=== PATIENT | male | born 1950 | race Two or more races ===

== ENCOUNTER 2021-04-11 06:21 | Outpatient (REF) | payer OTHER, SELFPAY ==
--- NOTE | ~2021-04-11 | XR_ITS ---
EXAMINATION: XR SHOULDER, LEFT CLINICAL INFORMATION: Left shoulder pain COMPARISON: None TECHNIQUE: Left shoulder is imaged in 3 views. FINDINGS: There is no fracture, dislocation, or destructive process. The glenohumeral joint is unremarkable. The acromioclavicular alignment is normal. There are some fine punctate calcifications adjacent to the greater tuberosity consistent with calcific tendinosis. XR/XR shoulder LT min 2V IMPRESSION: Punctate calcification adjacent to greater tuberosity consistent with calcific tendinosis.
== END 2021-04-11 06:22 | disposition home or self-care (01) ==
LOC: HO.HOSX 06:21
PROVIDERS: Visit Provider Physician Assistant
DX: M75.32 Calcific tendinitis of left shoulder (principal)
CPT/HCPCS: 20610; 73030; J1040

== ENCOUNTER → 2021-05-23 13:57 | Outpatient (BNVA) | payer OTHER, SELFPAY | PROVIDERS: PCP Nurse Practitioner Primary Care; Visit Provider Physician Assistant | DX: Z13.89 Encounter for screening for other disorder (principal) ==

== ENCOUNTER 2021-06-07 10:23 | Outpatient (REF) | payer MEDICARE, SELFPAY ==
--- NOTE | ~2021-06-07 | MR_ITS ---
EXAMINATION: MRI LEFT SHOULDER WITHOUT CONTRAST CLINICAL INFORMATION: Left shoulder pain. Recent cortisone injection. COMPARISON: Radiograph dated 04/11/2021. TECHNIQUE: MR images of the shoulder were obtained on a 1.5 Kanika high-field strength scanner without intravenous contrast material. FINDINGS: ROTATOR CUFF: Minimal supraspinatus and subscapularis tendinosis. No tears. Small foci of calcific tendinosis is suspected on radiograph are not well seen by MRI, the radiograph is more sensitive. There is moderate atrophy and grade 2 fatty replacement of the teres minor muscle. No deltoid muscle atrophy. No additional rotator cuff muscle atrophy or fatty infiltration. 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 This lipoma produces minimal mass effect upon the axillary nerve just proximal to the quadrilateral space. BICEPS: Normal. CORACOACROMIAL ARCH: The undersurface of the acromion is flat with a small anterior subacromial spur. Mild acromioclavicular osteoarthritis. Trace subacromial-subdeltoid bursitis. LABRUM/CAPSULE: The posterosuperior labrum is ill-defined increased intrasubstance signal throughout from the 11 o'clock position through the 10 o'clock position, likely corresponding to an tear with significant fraying. The joint capsule is mildly thickened and edematous at the axillary pouch. The coracohumeral ligament is also thickened. GLENOHUMERAL JOINT/MARROW: Small glenoid osteophytes. There is a 6 x 8 mm partial-thickness chondral defect at the humeral head superomedially. Articular cartilage is otherwise normal. No fracture or malalignment. MR/MR shoulder LT wo con IMPRESSION: 1. Foci of calcific tendinosis seen on prior radiographs are not apparent by MRI. Minimal rotator cuff tendinosis. 2. Mild acromioclavicular and glenohumeral osteoarthritis. Focal degenerative tear of the posterosuperior glenoid labrum. 3. Moderate atrophy of the teres minor muscle, most likely idiopathic in nature. It is possible that mass effect on the axillary nerve produced by a 2.7 cm lipoma just anterior and inferior to the glenohumeral joint could have contributed to this appearance, though the deltoid muscle is normal in bulk without appreciable atrophy. 4. Mild capsular thickening and edema at the glenohumeral joint. This could be due to a mild capsular sprain. Adhesive capsulitis is also on the differential.
== END 2021-06-07 10:24 | disposition home or self-care (01) ==
LOC: HO.MRI 10:23
PROVIDERS: Visit Provider Physician Assistant
DX: S46.002A Unspecified injury of muscle(s) and tendon(s) of the rotator cuff of left shoulder, initial encounter (principal)
CPT/HCPCS: 73221

== ENCOUNTER 2021-06-15 10:22 | Emergency (ER) | payer MEDICARE, SELFPAY ==
[2021-06-15 10:28] VITALS: BP 176/89; PULSE 95; RESP 16; TEMP 36.1; O2SAT 97; BMI 27.3
--- NOTE | 2021-06-15 10:31 | ED_ITS ---
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 Patient states that 2 months ago he started to have this feeling of being itchy all over. Patient states he saw a different doctor a month ago who gave him a medication to help with the itching but it isn't. Patient denies any dizziness, lightheadedness, abdominal pain, nausea, vomiting, fever, chills, blurry vision, double vision, loss of vision, chest pain, difficulty breathing, shortness of breath, back pain, night sweats, pain with urination, increased urinary frequency, increased urinary urgency, blood in his urine or stool, syncope or a near syncopal episode, recent trauma or falls, bowel incontinence, bladder incontinence, bowel retention, bladder retention, or any other complaints at this time. Patient denies any medication changes, new soaps, or any new environmental items. Onset (ago): month(s) (2) Treatments prior to arrival: none Related Data Home Medications Medication Instructions Recorded Confirmed amlodipine 5 mg tablet 5 mg PO DAILY 05/23/21 capsaicin 0.1 % topical cream appl TOPICAL 05/23/21 (Capzasin-HP) diclofenac sodium 75 mg 75 mg PO DAILY 05/23/21 tablet,delayed release diphenhydramine HCl 25 mg tablet 25 mg PO BEDTIME 05/23/21 (Armida-Dryl) omeprazole 20 mg capsule,delayed 20 mg PO DAILY 05/23/21 release tizanidine 2 mg tablet 2 mg PO BID PRN 05/23/21 triamcinolone acetonide 0.1 % appl TOPICAL BID 05/23/21 topical cream Previous Rx's Medication Instructions Recorded diphenhydramine HCl 25 mg tablet 25 mg PO TID PRN 7 Days #20 tab 06/15/21 (Benadryl Allergy) Allergies Allergy/AdvReac Type Severity Reaction Status Date / Time No Known Allergies Allergy Verified 05/23/21 14:18 Review of Systems Constitutional: Constitutional: Reports no additional constitutional complaints, Denies chills, Denies fever(s) and Denies night sweats Eyes: Eyes: Reports no additional eye complaints, Denies blurry vision, Denies change in vision, Denies diplopia, Denies eye discharge, Denies loss of vision and Denies eye pain ENT: Denies dizziness Cardiovascular: Cardiovascular: Reports no additional cardiovascular complaints, Denies chest pain, Denies lightheadedness, Denies Loss of Consciousness and Denies dyspnea Respiratory: Respiratory: Reports no additional respiratory complaints and Denies dyspnea Gastrointestinal: Gastrointestinal: Reports no additional gastrointestinal complaints, Denies abdominal pain, Denies melena, Denies hematochezia, Denies change in bowel habits and Denies change in stool character Genitourinary: Genitourinary: Reports no additional male genitourinary complaints, Denies hematuria, Denies oliguria, Denies difficulty urinating, Denies dysuria, Denies urinary frequency, Denies urinary hesitancy, Denies urinary incontinence and Denies urinary urgency Musculoskeletal: Musculoskeletal: Reports no additional musculoskeletal complaints, Denies numbness and Denies tingling Integumentary/Breasts: Comments: feeling as though all of his skin it itching Neurologic: Denies dizziness, Denies loss of vision, Denies numbness and Denies tingling Psychiatric: Psychiatric: Reports no additional psychiatric complaints Endocrine: Endocrine: Reports no additional endocrine complaints Hematologic/Lymphatic: Hematologic/Lymphatic: Reports no additional hematologic/lymphatic complaints Allergic/Immunologic: Allergic/Immunologic: Reports no additional allergic/immunologic complaints [facility] Past Medical History Attestation statement: The following information was validated with the patient. Source: old records reviewed Medical History HTN (hypertension) Surgical History History of inguinal hernia repair Family History Family History Mother Asthma Alzheimer disease Father Asthma Social History Social History Household Members Other:: sister Housing: Apartment Alcohol intake: former Patient Tobacco Use Status: Former Tobacco user Advance Directives: No Advance Directives Information Provided: No Current occupational status: disabled Current occupation: rt handed Physical Exam ED Vital Signs: Vital Signs - 24 hr 06/15/21 10:28 Temperature 96.9 F Pulse Rate 95 Respiratory Rate 16 Blood Pressure 176/89 H Pulse Oximetry 97 BMI result Body Mass Index 27.3 Const General: cooperative, no acute distress, alert and awake Nutritional Appearance: well nourished Orientation/consciousness: patient oriented x3 Limitations: no limitations HENMT Head: Yes normal to inspection and Yes atraumatic Ears: hearing grossly normal bilaterally and external ears normal General nose exam: Normal external nose present, no nasal discharge noted and no epistaxis Face and sinus: Yes normal facial exam, No abrasion and No laceration Mouth: Normal oral and palatal mucosa present, no drooling and no muffled voice Eyes General: appearance normal, both eyes and all related structures Periorbital: periorbital findings normal Eyelids: Yes eyelids normal Conjunctivae: conjunctivae normal Pupils: Equal, round and reactive pupils present EOM: EOMs intact bilaterally Neck Neck: Yes normal visual inspection, Yes full ROM and Yes no lymphadenopathy Chest Chest palpation & inspection: normal inspection of the chest Resp Effort & Inspection: normal respiratory effort and able to speak in complete sentences Auscultation: clear to auscultation bilaterally Cardio Rate: regular rate Rhythm: regular rhythm GI Inspection: Yes normal to inspection Skin Other: No definite rash seen, patient is describing an itchy feeling all over Neuro General: patient oriented x3 and moves all extremities Cranial nerves: Yes Equal, round and reactive pupils present Cognition (Neuro): normal cognition Motor exam (neuro): 5/5 motor strength present throughout Sensory Exam: Normal double simultaneous stimulation for sensation Coordination: [id number] test normal Extrem General: Yes normal to inspection, Yes full ROM and Yes capillary refill normal Psych Appearance: grossly normal Mental Status: mental status grossly normal Affect: normal affect Attitude: cooperative Thought process: Normal thought process present Thought content: Normal thought content present Insight: Good insight present (Psych) Medical Decision Making [facility] Narrative Medical decision making narrative: Patient is a 70 year old male presenting to the emergency department today with an itchy feeling. Patient's physical exam was unremarkable. Upon reviewing the patient's records, I noted the patient to have gotten a joint injection 2 months ago, the day before his itchy symptoms started. I explained to the patient that this could be an allergic reaction from the joint injection and that the medication he was given could have been an additional steroid which may have made his symptoms worse. I explained my physical exam findings to the patient. I answered all questions asked by the patient. I explained to the patient that he should avoid additional prescription steroids and continue to take Benadryl for the itch. I explained to the patient that this could take an additional 30 days to clear as the typical length of joint injections is 90 days. I reached out to PRIYA Barrow from orthopedics who administered the injection and she mentioned that another patient had a bit of an issue with a joint reaction recently. She stated she would alert the first aid officer. I stressed the importance of the patient taking his medication as prescribed. I stressed the importance of the patient following up with his primary care provider. I stressed the importance of the patient returning to the emergency department immediately if his symptoms were to worsen or if he were to develop any dizziness, shortness of breath, difficulty breathing, chest pain, blurry vision, loss of vision, nausea, vomiting, abdominal pain, fever, chills, back pain, or any other complaints. Patient verbalized agreement and understanding with this treatment plan and discharge. Differential Diagnosis Differential Diagnosis: Allergic reaction, puritis Medical Records Medical records reviewed: Yes I reviewed the patient's medical records. Discharge Plan Discharge Clinical Impression: Allergic reaction Patient Disposition: Home, Self-Care Instructions: General Allergic Reaction (ED) Additional Instructions: Follow up with your primary care provider. Return to the emergency department immediately if your symptoms worsen or if you develop any dizziness, shortness of breath, difficulty breathing, chest pain, blurry vision, loss of vision, nausea, vomiting, abdominal pain, fever, chills, back pain, or any other complaints. Prescriptions: New diphenhydramine HCl [Benadryl Allergy] 25 mg tablet 25 mg PO TID PRN (Reason: allergic reaction) 7 Days Qty: 20 0RF No Action diphenhydramine HCl [Armida-Dryl] 25 mg tablet 25 mg PO BEDTIME 0RF triamcinolone acetonide 0.1 % cream topical BID 0RF capsaicin [Capzasin-HP] 0.1 % cream topical 0RF omeprazole 20 mg capsule,delayed release(DR/EC) 20 mg PO DAILY 0RF amlodipine 5 mg tablet 5 mg PO DAILY 0RF diclofenac sodium 75 mg tablet,delayed release (DR/EC) 75 mg PO DAILY 0RF tizanidine 2 mg tablet 2 mg PO BID PRN0RF Referrals: Elizabeth Gaona CARDI[facility] SONOGRAPHER [Primary Care Provider] - (Follow up with your PCP as needed. ) Print Language: [place]
== END 2021-06-15 11:02 | disposition home or self-care (01) ==
LOC: HO.ED 10:54
PROVIDERS: Emergency Provider Emergency Medicine; PCP Nurse Practitioner Primary Care
DX: R21 Rash and other nonspecific skin eruption (principal); T78.40XA Allergy, unspecified, initial encounter; X58.XXXA Exposure to other specified factors, initial encounter
CPT/HCPCS: 99283

== ENCOUNTER 2021-06-25 12:14 | Emergency (ER) | payer MEDICARE, SELFPAY ==
--- NOTE | 2021-06-25 | ECG_ITS ---
Test Reason : provenc Blood Pressure : / mmHG Vent. Rate : 077 BPM Atrial Rate : 077 BPM P-R Int : 162 ms QRS Dur : 088 ms QT Int : 344 ms P-R-T Axes : 011 -19 -05 degrees QTc Int : 389 ms Normal sinus rhythm Cannot rule out Inferior infarct , age undetermined Cannot rule out Anterior infarct , age undetermined Abnormal ECG No previous ECGs available Referred By: Generic ED Physician Electronically Signed By:SULEIMAN SO MD
--- NOTE | ~2021-06-25 | XR_ITS ---
EXAMINATION: XR CHEST CLINICAL INFORMATION: Chest pain COMPARISON: Previous chest CT May 2016 TECHNIQUE: Frontal view of the chest was obtained. FINDINGS: The cardiac and mediastinal contours are stable. The lungs are clear. There is no pleural effusion or pneumothorax. There are degenerative changes of the spine. XR/XR chest 1V IMPRESSION: No evidence for acute disease in the chest.
[2021-06-25 12:31] VITALS: BP 161/88; PULSE 83; RESP 18; TEMP 36.7; O2SAT 96; BMI 27.3
--- NOTE | 2021-06-25 12:34 | ED_ITS ---
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 History of hypertension, elevated cholesterol, possible obstructive sleep apnea, 4 days ago patient had a 1st episode of left-sided chest pain described as dull aching pain to the left chest radiating to the left shoulder with numbness of the left upper extremities, patient was sleeping when the pain started walking up from sleep described as severe 10/10, lasted for about 30 minutes then was relieved, no aggravating factor, no relieving factors. Patient had a 2nd similar episode of chest pain 2 days ago, went to see his PCP who sent him to the ED for further evaluation. Currently patient has no symptoms, no chest pain, shortness of breath, fever, no history of chest trauma. Patient declined any lower extremity swelling or tenderness, no recent travel. Related Data Home Medications Medication Instructions Recorded Confirmed amlodipine 5 mg tablet 5 mg PO DAILY 05/23/21 capsaicin 0.1 % topical cream appl TOPICAL 05/23/21 (Capzasin-HP) diclofenac sodium 75 mg 75 mg PO DAILY 05/23/21 tablet,delayed release diphenhydramine HCl 25 mg tablet 25 mg PO BEDTIME 05/23/21 (Armida-Dryl) omeprazole 20 mg capsule,delayed 20 mg PO DAILY 05/23/21 release tizanidine 2 mg tablet 2 mg PO BID PRN 05/23/21 triamcinolone acetonide 0.1 % appl TOPICAL BID 05/23/21 topical cream Previous Rx's Medication Instructions Recorded diphenhydramine HCl 25 mg tablet 25 mg PO TID PRN 7 Days #20 tab 06/15/21 (Benadryl Allergy) Allergies Allergy/AdvReac Type Severity Reaction Status Date / Time cortisone Allergy Itching Verified 06/25/21 12:41 Review of Systems Review of Systems: All other systems are reviewed and are negative Constitutional: Reports as per HPI and Reports no additional constitutional complaints Eyes: Reports as per HPI and Reports no additional eye complaints Reports system reviewed and no additional complaints, except as documented Cardiovascular: Reports as per HPI and Reports no additional cardiovascular complaints Respiratory: Reports as per HPI and Reports no additional respiratory complaints Gastrointestinal: Reports as per HPI and Reports no additional gastrointestinal complaints Genitourinary: Reports no additional female genitourinary complaints Musculoskeletal: Reports no additional musculoskeletal complaints Skin/Breast: Reports system reviewed and no additional complaints, except as docu Psychiatric: Reports no additional psychiatric complaints Endocrine: Reports no additional endocrine complaints Hematologic/Lymphatic: Reports no additional hematologic/lymphatic complaints Allergic/Immunologic: Reports no additional allergic/immunologic complaints Reports system reviewed and no additional complaints, except as documented and Reports Abnormal speech present [facility] Past Medical History Medical History Arthritis HTN (hypertension) Shoulder pain, left Surgical History History of inguinal hernia repair Family History Family History Mother Asthma Alzheimer disease Father Asthma Social History Social History Household Members Other:: sister Housing: Apartment Alcohol intake: former Patient Tobacco Use Status: Former Tobacco user Use of substances other than those prescribed or required for medical reasons: No Advance Directives: No Advance Directives Information Provided: No Current occupational status: disabled Current occupation: rt handed Physical Exam Vital Signs: Vital Signs: Last Vital Signs Temp 98.1 F 06/25/21 12:31 Pulse 72 06/25/21 13:56 Resp 20 06/25/21 13:56 BP 156/94 H 06/25/21 13:56 Pulse Ox 97 06/25/21 13:56 BMI result Body Mass Index 27.3 Vital signs have been reviewed as appeared to be correct. Blood pressure normal. Heart rate normal. Respiration rate normal. Temperature normal. Oxygen saturation normal. Appearance: Alert. Oriented X3. No acute distress. Head: Normal external exam. Normocephalic. Atraumatic. No [place] signs noted. No raccoon eyes noted Eyes: PERRLA. EOMI. Conjunctiva and sclera normal. Eyelids normal. ENT: TM's Normal. Pharynx normal. Uvula midline. Moist mucous membranes. No trismus noted. No drooling noted. No muffled voice noted. Neck: Normal inspection. Neck supple. FROM. No adenopathy. Thyroid Normal. No meningeal signs. No neck mass noted. CVS: Normal heart rate and rhythm. Heart sound normal. No murmurs noted. Pulses normal throughout. Respiratory: No respiratory distress. Painless inspiration. Breath sounds normal. No wheezes/rales/rhonchi noted. Chest nontender. No accessory muscle usage noted or decreased air movement noted. Abdomen: Soft and nontender. Bowel sounds normal in all 4 quadrants. No distention noted. No organomegaly noted. No visible injury noted. Back: No CVA tenderness. Full range of motion noted. Skin: Skin warm and dry. Normal skin color. Normal skin turgor. No rashes/lesions/lacerations noted. Extremities: No lower extremity edema. Extremities exhibit normal range of motion. Extremities nontender. Neuro: Oriented X 3. Cranial nerve exam: II-XII are grossly intact No motor deficit. No sensory deficit. Reflexes normal. Course Course Course Narrative: Assessment and plan. 70 years old male brought in from PCP office for evaluation of chest pain. HEART score of 3, patient also has no risk factor for PE with a negative D- dimer, unremarkable chest x-ray. Patient did not have any chest pain today last chest pain was 2 days ago, patient was instructed to follow-up with his PCP for further evaluation. [facility] - Chest Pain Medical Records Data Attestation: I reviewed the patient's medical records. Lab Data Attestation: I reviewed the patient's lab results. Result diagrams: 06/25/21 13:53 06/25/21 13:53 Labs: Lab Results 06/25/21 06/25/21 06/25/21 Range/Units 13:53 13:53 13:53 WBC 7.2 (4.8-10.8) X10*3/uL RBC 5.14 (4.60-5.80) X10*6/uL Hgb 15.3 (14.0-18.0) g/dl Hct 45.7 (42.0-52.0) % MCV 88.9 (80.0-98.0) fL MCH 29.8 (27.0-33.0) pg MCHC 33.5 (31.0-36.0) g/dl RDW 13.2 (11.0-16.0) % Plt Count 268 (160-400) X10*3/uL MPV 9.9 (9.4-12.4) fL Immature Gran % (Auto) 0.3 (0.0-0.4) % Neut % (Auto) 59.4 (45-73) % Lymph % (Auto) 20.3 (20-40) % [place] % (Auto) 8.1 (2-11) % Eos % (Auto) 11.3 H (0-4) % Baso % (Auto) 0.6 (0-2) % Lymph # (Auto) 1.5 (1.2-4.9) X10*3/uL [place] # (Auto) 0.6 (0.1-1.2) X10*3/uL Eos # (Auto) 0.8 H (0.0-0.4) X10*3/uL Baso # (Auto) 0.0 (0.0-0.2) X10*3/uL Abs Immat Gran (auto) 0.02 (0.00-0.03) X10*3/uL Absolute Neuts (auto) 4.3 (2.0-8.3) x10*3/uL Absolute Nucleated RBC 0.000 (0.0-0.012) X10*3/uL Nucleated RBC % (auto) 0.0 (0.0-0.2) /100WBC D-Dimer High Sensitivty NG/ML Sodium 141 (135-145) mmol/L Potassium 4.6 (3.3-5.1) mmol/L Chloride 107 (96-108) mmol/L Carbon Dioxide 26 (22-29) mmol/L Anion Gap 13 (12-20) BUN 16 (9-16) mg/dL Creatinine 0.87 (0.5-1.4) mg/dL Estim Creat Clear Calc 82.0 Estimated GFR > 60 Random Glucose 126 H (60-115) mg/dL Calcium 9.5 (8.4-10.2) mg/dL Total Bilirubin 0.6 (0.0-1.0) mg/dL Direct Bilirubin 0.2 (0.0-0.5) mg/dL AST 22 (5-37) U/L ALT 45 H (0-40) U/L Alkaline Phosphatase 82 (39-117) U/L Troponin I High Sens < 3.5 (<3.5-35.0) ng/L B-Natriuretic Peptide (<100) pg/mL Total Protein 7.6 (6.5-8.0) g/dL Albumin 4.4 (3.5-5.0) g/dL Lipase 66 (8-78) U/L 06/25/21 06/25/21 Range/Units 13:53 13:53 WBC (4.8-10.8) X10*3/uL RBC (4.60-5.80) X10*6/uL Hgb (14.0-18.0) g/dl Hct (42.0-52.0) % MCV (80.0-98.0) fL MCH (27.0-33.0) pg MCHC (31.0-36.0) g/dl RDW (11.0-16.0) % Plt Count (160-400) X10*3/uL MPV (9.4-12.4) fL Immature Gran % (Auto) (0.0-0.4) % Neut % (Auto) (45-73) % Lymph % (Auto) (20-40) % [place] % (Auto) (2-11) % Eos % (Auto) (0-4) % Baso % (Auto) (0-2) % Lymph # (Auto) (1.2-4.9) X10*3/uL [place] # (Auto) (0.1-1.2) X10*3/uL Eos # (Auto) (0.0-0.4) X10*3/uL Baso # (Auto) (0.0-0.2) X10*3/uL Abs Immat Gran (auto) (0.00-0.03) X10*3/uL Absolute Neuts (auto) (2.0-8.3) x10*3/uL Absolute Nucleated RBC (0.0-0.012) X10*3/uL Nucleated RBC % (auto) (0.0-0.2) /100WBC D-Dimer High Sensitivty < 150 NG/ML Sodium (135-145) mmol/L Potassium (3.3-5.1) mmol/L Chloride (96-108) mmol/L Carbon Dioxide (22-29) mmol/L Anion Gap (12-20) BUN (9-16) mg/dL Creatinine (0.5-1.4) mg/dL Estim Creat Clear Calc Estimated GFR Random Glucose (60-115) mg/dL Calcium (8.4-10.2) mg/dL Total Bilirubin (0.0-1.0) mg/dL Direct Bilirubin (0.0-0.5) mg/dL AST (5-37) U/L ALT (0-40) U/L Alkaline Phosphatase (39-117) U/L Troponin I High Sens (<3.5-35.0) ng/L B-Natriuretic Peptide < 10 (<100) pg/mL Total Protein (6.5-8.0) g/dL Albumin (3.5-5.0) g/dL Lipase (8-78) U/L Imaging Data Chest x-ray: Attestation: I personally reviewed and interpreted this imaging study as follows: Radiologist's impression: No evidence for acute disease in the chest. ? ECG Data ECG #1: Attestation: I personally reviewed and interpreted this ECG as follows: Interpretation: Normal sinus rhythm at 77 beats per minutes, left axis deviation, normal intervals, no ST-T changes. Discharge Plan Discharge Clinical Impression: Chest pain Patient Disposition: Home, Self-Care Instructions: Chest Pain (ED) Prescriptions: No Action diphenhydramine HCl [Benadryl Allergy] 25 mg tablet 25 mg PO TID PRN (Reason: allergic reaction) 7 Days Qty: 20 0RF diphenhydramine HCl [Armida-Dryl] 25 mg tablet 25 mg PO BEDTIME 0RF triamcinolone acetonide 0.1 % cream topical BID 0RF capsaicin [Capzasin-HP] 0.1 % cream topical 0RF omeprazole 20 mg capsule,delayed release(DR/EC) 20 mg PO DAILY 0RF amlodipine 5 mg tablet 5 mg PO DAILY 0RF diclofenac sodium 75 mg tablet,delayed release (DR/EC) 75 mg PO DAILY 0RF tizanidine 2 mg tablet 2 mg PO BID PRN0RF Referrals: [facility] [Primary Care Provider] -
[2021-06-25 13:56] VITALS: BP 156/94; PULSE 70; PULSE 72; RESP 20; O2SAT 97
--- NOTE | 2021-06-25 14:02 | PC.NURSE ---
pt a&ox3, vss - pt hx of hypertensive, didn't take HTN meds this morning, evelated bp. labs draw, 20G IV placed right AC, cardiac monitored applied - NSR. pt denies pain, no shortness of breath, pt speaking in full sentences. no new orders at this time. lab results pending.
[2021-06-25 14:03] LABS: MANUAL DIFF FLAG NO
[2021-06-25 14:10] LABS: Basophils Percent Auto 0.6 % (0-2); Eosinophils Absolute Auto 0.8 X10*3/uL (0.0-0.4); Eosinophils Percent Auto 11.3 % (0-4); Hematocrit 45.7 % (42.0-52.0); Hemoglobin 15.3 g/dl (14.0-18.0); Imm Gran Abs Auto 0.02 X10*3/uL (0.00-0.03); Imm Gran Pct Auto 0.3 % (0.0-0.4); Lymphocytes Absolute Auto 1.5 X10*3/uL (1.2-4.9); Lymphocytes Percent Auto 20.3 % (20-40); Mean Corpuscular HGB Conc 33.5 g/dl (31.0-36.0); Mean Corpuscular Hemoglobin 29.8 pg (27.0-33.0); Mean Corpuscular Volume 88.9 fL (80.0-98.0); Mean Platelet Volume 9.9 fL (9.4-12.4); Monocytes Absolute Auto 0.6 X10*3/uL (0.1-1.2); Monocytes Percent Auto 8.1 % (2-11); Neutrophils Absolute Auto 4.3 x10*3/uL (2.0-8.3); Neutrophils Percent Auto 59.4 % (45-73); Platelet Count 268 X10*3/uL (160-400); Red Blood Count 5.14 X10*6/uL (4.60-5.80); Red Cell Distribution Width 13.2 % (11.0-16.0); White Blood Count 7.2 X10*3/uL (4.8-10.8)
[2021-06-25 14:22] LABS: Alanine Aminotransferase 45 U/L (0-40); Albumin Level 4.4 g/dL (3.5-5.0); Alkaline Phosphatase 82 U/L (39-117); Anion Gap 13 (12-20); Aspartate Amino Transferase 22 U/L (5-37); Bilirubin Direct 0.2 mg/dL (0.0-0.5); Bilirubin Total 0.6 mg/dL (0.0-1.0); Blood Urea Nitrogen 16 mg/dL (9-16); Calcium 9.5 mg/dL (8.4-10.2); Carbon Dioxide 26 mmol/L (22-29); Chloride 107 mmol/L (96-108); Estimated Glomerular Filt Rate > 60; Glucose Random 126 mg/dL (60-115); Lipase 66 U/L (8-78); Potassium 4.6 mmol/L (3.3-5.1); Sodium 141 mmol/L (135-145); Total Protein 7.6 g/dL (6.5-8.0)
[2021-06-25 14:24] LABS: Troponin-I High Sensitivity < 3.5 ng/L (<3.5-35.0)
[2021-06-25 14:25] LABS: B Type Natriuretic Peptide < 10 pg/mL (<100)
[2021-06-25 14:44] LABS: D Dimer High Sensitivity < 150 NG/ML
== END 2021-06-25 15:07 | disposition home or self-care (01) ==
PROVIDERS: Emergency Provider Emergency Medicine
DX: R07.89 Other chest pain (principal); I10 Essential (primary) hypertension; M25.512 Pain in left shoulder; R06.02 Shortness of breath; Z79.899 Other long term (current) drug therapy; Z87.891 Personal history of nicotine dependence
CPT/HCPCS: 36415; 71045; 80048; 80076; 83690; 83880; 84484; 85025; 85379; 93005; 99283; 99285

== ENCOUNTER → 2021-07-05 13:02 | Outpatient (BNVA) | payer MEDICARE, SELFPAY | PROVIDERS: Visit Provider Nurse Practitioner Family | DX: R06.83 Snoring (principal); R40.0 Somnolence; R06.81 Apnea, not elsewhere classified | CPT/HCPCS: 99202 ==

== ENCOUNTER 2021-07-08 09:59 | Emergency (ER) | payer MEDICARE, SELFPAY ==
[2021-07-08 10:40] VITALS: BP 150/93; PULSE 81; RESP 16; TEMP 36.6; O2SAT 97; BMI 27.3
--- NOTE | 2021-07-08 11:48 | ED_ITS ---
HPI - Skin/Abscess/Foreign Bdy General Chief complaint: Skin/Abscess/Foreign Body Stated complaint: rash Time Seen by Provider: 07/08/21 11:36 Source: patient Mode of arrival: ambulatory History of Present Illness HPI narrative: 70-year-old male with past medical history arthritis, hypertension presenting to the ED complaining of pruritic rash x3 months. States rash waxes and wanes, worsens after itching. States up PCP you gave him cream which made symptoms worse. Denies new medications, new exposures/lotion or detergent, tic/insect bites, SOB, palm or sole involvement complaint: rash Onset (ago): month(s) Related Data Home Medications Medication Instructions Recorded Confirmed amlodipine 5 mg tablet 5 mg PO DAILY 05/23/21 07/05/21 capsaicin 0.1 % topical cream appl TOPICAL 05/23/21 07/05/21 (Capzasin-HP) diclofenac sodium 75 mg 75 mg PO DAILY 05/23/21 07/05/21 tablet,delayed release diphenhydramine HCl 25 mg tablet 25 mg PO BEDTIME 05/23/21 07/05/21 (Armida-Dryl) omeprazole 20 mg capsule,delayed 20 mg PO DAILY 05/23/21 07/05/21 release tizanidine 2 mg tablet 2 mg PO BID PRN 05/23/21 07/05/21 triamcinolone acetonide 0.1 % appl TOPICAL BID 05/23/21 07/05/21 topical cream Previous Rx's Medication Instructions Recorded diphenhydramine HCl 25 mg tablet 25 mg PO TID PRN 7 Days #20 tab 06/15/21 (Benadryl Allergy) cetirizine 10 mg capsule (Zyrtec) 10 mg PO DAILY #14 cap 07/08/21 diphenhydramine HCl 2 % topical 1 appl TOPICAL BID PRN #103 ml 07/08/21 gel (Benadryl) diphenhydramine HCl 25 mg capsule 25 mg PO TID PRN #10 cap 07/08/21 (Benadryl) Allergies Allergy/AdvReac Type Severity Reaction Status Date / Time cortisone Allergy Itching Verified 07/05/21 13:06 Review of Systems Review of Systems: Constitutional: No Fever, No Chills ENT/Mouth: No Ear Pain, No Nasal Congestion, No Sinus Pain, No Hoarseness, No sore throat, No Rhinorrhea, No Swallowing Difficulty Cardiovascular: No Chest Pain, No SOB Respiratory: No Cough, No Sputum, No Wheezing Gastrointestinal: No Nausea, No Vomiting, No Diarrhea, No Constipation, No Abdominal pain Genitourinary: No Dysuria, No Urinary Frequency, No Hematuria, No Urinary Incontinence, No Urgency, No Flank Pain Musculoskeletal: No joint pain, No Myalgias, No Joint Swelling Skin: No Skin Lesions, + rash Neuro: No Weakness, No Numbness, No Paresthesias Yes all other systems are reviewed and are negative FOR[facility]LY [facility] Past Medical History Attestation statement: The following information was validated with the patient. Medical History Arthritis HTN (hypertension) Shoulder pain, left Surgical History History of inguinal hernia repair Family History Family History Mother Asthma Alzheimer disease Father Asthma Social History Social History Household Members Other:: sister Housing: Apartment Alcohol intake: former Patient Tobacco Use Status: Former Tobacco user Advance Directives: No Advance Directives Information Provided: No Current occupational status: disabled Current occupation: rt handed Physical Exam Vital Signs: Vital Signs: Last Vital Signs Temp 97.8 F 07/08/21 10:40 Pulse 81 07/08/21 10:40 Resp 16 07/08/21 10:40 BP 150/93 H 07/08/21 10:40 Pulse Ox 97 07/08/21 10:40 BMI result Body Mass Index 27.3 Const: General: cooperative, healthy appearing and no acute distress Orientation/consciousness: patient oriented x3 Limitations: no limitations HEENT: Head: Yes normal to inspection and Yes atraumatic Ears: hearing grossly normal bilaterally General nose exam: Normal external nose present Face and sinus: Yes normal facial exam Eyes: General: appearance normal, both eyes and all related structures EOM: EOMs intact bilaterally Neck: Neck: Yes normal visual inspection and Yes no meningeal signs Resp: Effort & Inspection: normal respiratory effort and no respiratory distress Cardio: Rate: regular rate Heart sounds: S1 normal heart sound present and S2 normal heart sound present Skin: Other: +diffuse spread out small erythematous macules and papules with overlying excoriations to abdomen, back, lower extremities, and scrotum. No palm or sole involvement. No mucous membrane involvement Wounds: no wounds Neuro: General: patient oriented x3, tone normal and no meningeal signs Gait exam (Neuro): Normal gait present Extrem: General: Yes normal to inspection MDM - Skin/Abscess/Foreign Bdy MDM Narrative Medical decision making narrative: 70-year-old male with past medical history arthritis, hypertension presenting to the ED complaining of pruritic rash x3 months. States rash waxes and wanes, worsens after itching. On exam vital signs stable, NAD/nontoxic appearing, no palm or sole involvement, no mucous membrane involvement, physical exam as above. Concern for dermatitis. Low concern for bedbugs/fleas, SJS or allergic reaction Differential Diagnosis Differential diagnosis: Likely abscess of skin or subcutaneous tissue Medical Records Attestation: I reviewed the patient's medical records. Lab Data Attestation: I reviewed the patient's lab results. Discharge Plan Discharge Clinical Impression: Rash Patient Disposition: Home, Self-Care Instructions: Acute Rash (ED) Additional Instructions: Apply topical Benadryl to rash. In addition take Benadryl as needed. Benadryl make you drowsy, take at night or when you know he will be home, do not drive or drink alcohol while taking Benadryl. Additionally Zyrtec can be taking daily in the morning this will not make you dr owsy YOU NEED TO FOLLOW-UP WITH A CHIEF DESIGN BRANCH. IF THE RASH IS WORSENING OR PERSISTENT READ DEVELOPS SHORTNESS OF BREATH/WHEEZING RETURN TO THE EMERGENCY DEPARTMENT Aplique Benadryl t?natali a la erupci?n. Adem?s, tome Benadryl seg?n sea necesario. Benadryl le provoca somnolencia, t?pat por la noche o cuando sepa que estar? en casa, no conduzca ni judith alcohol mientras amalia Benadryl. Adem?s, Zyrtec se puede eliot todos los d?as por la ma?shirley, esto no le provocar? somnolencia. NECESITA UN SEGUIMIENTO CON UN DERMAT?LOGO. SI LA ERUPCI?N EMPEORA O PERSISTENTE LEER DESARROLLA FALTA DE AIRE/SIBILIZACI?N REGRESE AL DEPARTAMENTO DE EMERGENCIA Prescriptions: New Benadryl 2 % gel 1 appl topical BID PRN (Reason: skin irritation) Qty: 103 0RF diphenhydramine HCl [Benadryl] 25 mg capsule 25 mg PO TID PRN (Reason: itching) Qty: 10 0RF Zyrtec 10 mg capsule 10 mg PO DAILY Qty: 14 0RF No Action diphenhydramine HCl [Benadryl Allergy] 25 mg tablet 25 mg PO TID PRN (Reason: allergic reaction) 7 Days Qty: 20 0RF diphenhydramine HCl [Armida-Dryl] 25 mg tablet 25 mg PO BEDTIME 0RF triamcinolone acetonide 0.1 % cream topical BID 0RF capsaicin [Capzasin-HP] 0.1 % cream topical 0RF omeprazole 20 mg capsule,delayed release(DR/EC) 20 mg PO DAILY 0RF amlodipine 5 mg tablet 5 mg PO DAILY 0RF diclofenac sodium 75 mg tablet,delayed release (DR/EC) 75 mg PO DAILY 0RF tizanidine 2 mg tablet 2 mg PO BID PRN0RF Referrals: Kalyani Jj PA [Physician Machine Tool Designer] - Scott Vallejo MD [Physician] - Clemencia Young NP [Nurse Practitioner] - Heydi Garay PA-C [Physician Machine Tool Designer] - Carli Keller PA-C [Physician Machine Tool Designer] - Print Language: Paraguayan
== END 2021-07-08 12:07 | disposition home or self-care (01) ==
PROVIDERS: Emergency Provider Emergency Medicine
DX: R21 Rash and other nonspecific skin eruption (principal); Z87.891 Personal history of nicotine dependence
CPT/HCPCS: 99283

== ENCOUNTER → 2021-07-19 12:32 | Outpatient (BNVA) | payer MEDICARE, SELFPAY | PROVIDERS: Visit Provider Physician Assistant | DX: M75.32 Calcific tendinitis of left shoulder (principal) | CPT/HCPCS: 99212 ==

== ENCOUNTER 2021-07-27 12:18 | Emergency (ER) | payer MEDICARE, SELFPAY ==
[2021-07-27 12:56] VITALS: BP 169/97; PULSE 84; RESP 18; TEMP 36.7; O2SAT 97; BMI 26.6
--- NOTE | 2021-07-27 13:11 | ED_ITS ---
HPI - Skin/Abscess/Foreign Bdy General Chief complaint: Skin/Abscess/Foreign Body Stated complaint: rash Time Seen by Provider: 07/27/21 13:01 Source: patient Mode of arrival: ambulatory Limitations: no limitations History of Present Illness HPI narrative: 71 y/o male with history of arthritis, HTN who presents to the ER with a itchy rash for the last 3-4 months. He was seen here for the same on 07/08/21 and he was given benadryl with instructions to follow up with a data software engineer. He was also seen here on 06/15/21 for itching (without visible rash) about 2 months after a joint injection which was thought to be the cause and steroids were deferred. Patient reports worsening itching with a rash on his trunk, scattered on his arms and his genitals. He denies fever or chills. No new soaps, lotions or detergents. He has been taking Benadyl without improvement. His doctor prescribed triamcinolone cream with no improvement. MD complaint: rash Onset (ago): month(s) Tetanus up to date: yes Location: generalized Severity: moderate Quality: constant and pruritic Pain Consistency: constant Relieving factors: none Exacerbating factors: none Context: none Associated symptoms: itching Treatments prior to arrival: Benadryl and corticosteroid Related Data Home Medications Medication Instructions Recorded Confirmed amlodipine 5 mg tablet 5 mg PO DAILY 05/23/21 07/05/21 capsaicin 0.1 % topical cream appl TOPICAL 05/23/21 07/05/21 (Capzasin-HP) diclofenac sodium 75 mg 75 mg PO DAILY 05/23/21 07/05/21 tablet,delayed release diphenhydramine HCl 25 mg tablet 25 mg PO BEDTIME 05/23/21 07/05/21 (Armida-Dryl) omeprazole 20 mg capsule,delayed 20 mg PO DAILY 05/23/21 07/05/21 release tizanidine 2 mg tablet 2 mg PO BID PRN 05/23/21 07/05/21 triamcinolone acetonide 0.1 % appl TOPICAL BID 05/23/21 07/05/21 topical cream Previous Rx's Medication Instructions Recorded diphenhydramine HCl 25 mg tablet 25 mg PO TID PRN 7 Days #20 tab 06/15/21 (Benadryl Allergy) cetirizine 10 mg capsule (Zyrtec) 10 mg PO DAILY #14 cap 07/08/21 diphenhydramine HCl 2 % topical 1 appl TOPICAL BID PRN #103 ml 07/08/21 gel (Benadryl) diphenhydramine HCl 25 mg capsule 25 mg PO TID PRN #10 cap 07/08/21 (Benadryl) hydroxyzine HCl 25 mg tablet 25 mg PO TID PRN #14 tab 07/27/21 permethrin 5 % topical cream 1 appl TOPICAL Q14D #240 g 07/27/21 (Elimite) Allergies Allergy/AdvReac Type Severity Reaction Status Date / Time cortisone Allergy Itching Verified 07/19/21 12:44 Review of Systems Review of Systems: Constitutional: No Fever, No Chills ENT/Mouth: No sore throat, No Rhinorrhea, Eyes: No Eye Pain, No Swelling, No Redness Cardiovascular: No Chest Pain, No SOB Respiratory: No Cough, No Sputum, No Wheezing, No dyspnea Gastrointestinal: No Nausea, No Vomiting, No Diarrhea, No abdominal Pain Musculoskeletal: No joint pain, No Myalgias Skin: No Skin Lesions, + rash Neuro: No Weakness, No Numbness, No Dizziness, No Headache Psych: + Anxiety/Panic, No Depression Heme/Lymph: No Bruising, No Lymphadenopathy PMFSH Past Medical History Medical History Arthritis HTN (hypertension) Shoulder pain, left Surgical History History of inguinal hernia repair Family History Family History Mother Asthma Alzheimer disease Father Asthma Social History Social History Household Members Other:: sister Housing: Apartment Alcohol intake: former Patient Tobacco Use Status: Former Tobacco user Advance Directives: No Advance Directives Information Provided: No Current occupational status: disabled Current occupation: rt handed Physical Exam Vital Signs: Vital Signs: Last Vital Signs Temp 98.0 F 07/27/21 12:56 Pulse 84 07/27/21 12:56 Resp 18 07/27/21 12:56 BP 169/97 H 07/27/21 12:56 Pulse Ox 97 07/27/21 12:56 BMI result Body Mass Index 26.6 Appearance: Alert. Oriented X3. No acute distress. HEENT: normal inspection CVS: Normal heart rate and rhythm. Pulses normal. Respiratory: No respiratory distress. Skin: Skin warm and dry. Normal skin color. Normal skin turgor. There is a diffuse rash on the trunk, tiny small erythematous papules appearing like small bites. worse on the abdominal wall. there are also scattered lesions on the arms. +lesion in the web space of the right hand. +lesions on the shaft of the penis as well Extremities: normal inspection x4 Neuro: Oriented X 3. No motor deficit. No sensory deficit. Course Course Course Narrative: 71-year-old male with history of arthritis, hypertension who presents to the ER with extremely pruritic rash for the last several months. He was seen here twice for the same. His 1st visit he had no rash present and it was shortly after a steroid injection into the joint, concern for possible etiology from the joint injection itself. He was never prescribed steroids as the taking intermittent Benadryl with little improvement. On examination he has what appeared to be small little bites all over his trunk, scattered on his extremities and on the shaft of his penis. There are lesions in the webs of his fingers. Concern for scabies. Will treat accordingly. Will also refer to dermatology. framing mill operator helper used to explain instructions for treatment and need for follow-up. Stable for discharge home. Critical Care Time Critical Care Time Critical Care Time: No Discharge Plan Discharge Clinical Impression: Scabies infestation Patient Disposition: Home, Self-Care Instructions: Scabies (ED) Additional Instructions: Tonight apply the prescribed cream all over your trunk, arms, legs, genitals and leave on overnight. And take a warm shower in the morning to wash off the cream This will need to be repeated in 1 week Wash all of your linen in hot water Recommend following up with your doctor next week as well as following up with a data software engineer given your chronic itching and chronic rash. Prescriptions: New permethrin [Elimite] 5 % cream 1 appl topical Q14D Qty: 240 0RF Rx Instructions: apply second treatment 14 days after first treatment if live lice remain hydroxyzine HCl 25 mg tablet 25 mg PO TID PRN (Reason: itching) Qty: 14 0RF No Action diphenhydramine HCl [Benadryl Allergy] 25 mg tablet 25 mg PO TID PRN (Reason: allergic reaction) 7 Days Qty: 20 0RF Benadryl 2 % gel 1 appl topical BID PRN (Reason: skin irritation) Qty: 103 0RF diphenhydramine HCl [Benadryl] 25 mg capsule 25 mg PO TID PRN (Reason: itching) Qty: 10 0RF Zyrtec 10 mg capsule 10 mg PO DAILY Qty: 14 0RF diphenhydramine HCl [Armida-Dryl] 25 mg tablet 25 mg PO BEDTIME 0RF triamcinolone acetonide 0.1 % cream topical BID 0RF capsaicin [Capzasin-HP] 0.1 % cream topical 0RF omeprazole 20 mg capsule,delayed release(DR/EC) 20 mg PO DAILY 0RF amlodipine 5 mg tablet 5 mg PO DAILY 0RF diclofenac sodium 75 mg tablet,delayed release (DR/EC) 75 mg PO DAILY 0RF tizanidine 2 mg tablet 2 mg PO BID PRN0RF Referrals: Carli Keller, IRINAC [Physician Boiler/Chiller Technician] - (chronic pruritic rash) Interventions: ED Discharge Assessment Last Done: 07/27/21 14:16 Print Language: Kazakh
== END 2021-07-27 14:19 | disposition home or self-care (01) ==
LOC: HO.ED 13:47
PROVIDERS: Emergency Provider Emergency Medicine Emergency Medical Services
DX: B86 Scabies (principal); R21 Rash and other nonspecific skin eruption; Z87.891 Personal history of nicotine dependence
CPT/HCPCS: 99283

== ENCOUNTER → 2021-09-12 20:31 | Outpatient (REF) | payer OTHER, SELFPAY | LOC: HO.SL 20:31 | PROVIDERS: Visit Provider Nurse Practitioner Family | DX: G47.33 Obstructive sleep apnea (adult) (pediatric) (principal); R06.83 Snoring; G47.61 Periodic limb movement disorder; R07.89 Other chest pain; R79.89 Other specified abnormal findings of blood chemistry; I10 Essential (primary) hypertension; Z79.899 Other long term (current) drug therapy | CPT/HCPCS: 95810 ==

== ENCOUNTER 2021-12-25 10:55 | Outpatient (REF) | payer OTHER, SELFPAY ==
[2021-12-25 16:52] LABS: Urine Cytology See Pathology rpt
== END 2021-12-25 10:56 | disposition home or self-care (01) ==
LOC: HO.LAB 10:55
PROVIDERS: Visit Provider Urology
DX: R31.29 Other microscopic hematuria (principal); N40.1 Benign prostatic hyperplasia with lower urinary tract symptoms
CPT/HCPCS: 51798; 88112

== ENCOUNTER 2022-02-26 09:56 | Outpatient (REF) | payer OTHER, SELFPAY ==
--- NOTE | ~2022-02-26 | CT_ITS ---
EXAMINATION: CT ABDOMEN AND PELVIS WITHOUT AND WITH CONTRAST CLINICAL INFORMATION: Microscopic hematuria. COMPARISON: None TECHNIQUE: Multidetector volumetric imaging was performed of the abdomen and pelvis before and after the IV administration of 85 mL of Omnipaque 300 intravenous contrast. Sagittal and coronal reformatted images were obtained on the technologist's workstation. This CT examination was performed using dose optimization techniques as appropriate, variously including the following: *Automated exposure control *Adjustment of mA and/or kV according to patient size (this includes techniques or standardized protocols for targeted exams where dose is matched to indication/reason for exam; i.e. extremities or head) *Use of iterative reconstruction technique DLP: 749 mGy-cm FINDINGS: LUNG BASES: The visualized lung bases are unremarkable. LIVER, GALLBLADDER, AND BILIARY TREE: The liver is normal in size, shape, and attenuation. No focal hepatic lesion or biliary ductal dilatation is present. The gallbladder is unremarkable with no evidence of radiopaque gallstones, gallbladder wall thickening, or obvious pericholecystic inflammatory changes. PANCREAS: Unremarkable. SPLEEN: Unremarkable. ADRENAL GLANDS: Unremarkable. KIDNEYS AND URETERS: The kidneys are normal in size, shape, and attenuation. No hydronephrosis, hydroureter, or calculi seen. No perinephric stranding. There is a 2.5 cm round, nonenhancing cyst upper pole left kidney. BLADDER: Unremarkable. GASTROINTESTINAL TRACT: There is diffuse sigmoid and scattered rest of the colon diverticulosis without diverticulitis. The small bowel loops are normal caliber. The appendix is normal caliber. No free air or free fluid. ABDOMINAL WALL: A small umbilical hernia containing fat is noted. LYMPH NODES: Normal. VASCULAR: Unremarkable. PELVIC VISCERA: The prostate gland is enlarged with elevation of base of bladder. There are bilateral inguinal hernias containing fat. OSSEOUS STRUCTURES: No aggressive lytic or sclerotic process. There is moderate ventral spondylosis. CT/CT abdomen pelvis wo/w IV con IMPRESSION: Colonic diverticulosis without diverticulitis. No radiopaque urolith or hydroureteronephrosis. There is an upper pole left renal simple cyst. Mild prostate enlargement extending into the base of bladder. Bilateral inguinal hernias containing fat. Fleischner guidelines were followed.
[2022-02-26] MEDS: iohexoL 350 MG/ML 100 ML INFUS..BTL IV (10:20)
[2022-02-27 06:57] LABS: Creatinine POC 0.6 mg/dL (0.5-1.4); GFR POC > 60
== END 2022-02-26 09:57 | disposition home or self-care (01) ==
LOC: HO.CT 09:56
PROVIDERS: Visit Provider Urology
DX: R31.29 Other microscopic hematuria (principal)
CPT/HCPCS: 74178; 82565; Q9967

== ENCOUNTER → 2022-03-21 10:37 | Outpatient (BNVA) | payer OTHER, SELFPAY | PROVIDERS: PCP Nurse Practitioner Primary Care; Visit Provider Urology | DX: R31.29 Other microscopic hematuria (principal); N40.1 Benign prostatic hyperplasia with lower urinary tract symptoms; R35.1 Nocturia | CPT/HCPCS: 52000; 99212 ==

== ENCOUNTER → 2022-06-03 11:25 | Outpatient (BNVA) | payer OTHER, SELFPAY | PROVIDERS: PCP Nurse Practitioner Primary Care; Visit Provider Nurse Practitioner Family | DX: G47.30 Sleep apnea, unspecified (principal) | CPT/HCPCS: 99212 ==

== ENCOUNTER 2022-06-04 09:13 | Outpatient (REF) | payer OTHER, SELFPAY ==
[2022-06-04 10:25] LABS: Prostate Specific Antigen 4.91 ng/mL (<0.05-4.0)
== END 2022-06-04 09:14 | disposition home or self-care (01) ==
LOC: HO.LAB 09:13
PROVIDERS: PCP Internal Medicine; Visit Provider Urology
DX: Z12.5 Encounter for screening for malignant neoplasm of prostate (principal); N40.1 Benign prostatic hyperplasia with lower urinary tract symptoms; R35.1 Nocturia
CPT/HCPCS: 36415; 84153

== ENCOUNTER → 2022-06-12 09:03 | Outpatient (BNVA) | payer OTHER, SELFPAY | PROVIDERS: PCP Internal Medicine; Visit Provider Urology | DX: N40.1 Benign prostatic hyperplasia with lower urinary tract symptoms (principal); R35.1 Nocturia; R97.20 Elevated prostate specific antigen [PSA] | CPT/HCPCS: 51798; 99212 ==

== ENCOUNTER → 2022-06-18 19:30 | Outpatient (REF) | payer OTHER, SELFPAY | LOC: HO.SL 19:30 | PROVIDERS: PCP Internal Medicine; Visit Provider Nurse Practitioner Family | DX: G47.33 Obstructive sleep apnea (adult) (pediatric) (principal) | CPT/HCPCS: 95811 ==

== ENCOUNTER 2022-07-28 07:37 | Outpatient (REF) | payer OTHER, SELFPAY ==
[2022-07-28 07:50] VITALS: BP 160/89; PULSE 69; RESP 16; TEMP 36.4; O2SAT 97
[2022-07-28 07:52] VITALS: BMI 29.0
[2022-07-28 08:56] VITALS: BP 173/94; PULSE 84; RESP 16; O2SAT 98
--- NOTE | 2022-07-28 09:28 | W.PM.OPN ---
Operative Note Operative Note Date of Service: 07/28/22 Narrative: PreOperative Diagnosis:? ? Elevated PSA Post Operative Diagnosis:??Elevated PSA Procedure:?1. Transrectal ultrasound guided biopsy of the prostate 12 core 2. Transrectal ultrasound measurement of prostate 3. Transrectal ultrasound guided pudendal nerve block Surgeon:?Dr Arin Campo Anesthesia:? Local, Valium 5 mg PO Indications for procedure: Elevated PSA Procedure: Preoperative antibiotics confirmed. After informed consent was verified the patient was placed on the procedure table in left lateral position. Patient identity confirmed. Safety pause time-out performed. Digital rectal exam performed to dilate rectal sphincter, iodine mixed with lubricant jelly 30 cc placed per rectum. Ultrasound probe was placed per rectum. The prostate was visualized. The prostate was measured height 3.57 cm, width 5.21 cm, length 4.91 cm with a volume of 47.8 mL. An ultrasound guided pudendal nerve block was performed using 10 cc of 1% lidocaine. A 12 core biopsy was performed from the left base, left mid, left apex and right base, mid, apex 2 biopsies from each section. The ultrasound probe was removed and digital palpation of the prostate for 1-2 minutes for hemostasis was performed. The patient tolerated the procedure well. Complications: None
== END 2022-07-28 07:38 | disposition home or self-care (01) ==
LOC: HO.MS 07:37
PROVIDERS: PCP Internal Medicine; Visit Provider Urology
PROC: (CPT 55700; principal; 2022-07-28 08:00)
DX: N42.31 Prostatic intraepithelial neoplasia (principal); N42.32 Atypical small acinar proliferation of prostate; R97.20 Elevated prostate specific antigen [PSA]
CPT/HCPCS: 55700; 76942; 88305; 88344

== ENCOUNTER → 2022-08-15 12:52 | Outpatient (BNVA) | payer OTHER, SELFPAY | PROVIDERS: PCP Internal Medicine; Visit Provider Urology ==

== ENCOUNTER → 2022-08-21 08:05 | Outpatient (BNVA) | payer OTHER, SELFPAY | PROVIDERS: PCP Internal Medicine; Visit Provider Urology | DX: R97.20 Elevated prostate specific antigen [PSA] (principal); C61 Malignant neoplasm of prostate | CPT/HCPCS: 51798; 99212 ==

== ENCOUNTER 2022-11-28 10:32 | Outpatient (REF) | payer OTHER, SELFPAY ==
[2022-11-28 12:10] LABS: Creatinine Urine 177.46 mg/dL
[2022-11-28 13:15] LABS: Alanine Aminotransferase 41 U/L (0-40); Albumin Level 4.2 g/dL (3.5-5.0); Alkaline Phosphatase 79 U/L (39-117); Anion Gap 11 (12-20); Aspartate Amino Transferase 23 U/L (5-37); Bilirubin Direct 0.2 mg/dL (0.0-0.5); Bilirubin Total 0.6 mg/dL (0.0-1.0); Blood Urea Nitrogen 14 mg/dL (9-16); Carbon Dioxide 23 mmol/L (22-29); Chloride 108 mmol/L (96-108); Estimated Glomerular Filt Rate > 60; Glucose Random 200 mg/dL (60-115); Potassium 4.2 mmol/L (3.3-5.1); Sodium 138 mmol/L (135-145); Total Protein 7.3 g/dL (6.5-8.0)
== END 2022-11-28 10:33 | disposition home or self-care (01) ==
LOC: HO.HHCL 10:32
PROVIDERS: Visit Provider Nurse Practitioner Primary Care
DX: I83.893 Varicose veins of bilateral lower extremities with other complications (principal); I10 Essential (primary) hypertension
CPT/HCPCS: 36415; 80048; 80076; 82043; 82570

== ENCOUNTER 2022-12-12 09:45 | Outpatient (REF) | payer OTHER, SELFPAY ==
[2022-12-12 11:06] LABS: PSA,Total (Free>4and<10) 2.85 ng/mL (0.00-4.00)
== END 2022-12-12 09:46 | disposition home or self-care (01) ==
LOC: HO.LAB 09:45
PROVIDERS: Visit Provider Urology
DX: Z12.5 Encounter for screening for malignant neoplasm of prostate (principal); C61 Malignant neoplasm of prostate; R97.20 Elevated prostate specific antigen [PSA]
CPT/HCPCS: 36415; 84153

== ENCOUNTER 2022-12-18 08:20 | Outpatient (AMB) | payer OTHER, SELFPAY ==
--- NOTE | 2022-12-18 08:23 | A.OFFVIS_ITS ---
Intake Intake Visit Reasons: 5m/MRI/PSA (rayus 12/04) Intake Note: Patient presents today for a follow-up on MRI & PSA Results: Meds- Tamsulosin & Proscar Allergies to Antibiotic- No Known Allergies Blood Thinner- Aspirin PSA- 2.85 ng/mL 12/12/2022 PVR- 0 mL Wardrobe Custodian Required: Yes Wardrobe Custodian Language: 3D Animator Name: DEISY Villa/EMERY TORRES Information Interpreted: non-clinical & clinical Accompanied by: Self / Same As Patient Allergies cortisone Allergy (Verified 12/18/22 08:24) Itching HPI 5m/MRI/PSA (rayus 12/04) HPI Details Barrett is a 72-year-old male who presents today to the office for a follow-up after five months. LV -- 08/21/22? 07/28/22: Biopsy result reviewed -- High grade prostatic intraepithelial neoplasia at the left base lateral and medial. Atypical small acinar proliferation worrisome for 3+3=6 adenocarcinoma at the left mid medical and atypical small acinar proliferation in the left lateral apex. PSA results reviewed--06/04/22--4.91. Evaluation -- Blood 10 Demarco/uL, leukocytes: negative. Bladder scan PVR: 0 mL. 12/18/22 ? A certified automatic head sawyer was present during the visit. The patient has been taking Proscar 5 mg as directed. His MRI scan was declined by his insurance. He states that his urinary stream is normal. Denies hematuria, Denies dysuria 12/12/22 -- PSA level result reviewed: 2 .85. Plan Path results Atypical small acinar proliferation worrisome for 3+3=6 adenocarcinoma, will treat as Active surveillance for prostate cancer PSA screening test six months prior to the visit. At this time hold on MRI scan of the prostate. Continue Proscar 05 mg PO as directed. [facility] Medical History High cholesterol Shoulder pain, left Arthritis HTN (hypertension) Surgical History History of inguinal hernia repair Family History Mother Asthma Alzheimer disease Father Asthma Social History Household Members Other:: sister Housing: Apartment Alcohol intake: former Patient Tobacco Use Status: Former Tobacco user Current occupational status: disabled Current occupation: rt handed Review of Systems Const All systems reviewed & are unremarkable except as noted in HPI and below Reports no additional complaints Eyes Reports no additional complaints ENT Reports no additional complaints Card Reports no additional complaints Resp Reports no additional complaints GI Reports no additional complaints Musc Reports no additional complaints Skin/Breast Reports system reviewed and no additional complaints, except as documented Neuro Reports no additional complaints Psych Reports no additional complaints Endo Reports no additional complaints Pipo/Lymph Reports no additional complaints Aller/Immun Reports no additional complaints Physical Exam Const General: healthy appearing, no acute distress and well developed Orientation/consciousness: patient oriented x3 HEENT Head: Yes normocephalic and Yes atraumatic Eyes Conjunctivae: conjunctivae normal Neck Neck: Yes normal visual inspection Chest Chest palpation & inspection: normal inspection of the chest Resp Effort & Inspection: normal respiratory effort Cardio Rate: regular rate GI Inspection: Yes normal to inspection Skin General skin exam: no rashes or lesions noted Neuro General: patient oriented x3 Extrem General: Yes no pedal edema Psych Appearance: grossly normal Affect: normal affect Office Procedures Post Void Residual Post Residual Void Post Void Residual (PVR): 0 [id number] Void Residual by ultrasound Results AMB Urinalysis, Automated UA Leukoctes 0 Nikita/uL Last Edit by DEISY Villa on 12/18/22 08:46 UA Nitrite Negative Last Edit by DEISY Villa on 12/18/22 08:46 UA Urobilinogen 0.2 mg/dL Last Edit by DEISY Villa on 12/18/22 08:4 6 UA Protein 15 mg/dL Last Edit by DEISY Villa on 12/18/22 08:46 UA pH 6.0 Last Edit by DEISY Villa on 12/18/22 08:46 UA Blood 25 Demarco/uL Last Edit by DEISY Villa on 12/18/22 08:46 1+ Yulia Back 12/18/22 08:46 UA Specific [place] 1.025 Last Edit by DESIY Villa on 12/18/22 08: 46 UA Ketone Negative Last Edit by DEISY Villa on 12/18/22 08:46 UA Bilirubin 0 mg/dL Last Edit by DEISY Villa on 12/18/22 08:46 UA Glucose 0 mg/dL Last Edit by DEISY Villa on 12/18/22 08:46 Results Reviewed Results Reviewed: Laboratory Last Values Urine pH (Auto) 6.0 12/18/22 08:35 Specific [place] (Auto) 1.025 12/18/22 08:35 Urine Protein (Auto) 15 mg/dL 12/18/22 08:35 Glucose (UA)(Auto) 0 mg/dL 12/18/22 08:35 Urine Ketones (Auto) Negative 12/18/22 08:35 Urine Blood (Auto) 25 Demarco/uL 12/18/22 08:35 Urine Nitrite (Auto) Negative 12/18/22 08:35 Urine Bilirubin (Auto) 0 mg/dL 12/18/22 08:35 Urine Urobilinogen (Auto) 0.2 mg/dL 12/18/22 08:35 Leukocyte Esterase (Auto) 0 Nikita/uL 12/18/22 08:35 Assessment & Plan Assessment & Plan (1) Elevated PSA: Code(s): R97.20 - Elevated prostate specific antigen [PSA] (2) Atypical small acinar proliferation of prostate: Code(s): N42.32 - Atypical small acinar proliferation of prostate (3) BPH associated with nocturia: Code(s): N40.1 - Benign prostatic hyperplasia with lower urinary tract symptoms; R35.1 - Nocturia Plan Path results Atypical small acinar proliferation worrisome for 3+3=6 adenocarcinoma, will treat as Active surveillance for prostate cancer PSA screening test six months prior to the visit. At this time hold on MRI scan of the prostate. Continue Proscar 05 mg PO as directed. Orders: Orders AMB Urinalysis Automated 12/18/22 Z13.9 - Encounter for screening, unspecified AMB Post Void Residual by ultrasound 12/18/22 N39.8 - Other specified disorders of urinary system Patient Instructions: The patient had an opportunity to ask questions regarding treatment plan. All questions were answered. Imaging, Laboratory studies and physical exam results were discussed and reviewed in detail. No major barriers to understanding were identified. The patient expressed understanding and agreement with the above treatment plan. The patient is aware they should contact our office by phone for worsening of their current condition or the appearance of new symptoms. Compliance is encouraged with any medications and followup testing that is ordered. It is a privilege to be allowed the opportunity to participate in the urologic care of your patient. If you have any questions or concerns regarding treatment for the above conditions please do not hesitate to contact me. The office telephone contact is [phone]. This note is constructed in part using voice recognition software. While every effort has been made to ensure accuracy photo lab manager errors may have been included. Yours sincerely, Arin Campo MD Coding Level of Care Code Est Pt Level 4 (30867) Diagnoses Elevated PSA R97.20 Atypical small acinar proliferation of prostate N42.32 BPH associated with nocturia N40.1; R35.1 CPT Codes Post Residual Void - PVR CPT Code: 35737-[id number] Void Residual by ultrasound ([id number])
== END 2022-12-18 09:10 | disposition home or self-care (01) ==
PROVIDERS: PCP Internal Medicine; Visit Provider Urology
DX: R97.20 Elevated prostate specific antigen [PSA] (principal); N42.32 Atypical small acinar proliferation of prostate; N40.1 Benign prostatic hyperplasia with lower urinary tract symptoms; R35.1 Nocturia
CPT/HCPCS: 99214

== ENCOUNTER → 2022-12-18 08:20 | Outpatient (BNVA) | payer OTHER, SELFPAY | PROVIDERS: PCP Internal Medicine; Visit Provider Urology | DX: R97.20 Elevated prostate specific antigen [PSA] (principal); N42.32 Atypical small acinar proliferation of prostate; N40.1 Benign prostatic hyperplasia with lower urinary tract symptoms; R35.1 Nocturia | CPT/HCPCS: 51798; 81003; 99212 ==

== ENCOUNTER 2023-01-14 09:40 | Outpatient (AMB) | payer OTHER, SELFPAY ==
--- NOTE | 2023-01-14 10:04 | MHC.OFFVIS ---
Intake Vital Signs 01/14/23 10:12 Weight 192 lb 4 oz BP 98/62 Blood Pressure Location Lt brachial Position Sitting Pulse 70 Pulse Source Pulse Oximeter Pulse Oximetry (%) 95 Oxygen Delivery Method Room Air Intake Visit Reasons: 3 mo f/u for ELISSA-Confirmed Intake Note: F/U ELISSA Door Repairman Required: Yes Door Repairman Name: Giorgio [id number] Allergies cortisone Allergy (Verified 01/14/23 10:05) Itching HPI HPI Comments History of Present Illness Details 72 y/o male patient presents for follow up of sleep study. grinding operator, Giorgio ID# [id number] utilized. The PSG sleep study result was significant for severe degree of sleep apnea. The AHI was 28/hr, REM AHI was 55/hr with oxygen karen was 88%. Pt had titration study done, and CPAP at 9cmH2O started. Pt reports he sleeps much better with CPAP. He can sleep 7 hrs, rested and daytime sleepiness has improved. CPAP compliance is not available at this time. His CPAP does not transmit the record. [facility] Medical History High cholesterol Shoulder pain, left Arthritis HTN (hypertension) Surgical History History of inguinal hernia repair Family History Mother Asthma Alzheimer disease Father Asthma Social History Household Members Other:: sister Housing: Apartment Alcohol intake: former Patient Tobacco Use Status: Former Tobacco user Current occupational status: disabled Current occupation: rt handed Review of Systems Const All systems reviewed & are unremarkable except as noted in HPI and below ENT Reports Normal hearing present Neuro Reports Normal hearing present Physical Exam Vital Signs: Last Vital Signs Pulse 70 01/14/23 10:12 BP 98/62 01/14/23 10:12 Pulse Ox 95 01/14/23 10:12 Oxygen Delivery Method Room Air 01/14/23 10:12 Const General: cooperative Nutritional Appearance: overweight Orientation/consciousness: patient oriented x3 Limitations: language barrier (serbian speaking only) HEENT General nose exam: Other nasal findings present (nasal congestion.) Neck Neck: Yes full ROM and Yes supple Resp Effort & Inspection: normal respiratory effort and able to speak in complete sentences Auscultation: clear to auscultation bilaterally Cardio Rate: tachycardic Rhythm: regular rhythm Neuro General: patient oriented x3 and gait normal Cranial nerves: Yes Bilaterally intact EOM present, Yes Normal facial strength present, Yes Normal hearing present, Yes Ability to bilaterally rotate head present and Yes Ability to bilaterally elevate shoulders present Cognition (Neuro): normal cognition Gait exam (Neuro): Normal gait present Psych Appearance: grossly normal Mental Status: mental status grossly normal Speech and movement: Normal speech and movement present Affect: normal affect Attitude: cooperative Assessment & Plan Assessment & Plan (1) Sleep apnea: Comment: Severe degree of sleep apnea. The total AHI was 28/hr, REM AHI was 55/hr. Oxygen karen was 88% Code(s): G47.30 - Sleep apnea, unspecified Plan Advised patient to continue to use CPAP at 9cmH2O as patient experiences good clinical effects, rest sleep and daytime sleepienss has improved. Advised patient to call his home care company and get new SD card for CPAP compliance data. Stressed compliance, use CPAP nightly and more than 4 hrs. Coding Level of Care Code Est Pt Level 3 (84207) Diagnoses Sleep apnea G47.30
[2023-01-14 10:12] VITALS: BP 98/62; PULSE 70; O2SAT 95
== END 2023-01-14 10:23 | disposition home or self-care (01) ==
PROVIDERS: Visit Provider Nurse Practitioner Family
DX: G47.30 Sleep apnea, unspecified (principal)
CPT/HCPCS: 99213

== ENCOUNTER → 2023-01-14 09:40 | Outpatient (BNVA) | payer OTHER, SELFPAY | PROVIDERS: Visit Provider Nurse Practitioner Family | DX: G47.30 Sleep apnea, unspecified (principal) | CPT/HCPCS: 99212 ==

== ENCOUNTER 2023-05-22 12:05 | Outpatient (REF) | payer MEDICARE, SELFPAY ==
--- NOTE | ~2023-05-22 | XR_ITS ---
EXAMINATION: XR LUMBOSACRAL SPINE CLINICAL INFORMATION: Low back pain evaluate for ankylosing spondylitis. Patient states low back pain for 3 months. COMPARISON: CT abdomen and pelvis of 02/26/2022. Lumbar radiographs of 01/04/2016. TECHNIQUE: 3 views of the lumbosacral spine. FINDINGS: Moderate degenerative changes in the bilateral sacroiliac joints. Redemonstration of diminutive presumed 12th ribs. Mild degenerative changes on limited views of the bilateral hips. Degenerative changes in the imaged lower thoracic spine. Redemonstration of anterior bridging or nearly-bridging osteophytes from L1 through L5. Facet arthropathy in the [id number] lumbar spine. Mild loss of disc space height at L3-L4 with minimal retrolisthesis grade 1 of L3 on L4. XR/XR lumbar spine 2-3V IMPRESSION: Redemonstration of anterior bridging or nearly-bridging osteophytes from L1 through L5. Facet arthropathy in the [id number] lumbar spine. Mild loss of disc space height at L3-L4 with minimal retrolisthesis grade 1 of L3 on L4.
== END 2023-05-22 12:06 | disposition home or self-care (01) ==
LOC: HO.HHCX 12:05
PROVIDERS: Visit Provider Nurse Practitioner Primary Care
DX: M54.50 Low back pain, unspecified (principal)
CPT/HCPCS: 72100

== ENCOUNTER 2023-06-13 08:47 | Outpatient (REF) | payer OTHER, SELFPAY ==
[2023-06-13 10:27] LABS: PSA,Total (Free>4and<10) 1.59 ng/mL (0.00-4.00)
== END 2023-06-13 08:48 | disposition home or self-care (01) ==
LOC: HO.LAB 08:47
PROVIDERS: PCP Internal Medicine; Visit Provider Urology
DX: R97.20 Elevated prostate specific antigen [PSA] (principal); Z12.5 Encounter for screening for malignant neoplasm of prostate
CPT/HCPCS: 36415; 84153

== ENCOUNTER 2023-06-18 10:45 | Outpatient (AMB) | payer OTHER, SELFPAY ==
--- OUTSIDE RECORDS SUMMARY | 2023-06-18 10:47 | XMS_ITS ---
Author Name Nickolas Akbar Address [address] [place] [address] Organization Unknown Address [address] [place] [id number] ALLERGIES AND ADVERSE REACTIONS No information ASSESSMENT No information CHIEF COMPLAINT No information MEDICATIONS No information OBJECTIVE DATA No information PHYSICAL EXAMINATION No information TREATMENT PLAN Planned Care Start Date Provider Encounter for Check-up [id number] PROBLEMS No information RESULTS No information REVIEW OF SYSTEMS No information SUBJECTIVE DATA No information VITAL SIGNS No information
--- NOTE | 2023-06-18 10:54 | MHC.OFFVIS ---
Intake Visit Reasons: 6m/MRI/PSA Intake Note: Patient presents today for a follow-up on PSA Results 1.59 ng/mL: Meds- Tamsulosin & Proscar Allergies to Antibiotic- No Known Allergies Blood Thinner- Aspirin PVR- 27 mL Account Manager Relief Required: Yes Account Manager Relief Language: Medical Pathology Teacher Name: Yulia Back, DEISY/EMERY TORRES Information Interpreted: non-clinical & clinical Accompanied by: Self / Same As Patient Allergies cortisone Allergy (Verified 06/18/23 10:54) Itching HPI Comments Details: Barrett is a 73-year-old male who presents to the office for follow up PSA results. 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 He is on tamsulosin and proscar, fu PSA -06/13/23-1.59 discussed. Plan to continue to monitor PSA's. Review of chart: 03/21/22--Barrett is a patient of Elizabeth Gaona NP, here for FU for microscopic hematuria evaluation. Office visit-12/25/21- He states he had an elevated PSA in the past. He forgot to have the PSA done. He is up 2 times at night to urinate. He feels that he empties his bladder adequately. He denies dysuria or gross hematuria. I have reviewed the CT urogram -02/26/22 results with the patient-- urinary tract within normal limits. ---Evaluation today: Urinalysis persistent microscopic hematuria, office cystoscopy pain mild prostatic enlargement, no suspicious bladder lesions. Plan Flomax daily, reorder PSA lab draw our . 06/12/2022--The patient is a [place]i speaking male. Qualified interpreter translator was present during the visit. The patient has history of elevated PSA. The patient had prostate biopsy few years ago. The patient takes aspirin 81 mg QD. Discussed prostate biopsy vs repeat PSA testing in three months. Contributing factors leading to elevated PSA were discussed with the patient. Evaluation today: Blood:25 Demarco/uL, leukocytes: negative. PSA results reviewed?06/04/2022?4.91. Plan:Elevated PSA. The patient agreed for prostate biopsy. Advised to stop aspirin two weeks before the procedure for reducing the chances of bleeding. Valium to be taken in the morning of the procedure was ordered. BPH. Cont. Flomax 08/21/22-- The patient is a [place]i speaking male. Certified interpreter translator was present during the visit. 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 Atypical small acinar proliferation worrisome for 3+3=6 adenocarcinoma at the left mid medical and atypical small acinar proliferation in the left lateral apex. PSA results reviewed--06/04/22--4.91. Evaluation today-- Blood 10 Demarco/uL, leukocytes: negative. Bladder scan PVR: 0 mL. In discussion with the patient today I explained that there are two area where are atypical cells and in one area the atypical cells are suspicious for low grade cancer. At this time it recommend to watch him closely with active surveillance as recommended by the [place] [employer]. I discussed that treatment for prostate cancer including to radical prostatectomy and radiations but that also carries risks and of side effects which include but not limited to urinary incontinence and erectile dysfunction and based on his biopsy results active surveillance would be recommended. [facility] Medical History High cholesterol Shoulder pain, left Arthritis HTN (hypertension) Surgical History History of inguinal hernia repair Family History Mother Asthma Alzheimer disease Father Asthma Social History Household Members Other:: sister Housing: Apartment Alcohol intake: former Patient Tobacco Use Status: Former Tobacco user Current occupational status: disabled Current occupation: rt handed Review of Systems Const All systems reviewed & are unremarkable except as noted in HPI and below Reports no additional complaints Eyes Reports no additional complaints ENT Reports no additional complaints Card Reports no additional complaints Resp Reports no additional complaints GI Reports no additional complaints Reports as per HPI Musc Reports no additional complaints Skin/Breast Reports system reviewed and no additional complaints, except as documented Neuro Reports no additional complaints Psych Reports no additional complaints Endo Reports no additional complaints Pipo/Lymph Reports no additional complaints Aller/Immun Reports no additional complaints Office Procedures Post Void Residual Post Residual Void Post Void Residual (PVR): 27 [id number] Void Residual by ultrasound Results AMB Urinalysis, Automated UA Leukoctes 0 Nikita/uL Last Edit by Yulia Back Elizabeth on 06/18/23 11:05 UA Nitrite Negative Last Edit by Yulia Back [facility] on 06/18/23 11:05 UA Urobilinogen 0 mg/dL Last Edit by Yulia Back [facility] on 06/18/23 11:05 UA Protein 30 mg/dL Last Edit by Yulia Back [facility] on 06/18/23 11:05 1+ Yulia Back 06/18/23 11:05 UA pH 6.0 Last Edit by Yulia Back [facility] on 06/18/23 11:05 UA Blood 25 Demarco/uL Last Edit by Yulia Back [facility] on 06/18/23 11:05 UA Specific [place] 1.025 Last Edit by Yulia Back [facility] on 06/18/23 11:05 UA Ketone Negative Last Edit by Yulia Back [facility] on 06/18/23 11:05 UA Bilirubin 0 mg/dL Last Edit by Yulia Back [facility] on 06/18/23 11:05 UA Glucose 0 mg/dL Last Edit by Yulia Back [facility] on 06/18/23 11:05 Results Reviewed Results Reviewed: Laboratory Last Values Urine pH (Auto) 6.0 06/18/23 10:56 Specific [place] (Auto) 1.025 06/18/23 10:56 Urine Protein (Auto) 30 mg/dL 06/18/23 10:56 Glucose (UA)(Auto) 0 mg/dL 06/18/23 10:56 Urine Ketones (Auto) Negative 06/18/23 10:56 Urine Blood (Auto) 25 Demarco/uL 06/18/23 10:56 Urine Nitrite (Auto) Negative 06/18/23 10:56 Urine Bilirubin (Auto) 0 mg/dL 06/18/23 10:56 Urine Urobilinogen (Auto) 0 mg/dL 06/18/23 10:56 Leukocyte Esterase (Auto) 0 Nikita/uL 06/18/23 10:56 Collected: 07/28/22 Location: Received: 07/28/22 Diagnosis Prostate, needle core biopsies: A.? Left base lateral:??High grade prostatic intraepithelial neoplasia (HGPIN). B.? Left base medial:??High grade prostatic intraepithelial neoplasia (HGPIN). C.? Left mid lateral:? Benign prostatic tissue; no carcinoma seen. D.? Left mid medial:??Atypical small acinar proliferation worrisome for 3+3=6 adenocarcinoma. E.? Left apex lateral:??Atypical small acinar proliferation. F.? Left apex medial:? Benign prostatic tissue; no carcinoma seen. G.? Right base lateral:? Benign prostatic tissue; no carcinoma seen. H.? Right base medial:? Benign prostatic tissue; no carcinoma seen. I.? Right mid lateral:? Benign prostatic tissue; no carcinoma seen. J.? Right mid medial:? Benign prostatic tissue; no carcinoma seen. K.? Right apex lateral:? Benign prostatic tissue; no carcinoma seen. L.? Right apex medial:? Benign prostatic tissue; no carcinoma seen. Clinical History Elevated PSA Microscopic Description A-L.? Microscopic sections reviewed.? PIN4 multiplex IHC supports the diagnoses in A, B, C, D, E, G, H and K. Material Received A: Left base lateral B: Left base medial C: Left mid lateral D: Left mid medial E: Left apex lateral F: Left apex medial G: Right base lateral H: Right base medial I: Right mid lateral J: Right mid medial K: Right apex lateral L: Right apex medial Gross Description Received in twelve parts. Part A:? Received in formalin labeled Left base lateral is a 2.1 cm. in length and 0.1 cm. in diameter, glistening, semitranslucent, soft, thin and delicate, de la torre, cylindrical thread of tissue which is submitted in toto in a single cassette labeled A. Part B:? Received in formalin labeled Left base medial is a 1.8 cm. in length and 0.1 cm. in diameter, glistening, semitranslucent, soft, thin and delicate, de [place] tor[place], cylindrical thread of tissue which is submitted in toto in a single cassette labeled B. Part C:? Received in formalin labeled Left mid lateral are 2 glistening, semitranslucent, soft, thin and delicate, de [place] torre, cylindrical threads of tissue measuring 0.3 and 1.5 cm in length and 0.1 cm in diameter? which are submitted in toto in a single cassette labeled C. Part D:? Received in formalin labeled Left mid medial are two glistening, semitranslucent, soft, thin and delicate, de [place] torre, cylindrical threads of tissue measuring 0.1 and 1.2 cm in greatest dimension which are submitted in toto in a single cassette labeled D. Part E:? Received in formalin labeled Left apex lateral are two glistening, semitranslucent, soft, thin and delicate, de [place] torre, cylindrical threads of tissue measuring 0.2 and 1.3 in greatest dimension which are submitted in toto in a single cassette labeled E. Part F:? Received in formalin labeled Left apex medial is a 1.3 cm. in length and 0.1 cm. in diameter, glistening, semitranslucent, soft, thin and delicate, de [place] tor[place], cylindrical thread of tissue, which is submitted in toto in a single cassette labeled F. Part G:? Received in formalin labeled Right base lateral are 3 glistening, semitranslucent, soft, thin and delicate, de [place] tor[place], cylindrical threads of tissue ranging from 0.15-1.5 cm in greatest dimension which are submitted in toto in a single cassette labeled G. Part H:? Received in formalin labeled Right base medial is a 1.7 cm. in length and 0.1 cm. in diameter, glistening, semitranslucent, soft, thin and delicate, de [place] torre cylindrical thread of tissue which is submitted in toto in a single cassette labeled H. Part I:? Received in formalin labeled Right mid lateral is a 1.7 cm. in length and 0.1 cm. in diameter, glistening, semitranslucent, soft, thin and delicate, de [place] torre, cylindrical thread of tissue which is submitted in toto in a single cassette labeled I. Part J:? Received in formalin labeled Right mid medial is a 2.0 cm. in length and 0.1 cm. in diameter, glistening, semitranslucent, soft, thin and delicate, de [place] torre, cylindrical thread of tissue, which is submitted in toto in a single cassette labeled J. Part K:? Received in formalin labeled Right apex lateral is a 1.8 cm. in length and 0.1 cm. in diameter, glistening, semitranslucent, soft, thin and delicate, de [place] torre, cylindrical thread of tissue which is submitted in toto in a single cassette labeled K. Part L:? Received in formalin labeled Right apex medial are 3 glistening, semitranslucent, soft, thin and delicate, de la torre, cylindrical threads of tissue ranging from 0.35-1.1 cm in length and each measuring 0.1 cm in diameter which are submitted in toto in a single cassette labeled L.? Assessment & Plan Assessment & Plan (1) Elevated PSA: Code(s): R97.20 - Elevated prostate specific antigen [PSA] Category: Medical (2) Atypical small acinar proliferation of prostate: Comment: Path results 07/28/22-Atypical small acinar proliferation worrisome for 3+3=6 adenocarcinoma Code(s): N42.32 - Atypical small acinar proliferation of prostate Category: Medical (3) BPH associated with nocturia: Code(s): N40.1 - Benign prostatic hyperplasia with lower urinary tract symptoms; R35.1 - Nocturia Category: Medical Plan Path results Atypical small acinar proliferation worrisome for 3+3=6 adenocarcinoma, will treat as Active surveillance for prostate cancer PSA screening test 4 months prior to the visit. At this time hold on MRI scan of the prostate. Continue Proscar 05 mg and tamsulosin Orders: Orders AMB Urinalysis Automated 06/18/23 Z13.9 - Encounter for screening, unspecified AMB Post Void Residual by ultrasound 06/18/23 N39.8 - Other specified disorders of urinary system PSA,Total (Free>4and<10) 4 Months C61 - Malignant neoplasm of prostate, R97.20 - Elevated prostate specific antigen [PSA] Medications: Refilled finasteride (Proscar) 5 mg PO DAILY 90 tabs 3RF 90 days C61 - Malignant neoplasm of prostate Patient Instructions: The patient had an opportunity to ask questions regarding treatment plan. The patient expressed understanding and agreement with the above treatment plan. The patient is aware they should contact our office by phone for worsening of their current condition or the appearance of new symptoms. Compliance is encouraged with any medications and followup testing that is ordered. It is a privilege to be allowed the opportunity to participate in the urologic care of your patient. If you have any questions or concerns regarding treatment for the above conditions please do not hesitate to contact me. The office telephone contact is [phone]. This note is constructed in part using voice recognition software. While every effort has been made to ensure accuracy respiratory coordinator errors may have been included. Yours sincerely, Arin Campo MD Coding Level of Care Code Est Pt Level 4 (11498) Diagnoses Elevated PSA R97.20 Atypical small acinar proliferation of prostate N42.32 BPH associated with nocturia N40.1; R35.1 CPT Codes Post Residual Void - PVR CPT Code: 49110-Dudj Void Residual by ultrasound ([id number])
== END 2023-06-18 11:31 | disposition home or self-care (01) ==
LOC: HO.HUSH 10:45
PROVIDERS: PCP Internal Medicine; Visit Provider Urology
DX: R97.20 Elevated prostate specific antigen [PSA] (principal); N42.32 Atypical small acinar proliferation of prostate; N40.1 Benign prostatic hyperplasia with lower urinary tract symptoms; R35.1 Nocturia
CPT/HCPCS: 99214

== ENCOUNTER → 2023-06-18 10:45 | Outpatient (BNVA) | payer OTHER, SELFPAY | PROVIDERS: PCP Internal Medicine; Visit Provider Urology | DX: N39.8 Other specified disorders of urinary system (principal); Z13.9 Encounter for screening, unspecified; Z79.82 Long term (current) use of aspirin; Z79.899 Other long term (current) drug therapy | CPT/HCPCS: 51798; 81003; 99212 ==

== ENCOUNTER 2023-09-18 11:02 | Outpatient (AMB) | payer OTHER, SELFPAY ==
--- NOTE | 2023-09-18 11:09 | MHC.OFFVIS ---
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 Intake Note: New patient dx chest pain c/o chest pain at times Operations Research Scientist Required: Yes Operations Research Scientist Name: [facility] Lace Roller Operator: Lace Roller Operator Present Accompanied by: tacking stitch remover Allergies cortisone Allergy (Verified 06/18/23 10:54) Itching Medication List - Last Reconciled 09/18/23 by Osiel Vogel MD aspirin (Adult Aspirin Regimen) 81 mg PO DAILY atorvastatin 40 mg PO DAILY celecoxib 100 mg PO BID PRN chlorthalidone 25 mg PO DAILY finasteride (Proscar) 5 mg PO DAILY 90 days lisinopril 20 mg PO DAILY omeprazole 20 mg PO DAILY tamsulosin 0.4 mg PO BEDTIME HPI Comments Details: Barrett was referred here for chest discomfort. Despite a certified game design instructor in the room he is not a very good historian. Patient is referred here for precordial chest discomfort. He said about 6 months ago it come to the emergency room with episode of severe chest discomfort which she describes as tightness/pressure which lasted for about an hour. He came to the hospital at [facility] other workup and was told that everything was okay and then left home. Since then he continues to have intermittent episodes of precordial chest discomfort which is like pressure but not clearly exertion related. He has not very sure about this. Not able to provide me with very good history otherwise. Said he does get lightheaded, recently chlorthalidone seems to be added to his regimen for elevated blood pressure and leg swelling. Since then today his blood pressure is on the lower side at systolic 100. When I asked him about if he is getting lightheaded he was not very sure but occasionally says yes he does get lightheaded. He has not had any syncopal episode. He is worried about his balance and came in walking with a cane. He denies any other heart failure symptoms. He denies any prolonged palpitation irregular heartbeat. He says he is worried about this chest pain because of family history of heart disease. [facility] Medical History High cholesterol Shoulder pain, left Arthritis HTN (hypertension) Surgical History History of inguinal hernia repair Family History Mother Asthma Alzheimer disease Father Asthma Social History Household Members Other:: sister Housing: Apartment Alcohol intake: former Patient Tobacco Use Status: Former Tobacco user Current occupational status: disabled Current occupation: rt handed Review of Systems Const Denies chills, Denies daytime sleepiness, Denies fatigue, Denies fever(s), Denies frequent falls, Denies poor appetite, Denies snoring, Denies stops breathing during sleep, Denies weakness, Denies weight gain and Denies weight loss Eyes Denies loss of vision ENT Denies dizziness and Denies hearing loss Card Denies chest pain, Denies claudication, Denies leg edema, Denies lightheadedness, Denies palpitations, Denies dyspnea, Denies dyspnea on exertion and Denies orthopnea Resp Denies cough, Denies excessive phlegm production, Denies dyspnea, Denies dyspnea on exertion, Denies snoring and Denies wheezing GI Denies abdominal pain, Denies hematochezia, Denies change in bowel habits, Denies nausea and Denies vomiting Denies dysuria and Denies urinary frequency Musc Denies arthralgias, Denies muscle weakness, Denies numbness and Denies other (frequent falls) Skin/Breast Denies nail changes and Denies rash Neuro Denies Abnormal speech present, Denies dizziness, Denies frequent falls, Denies loss of vision, Denies memory loss, Denies numbness and Denies weakness Psych Denies depression and Denies memory loss Endo Denies fatigue and Denies palpitations Pipo/Lymph Reports easy bruising and Reports other (anemia) Aller/Immun Denies wheezing Physical Exam Vital Signs: Last Vital Signs Pulse 59 09/18/23 11:10 BP 100/58 L 09/18/23 11:10 BMI result Body Mass Index 29.5 Const General: cooperative, comfortable, no acute distress, alert and awake Nutritional Appearance: overweight Orientation/consciousness: patient oriented x3 Limitations: ambulation with cane HEENT Head: Yes normocephalic and Yes atraumatic Neck Neck: Yes trachea midline, Yes supple and Yes no JVD Resp Effort & Inspection: normal respiratory effort Auscultation: clear to auscultation bilaterally Cardio Jugular venous distension: no JVD Palpation: normal PMI Rate: regular rate Rhythm: regular rhythm Heart sounds: S1 normal heart sound present, S2 normal heart sound present, no click, no gallops, no murmurs and no rubs GI Auscultation: normal bowel sounds Skin General skin exam: no rashes or lesions noted Neuro General: patient oriented x3 and no focal motor deficits Speech: No Abnormal speech present Extrem General: Yes no clubbing, cyanosis or edema Psych Appearance: grossly normal Office Procedures EKG Details: EKG shows normal sinus rhythm with poor R-wave progression at 59 beats per minute [id number], Complete Assessment & Plan Assessment & Plan (1) Atypical chest pain: Code(s): R07.89 - Other chest pain Category: Medical Plan: Atypical chest pain this elderly gentleman with multiple risk factors including hypertension, hyperlipidemia, family history with inability to exercise on treadmill due to balance issues, walks with a cane. Will pursue further evaluation for myocardial ischemia with a vasodilating myocardial perfusion imaging. This will be scheduled in near future. Also suggest an echocardiogram to evaluate LV systolic and diastolic function to evaluate for any other valvular abnormalities as well as RV size and function and pulmonary hypertension. These tests will be scheduled in near future. He is noted to have low blood pressure episodes of lightheadedness. Advised to reduce lisinopril to 10 mg daily. Continue chlorthalidone therapy. Advised to monitor blood pressure at home maintain a log. Despite all the conversation with him with help of a disease education specialist I am not 100% sure if he understands everything although he did acknowledge understanding. Will follow up in the clinic in 6 weeks time, sooner p.r.n.. Thank you for allowing me to partake in his care Orders: Orders CA lexiscan stress w mathew Today R07.89 - Other chest pain CA echo transthoracic complete Today R07. - Other chest pain Medications: New lisinopril 10 mg PO DAILY 30 tabs 5RF Coding Level of Care Code New Pt Level 4 (96797) Diagnoses Atypical chest pain R0 CPT Codes EKG - CPT: 85083-Kzhjhdbzfiyxwpepy, Complete ([id number])
[2023-09-18 11:10] VITALS: BP 100/58; PULSE 59; BMI 29.5
== END 2023-09-18 12:08 | disposition home or self-care (01) ==
PROVIDERS: PCP Nurse Practitioner Primary Care; Visit Provider Internal Medicine Cardiovascular Disease
DX: R07.89 Other chest pain (principal)
CPT/HCPCS: 93010; 99214

== ENCOUNTER → 2023-09-18 11:02 | Outpatient (BNVA) | payer OTHER, SELFPAY | PROVIDERS: PCP Internal Medicine; Visit Provider Internal Medicine Cardiovascular Disease | DX: R07.89 Other chest pain (principal); R94.31 Abnormal electrocardiogram [ECG] [EKG]; R00.1 Bradycardia, unspecified | CPT/HCPCS: 93005; 99212 ==

== ENCOUNTER 2023-10-01 09:08 | Outpatient (REF) | payer OTHER, SELFPAY ==
[2023-10-01 11:22] LABS: MANUAL DIFF FLAG NO
[2023-10-01 11:35] LABS: Basophils Absolute Auto 0.1 X10*3/uL (0.0-0.2); Basophils Percent Auto 0.9 % (0-2); Eosinophils Absolute Auto 0.6 X10*3/uL (0.0-0.4); Eosinophils Percent Auto 8.2 % (0-4); Hematocrit 45.1 % (42.0-52.0); Hemoglobin 15.2 g/dl (14.0-18.0); Imm Gran Abs Auto 0.03 X10*3/uL (0.00-0.03); Imm Gran Pct Auto 0.4 % (0.0-0.4); Lymphocytes Absolute Auto 1.9 X10*3/uL (1.2-4.9); Lymphocytes Percent Auto 24.6 % (20-40); Mean Corpuscular HGB Conc 33.7 g/dl (31.0-36.0); Mean Corpuscular Hemoglobin 29.9 pg (27.0-33.0); Mean Corpuscular Volume 88.8 fL (80.0-98.0); Monocytes Absolute Auto 0.5 X10*3/uL (0.1-1.2); Monocytes Percent Auto 6.9 % (2-11); Neutrophils Absolute Auto 4.6 x10*3/uL (2.0-8.3); Platelet Count 213 X10*3/uL (160-400); Red Blood Count 5.08 X10*6/uL (4.60-5.80); Red Cell Distribution Width 12.5 % (11.0-16.0); White Blood Count 7.9 X10*3/uL (4.8-10.8)
[2023-10-01 11:44] LABS: Estimated Average Glucose 148 mg/dL; Hemoglobin A1c % 6.8 % (<6.0)
[2023-10-01 11:54] LABS: Anion Gap 13 (12-20); Blood Urea Nitrogen 18 mg/dL (9-16); C Reactive Protein < 0.10 mg/dL (< or = 0.50); Calcium 9.1 mg/dL (8.4-10.2); Carbon Dioxide 25 mmol/L (22-29); Chloride 104 mmol/L (96-108); Estimated Glomerular Filt Rate > 60; Glucose Random 149 mg/dL (60-115); Potassium 4.6 mmol/L (3.3-5.1); Sodium 137 mmol/L (135-145)
[2023-10-01 12:10] LABS: Erythrocyte Sedimentation Rate 6 MM/HR (0-15)
[2023-10-01 12:11] LABS: PSA,Total (Free>4and<10) 2.08 ng/mL (0.00-4.00)
[2023-10-01 12:19] LABS: Vitamin B12 326 pg/mL (200-900)
[2023-10-07 16:15] LABS: HLA B27 Negative (Negative)
== END 2023-10-01 09:09 | disposition home or self-care (01) ==
LOC: HO.HHCL 09:08
PROVIDERS: Referring Provider Urology; Visit Provider Nurse Practitioner Primary Care
DX: I10 Essential (primary) hypertension (principal); R73.09 Other abnormal glucose; M54.50 Low back pain, unspecified; R20.2 Paresthesia of skin; C61 Malignant neoplasm of prostate; R97.20 Elevated prostate specific antigen [PSA]; Z12.5 Encounter for screening for malignant neoplasm of prostate
CPT/HCPCS: 36415; 80048; 82607; 83036; 84153; 85025; 85652; 86140; 86812

== ENCOUNTER 2023-10-20 10:59 | Outpatient (AMB) | payer OTHER, SELFPAY ==
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
[2023-10-20 11:05] VITALS: BP 139/79; PULSE 51; BMI 30.5
== END 2023-10-20 12:16 | disposition home or self-care (01) ==
PROVIDERS: PCP Internal Medicine; Visit Provider Nurse Practitioner
DX: K21.9 Gastro-esophageal reflux disease without esophagitis (principal); D12.6 Benign neoplasm of colon, unspecified
CPT/HCPCS: 99203

== ENCOUNTER → 2023-10-20 10:59 | Outpatient (BNVA) | payer OTHER, SELFPAY | PROVIDERS: PCP Internal Medicine; Visit Provider Nurse Practitioner | DX: K21.9 Gastro-esophageal reflux disease without esophagitis (principal); D12.6 Benign neoplasm of colon, unspecified | CPT/HCPCS: 99202 ==

== ENCOUNTER → 2023-10-23 08:08 | Outpatient (REF) | payer OTHER, SELFPAY ==
--- NOTE | ~2023-10-23 | NM_ITS ---
Myocardial perfusion study Indication: Atypical chest pain to evaluate for myocardial ischemia Technique: The patient was brought in for a Lexiscan perfusion study on 10/23/2023. Patient performed low-level exercise and was injected 0.4 mg of Lexiscan intravenously. Within a minute of injection, 30 mCi of sestamibi was given intravenously. Images were obtained using the SPECT gamma camera interlaced with the gating device. Images were obtained in supine position. Resting perfusion study was performed on 10/27/2023. Patient was administered 30 mCi of sestamibi intravenously at rest. Images were then obtained in supine position. Images obtained with and without CT attenuation. Total DLP 97 mGy-cm. Images were processed with the software and compared side to side in short axis, horizontal long axis and vertical long axis views. Findings: The stress perfusion study showed non attenuated images show some thinning of the lateral wall of the LV myocardium most likely due to arms down position during imaging. Overall otherwise perfusion pattern appears to be normal. Attenuation corrected images show minimal thinning of the apex of the LV myocardium.. The gated study shows normal LV systolic function with visually estimated LVEF of greater than 50%. LV cavity is normal in size. The gated study shows normal systolic wall thickening and contraction of segments. Resting study shows non attenuated images show mildly to moderately reduced uptake in the lateral wall of the LV myocardium. Attenuation corrected images show normal uptake of radiotracer in all segments of LV myocardium. Gating at rest reveals normal systolic wall motion with ejection fraction at 54%. The findings are consistent with likely normal myocardial perfusion. NM/NM mathew perf SPECT rest & str Impression: 1. Myocardial perfusion imaging study shows likely normal myocardial perfusion 2. Gated LVEF is 54% 3. Transient ischemic dilatation not present EKG is nondiagnostic for ischemia
--- NOTE | 2023-10-23 08:14 | CA_ITS ---
Transthoracic Echocardiogram Patient (Last, First, Middle): Barrett Gutierrez, Gender: Male Date of : 1950 Age: 73 Procedure Date: 10/23/2023 Procedure Type: Transthoracic Echocardiogram Location: OP Height: 167.64 cm Weight: 82.56 kg BSA: 1.92 m2 Heart Rate: 59 bpm BP: 110 / 65 mmHg Field Human Resources Manager: PATRICIA Referring MD: Osiel Vogel MD Symptoms: R07.89 - Other chest pain Study Quality: Fair w/Contrast ECG Rhythm: Sinus Conclusions: - The left ventricular systolic function is low normal. The visually estimated ejection fraction is between 50-55%. - No obvious valvular pathology seen on this study. - There is mild dilatation of the ascending aorta measuring 4.20 cm. Findings Procedure Information Contrast agent, definity, is being given per protocol without apparent complications. Left Ventricle Normal left ventricular cavity size. The left ventricular systolic function is low normal. The visually estimated ejection fraction is between 50-55%. There is no evidence of regional wall motion abnormalities. Evidence suggests grade I (mild) diastolic dysfunction. There is mild septal asymmetric hypertrophy. Right Ventricle Normal right ventricular cavity size. There is low normal right ventricular systolic function. Atria Both atria are normal in size. Aortic Valve There is a normal trileaflet aortic valve. There is no aortic valve stenosis. There is no aortic valve regurgitation. Mitral Valve The mitral valve appears normal. There is trace mitral valve regurgitation. There is no mitral valve stenosis. Pulmonic Valve The pulmonic valve is likely normal. Tricuspid Valve Normal tricuspid valve structure. There is mild tricuspid valve regurgitation. There is no evidence of pulmonary hypertension. Great Vessels There is mild dilatation of the ascending aorta measuring 4.20 cm. Venous The inferior vena cava is normal in size and collapses greater than 50% with inspiration. Pericardium/Pleural There is no evidence of pericardial effusion. Prior Study Comparison No prior study available for comparison. Recommendations, Care & Conclusions No obvious valvular pathology seen on this study. Measurements 2D Linear Measurements IVSd: 1.09 0.6-0.9/0.6-1.0 cm LVIDd: 4.59 3.9-5.3/4.2-5.9 cm LVIDd Index: 2.39 2.4-3.2/2.2-3.1 cm/m2 LVIDs: 2.78 2.0-3.6 cm LVPWd: 1.00 0.7-1.1 cm LA Diam: 3.40 2.7-3.8/3.0-4.0 cm LAIDs Index: 1.77 1.5-2.3 cm/m2 LV Mass: 209.15 67-162/88-224 g LV Mass Index: 108.93 43-95/49-115 g/m2 LVOT Diam: 2.00 3.0+(-)1.3 cm 2D Systolic Function EF 4C: 61.60 >55% EF 2C: 55.50 >55% EF BiP: 58.20 >55% Mitral Valve MV Pk E: 0.93 MV PK A: 0.83 MV Decel Time: 243.00 E/A: 1.10 E'Lateral: 6.20 E'Medial: 5.87 E/E' Med: 15.80 E/E' Lat: 14.90 PHT: 71.00 MVA PHT: 3.10 Decel Elk: 3.81 Aortic Valve AoV Pk Austen: 1.25 AoV Mn Austen: 0.94 AoV VTI: 0.30 AoV Pk Grad: 6.00 Aov Mn Grad: 4.00 KATYA Cont.VTI: 2.44 LVOT LVOT Pk Austen: 0.99 LVOT Mn Austen: 0.68 LVOT VTI: 0.23 LVOT Pk Grad: 4.00 LVOT Mn Grad: 2.00 LVOT Diam: 2.00 LVOT Area: 3.14 Diastolic Function MV Pk E: 0.93 MV Pk A: 0.83 E/A: 1.10 E'Medial: 5.87 E/E' Med: 15.80 E' Laterial: 6.20 E/E' Lat: 14.90 Right Ventricle TAPSE (mm): 16.60 TVS' Austen: 10.30 Tricuspid Valve TR Pk Austen: 1.98 TR Pk Grad: 16.00 RA Press: 3.00 RVSP: 19.00 Great Vessels Aorta Sinus of Valsalva: 3.70 2.0-3.5 cm Ao Asc: 4.20 2.1-3.4 cm Pulmonary Valve PV Pk Austen: 0.91 Peak PV Grad: 3.00 Updated in Other Vendor System with Status of Final Isidoro Quintana MD electronically signed on 10/25/2023 11:50:51 AM with status of Final
--- NOTE | 2023-10-23 08:14 | CA_ITS ---
Acquisition Time: 2023-10-23 09:04:03 Total Exercise Time: 00:02:00 Test Indications: Chest Pain Medications: SEE H Protocol: LEXISCAN Max HR: 100 BPM 67% of Pred: 149 BPM Max BP: 134/076 mmHG Max Work Load: 1.0 METS Pharmacological stress test with Lexiscan injection while sitting and marching in place, without anginal symptoms, with normotesnive response to injection, without arrhythmias, with nondiagnoisitic EKGs. Aminophylline 75mg IVP given to reverse Lexiscan. Nuclear images pending, Test reviewed with Dr. Quintana. Referred By: Osiel Vogel Overread By: Sana Hendricks
== END ==
LOC: HO.CARD 08:08
PROVIDERS: PCP Internal Medicine; Visit Provider Internal Medicine Cardiovascular Disease
DX: R07.89 Other chest pain (principal)
CPT/HCPCS: 78452; 93017; 93306; A9500; J0280; J2785; Q9957

== ENCOUNTER → 2023-10-23 08:14 | Outpatient (BNV) | payer OTHER, SELFPAY | PROVIDERS: PCP Internal Medicine; Visit Provider Nurse Practitioner | DX: R07.9 Chest pain, unspecified (principal) | CPT/HCPCS: 78452; 93016; 93018; 93320; 93350; 93352 ==

== ENCOUNTER 2023-11-02 10:19 | Outpatient (AMB) | payer OTHER, SELFPAY ==
[2023-11-02 10:20] VITALS: BP 120/72; PULSE 59; BMI 30.5
--- NOTE | 2023-11-02 10:20 | MHC.OFFVIS ---
Vital Signs 11/02/23 10:20 Height 5 ft 6 in Weight 189 lb 2.506 oz BMI 30.5 BP 120/72 Blood Pressure Location Lt brachial Position Sitting Pulse 59 Pulse Source Pulse Oximeter Intake Visit Reasons: 6 wk fu after marcelo/ echo (NS) Resource Specialist Teacher Required: Yes Resource Specialist Teacher Language: Inspector Final Assembly Mechanical Name: aram almendarez [id number] Allergies cortisone Allergy (Verified 11/02/23 10:22) Itching Medication List - Last Reconciled 11/02/23 by JONA De JesusC aspirin (Adult Aspirin Regimen) 81 mg PO DAILY atorvastatin 40 mg PO DAILY bisacodyl (Dulcolax (bisacodyl)) 10 mg (2 x 5 mg) PO BEDTIME 2 days celecoxib 100 mg PO BID PRN chlorthalidone 25 mg PO DAILY finasteride (Proscar) 5 mg PO DAILY 90 days lisinopril 10 mg PO DAILY omeprazole 40 mg PO DAILY 30 days peg 3350-electrolytes 236-22.74-6.74 -5.86 gram (Golytely) 240 mL PO Q10M 1 day simethicone 180 mg PO QID 30 days tamsulosin 0.4 mg PO BEDTIME HPI HPI 6 wk fu after marcelo/ echo (NS): Details: Barrett is a 73-year-old male with past medical history hypertension, hyperlipidemia who was recently evaluated for atypical chest discomfort. He underwent an echocardiogram and nuclear stress test and now presents for follow-up. Today he reports that he has not been having any concerning chest discomfort recently. He says his prior discomfort has resolved. Has no exertional symptoms. No shortness of breath, PND, orthopnea or edema. No lightheadedness, presyncope, syncope, falls. He rides his bike around his neighborhood which he says he tolerates well. Has knee pain which makes stair climbing difficult. He uses the elevator to get to his apartment. He takes all his meds as directed. Son is present. Certified boat hop used. [facility] Medical History (Updated 11/02/23 @ 10:51 by VAN De Jesus) High cholesterol Shoulder pain, left Arthritis HTN (hypertension) Surgical History History of inguinal hernia repair Family History Mother Asthma Alzheimer disease Cancer Father Asthma Brother Cancer Father Heart disease Social History Household Members Other:: sister Housing: Apartment Alcohol intake: former Patient Tobacco Use Status: Former Tobacco user Current occupational status: disabled Current occupation: rt handed Review of Systems Const All systems reviewed & are unremarkable except as noted in HPI and below ENT Denies dizziness Card Denies chest pain, Denies chest pain at rest, Denies chest pain with activity, Denies rapid heart rate, Denies pedal edema, Denies edema, Denies leg edema, Denies lightheadedness, Denies palpitations, Denies dyspnea, Denies dyspnea on exertion and Denies orthopnea Resp Denies cough, Denies dyspnea and Denies dyspnea on exertion GI Denies hematochezia and Denies change in stool character Musc Denies abnormal gait, Denies limited range of motion, Denies muscle cramps, Denies muscle weakness, Denies numbness, Denies radiating pain into limb, Denies stiffness and Denies tingling Neuro Denies abnormal gait, Denies dizziness, Denies numbness and Denies tingling Endo Denies palpitations Physical Exam Vital Signs: Last Vital Signs Pulse 59 11/02/23 10:20 BP 120/72 11/02/23 10:20 BMI result Body Mass Index 30.5 Const General: cooperative, healthy appearing, comfortable and no acute distress Orientation/consciousness: patient oriented x3 Neck Neck: Yes normal visual inspection and Yes no JVD Resp Effort & Inspection: normal respiratory effort Auscultation: clear to auscultation bilaterally, no crackles, no rales, no rhonchi and no wheezes Cardio Jugular venous distension: no JVD Rate: regular rate Rhythm: regular rhythm Heart sounds: S1 normal heart sound present, S2 normal heart sound present, no murmurs and no rubs Neuro General: patient oriented x3 Extrem General: Yes normal to inspection, No no pedal edema and No calf tenderness Psych Appearance: grossly normal Mental Status: mental status grossly normal Speech and movement: Normal speech and movement present Assessment & Plan Assessment & Plan (1) Atypical chest pain: Code(s): R07.89 - Other chest pain Category: Medical Plan: Report of atypical chest discomfort on last visit. He has cardiac risk factors of hypertension and hyperlipidemia. Has no known history of CAD. EKG done last visit showed sinus bradycardia, can not exclude prior anterior infarct, rate 59. He had an echocardiogram on 10/23/2023 which showed EF 50-55%, no valve abnormalities ascending aorta 4.2 cm. A nuclear stress test done on 10/27/2023 showed likely normal myocardial perfusion imaging. Test results reviewed with him in detail. At this time he has no anginal sounding symptoms. Will continue with risk factor modification including good blood pressure and cholesterol control. Continue activity as tolerated. For medications he will continue to take aspirin, moderate dose atorvastatin, chlorthalidone and lisinopril. Blood pressure today 120/72. Signs and symptoms of angina reviewed with him. Due to his low normal EF will plan for a repeat echo in 1 year. Cardiology follow-up 1 year, sooner if needed (2) HTN (hypertension): Code(s): I10 - Essential (primary) hypertension Category: Medical Plan: Well controlled at this time. No med changes made. Continue chlorthalidone and lisinopril. (3) High cholesterol: Code(s): E78.00 - Pure hypercholesterolemia, unspecified Category: Medical Plan: [place] LDL goal less than 100. He is on atorvastatin 40 mg daily. No recent cholesterol profile for review. Labs followed by his PCP. (4) Abnormal echocardiogram findings without diagnosis: Code(s): R93.1 - Abnormal findings on diagnostic imaging of heart and coronary circulation Category: Medical Plan: Low normal EF. No clinical signs of heart failure. Plan for recheck in 1 year. Plan Time spent on chart review, documentation, interview and assessment Orders: Orders CA echo transthoracic complete 1 Year I10 - Essential (primary) hypertension, R93.1 - Abnormal findings on diagnostic imaging of heart and coronary circulation Coding Level of Care Code Est Pt Level 3 (02828) Diagnoses Atypical chest pain R07.89 HTN (hypertension) I10 High cholesterol E78.00 Abnormal echocardiogram findings without diagnosis R93.1 Time Spent (min) 24
== END 2023-11-02 10:42 | disposition home or self-care (01) ==
LOC: HO.HCS 10:19
PROVIDERS: PCP Internal Medicine; Visit Provider Nurse Practitioner Family
DX: R07.89 Other chest pain (principal); I10 Essential (primary) hypertension; E78.00 Pure hypercholesterolemia, unspecified; R93.1 Abnormal findings on diagnostic imaging of heart and coronary circulation
CPT/HCPCS: 99213

== ENCOUNTER → 2023-11-02 10:19 | Outpatient (BNVA) | payer OTHER, SELFPAY | PROVIDERS: PCP Internal Medicine; Visit Provider Nurse Practitioner Family | DX: R07.89 Other chest pain (principal); I10 Essential (primary) hypertension; E78.00 Pure hypercholesterolemia, unspecified; R93.1 Abnormal findings on diagnostic imaging of heart and coronary circulation | CPT/HCPCS: 99212 ==

== ENCOUNTER 2023-12-17 11:13 | Outpatient (AMB) | payer OTHER, SELFPAY ==
--- NOTE | 2023-12-17 11:16 | MHC.OFFVIS ---
Intake Visit Reasons: 6m/PSA Intake Note: Patient is present for 6M/PSA Urology Medication:TAMSULOSIN, FINASTERIDE Antibiotic Allergy:NONE Blood Thinner:ASPIRIN Supervisor [employer] Required: No Allergies cortisone Allergy (Verified 12/17/23 11:17) Itching HPI Comments Details: 12/17/23-Barrett is a 73-year-old male who presents to the office for follow up PSA results. LV-06/18/23. 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 PSA -06/13/23-1.59. He is on tamsulosin and proscar, fu PSA- 10/01/23--2.08 ng/mL discussed. Plan to continue to monitor PSA's. Review of chart: 03/21/22--Barrett is a patient of Elizabeth Gaona NP, here for FU for microscopic hematuria evaluation. Office visit-12/25/21- He states he had an elevated PSA in the past. He forgot to have the PSA done. He is up 2 times at night to urinate. He feels that he empties his bladder adequately. He denies dysuria or gross hematuria. I have reviewed the CT urogram -02/26/22 results with the patient-- urinary tract within normal limits. ---Evaluation today: Urinalysis persistent microscopic hematuria, office cystoscopy pain mild prostatic enlargement, no suspicious bladder lesions. Plan Flomax daily, reorder PSA lab draw our . 06/12/2022--The patient is a [place] speaking male. Qualified rigger helper was present during the visit. The patient has history of elevated PSA. The patient had prostate biopsy few years ago. The patient takes aspirin 81 mg QD. Discussed prostate biopsy vs repeat PSA testing in three months. Contributing factors leading to elevated PSA were discussed with the patient. Evaluation today: Blood:25 Demarco/uL, leukocytes: negative. PSA results reviewed?06/04/2022?4.91. Plan:Elevated PSA. The patient agreed for prostate biopsy. Advised to stop aspirin two weeks before the procedure for reducing the chances of bleeding. Valium to be taken in the morning of the procedure was ordered. BPH. Cont. Flomax 08/21/22-- The patient is a [place] speaking male. Certified rigger helper was present during the visit. 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 Atypical small acinar proliferation worrisome for 3+3=6 adenocarcinoma at the left mid medical and atypical small acinar proliferation in the left lateral apex. PSA results reviewed--06/04/22--4.91. Evaluation today-- Blood 10 Demarco/uL, leukocytes: negative. Bladder scan PVR: 0 mL. In discussion with the patient today I explained that there are two area where are atypical cells and in one area the atypical cells are suspicious for low grade cancer. At this time it recommend to watch him closely with active surveillance as recommended by the [place] [employer]. I discussed that treatment for prostate cancer including to radical prostatectomy and radiations but that also carries risks and of side effects which include but not limited to urinary incontinence and erectile dysfunction and based on his biopsy results active surveillance would be recommended. COUNT INCLUDES [facility] Medical History (Updated 11/02/23 @ 10:51 by Kalyani Kilgore NP-C) High cholesterol Shoulder pain, left Arthritis HTN (hypertension) Surgical History History of inguinal hernia repair Family History Mother Asthma Alzheimer disease Cancer Father Asthma Brother Cancer Father Heart disease Social History Household Members Other:: sister Housing: Apartment Alcohol intake: former Patient Tobacco Use Status: Former Tobacco user Current occupational status: disabled Current occupation: rt handed Review of Systems Const All systems reviewed & are unremarkable except as noted in HPI and below Reports no additional complaints Eyes Reports no additional complaints ENT Reports no additional complaints Card Reports no additional complaints Resp Reports no additional complaints GI Reports no additional complaints Reports as per HPI Musc Reports no additional complaints Skin/Breast Reports system reviewed and no additional complaints, except as documented Neuro Reports no additional complaints Psych Reports no additional complaints Endo Reports no additional complaints Pipo/Lymph Reports no additional complaints Aller/Immun Reports no additional complaints Results AMB Urinalysis, Automated UA Leukoctes 0 Nikita/uL Last Edit by MONET Reardon on 12/17/23 12:08 UA Nitrite Negative Last Edit by MONTE Reardon on 12/17/23 12:08 UA Urobilinogen 0.2 mg/dL Last Edit by MONET Reardon on 12/17/23 12:08 UA Protein 15 mg/dL Last Edit by Jovana Mary CCM on 12/17/23 12:08 UA pH 5.0 Last Edit by Jovana Mary [facility] on 12/17/23 12:08 UA Blood 80 Demarco/uL Last Edit by Jovana Mary [facility] on 12/17/23 12:08 UA Specific [place] 1.025 Last Edit by MONET Reardon on 12/17/23 12:08 UA Ketone Negative Last Edit by MONET Reardon on 12/17/23 12:08 UA Bilirubin 0 mg/dL [facility] 12/17/23 12:08 UA Glucose 0 mg/dL Last Edit [facility] 12/17/23 12:08 Results Reviewed Results Reviewed: Laboratory Last Values Urine pH (Auto) 5.0 12/17/23 12:07 Specific [place] (Auto) 1.025 12/17/23 12:07 Urine Protein (Auto) 15 mg/dL 12/17/23 12:07 Glucose (UA)(Auto) 0 mg/dL 12/17/23 12:07 Urine Ketones (Auto) Negative 12/17/23 12:07 Urine Blood (Auto) 80 Demarco/uL 12/17/23 12:07 Urine Nitrite (Auto) Negative 12/17/23 12:07 Urine Bilirubin (Auto) 0 mg/dL 12/17/23 12:07 Urine Urobilinogen (Auto) 0.2 mg/dL 12/17/23 12:07 Leukocyte Esterase (Auto) 0 Nikita/uL 12/17/23 12:07 Assessment & Plan Assessment & Plan (1) Elevated PSA: Code(s): R97.20 - Elevated prostate specific antigen [PSA] Category: Medical (2) Atypical small acinar proliferation of prostate: Comment: Path results 07/28/22-Atypical small acinar proliferation worrisome for 3+3=6 adenocarcinoma Code(s): N42.32 - Atypical small acinar proliferation of prostate Category: Medical (3) BPH associated with nocturia: Code(s): N40.1 - Benign prostatic hyperplasia with lower urinary tract symptoms; R35.1 - Nocturia Category: Medical Plan Path results Atypical small acinar proliferation worrisome for 3+3=6 adenocarcinoma, will treat as Active surveillance for prostate cancer. Continue Proscar 05 mg and tamsulosin renal/bladder US, PSA fu 6 months Orders: Orders AMB Urinalysis Automated 12/17/23 Z13.9 - Encounter for screening, unspecified Urine Cytology 12/17/23 N39.0 - Urinary tract infection, site not specified Patient Instructions: The patient had an opportunity to ask questions regarding treatment plan. The patient expressed understanding and agreement with the above treatment plan. The patient is aware they should contact our office by phone for worsening of their current condition or the appearance of new symptoms. Compliance is encouraged with any medications and followup testing that is ordered. It is a privilege to be allowed the opportunity to participate in the urologic care of your patient. If you have any questions or concerns regarding treatment for the above conditions please do not hesitate to contact me. The office telephone contact is [phone]. This note is constructed in part using voice recognition software. While every effort has been made to ensure accuracy furniture and bedding inspector errors may have been included. Yours sincerely, Arin Campo MD Coding Level of Care Code Est Pt Level 4 (71709) Diagnoses Elevated PSA R97.20 Atypical small acinar proliferation of prostate N42.32 BPH associated with nocturia N40.1; R35.1
== END 2023-12-17 12:24 | disposition home or self-care (01) ==
PROVIDERS: PCP Internal Medicine; Visit Provider Urology
DX: R97.20 Elevated prostate specific antigen [PSA] (principal); N42.32 Atypical small acinar proliferation of prostate; N40.1 Benign prostatic hyperplasia with lower urinary tract symptoms; R35.1 Nocturia
CPT/HCPCS: 99214

== ENCOUNTER 2023-12-17 11:13 | Outpatient (REF) | payer OTHER, SELFPAY ==
[2023-12-17 16:42] LABS: Urine Cytology See Pathology rpt
== END 2023-12-17 11:14 | disposition home or self-care (01) ==
LOC: HO.LNP 11:13
PROVIDERS: PCP Internal Medicine; Visit Provider Urology
DX: N39.0 Urinary tract infection, site not specified (principal)
CPT/HCPCS: 81003; 88112; 99212

== ENCOUNTER 2024-02-25 08:54 | Day surgery (SDC) | payer OTHER, SELFPAY ==
[2024-02-23 14:09] VITALS: BMI 30.5
[2024-02-25 09:01] VITALS: BMI 30.7
[2024-02-25 09:11] VITALS: BP 146/80; PULSE 66; RESP 18; TEMP 36.8; O2SAT 98
--- NOTE | 2024-02-25 09:15 | P.CONAN_ITS ---
Documented by User: Krystina Treadwell NP 02/24/24 09:41 HPI - Anesthesia Eval Consult details Narrative: 73yo M for Upper Endoscopy and Colonoscopy Follows [facility] [place] Cardiology for atypical CP - echo and stress OK, good exercise tolerance - ok for routine yearly f/u [facility] Active Problems Active Problems: All Active Problems Abnormal echocardiogram findings without diagnosis (Acute) Tubular adenoma of colon (Acute) Atypical chest pain (Acute) Atypical small acinar proliferation of prostate (Acute) Prostate cancer (Acute) Elevated PSA (Acute) Screening PSA (prostate specific antigen) (Acute) BPH associated with nocturia (Acute) Microscopic hematuria (Acute) Rash (Acute) Depression (Acute) GERD (gastroesophageal reflux disease) (Acute) Generalized arthritis (Acute) Sleep apnea (Acute) Witnessed episode of apnea (Acute) Daytime sleepiness (Acute) Loud snoring (Acute) Calcific tendonitis of left shoulder (Acute) High cholesterol (Acute) HTN (hypertension) (Acute) Past Medical History Medical History BPH (benign prostatic hyperplasia) GERD (gastroesophageal reflux disease) Depression Sleep apnea Prostate cancer High cholesterol Shoulder pain, left Arthritis HTN (hypertension) Family History Family History Mother Asthma Alzheimer disease Cancer Father Asthma Brother Cancer Father Heart disease Surgical History Surgical History Hx of prostate biopsy History of inguinal hernia repair Social History Social History Household Members Other:: sister Housing: Apartment Alcohol intake: former Patient Tobacco Use Status: Former Tobacco user Advance Directives: No Advance Directives Information Provided: Yes Current occupational status: disabled Current occupation: rt handed Meds Allergies Allergy/AdvReac Type Severity Reaction Status Date / Time cortisone Allergy Itching Verified 02/25/24 09:03 Home Medications ?Medication ?Instructions ?Recorded ?Confirmed ?Last Taken ?Type aspirin 81 mg tablet,delayed 81 mg PO DAILY 12/25/21 02/23/24 02/22/24 History release (Adult Aspirin Regimen) atorvastatin 40 mg tablet 40 mg PO DAILY 12/25/21 02/23/24 Unknown History celecoxib 100 mg capsule 100 mg PO BID PRN pain 09/18/23 02/23/24 Unknown History chlorthalidone 25 mg tablet 25 mg PO DAILY 09/18/23 02/23/24 Unknown History Exam Height,Weight and Vital Signs: Height 5 ft 6 in Weight 85.729 kg Narrative Narrative: EKG 09/2023 EKG Details: EKG shows normal sinus rhythm with poor R-wave progression at 59 beats per minute ECHO 2023 Conclusions: - The left ventricular systolic function is low normal. The visually estimated ejection fraction is between 50-55%. - No obvious valvular pathology seen on this study. - There is mild dilatation of the ascending aorta measuring 4.20 cm. NM mathew perf SPECT rest & str 10/2023 Impression: 1. Myocardial perfusion imaging study shows likely normal myocardial perfusion 2. Gated LVEF is 54% 3. Transient ischemic dilatation not present EKG is nondiagnostic for ischemia Assessment and Plan Assessment Anesthesia Assessment: Chart Reviewed Documented by User: Lucia Abraham DO 02/25/24 09:24 HPI - Anesthesia Eval Consult details Narrative: 73yo M for Upper Endoscopy and Colonoscopy Follows [facility] [place] Cardiology for atypical CP - echo and stress OK, good exercise tolerance - ok for routine yearly f/u [facility] Past Medical History Medical History BPH (benign prostatic hyperplasia) GERD (gastroesophageal reflux disease) Depression Sleep apnea Prostate cancer High cholesterol Shoulder pain, left Arthritis HTN (hypertension) Family History Family History Mother Asthma Alzheimer disease Cancer Father Asthma Brother Cancer Father Heart disease Family history of problems with anesthesia: No Surgical History Surgical History Hx of prostate biopsy History of inguinal hernia repair History of Problems with Anesthesia: No Social History Social History Household Members Other:: sister Housing: Apartment Alcohol intake: former Patient Tobacco Use Status: Former Tobacco user Advance Directives: No Advance Directives Information Provided: Yes Current occupational status: disabled Current occupation: rt handed Meds Allergies Allergy/AdvReac Type Severity Reaction Status Date / Time cortisone Allergy Itching Verified 02/25/24 09:03 Home Medications ?Medication ?Instructions ?Recorded ?Confirmed ?Last Taken ?Type aspirin 81 mg tablet,delayed 81 mg PO DAILY 12/25/21 02/23/24 02/22/24 History release (Adult Aspirin Regimen) atorvastatin 40 mg tablet 40 mg PO DAILY 12/25/21 02/23/24 Unknown History celecoxib 100 mg capsule 100 mg PO BID PRN pain 09/18/23 02/23/24 Unknown History chlorthalidone 25 mg tablet 25 mg PO DAILY 09/18/23 02/23/24 Unknown History Exam Exam Date and Time: 02/25/24 0915 Height,Weight and Vital Signs: Height 5 ft 6 in Weight 85.729 kg Vital Signs Temperature 98.2 F 02/25/24 09:11 Pulse Rate 66 02/25/24 09:11 Respiratory Rate 18 02/25/24 09:11 Blood Pressure 146/80 H 02/25/24 09:11 Pulse Oximetry 98 02/25/24 09:11 Oxygen Delivery Method Room Air 02/25/24 09:11 Temperature 98.2 F 02/25/24 09:11 Pulse Rate 66 02/25/24 09:11 Respiratory Rate 18 02/25/24 09:11 Blood Pressure 146/80 H 02/25/24 09:11 Pulse Oximetry 98 02/25/24 09:11 Oxygen Delivery Method Room Air 02/25/24 09:11 Airway Mallampati Class: II TM Dist: <=3cm Neck ROM: Full Loose/Missing/Broken Teeth: Yes (dental implant but no loose or broken teeth) Heart: S1S2 Lungs: CTAB Assessment and Plan Assessment Anesthesia Assessment: Anesthesia Plan Discussed and Chart Reviewed Final Anesthetic Review Family History of Problems with Anesthesia: No History of Problems with Anesthesia: No NPO: Yes ASA Class: II Final Preanesthetic Review: No Changes in Pt Med Stat, Meds/Allgs Chart Reviewed, Consent Obtained/Reviewed (crimping press operator at bedside for translation) and Anes Risks/Benef Reviewed Patient Risk: Low Procedure Risk: Low Anesthetic Plan Anesthetic Plan: MAC: and Agree w/ Assess. and Plan Disposition: Standard PACU
[2024-02-25] MEDS: Lactated Ringers 1,000 ML 100 ML IVCONT (09:22)
--- NOTE | 2024-02-25 10:00 | MHC.SHP ---
Pre-Procedural Eval Section A - 24 Hr Update-Section A only Date of Service: 02/25/24 Section B - Complete if H&P > 30 days Chief Complaint: Benign neoplasm of colon,gerd, Relevant Family History (Specify if Yes): No Relevant Social History: None Present Medications: see Short Stay Collaborative assessment Medical History: Significant History (BPH (benign prostatic hyperplasia) GERD (gastroesophageal reflux disease) Depression Sleep apnea Prostate cancer High cholesterol Shoulder pain, left Arthritis HTN (hypertension)) History of Previous Operations: Relevant previous surgery/procedure and date(s) (Hx of prostate biopsy History of inguinal hernia repair) Allergies: Allergies Allergy/AdvReac Type Severity Reaction Status Date / Time cortisone Allergy Itching Verified 02/25/24 09:03 Review of Systems Sugical H&P ROS: Negative: Constitution, Cardiovascular, Respiratory, Neurological, Psychiatric, Hem-Onc, Allergic/Immunologic, Gastrointestinal, Genitourinary, Musculoskeletal, Integumentary, Endocrine and Eyes/Ears/Nose/Throat Exam Surgical H&P Exam: Normal: HEENT, Normal: Heart, Normal: Lungs, Normal: Extremities, Normal: Abdomen, Normal: Skin and Normal: Neurological Plan Diagnosis/Plan: Unchanged I have reviewed the history and physical and performed a pertinent physical examination on my patient. No changes have occurred unless specified. Time Spent With Patient Time: Total time managing care of this patient today ____ minutes.
--- NOTE | 2024-02-25 11:08 | P.OPN-COLO_ITS ---
Colonoscopy Operative Note Operative Note Date of Service: 02/25/24 Narrative: Operative Information Procedure Description: EGD, Colonoscopy Indication: screening, epigastric pain Anesthesia: MAC FLEXIBLE TRANSORAL UPPER GASTROINTESTINAL ENDOSCOPY AND COLONOSCOPY PROCEDURE NOTE UPPER ENDOSCOPY Consent: Indications for the procedure and potential complications of bleeding, perforation, reaction to medications and missed diagnosis were discussed with the patient and informed consent was obtained. Instrument: Olympus GIF H 190 J mid size upper endoscope Monitoring: Vital signs and clinical assessment, continuous EKG monitoring, Pulse oximetry, Carbon Dioxide monitoring and blood pressure monitoring were done throughout the procedure. Procedure: The patient was placed in the left lateral decubitis position and pre-procedure medications were administered and a bite block was placed. The endoscope was inserted into the mouth and advanced under direct vision to the third part of duodenum. A careful inspection was made as the upper endoscope was withdrawn including a retroflexed examination of the proximal stomach; Findings and interventions are described below. Findings: Larynx:normal Esophagus: GE junction at 40 cm, diaphragm hiatus at 40 cm, mild esophagitis and possible short segment barretts, bx taken Stomach: Streaky erythema. Biopsies were obtained. Grade 2 flap valve on retroflexed examination of the cardia. Duodenum: Normal bulb and descending duodenum, Intervention: Biopsies as noted above, COLONOSCOPY Instrument: Olympus variable stiffness pediatric scope 190L Colonoscopy Monitoring: Vital signs and clinical assessment, continuous EKG monitoring, Pulse oximetry, Carbon Dioxide monitoring and blood pressure monitoring were done throughout the procedure. Colon withdrawal time was 33 minutes. Procedure: The patient was placed in the left lateral decubitis position and pre-procedure medications were administered. After a digital rectal examination of the ano-rectum, the video colonoscope was inserted into the rectum and advanced through the colon to the cecum/TI. The colonoscope was slowly withdrawn in a retrograde panoramic fashion and the colon mucosa was carefully examined including a retroflexed view of the rectum. Findings and interventions are described below. Procedure Difficulty:moderate Findings: Terminal Ileum-not intubated Cecum: x 3 areas with flat granular polyps lifted with eleveiew injection and measured 10-12 mm and removed with cold snare. x 1 area with clip applied, moderate diverticulosis Ascending Colon: normal Transverse Colon -12 mm semi pedunculated polyp injected with epinephrine and removed with cold snare Descending Colon: moderate severe diverticulosis. x4 sessile polyps 10-12 mm removed with cold snare, x1 pedunculated polyp injected with epinephrine and removed with hot snare with one clip applied to base of stalk Sigmoid Colon: moderate severe diverticulosis Rectum: Retroflexion with small internal hemorrhoids, grade I Anorectum - normal Colon preparation: [place] Bowel Preparation Scale Right colon; 2 Transverse colon: 2 Left colon; 2 (0 = Unprepared colon segment with mucosa not seen due to solid stool that canno t be cleared. 1 = Portion of mucosa of the colon segment seen, but other areas of the colon segment not well seen due to staining, residual stool and/or opaque liquid. 2 = Minor amount of residual staining, small fragments of stool and/or opaque liquid, but mucosa of colon segment seen well. 3 = Entire mucosa of colon segment seen well with no residual staining, small fragments of stool or opaque liquid) Impression and Post Procedure Diagnosis: Endoscopy Findings: gastritis Colonoscopy Findings: diverticulosis colon polyps x 9 internal hemorrhoids Plan: Await Pathology results Repeat Colonoscopy in 3-6 months or earlier if clinically indicated High fiber diet leaflet avoid straining at stool, epsom salts and sitz bath, anusol supps or cream Above findings were reviewed with the patient and relevant handouts were provided if indicated.
[2024-02-25 11:15] VITALS: BP 111/42; PULSE 97; RESP 16; TEMP 36.1; O2SAT 97
[2024-02-25 11:30] VITALS: BP 134/69; PULSE 71; RESP 16; O2SAT 97
[2024-02-25 11:45] VITALS: BP 149/90; PULSE 63; RESP 16; TEMP 36.1; O2SAT 97
== END 2024-02-25 12:20 | disposition home or self-care (01) ==
PROVIDERS: PCP Internal Medicine; Visit Provider Internal Medicine Gastroenterology
PROC: (CPT 45385; principal; 2024-02-25 11:30)
DX: Z12.11 Encounter for screening for malignant neoplasm of colon (principal); Z86.0101 Personal history of adenomatous and serrated colon polyps; D12.0 Benign neoplasm of cecum; D12.3 Benign neoplasm of transverse colon; D12.4 Benign neoplasm of descending colon; K57.30 Diverticulosis of large intestine without perforation or abscess without bleeding; K64.0 First degree hemorrhoids; R10.13 Epigastric pain; K21.9 Gastro-esophageal reflux disease without esophagitis; K20.80 Other esophagitis without bleeding; K29.50 Unspecified chronic gastritis without bleeding; K44.9 Diaphragmatic hernia without obstruction or gangrene; N40.0 Benign prostatic hyperplasia without lower urinary tract symptoms; C61 Malignant neoplasm of prostate; I10 Essential (primary) hypertension; E78.00 Pure hypercholesterolemia, unspecified; G47.33 Obstructive sleep apnea (adult) (pediatric); F32.A Depression, unspecified; Z79.82 Long term (current) use of aspirin; Z99.89 Dependence on other enabling machines and devices; Z79.899 Other long term (current) drug therapy; Z88.8 Allergy status to other drugs, medicaments and biological substances; Z98.890 Other specified postprocedural states; Z87.891 Personal history of nicotine dependence
CPT/HCPCS: 45385; 45381; 43239; 88305; 88313; 88342; J0171; J1100; J1596; J2003; J2704

== ENCOUNTER → 2024-02-25 08:54 | Outpatient (BNV) | payer OTHER, SELFPAY | PROVIDERS: PCP Internal Medicine; Visit Provider Internal Medicine Gastroenterology | DX: Z12.11 Encounter for screening for malignant neoplasm of colon (principal); D12.0 Benign neoplasm of cecum; D12.3 Benign neoplasm of transverse colon; D12.4 Benign neoplasm of descending colon; K20.90 Esophagitis, unspecified without bleeding; K29.70 Gastritis, unspecified, without bleeding | CPT/HCPCS: 43239; 45381; 45385 ==

== ENCOUNTER 2024-04-18 16:57 | Outpatient (REF) | payer OTHER, SELFPAY ==
[2024-04-18 17:05] LABS: Appearance Urine Clear; Color Urine Yellow; Glucose Urine UA Negative (Negative); Leukocyte Esterase Urine Negative (Negative); Nitrite Urine Negative (Negative); PH 6.5 (5.0-9.0); UMIC TRIGGER UACC YES; Urine Blood Trace (Negative); Urine Ketones Negative (Negative); Urine Protein Negative (Neg-Trace)
[2024-04-18 17:09] LABS: Bacteria Urine None Seen (None Seen); Hyaline Casts Urine 0-2 /LPF (0-2); RBC Urine 0-2 /HPF (0-2); Squamous Epithelial Cell Urine 0-2 /HPF (0-2); WBC Urine 0-5 /HPF (0-5)
[2024-04-18 17:33] LABS: Creatinine Urine 111.69 mg/dL; Microalbum/Creatinine Ratio Ur 35.8 ug/mg cr (<30)
== END 2024-04-18 16:58 | disposition home or self-care (01) ==
LOC: HO.HHCLNP 16:57
PROVIDERS: Visit Provider Nurse Practitioner Primary Care
DX: I10 Essential (primary) hypertension (principal); R35.0 Frequency of micturition
CPT/HCPCS: 81001; 82043; 82570

== ENCOUNTER 2024-05-11 10:30 | Outpatient (AMB) | payer OTHER, SELFPAY ==
--- NOTE | 2024-05-11 10:57 | A.OFFVIS_ITS ---
Vital Signs 05/11/24 11:02 BP 120/80 Blood Pressure Location Lt brachial Position Sitting Pulse 69 Pulse Source Pulse Oximeter Pulse Oximetry (%) 96 Oxygen Delivery Method Room Air Intake Visit Reasons: 6 mnts f/u for ELISSA Intake Note: Patient presents follow up ELISSA. Patient non compliant since 06/2023 Marketing Intelligence Analyst Required: No Accompanied by: Self / Same As Patient Allergies cortisone Allergy (Verified 05/11/24 10:58) Itching HPI Comments Details: The patient is a 73-year-old male presenting with sleep apnea. He reports headaches associated with CPAP machine use, which began after initiating therapy. Symptoms include nocturnal headache and absence when the machine is not used. Additionally, he experiences sensations in the legs similar to restless legs syndrome, leading to sleep disturbance. Symptoms worsen in the evening and are characterized by an urge to move the legs. He experiences excessive daytime fatigue and frequent nocturnal awakenings, contributing to poor sleep quality. He also reports diffuse joint pain and stiffness, at times itchy skin or creepy- crawly sensation. Reports suspicion of diabetes mellitus, with a mention of frequent urination. States dietary habits include consuming coffee with milk 2 x per day and eating one meal a day, potentially impacting weight management. Sleep For 09/12/2021 in-lab PSG revealed AHI 28 per hour, REM AHI 55 per hour, O2 karen 88%, periodic limb movement of sleep 66 per hour and PLMS arousal index 3.3 per hour. Follow-up 06/18/2022 in-lab PAP titration study showed optimization of sleep apnea and oxygenation level at CPAP 9 cm H2O, with periodic limb movement of sleep index 38 per hour and PLMS arousal index 6 per hour. CPAP compliance report shows no CPAP usage since June of 2023-which showed 1 day of use with CPAP 9 cm H2O for a few hours, and residual AHI 11 per hour. 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 Housing: Apartment Are you a primary transitional care nurse to a significant other at home: No Do you presently have visiting nurse or other home services: No Alcohol intake: former Patient Tobacco Use Status: Former Tobacco user Current occupational status: disabled Current occupation: rt handed Physical Exam Vital Signs: Last Vital Signs Pulse 69 05/11/24 11:02 BP 120/80 05/11/24 11:02 Pulse Ox 96 05/11/24 11:02 Oxygen Delivery Method Room Air 05/11/24 11:02 Const General: no acute distress Orientation/consciousness: patient oriented x3 HEENT Other: Mallampati stage 4 Resp Effort & Inspection: normal respiratory effort and able to speak in complete sentences Neuro General: patient oriented x3 Psych Mental Status: mental status grossly normal Speech and movement: Clear speech present Attitude: cooperative Assessment & Plan Assessment & Plan (1) Loud snoring: Code(s): R06.83 - Snoring Category: Medical (2) Severe obstructive sleep apnea: Code(s): G47.33 - Obstructive sleep apnea (adult) (pediatric) Category: Medical Plan Discussion Notes During the visit, I discussed with the patient the diagnosis of severe obstructive sleep apnea and explored management options, as patient has not tolerated CPAP therapy. There was detailed discourse about alternative therapies such as surgical interventions such as inspire implantation. Thus, patient advised to have an evaluation by an ENT specialist. I recommended blood tests to assess potential deficiencies in vitamin B12, B9, iron, and thyroid function due to symptoms resembling restless legs syndrome, PLMS, and fatigue. The patient verbalized understanding of the potential testing and therapeutic pathways di scussed. Follow-up for results and ENT consultation were advised. I agreed to send notes to the primary care provider. Patient was informed and verbally consented to the use of an ambient scribe for clinic note documentation during this visit. Plan Hold CPAP 9 cm H2O, as patient has not tolerated this and feels that he can not use CPAP. Evaluate management of sleep apnea including ENT referral. Initiate blood work for common etiologies RLS/Periodic limb movement of sleep (PLMS) symptoms. Encouraged structured dietary intake to help with weight management. If patient continues to gain weight, he may be a good candidate to try Zepbound therapy for treatment of ELISSA and obesity. Orders: Orders Ferritin Today I10 - Essential (primary) hypertension, M25.50 - Pain in unspecified joint, M81.0 - Age-related osteoporosis without current pathological fracture, R21 - Rash and other nonspecific skin eruption, R79.89 - Other specified abnormal findings of blood chemistry Vitamin D 25-OH (D2 and D3) Today I10 - Essential (primary) hypertension, M25.50 - Pain in unspecified joint, M81.0 - Age-related osteoporosis without current pathological fracture, R21 - Rash and other nonspecific skin eruption, R79.89 - Other specified abnormal findings of blood chemistry Comprehensive Met. Panel Today I10 - Essential (primary) hypertension, M25.50 - Pain in unspecified joint, M81.0 - Age-related osteoporosis without current pathological fracture, R21 - Rash and other nonspecific skin eruption, R79.89 - Other specified abnormal findings of blood chemistry Vitamin B12 and Folate Today I10 - Essential (primary) hypertension, M25.50 - Pain in unspecified joint, M81.0 - Age-related osteoporosis without current pathological fracture, R21 - Rash and other nonspecific skin eruption, R79.89 - Other specified abnormal findings of blood chemistry Rheumatoid Factor Today I10 - Essential (primary) hypertension, M25.50 - Pain in unspecified joint, M81.0 - Age-related osteoporosis without current pathological fracture, R21 - Rash and other nonspecific skin eruption, R79.89 - Other specified abnormal findings of blood chemistry Homocysteine Today I10 - Essential (primary) hypertension, M25.50 - Pain in unspecified joint, M81.0 - Age-related osteoporosis without current pathological fracture, R21 - Rash and other nonspecific skin eruption, R79.89 - Other specified abnormal findings of blood chemistry Methylmalonic Acid Today I10 - Essential (primary) hypertension, M25.50 - Pain in unspecified joint, M81.0 - Age-related osteoporosis without current pathological fracture, R21 - Rash and other nonspecific skin eruption, R79.89 - Other specified abnormal findings of blood chemistry TSH reflex Free T4 Today I10 - Essential (primary) hypertension, M25.50 - Pain in unspecified joint, M81.0 - Age-related osteoporosis without current pathological fracture, R21 - Rash and other nonspecific skin eruption, R79.89 - Other specified abnormal findings of blood chemistry Complete Blood Count Auto Diff Today I10 - Essential (primary) hypertension, M25.50 - Pain in unspecified joint, M81.0 - Age-related osteoporosis without current pathological fracture, R21 - Rash and other nonspecific skin eruption, R79.89 - Other specified abnormal findings of blood chemistry Erythrocyte Sedimentation Rate Today I10 - Essential (primary) hypertension, M25.50 - Pain in unspecified joint, M81.0 - Age-related osteoporosis without current pathological fracture, R21 - Rash and other nonspecific skin eruption, R79.89 - Other specified abnormal findings of blood chemistry CRP High Sensitivity Today I10 - Essential (primary) hypertension, M25.50 - Pain in unspecified joint, M81.0 - Age-related osteoporosis without current pathological fracture, R21 - Rash and other nonspecific skin eruption, R79.89 - Other specified abnormal findings of blood chemistry YORDY Reflex Titer and Pattern Today I10 - Essential (primary) hypertension, M25.50 - Pain in unspecified joint, M81.0 - Age-related osteoporosis without current pathological fracture, R21 - Rash and other nonspecific skin eruption, R79.89 - Other specified abnormal findings of blood chemistry Referrals Ear/Nose/Throat Referral G47.33 - Obstructive sleep apnea (adult) (pediatric), R06.83 - Snoring Coding Level of Care Code Est Pt Level 4 (55021) Diagnoses Loud snoring R06.83 Severe obstructive sleep apnea G47.33
[2024-05-11 11:02] VITALS: BP 120/80; PULSE 69; O2SAT 96
--- OUTSIDE RECORDS SUMMARY | 2024-05-11 12:24 | XMS_ITS | Encounter Summary ---
Author Organization [employer] Address [address] [place] [address] Care Team Providers Care Supervisor Pleating Name Role Phone Jimenez Elizabeth EUCEDA Primary Care Provider [phone] Arin Reid MD Unavailable Kalyani Kilgore Unavailable Flor June Unavailable Encounter Details Date Type Department Care Team (Latest Contact Info) Description 04/28/2024 Travel Social History Tobacco Use Types Packs/Day Years Used Date Smoking Tobacco: Former Cigarettes Smokeless Tobacco: Never Alcohol Use Standard Drinks/Week Comments Yes 0 (1 standard drink = 0.6 oz pur e alcohol) Depression Answer Date Recorded Patient Health Questionnaire-9 Score 3 09/08/2023 Patient Health Questionnaire-9 Score 3 09/08/2023 Last PHQ-9: Questionnaire Data Not on file 0 09/08/2023 Housing Stability Answer Date Recorded What is your housing situation today? I have nicole hawkins 04/06/[address] you li ve. Do you have problems with any of the following? None of the above 04/06/2023 Food Insecurity Answer Date Recorded Within the past 12 months, y ou worried that your food would run out before you got money to buy more: Never True 04/06/2023 Within the past 12 months,th e food you bought just didn't last and you didn't have enough money to get more: Never True Transportation Answer Date Recorded In the past 12 months, has l ack of transportation kept you from medical appts, meetings, work or from getting things needed for daily living? No 12/25/2022 Utilities Answer Date Recorded In the past 12 months, has t he electric, gas, oil or water company threatened to shut off services in your home? No 12/25/2022 Depression Answer Date Recorded Patient Health Questionnaire-2 Score 2 09/08/2023 Internet Access Answer Date Recorded Internet Access Q1 No 11/09/2023 Internet Access Q2 I do not want or need it 04/2023 Sex and Gender Information Value Date Recorded Sex Assigned at Male 01/06/2022 10:16 AM EDT Legal Sex Male 10:16 AM EDT Gender Identity Male 01/06/2022 10:16 AM EDT Sexual Orientation Choose not to disclose 2021 10:16 AM EDT documented as of this encounter Plan of Treatment Upcoming Encounters Date Type Department Care Team (Late st Contact Info) Description 07/21/2024 1:15 PM EDT Office Visit [facility] [address] [place] [address] Elizabeth Gaona ANP [address] [place] [address] documented as of this encounter Visit Diagnoses Not on filedocumented in this encounter Additional Health Concerns Assessment Noted Time PHQ-9 Depression Total Score: 3 09/08/19 24 11:21 AM EDT documented as of this encounter Care Teams Supervisor Pleating Relationship Specialty Start Date End Date Elizabeth Gaona ANP [address] [place] [id number] PCP - General Family Medicine 05/06/21 Arin Reid MD [address] [place] [address] Urology 02/22/24 Kalyani Kilgore [address] [place] [address] Cardiology 02/22/24 Alessandra Ray [address] [place] [address] Gastroenterology 02/22/24 documented as of this encounter
--- OUTSIDE RECORDS SUMMARY | 2024-05-11 12:24 | XMS_ITS | Encounter Summary ---
Author Organization [employer] Address [address] [place] [address] Care Team Providers Care Stand Up Forklift Operator Name Role Phone Elizabeth Gaona Primary Care Provider [phone] Arin Reid MD Unavailable Kalyani Kilgore Unavailable Flor June Unavailable Encounter Details Date Type Department Care Team (Late st Contact Info) Description 06/10/2022 Orders Only [facility] [address] [place] [address] Elizabeth Gaona ANP [address] [place] [address] Social History Tobacco Use Types Packs/Day Years Used Date Smoking Tobacco: Never Smokeless Tobacco: Never Alcohol Use Standard Drinks/Week Comments Yes 0 (1 standard drink = 0.6 oz pur e alcohol) PHQ-2 Answer Date Recorded Patient Health Questionnaire-2 Score 0 04/15/2022 Depression Answer Date Recorded Patient Health Questionnaire-2 Score 0 04/15/2022 Sex and Gender Information Value Date Recorded [...] Description 07/21/2024 1:15 PM EDT Office Visit [facility] [address] [place] [address] Elizabeth Gaona ANP [address] [place] [address] [place] [address] documented as of this encounter Visit Diagnoses Not on filedocumented in this encounter Care Teams Stand Up Forklift Operator Relationship Specialty Start Date End Date Elizabeth Gaona ANP [address] [place] [address] PCP - General Family Medicine 05/06/21 Arin Reid MD [address] [place] [address] Urology 02/22/24 Kalyani Kilgore [address] [place] [address] Cardiology 02/22/24 Flor Alessandra [address] [place] [address] Gastroenterology 02/22/24 documented as of this encounter
--- OUTSIDE RECORDS SUMMARY | 2024-05-11 12:24 | XMS_ITS | Encounter Summary ---
Author Organization [employer] Address [address] [facility] 7t [place] [address] Care Team Providers Care Concrete Products Dispatcher Name Role Phone Elizabeth Gaona Primary Care Provider [phone] Arin Reid MD Unavailable Kalyani Kilgore Unavailable Flor June Unavailable Reason for Referral * Imaging (Routine) - Authorized Specialty Diagnoses / Procedures Referred By Contac t Referred To Contact Radiology Diagnoses Stopped smoking with greater than 40 pack year history Screening for osteoporosis Procedures BD DEXA Axial Elizabeth Gaona ANP [address] [place] [address] Phone: tel: fax: [address] Phone: tel: fax: Referral ID Status Reason Start Date Expiration Date V isits Requested Visits Authorized [id number] Authorized 04/18/2024 04/18/2025 1 1 Reason for Visit * Reason Comments Follow-up Encounter Details Date Type Department Care Team (Late st Contact Info) Description 04/18/2024 1:15 PM EST Office Visit [facility] [address] [place] [address] Elizabeth Gaona ANP [address] [place] [address] New onset type 2 diabetes mellitus (CMS/HCC) (Primary Dx); Essential hypertension; Cervical adenopathy; Unequal blood pressure in upper extremities; Urinary frequency; Stopped smoking with greater than 40 pack year history; Screening for osteoporosis; Diverticulosis Social History Tobacco Use Types Packs/Day Years Used Date Smoking Tobacco: Former Cigarettes Smokeless Tobacco: Never Tobacco Cessation:Counseling Given: Not Answered Alcohol Use Standard Drinks/Week Comments Yes 0 [...] AM EDT documented as of this encounter Last Filed Vital Signs Vital Sign Reading Time Taken Comments Blood Pressure 140/92 04/18/2024 1:20 PM EST Pulse 68 04/18/2024 1:04 PM EST Temperature 36.4 ??C (97.6 ??F) 04/18/2024 1:04 PM ES T Respiratory Rate 20 04/18/2024 1:04 PM EST Oxygen Saturation 95% 04/18/2024 1:04 PM EST Inhaled Oxygen Concentration - - Weight 88.3 kg (194 lb 9.6 oz) 04/18/2024 1:04 P M EST Height 170.2 cm (5' 7 ) 04/18/2024 1:04 PM EST Body Mass Index 30.48 04/18/2024 1:04 PM EST documented in this encounter Progress Notes * KINSEY Mart - 04/18/2024 1:15 PM EST Subjective Patient ID: Barrett Hernandez is a 73 y.o. male who presents for Follow-up. HPI PMH HTN, ELISSA, elevated PSA (now under active surveillance for prostate ca via [facility]), T2DM (A1c 7.0 02/22/24) Patient Care Team: KINSEY Mart as PCP - General (Family Medicine) Arin Reid MD (Urology) Kalyani Kilgore (Cardiology) Alessandra Ray (Gastroenterology) C-scope 02/25/24:Colonoscopy Findings: Diverticulosis, colon polyps x 9, internal hemorrhoids Plan from GI: Await Pathology results, Repeat Colonoscopy in 3-6 months or earlier if clinically indicated, High fiber diet TODAY: Here today for follow-up recheck cervical adenopathy. On exam this has resolved. DM: started metformin 500mg XR last visit. He is tolerating this well and reports that home blood sugars have been under 140. BP: Tolerating medicines well and taking daily. On first blood pressure check BPs were as below: 127/80 on L 162/89 on R Then on repeat the pattern was reversed and right arm 124/82 and left arm 140/92. He says he feels something funny, a pain, in his prostate, intermittently, and having urinary frequency. Does have urology follow-up in place. LDCT - referral placed - will check status. May need to re-order, I do not see scanned into chart. Quit smoking 6-7 years ago (approx 2018), started at 17yo, smoked 2-3PPD = 98 PYH (49 years smoking 2 PPD) Haven OLIVAS provided Pashto interpretation. Review of Systems Constitutional: Negative for chills and fever. HENT: Negative for sore throat. Respiratory: Negative for cough and shortness of breath. Cardiovascular: Negative for chest pain. Gastrointestinal: Negative for constipation and diarrhea. Endocrine: Negative for polydipsia, polyphagia and polyuria. Genitourinary: Positive for frequency. Negative for dysuria. Neurological: Negative for dizziness and weakness. Objective BP (!) 140/92 (BP Location: Left arm, Patient Position: Sitting, BP Cuff Size: Adult) Pulse 68 Temp 97.6 ??F (36.4 ??C) (Temporal) Resp 20 Ht 5' 7 (1.702 m) Wt 194 lb 9.6 oz (88.3 kg) SpO2 95% BMI 30.48 kg/m?? BP at goal on 2 previous readings same DOS Vitals: 04/18/24 1304 04/18/24 1319 04/18/24 1320 BP: 127/80 124/82 (!) 140/92 BP Location: Left arm Right arm Left arm Patient Position: Sitting Sitting Sitting BP Cuff Size: Adult Adult Adult Pulse: 68 Resp: 20 Temp: 97.6 ??F (36.4 ??C) TempSrc: Temporal SpO2: 95% Weight: 194 lb 9.6 oz (88.3 kg) Height: 5' 7 (1.702 m) Physical Exam Vitals reviewed. Constitutional: General: He is not in acute distress. Appearance: Normal appearance. He is not ill-appearing. HENT: Head: Normocephalic and atraumatic. Eyes: General: No scleral icterus. Extraocular Movements: Extraocular movements intact. Pupils: Pupils are equal, round, and reactive to light. Neck: Vascular: No carotid bruit. Cardiovascular: Rate and Rhythm: Normal rate and regular rhythm. Pulmonary: Effort: Pulmonary effort is normal. No accessory muscle usage or respiratory distress. Musculoskeletal: Right lower leg: No edema. Left lower leg: No edema. Lymphadenopathy: Cervical: No cervical adenopathy. Neurological: Mental Status: He is alert and oriented to person, place, and time. Psychiatric: Mood and Affect: Mood normal. Behavior: Behavior normal. Assessment/Plan Diagnoses and all orders for this visit: New onset type 2 diabetes mellitus (CMS/HCC) Comments: cont metformin 500mg XR, recheck a1c at f/u w/ foot exam Essential hypertension Comments: BP unequal in arms but not consistently. will consider vascular referral for PVD eval. Cont meds asrx'd and home monitoring. Orders: - Lipid Panel, Standard; Future - Albumin, Random Urine W/Creatinine Cervical adenopathy Comments: resolved Unequal blood pressure in upper extremities Comments: with electronic machine: L 127/80, R 162/89 manual: R at goal, L high No carorid bruit, pulses intact, skin warm, cap refill <2 sec Urinary frequency Comments: check: Orders: - Urinalysis, Complete, with Reflex to Culture Stopped smoking with greater than 40 pack year history Comments: LDCT re-referral and osteoporosis screening; 98 PYH Orders: - BD DEXA Axial; Future Screening for osteoporosis - BD DEXA Axial; Future Diverticulosis Comments: moderate to severe on C-scope 02/2024 documented in this encounter Plan of Treatment Upcoming Encounters Date Type Department Care Team (Late st Contact Info) Description 07/21/2024 1:15 PM EDT Office Visit [facility] [address] [place], [place] [phone] Elizabeth Gaona ANP [address] [place] [address] Scheduled Orders Name Type Priority Associated Diagnoses Orde r Schedule Lipid Panel, Standard Lab Routine Essential hypertension Expected: 04/18/2024 (Approximate), Expires: 04/18/2025 BD DEXA Axial Imaging Routine Stopped smoking with greater than 40 pack year history Screening for osteoporosis Expected: 04/18/2024 (Approximate), Expires: 04/18/2025 Hemoglobin A1c Lab Routine New onset type 2 diabetes mellitus (CMS/HCC) Expected: 04/18/2024 (Approximate), Expires: 04/18/2025 Basic Metabolic Panel Lab Routine Essential hypertension Expected: 04/18/2024 (Approximate), Expires: 04/18/2025 documented as of this encounter Procedures Procedure Name Priority Date/Time Associated Diagnosis Comments URINALYSIS, COMPLETE, WITH REFLEX TO CULTURE Routine 04/18/2024 1:30 PM EST Urinary frequency ALBUMIN, RANDOM URINE W/CREATININE Routine 04/18/2024 1:30 PM EST Essential hypertension documented in this encounter Results * (ABNORMAL) Albumin, Random Urine W/Creatinine (04/18/2024 1:30 PM EST) Creatinine, Urine 111.69 mg/dL [facility] Microalbumin Urine 40.0 mg/L H [facility] Microalbum Creatinine Ratio Ur 35.8(H) <30 ug/mg cr [facility] Comment:Albumin/Creatinine R atio Reference Ranges: Normal: < 30 ug/mg creatinine Microalbuminuria: 30 - 300 ug/mg creatinineClinical Albuminuria: > 300 ug/mg creatinine Urine 04/18/2024 1:30 PM EST 04/18/2024 4:59 PM EST Elizabeth Gaona [facility] LAB URINE ORDERABLES Final Resul t Performing Organization Address City/State/[facility] Co de Phone Number [facility] [address] [place] [phone] * (ABNORMAL) Urinalysis, Complete, with Reflex to Culture (04/18/2024 1:30 PM EST) Color Urine Yellow [facility] Appearance Urine Clear [facility] PH 6.5 5.0 - 9.0 [facility] Glucose Urine UA Negative Negative mg/dL [facility] Urine Blood Trace(A) Negative [facility] Specific [place] - Urine 1.020 1.005 - 1.025 [facility] Urine Protein Negative Neg-Trace mg/dL [facility] Urine Ketones Negative Negative mg/dL [facility] Nitrite Urine Negative Negative [facility] Leukocyte Esterase Urine Negative Negative [facility] RBC Urine 0-2 0 - 2 /HPF [facility] Urine WBC 0-5 0 - 5 /HPF [facility] Urine Squamous Epithelial Cell 0-2 0 - 2 /HPF [facility] Urine Bacteria None Seen None Seen [facility] Hyaline Casts, Urine 0-2 0 - 2 /LPF [facility] Urine 04/18/2024 1:30 PM EST 04/18/2024 4:59 PM EST Narrative [facility] - 04/18/2024 5:11 PM EST Urine, Clean Catch us Elizabeth EUCEDA LAB URINE ORDERABLES Final Resul t [facility] [address] [place] [phone] documented in this encounter Visit Diagnoses Diagnosis New onset type 2 diabetes mellitus (CMS/HCC)- Primary Essential hypertension Unspecified essential hypertension Cervical adenopathy Enlargement of lymph nodes Unequal blood pressure in upper extremities Urinary frequency Stopped smoking with greater than 40 pack year history Screening for osteoporosis Special screening for osteoporosis Diverticulosis Diverticulosis of colon (without mention of hemorrhage) documented in this encounter Additional Health Concerns Assessment Noted Time PHQ-9 Depression Total Score: 3 09/08/19 24 11:21 AM EDT documented as of this encounter Care Teams Concrete Products Dispatcher Relationship Specialty Start Date End Date Elizabeth Gaona ANP [address] [place] [address] PCP - General Family Medicine 05/06/21 Arin Reid MD [address] [place] [address] Urology 02/22/24 Kalyani Kilgore [address]rd [place] [address] Cardiology 02/22/24 Alessandra Ray [address]rd [place] [address] Gastroenterology 02/22/24 documented as of this encounter
--- OUTSIDE RECORDS SUMMARY | 2024-05-11 12:24 | XMS_ITS | Encounter Summary ---
Author Organization [employer] Address [address] [facility] 7t [place] [address] Care Team Providers Care Manager Port Name Role Phone Gaona Elizabeth EUCEDA Primary Care Provider [phone] Arin Reid MD Unavailable Kalyani Kilgore Unavailable Ray June Unavailable Reason for Visit * Reason Comments Med Refill Encounter Details Date Type Department Care Team (Late st Contact Info) Description 04/27/2024 Refill [facility] [address] [place], [place] [phone] Angélica Echeverria MD [address] [place], [place] [phone] Dyslipidemia Social History Tobacco Use Types Packs/Day Years [...] your housing situation today? I have nicole ross 04/06/[address] you li [...] Description 07/21/2024 1:15 PM EDT Office Visit [facility] [address] [place] [address] Elizabeth Gaona ANP [address] [place] [address] documented as of this encounter Visit Diagnoses Diagnosis Dyslipidemia Other and unspecified hyperlipidemia documented in this encounter Additional Health Concerns Assessment Noted Time PHQ-9 Depression Total Score: 3 09/08/19 24 11:21 AM EDT documented as of this encounter Care Teams Manager Port Relationship Specialty Start Date End Date Elizabeth Gaona ANP [address] [place] [phone] PCP - General Family Medicine 05/06/21 Arin Reid MD [address] [place] [address] Urology 02/22/24 Kalyani Kilgore [address] [place] [address] Cardiology 02/22/[address] 3rd [place] [address] Gastroenterology 02/22/24 documented as of this encounter
--- OUTSIDE RECORDS SUMMARY | 2024-05-11 12:24 | XMS_ITS | Encounter Summary ---
Author Organization [employer] Address [address] [facility] 7t [place] [address] Care Team Providers Care Cardiovascular Or Nurse Name Role Phone Jimenez Elizabeth EUCEDA Primary Care Provider [phone] Arin Reid MD Unavailable Kalyani Kilgore Unavailable Flor June Unavailable Reason for Visit * Reason Comments Diabetic Eye Exam Encounter Details Date Type Department Care Team (Late st Contact Info) Description 04/28/2024 1:00 PM EST Office Visit [facility] OPTOMETRY [address] [place], [place] [phone] Maury, Jess, OD [address] [place] [address] Diabetes type 2, no ocular involvement (CMS/HCC) (Primary Dx); Epiretinal membrane (ERM) of both eyes; Combined forms of age-related cataract of both eyes; Presbyopia Social History Tobacco Use Types Packs/Day Years [...] the past 12 months, has t he [employer], gas, oil or water company threatened to [...] AM EDT documented as of this encounter Progress Notes * Jess Mendiola, OD - 04/28/2024 1:00 PM EST Eye Care Progress Note Patient ID: Barrett Hernandez is a 73 y.o. male. Chief Complaint Diabetic Eye Exam HPI Here for a diabetic eye exam. His last HbA1c was 7.0% in 02/2024. Today he complains of tearing when reading. He also complains of blur at distance and near in both eyes. He does not wear prescription glasses. Patient does not drive currently. His last eye exam was in 2001. Last edited by Jess Mendiola, OD on 04/28/2024 2:01 PM. Current Outpatient Medications Medication Sig Dispense Refill FT Gas Relief Ultra Strength 180 MG capsule TAKE 1 CAPSULE BY MOUTH FOUR TIMES DAILY AFTER MEALS lisinopril 10 MG tablet Take 10 mg by mouth in the morning. omeprazole (PriLOSEC) [address] capsule Alcohol Swabs 70 % pads Use to clean skin 100 each 11 Aspirin Low Dose 81 MG EC tablet TAKE 1 TABLET BY MOUTH EVERY MORNING 90 tablet 2 atorvastatin (Lipitor) 40 MG tablet TAKE 1 TABLET BY MOUTH AT BEDTIME 90 tablet 0 Blood Glucose Monitoring Suppl (FreeStyle Edgewater Lite) w/Device kit Use to test blood sugar 1-3 times daily 1 kit 0 celecoxib (CeleBREX) 100 MG capsule TAKE 1 CAPSULE BY MOUTH TWICE DAILY NEEDED FOR PAIN WITH FOOD 60 capsule 1 cetirizine (ZyrTEC) 10 MG tablet TAKE 1 TABLET BY MOUTH ONCE DAILY FOR ALLERGIES 30 tablet 2 chlorthalidone (Hygroton) 25 MG tablet TAKE 1 TABLET BY MOUTH EVERY MORNING 90 tablet 2 clobetasol (Temovate) 0.05 % ointment APPLY A THIN LAYER TO AFFECTED AREA(S) TWICE DAILY 60 g 5 finasteride (Proscar) 5 MG tablet Take 1 tablet by mouth in the morning. FREESTYLE LITE test strip Use to test blood sugar 1-3 times daily 100 each 12 hydrocortisone (Anusol-HC) 2.5 % rectal cream Insert into the rectum 2 times daily. For 7d 28 g 0 Lancets misc Use to test blood sugar up to 3 times daily 100 each 11 metFORMIN XR (Glucophage-XR) 500 MG 24 hr tablet Take 1 tab once daily with meals. Do not crush, chew, or split. 90 tablet 1 nitroglycerin (Nitrostat) 0.[address] 1 TABLET UNDER THE TONGUE NEEDED FOR CHEST PAIN- MAY REPEAT IN 5 MINUTES TWICE. IF NO RELIEF CALL 911 OR GO TO EMERGENCY ROOM. 100 tablet 0 tamsulosin (Flomax) 0.4 MG 24 hr capsule TAKE 1 CAPSULE BY MOUTH DAILY AT BEDTIME No current facility-administered medications for this visit. Past Medical History: Diagnosis Date Depression Diabetes mellitus (CMS/HCC) GERD (gastroesophageal reflux disease) HLD (hyperlipidemia) Hypertension Past Surgical History: Procedure Laterality Date PROSTATE BIOPSY No family history on file. Social History Socioeconomic History Marital status: Spouse name: Not on file Number of children: Not on file Years of education: Not on file Highest education level: Not on file Occupational History Not on file Tobacco Use Smoking status: Former Types: Cigarettes Smokeless tobacco: Never Vaping Use Vaping status: Never Used Substance and Sexual Activity Alcohol use: Yes Drug use: Never Sexual activity: Not on file Other Topics Concern Not on file Social History Narrative Not on file Social Drivers of Health Food Insecurity: Low Risk (04/06/2023) Food Insecurity Within the past 12 months, you worried that your food would run out before you got money to buy more:: Never True Within the past 12 months,the food you bought just didn't last and you didn't have enough money to get more: : Never True Transportation Needs: Low Risk (12/25/2022) Transportation In the past 12 months, has lack of transportation kept you from medical appts, meetings, work or from getting things needed for daily living? : No Intimate Partner Violence: Not on file Housing Stability: Low Risk (04/06/2023) Housing Stability What is your housing situation today?: I have housing Think about the place you live. Do you have problems with any of the following? : None of the above Allergies Allergen Reactions Cortisone Itching ROS Positive for: Eyes Negative for: Constitutional, Gastrointestinal, Neurological, Skin, Genitourinary, Musculoskeletal,HENT, Endocrine, Cardiovascular, Respiratory, Psychiatric, Allergic/Imm, Heme/Lymph Last edited by Jess Mendiola, OD on 04/28/2024 1:07 PM. Base Eye Exam Visual Acuity (Snellen - Linear) Right Left Dist sc 20/80 20/60 Tonometry (iCare , 1:19 PM) Right Left Pressure 12 14 Pupils Pupils APD Right PERRL None Left PERRL None Visual Leal (Counting fingers) Left Right Full Full Extraocular Movement Right Left Full Full Neuro/Psych Oriented x3: Yes Mood/Affect: Normal Dilation Both eyes: 1.0% Tropicamide @ 1:23 PM Slit Lamp and Fundus Exam External Exam Right Left External Normal Normal Slit Lamp Exam Right Left Lids/Lashes Normal Normal Conjunctiva/Sclera White and quiet White and quiet Cornea Clear Clear Anterior Chamber Deep and quiet Deep and quiet Iris Flat, no NVI Flat, no NVI Lens 1-2+ NS, Trace PSC 1-2+ NS, 1+ Cortical Fundus Exam Right Left Vitreous Clear Clear Disc Dobbins and Distinct, No NVD Dobbins and Distinct, No NVD C/D Ratio Vertical 0.2 0.2 C/D Ratio Horizontal 0.2 0.2 Macula Flat and Intact, mild perimacular ERM, no CSME/SRF Flat and Intact, mild perimacular ERM, noCSME/SRF Vessels Normal Normal Periphery No Holes/Breaks/Tears 360 degrees, no NVE No Holes/Breaks/Tears 360 degrees, no NVE Refraction Manifest Refraction Sphere Cylinder [place] Dist VA Add Right +1.25 -2.75 097 20/25 -1 +2.50 Left +1.00 -2.00 073 20/25 +2.50 Dist VA Both: 20/25 Near VA Both: 20/20 Final Rx Sphere Cylinder [place] Dist VA Add Right +1.25 -2.75 097 20/25 +2.50 Left +1.00 -2.00 073 20/25 +2.50 Expiration Date: 04/28/2025 Assessment/plan: Diagnoses and all orders for this visit: Diabetes type 2, no ocular involvement ([facility]) There is no diabetic retinopathy or macular edema present today in either eye. The patient was educated on the exam findings. The patient was educated to continue controlling blood glucose levels through diet, exercise and medication. The patient was educated on potential complications of diabetic retinopathy, including blindness, if left untreated. The patient was educated on the importance of an annual diabetic eye exam to monitor for diabetic retinopathy. A summary of today's dilated eye exam results will be communicated to the patient's PCP through the shared patient problem list in [facility].Will monitor in 1 year. Epiretinal membrane (ERM) of both eyes Perimacular, not visually significant. This condition causes wrinkles, creases, or bulges to form on the retina. An epiretinal membrane can make things look wavy, or make it difficult to see fine details. It can also cause a lobo or cloudy area in a person's central vision. No treatment is recommended. Will monitor at his next full eye exam. Combined forms of age-related cataract of both eyes BCVA 20/25 in each eye. Not visually significant enough to warrant treatment at this time. Patient educated on progressive nature of cataracts. Will monitor at his next exam. Presbyopia Glasses prescription updated and given. Will monitor at the patient's next full eye exam. Jess Mendiola, OD 04/28/2024, 2:01 PM Starch Cooker Source: ___ None _x__ Bilingual Staff (Sola Tong) ___ Qualified Staff Pharmacy Retail Support Specialist ___ Telephone Starch Cooker; ID# ___ Starch Cooker brought by patient (family member, friend, MERCHANDISE SHOPPER, etc) ___ In person assistant oceanographer ___ Ipad Starch Cooker; ID#: Language Spoken During Exam: ___Spanish documented in this encounter Plan of Treatment Upcoming Encounters Date Type Department Care Team (Late st Contact Info) Description 07/21/2024 1:15 PM EDT Office Visit [facility] MEDICINE [address] [place], [place] [phone] Elizabeth Gaona ANP [address] [place], [place] [phone] documented as of this encounter Visit Diagnoses Diagnosis Diabetes type 2, no ocular involvement (CMS/HCC)- Primary Epiretinal membrane (ERM) of both eyes Combined forms of age-related cataract of both eyes Presbyopia documented in this encounter Additional Health Concerns Assessment Noted Time PHQ-9 Depression Total Score: 3 09/08/19 24 11:21 AM EDT documented as of this encounter Care Teams Cardiovascular Or Nurse Relationship Specialty Start Date End Date Elizabeth Gaona ANP [address] [place], [place] [phone] PCP - General Family Medicine 05/06/21 Arin Reid MD [address] [place] [address] Urology 02/22/24 Kalyani Kilgore [address]rd [place] [address] Cardiology 02/22/24RayJune [address] [place] [address] Gastroenterology 02/22/24 documented as of this encounter
--- OUTSIDE RECORDS SUMMARY | 2024-05-11 12:24 | XMS_ITS | Encounter Summary ---
Author Organization [employer] Address [address] [facility] [address]t [place] [address] Care Team Providers Care Supervisor Plate Forming Name Role Phone Jimenez Elizabeth EUCEDA Primary Care Provider [phone] Arin Reid MD Unavailable Kalyani Kilgore Unavailable Flor June Unavailable Encounter Details Date Type Department Care Team (Latest Contact Info) Description 04/18/2024 Travel Social History Tobacco Use Types Packs/Day [...] Description 07/21/2024 1:15 PM EDT Office Visit [facility] MED[facility] [address] [place] [address] Elizabeth Gaona ANP [address] [place] [address] documented as of this encounter Visit Diagnoses Not on filedocumented in this encounter Additional Health Concerns Assessment Noted Time PHQ-9 Depression Total Score: 3 09/08/19 24 11:21 AM EDT documented as of this encounter Care Teams Supervisor Plate Forming Relationship Specialty Start Date End Date Elizabeth Gaona ANP [address] [place] [phone] PCP - General Family Medicine 05/06/21 Arin Reid MD [address] [place] [address] Urology 02/22/24 Kalyani Kilgore [address]rd [place] [address] Cardiology 02/22/24 Alessandra Ray [address] [place] [address] Gastroenterology 02/22/24 documented as of this encounter
--- OUTSIDE RECORDS SUMMARY | 2024-05-11 12:24 | XMS_ITS | Clinical Summary ---
Author Organization [employer] Address [address] [facility] 7[address] [place] [address] Care Team Providers Care Credit Review Analyst Name Role Phone Jimenez Elizabeth EUCEDA Primary Care Provider Arin Reid MD Unavailable Kalyani Kilgore Unavailable June Unavailable Allergies Active Allergy Reactions Criticality Noted Date Comments Cortisone Itching 02/25/2024 Medications tamsulosin (Flomax) 0.4 MG 24 hr capsule TAKE 1 CAPSULE BY MOUTH DAILY AT BEDTIME 03/21/19 23 Active cetirizine (ZyrTEC) 10 MG tabletIndicatio ns:Non-seasonal allergic rhinitis due to other allergic trigger TAKE 1 TABLET BY MOUTH ONCE DAILY FOR ALLERGIES 30 tablet 2 05/06/19 23 Active clobetasol (Temovate) 0.05 % ointment APPLY A THIN LAYER TO AFFECTED AREA(S) TWICE DAILY 60 g 5 09/16/19 23 Active finasteride (Proscar) 5 MG tablet Take 1 tablet by mouth in the morning. 11/12/19 23 Active nitroglycerin (Nitrostat) 0.3 MG SL tabletIndicatio ns:Chest pain, unspecified type PLACE 1 TABLET UNDER THE TONGUE NEEDED FOR CHEST PAIN - MAY REPEAT IN 5 MINUTES TWICE. IF NO RELIEF CALL 911 OR GO TO EMERGENCY ROOM. 100 tablet 04/01/19 24 Active hydrocortisone (Anusol-HC) 2.5 % rectal creamIndication s:Hemorrhoids, unspecified hemorrhoid type Insert into the rectum 2 times daily. For 7d 28 g 07/09/19 24 Active FREESTYLE LITE test stripIndication s:Elevated glucose Use to test blood sugar 1-3 times daily 100 each 12 10/01/19 24 025 Active Lancets miscIndications :Elevated glucose Use to test blood sugar up to 3 times daily 100 each 10/01/19 24 Active Alcohol Swabs 70 % padsIndications :Elevated glucose Use to clean skin 100 each 10/01/19 24 Active Blood Glucose Monitoring Suppl (FreeStyle Riparius Lite) w/Device kitIndications: Elevated glucose Use to test blood sugar 1-3 times daily 1 kit 10/01/19 24 Active metFORMIN XR (Glucophage-XR) 500 MG 24 hr tabletIndicatio ns:New onset type 2 diabetes mellitus (CMS/HCC) Take 1 tab once daily with meals. Do not crush, chew, or split. 90 tablet 1 02/22/20 24 Active chlorthalidone (Hygroton) 25 MG tabletIndicatio ns:Essential hypertension TAKE 1 TABLET BY MOUTH EVERY MORNING 90 tablet 2 03/07/20 24 Active Aspirin Low Dose 81 MG EC tabletIndicatio ns:Cardiovascul ar event risk TAKE 1 TABLET BY MOUTH EVERY MORNING 90 tablet 2 03/07/20 24 Active celecoxib (CeleBREX) 100 MG capsuleIndicati ons:Lumbar back pain TAKE 1 CAPSULE BY MOUTH TWICE DAILY NEEDED FOR PAIN WITH FOOD 60 capsule 1 03/07/20 24 Active atorvastatin (Lipitor) 40 MG tabletIndicatio ns:Dyslipidemia TAKE 1 TABLET BY MOUTH AT BEDTIME 90 tablet 04/27/19 25 Active FT Gas Relief Ultra Strength 180 MG capsule TAKE 1 CAPSULE BY MOUTH FOUR TIMES DAILY AFTER MEALS 03/03/20 24 Active lisinopril 10 MG tablet Take 10 mg by mouth in the morning. 03/25/19 25 Active omeprazole (PriLOSEC) [address] capsule 04/27/19 25 Active lisinopril 20 MG tabletIndicatio ns:Essential hypertension TAKE 1 TABLET BY MOUTH EVERY MORNING 90 tablet 1 06/03/19 24 025 Discontinued( erapy completed) omeprazole (PriLOSEC) [address] capsuleIndicati ons:Gastroesoph ageal reflux disease without esophagitis TAKE 1 CAPSULE BY MOUTH EVERY EVENING 30-60 MINUTES BEFORE A MEAL 90 capsule 1 06/03/19 24 025 Discontinued(Th erapy completed) atorvastatin (Lipitor) 40 MG tabletIndicatio ns:Dyslipidemia TAKE 1 TABLET BY MOUTH AT BEDTIME 90 tablet 12/31/19 025 Discontinued Active Problems Problem Noted Date Diagnosed Date Diverticulosis 04/18/2024 Overview (04/18/2024): moderate to severe on C-scope 02/2024 Ambulates with cane 02/22/2024 New onset type 2 diabetes mellitus 02/22/2024 Overview (02/22/2024): A1c 7.0 02/22/24. start metformin 500mg XR once daily, lifestyle interventions discussed Atypical small acinar proliferation of prostate 02/22/2024 Overview (02/22/2024): f/u w/ Urology: Active surveillance for prostate cancer. Continue Proscar 05 mg and tamsulosin renal/bladder US, PSA fu 6 months Edema of both lower legs 04/16/2023 Healthcare maintenance 11/27/2022 Depression with suicidal ideation 11/25/2021 Obstructive sleep apnea 11/25/2021 Papular eruption 07/16/2021 Arthritis 02/04/2016 Essential hypertension 02/04/2016 Blood in urine 02/04/2016 Gastroesophageal reflux disease without esophagi tis 02/04/2016 Gastrointestinal hemorrhage 02/04/2016 Reactive depression (situational) 02/04/2016 Encounters Date Type Department Care Team Description 05/10/2024 Telephone [facility] [address] [place], [place] [phone] Elizabeth Gaona ANP DEXA ORDER 04/28/2024 1:00 PM EST Office Visit [facility] [address] [place], [place] [address] Maury, Jess, OD Diabetes type 2, no ocular involvement (CMS/HCC) (Primary Dx); Epiretinal membrane (ERM) of both eyes; Combined forms of age-related cataract of both eyes; Presbyopia 04/28/2024 Travel 04/27/2024 Refill [facility] MEDIC[facility] [address] [place] [address] Angélica Echeverria MD Dyslipidemia 04/18/2024 1:15 PM EST Office Visit [facility] [address] [place] [address] Elizabeth Gaona ANP New onset type 2 diabetes mellitus (CMS/HCC) (Primary Dx); Essential hypertension; Cervical adenopathy; Unequal blood pressure in upper extremities; Urinary frequency; Stopped smoking with greater than 40 pack year history; Screening for osteoporosis; Diverticulosis 04/18/2024 Travel 03/10/2024 Telephone [facility] [address] [place] [address] Elizabeth Gaona ANP Referral 03/07/[address] [address] Elizabeth Gaona ANP Essential hypertension; Cardiovascular event risk; Lumbar back pain 03/05/[address] [address] Elizabeth Gaona ANP Lumbar back pain 02/25/2024 Orders Only GENERIC EXTERNAL DATA DEPARTMENT Provider, Generic External Data 02/22/2024 2:00 PM EST Office Visit [address] [address] Elizabeth Gaona ANP Atypical small acinar proliferation of prostate (Primary Dx); Elevated glucose; New onset type 2 diabetes mellitus (CMS/HCC); Ambulates with cane; Decreased hearing of left ear; Cervical adenopathy; Former smoker; Essential hypertension 02/22/[address] [address] Elizabeth Gaona ANP 02/22/2024 Travel from Last 3 Months Immunizations Name Administration Dates Next Due Influenza High-dose Quadriva lent Preservative Free 12/18/2022 Influenza injectable quadriv alent IIV4 with preservative 01/04/2016 Influenza injectable quadriv alent preservative free 01/28/2021 Influenza, High Dose Seasona l, Preservative Free 02/11/2024 Moderna Covid-19 Vaccine 12+ 05/08/2020,04/09/19 21 Pfizer Covid-19 Vaccine 12+ 03/30/2023 Pneumococcal Conjugate PCV 20 12/18/2022 ,11/17/2022(Deferred: Patient Refused),09/11/2022 Tdap 01/28/2021 Zoster, Recombinant 08/26/2022,06/24/2022 Social History Tobacco Use Types Packs/Day Years [...] not to disclose 2021 10:16 AM EDT Last Filed Vital Signs Vital Sign Reading [...] Mass Index 30.48 04/18/2024 1:04 PM EST Plan of Treatment Upcoming Encounters Date Type Department Care Team (Late st Contact Info) Description 07/21/2024 1:15 PM EDT Office Visit [facility] [address] [place], [place] [phone] Elizabeth Gaona, ANP [address] [place], [place] [phone] Health Maintenance Due Date Last Done Comments CT Colonography 1950 FIT DNA/Cologuard 1950 FIT 1950 FOBT 1950 Sigmoidoscopy 1950 Diabetes: Foot Exam 1962 Alcohol/Substance Use Screening 1964 Hepatitis C Screening 1970 Lipid Panel 05/24/2022 05/24/2021 SDOH Screening 04/06/2024 04/06/2023 Diabetes: Hemoglobin A1C 05/22/2024 02/22/2024, 09/07 Colonoscopy 08/25/2024 Colorectal Cancer Screening 08/25/2024 Depression Screening 09/07/2024 09/08/2023, 09/08/19 24 COVID-19 Vaccine ( season) 2025 03/30/2023, 06/27/2021, 02/14/2021, Additional history exists Postponed from 11/08/2023 (Patient Refused) Diabetes: Urine Protein Screening 04/18/2025 04/18/2024, 11/28/2022 Tobacco Screening 05/10/2025 05/10/2024 Eye Exam 04/28/2026 04/28/2024, 04/10, 04/28/2024, Additional history exists RSV Patients and Patients Aged 60 years or older (1 - 1-dose 75+ series) 07/21/2027 DTaP/Tdap/Td Vaccines (2 - Td or Tdap) 01/28/2031 01/28/2021 Zoster Vaccines Completed 08/26/2022, 06/24/2022 Pneumococcal Vaccine: 50+ Years Completed 12/18/2022, 09/11/2022 Influenza Vaccine Completed 02/11/2024, , 01/28/2021, Additional history exists HIB Vaccines Aged Out No longer eligi ble based on patient's age to complete this topic HPV Vaccines Aged Out No longer eligi ble based on patient's age to complete this topic Hepatitis A Vaccines Aged Out No long er eligible based on patient's age to complete this topic Hepatitis B Vaccines Aged Out No long er eligible based on patient's age to complete this topic IPV Vaccines Aged Out No longer eligi ble based on patient's age to complete this topic Meningococcal Vaccine Aged Out No akin marcy eligible based on patient's age to complete this topic RSV under 20 months Aged Out No longe r eligible based on patient's age to complete this topic Rotavirus Vaccines Aged Out No longer eligible based on patient's age to complete this topic Procedures Procedure Name Priority Date/Time Associated Diagnosis Comments ALBUMIN, RANDOM URINE W/CREATININE Routine 04/18/2024 1:30 PM EST Essential hypertension URINALYSIS, COMPLETE, WITH REFLEX TO CULTURE Routine 04/18/2024 1:30 PM EST Urinary frequency HEMATOXYLIN AND EOSIN STAIN Routine 02/25/2024 10:26 AM EST POCT GLYCATED HEMOGLOBIN, TOTAL Routine 02/22/2024 2:08 PM EST Elevated glucose POCT GLUCOSE Routine 02/22/2024 2:05 PM EST Elevated glucose LIPID PANEL, STANDARD Routine 05/24/2021 11:33 AM EDT from Last 3 Months or Most Recently Relevant to Health Maintenance Results * (ABNORMAL) Urinalysis, Complete, with Reflex to Culture (04/18/2024 1:30 PM EST) Color Urine Yellow [facility] Appearance Urine Clear [facility] PH 6.5 5.0 - 9.0 [facility] Glucose Urine UA Negative Negative mg/dL [facility] Urine Blood Trace(A) Negative [facility] Specific [place] - Urine 1.020 1.005 - 1.025 [facility] Urine Protein Negative Neg-Trace mg/dL [facility] Urine Ketones Negative Negative mg/dL [facility] Nitrite Urine Negative Negative [facility] Leukocyte Esterase Urine Negative Negative [facility] RBC Urine 0-2 0 - 2 /HPF [facility] Urine WBC 0-5 0 - 5 /HPF [facility] Urine Squamous Epithelial Cell 0-2 0 - 2 /HPF [facility] Urine Bacteria None Seen None Seen [facility] Hyaline Casts, Urine 0-2 0 - 2 /LPF [facility] Urine 04/18/2024 1:30 PM EST 04/18/2024 4:59 PM EST Narrative [facility] - 04/18/2024 5:11 PM EST Urine, Clean Catch Elizabeth Gaona [employer] [facility] [employer] LAB URINE ORDERABLES Final Resul t Performing Organization Address City/State/[facility] [[email or web address]] Co de Phone Number [facility] [address] [place] [phone] * (ABNORMAL) Albumin, Random Urine W/Creatinine (04/18/2024 1:30 PM EST) Creatinine, Urine 111.69 mg/dL [facility] Microalbumin Urine 40.0 mg/L [facility] Microalbum Creatinine Ratio Ur 35.8(H) <30 ug/mg cr [facility] Comment:Albumin/Creatinine R atio Reference Ranges: Normal: < 30 ug/mg creatinine Microalbuminuria: 30 - 300 ug/mg creatinineClinical Albuminuria: > 300 ug/mg creatinine Urine 04/18/2024 1:30 PM EST 04/18/2024 4:59 PM EST us Elizabeth Gaona [employer] [facility] LAB URINE ORDERABLES Final Resul t [facility] [address] [place] [address] [phone] * Hematoxylin and Eosin Stain (02/25/2024 10:26 AM EST) 02/25/2024 10:2 6 AM EST 02/25/2024 12:03 PM EST Narrative [facility] - 03/01/2024 7:54 AM EST ----- ------- Name: Barrett Gutierrez ?Age/Sex: 73/M ? : 1950 Unit#: [id number] ?? Attend Dr: Bam Beckford MD ?Re02/25/24 ?Status: DEP SDC ? Location: HO.SSS ?Disch: ? ----- ------- SPEC : [id number] ? RECD: 02/25/24-1203 ? STATUS: ??SOUT ? REQ NUM: [id number] ? MIGUEL ANGEL: 02/25/24-6 ? SUBM DR: Bam Beckford MD ? ENTERED: ??02/25/24-1208 ?SP TYPE: Surgical ? OTHR DR: Dashawn Tavarez MD ?? ORDERED: ??HE Stain/15, Gross Micro L4/5, IHC, H. pylori, AB/PAS/2 ?Addendum Addendum ??1 ?Entered: 03/01/24 Metaplastic changes are not present, supported by AB/PAS stains (A, B); Helicobacter organisms are not identified with H. pylori immunostain (A). ??No change is made to the diagnoses. Addendum Signed (signature on file) Pete Guajardo MD 03/01/24753 ? ----- ------- ? Diagnosis ?? A. ??Stomach, biopsy: ??Oxyntic mucosa with mild chronic inactive inflammation. ? B. ??GE junction, biopsy: ?- Cardiofundic-type mucosa with moderate chronic inactive inflammation; no intestinal ?? metaplasia seen. ?- Squamous mucosa within normal limits. ? C. ??Cecum, polypectomies: ??Fragments of tubular adenomata; negative for high-grade ?? dysplasia or carcinoma. ? D. ??Colon, distal transverse, polypectomy: ??Fragments of tubular adenoma; negative for ?? high-grade dysplasia or carcinoma. ? E. ??Colon, descending, polypectomies: ??Tubulovillous and fragments of tubular adenomata; ?? negative for high-grade dysplasia or carcinoma. ? Comment: H. pylori immunostain on part A will be addended. ?Clinical History Pre-Op Dx: ??Epigastric pain, rectal bleed Post-Op Dx: Gastritis, possible Betancourt's, diverticulosis, colon polyps, internal hemorrhoids ? CONTINUED ON NEXT PAGE ----- ------- Name: Barrett Gutierrez ?Age/Sex: 73/M ? : 1950 Unit#: [id number] ?? Attend Dr: Bam Beckford MD ?Re02/25/24 ?Status: DEP SDC ? Location: HO.SSS ?Disch: ? ----- ------- SPEC : [id number] ? RECD: 02/25/24 ? STATUS: ??SOUT ? REQ NUM: [id number] ? MIGUEL ANGEL: 02/25/246 ? SUBM DR: Bam Beckford MD ? ENTERED: ??02/25/24 ?SP TYPE: Surgical ? OTHR DR: Dashawn Tavarez MD ?? ORDERED: ??HE Stain/15, Gross Micro L4/5, IHC, H. pylori, AB/PAS/2 ?Microscopic Description A-E. ??Microscopic sections reviewed. ? Material Received ?? A. Stomach bx's ?? B. GE junction bx's, r/o Betancourt's ?? C. Cecal polyps ?? D. Distal transverse colon polyp ?? E. Descending colon polyps ? Gross Description Received in five parts. Part A: ??Received in formalin labeled ?stomach biopsies? are 3 de la torre irregular and rectangular tissue fragments ranging from 0.1-0.3 cm, submitted in toto in a cassette labeled A. Part B: ??Received in formalin labeled ?GE junction bx's, rule out Betancourt's? are 2 de la torre and de la torre-pink irregular tissue fragments measuring 0.1 and 0.2 cm, submitted in toto in a cassette labeled B. Part C: ??Received in formalin labeled ?cecal polyps? are multiple de la torre and de la torre-pink irregular and papular tissue fragments ranging from minute to 0.3 cm along with scant debris, submitted in toto in a cassette labeled C. Part D: ??Received in formalin labeled ?distal transverse colon polyp? are 3 de la torre irregular and papular tissue fragments ranging from 0.2-0.4 cm, submitted in toto in a cassette labeled D. Part E: ??Received in formalin labeled ?descending colon polyps are multiple minute to 1.6 cm in greatest dimension de la torre and hyperemic and congested pink-red irregular, papular and polypoid tissue fragments. ??The resected base of the largest fragment is inked and the specimen is sectioned and entirely submitted in cassette E1. ??The smaller tissue fragments are submitted in toto in cassette E2. CEDS ? CONTINUED ON NEXT PAGE ----- ------- Name: Barrett Gutierrez ?Age/Sex: 73/M ? : 1950 Unit#: [id number] ?? Attend Dr: Bam Beckford MD ?Re02/25/24 ?Status: DEP VTC ? Location: HO.SSS ?Disch: ? ----- ------- SPEC : [id number] ? RECD: 02/25/24-1202 ? STATUS: ??SOUT ? REQ NUM: [id number] ? MIGUEL ANGEL: 02/25/24-1025 ? SUBM DR: Bam Beckford MD ? ENTERED: ??02/25/24-1208 ?SP TYPE: Surgical ? OTHR DR: Dashawn Tavarez MD ?? ORDERED: ??HE Stain/15, Gross Micro L4/5, IHC, H. pylori, AB/PAS/2 ? Copies To: ?? Dashawn Tavarez MD ?? [facility] ?? [address] ?? [place] [address] ?? [phone] ?? Bam Beckford MD ?? [facility] ?? [address] ?? [place] [address] ?? [phone] ----- ------- Signed (signature on file) Pete Guajardo MD 02/26/24 1232 ? ----- ------- ? END OF REPORT ? [employer] External Data Provider LAB BLOOD ORDERAB LES Final Result [facility] [address] [place] [phone] * (ABNORMAL) POCT HGB A1C (02/22/2024 2:08 PM EST) [facility] Hemoglobin A1C 7.0(A) 4.0 - 6.0 % QC Media Lot # [id number] Lot# Expiration Date [id number] Blood 02/22/2024 2:08 PM EST Elizabeth EUCEDA POINT OF CARE TEST ENTER/EDIT OR DERABLES Final Result * POCT Glucose (02/22/2024 2:05 PM EST) [facility] Glucose Blood, POC 132 60 - 200 mg/dL QC Media Lot # [id number] Lot# Expiration Date [id number] Blood Capillary blood specimen / Unknown 02/22/2024 2:05 PM EST Elizabeth EUCEDA POINT OF CARE TEST ENTER/EDIT OR DERABLES Final Result * (ABNORMAL) LIPID PANEL, STANDARD (05/24/2021 11:33 AM EDT) Pathologist [facility] Chol/HDLC Ratio 3.6 <5.0 (calc) [facility] Cholesterol, Total 194 <200 mg/dL [facility] HDL Cholesterol 54 > OR = 40 mg/dL [facility] LDL Cholesterol 118(H) mg/dL (calc) [facility] Comment: Reference range: <100 ?? Desirable range <100 mg/dL for primary prevention; ?? <70 mg/dL for patients with CHD or diabetic patients ?? with > or = 2 CHD risk factors. ?? LDL-C is now calculated using the Almas ?? calculation, which is a validated novel method providing ?? better accuracy than the Friedewald equation in the ?? estimation of LDL-C. ?? Dave EUCEDA et al. JB. 2013;310(19): 7782-9862 ?? (http://[email or web address].[email or web address]/faq/FIO305) Non-HDL Cholesterol 140(H) <130 mg/dL (calc) [facility] Comment: For patients with diabetes plus 1 major ASCVD risk ?? factor, treating to a non-HDL-C goal of <100 mg/dL ?? (LDL-C of <70 mg/dL) is considered a therapeutic ?? option. Triglycerides 111 <150 mg/dL [facility] 05/24/2021 11:3 3 AM EDT us Elizabeth Gaona [facility] LAB BLOOD ORDERABLES Final Resul t [facility] [address] from Last 3 Months or Most Recently Relevant to Health Maintenance [place] [address] [place] [address] - [employer] Care Teams Credit Review Analyst Relationship Specialty Start Date End Date Elizabeth Gaona ANP [address] [place] [phone] PCP - General Family Medicine 05/06/21 Arin Reid MD [address] [place] [address] Urology 02/22/24 Kalyani Kilgore [address] [place] [address] Cardiology 02/22/[address] [place] [address] Gastroenterology 02/22/24
--- OUTSIDE RECORDS SUMMARY | 2024-05-11 12:24 | XMS_ITS | Encounter Summary ---
Author Organization [employer] Address [address] [facility] 7t [place] [address] Care Team Providers Care Epic Specialist Name Role Phone Elizabeth Gaona Primary Care Provider [phone] Arin Reid MD Unavailable Kalyani Kilgore Unavailable Flor June Unavailable Reason for Visit * Reason Onset Date Comments Nurse Triage 07/10/2023 Encounter Details Date Type Department Care Team (Late st Contact Info) Description 07/10/2023 Telephone [facility] [address] [place], [place] [phone] Elizabeth Gaona ANP [address] [place], [place] [phone] Nurse Triage Social History Tobacco Use Types Packs/Day Years Used Date Smoking Tobacco: Former Cigarettes Smokeless Tobacco: Never Alcohol Use Standard Drinks/Week Comments Yes 0 (1 standard drink = 0.6 oz pur e alcohol) PHQ-2 Answer Date Recorded Patient Health Questionnaire-2 Score 0 04/15/2022 Housing Stability Answer Date Recorded What is [...] AM EDT documented as of this encounter Miscellaneous Notes * Telephone Encounter - Nory Mcelroy RN - 07/10/2023 3:24 PM EDT called pt to triage, spoke to pt through [employer] reporter. pt states seen ER today (07/09) for 3 days duration of rectal bleeding. pt had labs and scans done with nothing acute found. pt was recommended to see his PCP for referral to GI for a colonoscopy. pt denies current significant bleeding, but having some stomach cramping intermittently. pt denies fever, vomiting, severe abdominal pain, or other associated symptoms. given appt 07/14 with red team provider at 11:00 for exam, recheck, and possible referral as appropriate. advised home care: rest, fluids, soft diet, and return to the ER if severe symptoms or bleeding that does not stop. pt understands and agrees with plan. insurance verified. Protocol Used: Rectal Bleeding (Adult) Protocol-Based Disposition: See in Office or Video Visit within 2 Weeks Video visit offer not recorded Positive Triage Questions: * Age > 50 years * No doctor (or WET MACHINE TENDER/PA) exam for rectal bleeding in past year * All higher-acuity triage questions were negative Care Advice Discussed: * Reassurance and Education - Mild Rectal Bleeding * Warm Saline SITZ Baths - For Rectal Symptoms * To Soften Stools and Treat Constipation * High Fiber Diet * Reasons To Call Back - Bleeding increases in amount - You become worse * Telephone Encounter - Michelle Brian - 07/10/2023 2:44 PM EDT Patient calling to report ED visit on : Date: 07/09 Hospital: [facility] Seen for: rectal bleeding Patient advised will forward to team nurse for follow up Please contact pt at [phone] documented in this encounter Plan of Treatment Upcoming Encounters Date Type Department Care Team (Late st Contact Info) Description 07/21/2024 1:15 PM EDT Office Visit [facility] [address] [place] [address] Elizabeth Gaona ANP [address] [place] [address] documented as of this encounter Visit Diagnoses Not on filedocumented in this encounter Care Teams Epic Specialist Relationship Specialty Start Date End Date Elizabeth Gaona ANP [address] [place] [address] PCP - General Family Medicine 05/06/21 Arin Reid MD [address] [place] [address] Urology 02/22/24 Kalyani Kilgore [address] [place] [address] Cardiology 02/22/24 Alessandra Ray [address] [place] [address] Gastroenterology 02/22/24 documented as of this encounter
--- OUTSIDE RECORDS SUMMARY | 2024-05-11 12:24 | XMS_ITS | Encounter Summary ---
Author Organization [employer] Address [address] [facility] [address] [place] [address] Care Team Providers Care Payroll Accounting Clerk Name Role Phone Elizabeth Gaona Primary Care Provider [phone] Arin Reid MD Unavailable Kalyani Kilgore Unavailable Ray June Unavailable Reason for Visit * Reason Onset Date Comments DEXA ORDER 05/10/2024 Encounter Details Date Type Department Care Team (Late st Contact Info) Description 05/10/2024 Telephone [employer] Information Management [address] [place], [place] [id number] Elizabeth Gaona ANP [address] [place], [place] [phone] DEXA ORDER Social History Tobacco Use Types Packs/Day Years [...] encounter Miscellaneous Notes * Telephone Encounter - [employer] - 05/10/2024 3:09 PM EST Pt is a former smoker with almost 100 year pack year history, smoking puts him at increased risk for osteoporosis. Can that be utilized? I linked the original order to the smoking history diagnosis as well. Diagnoses and all orders for this visit: History of smoking greater than 50 pack years At high risk for osteoporosis Comments: lifelong smoker, quit approx 2017 * Telephone Encounter - Pat Hernandez - 05/10/2024 1:32 PM EST Incoming fax from [facility], Please update the order to a more specific reason for visit as Screening forOsteoporosis is not an acceptable standalone reason for the test. Please include symptoms which are indicative of Osteoporosis. documented in this encounter Plan of Treatment Upcoming Encounters Date Type Department Care Team ([facility] st Contact Info) Description 07/21/2024 1:15 PM EDT Office Visit [facility] [address] [place] [address] Elizabeth Gaona ANP [address] [place] [address] documented as of this encounter Visit Diagnoses Diagnosis History of smoking greater than 50 pack years- Primary At high risk for osteoporosis documented in this encounter Additional Health Concerns Assessment Noted Time PHQ-9 Depression Total Score: 3 09/08/19 24 11:21 AM EDT documented as of this encounter Care Teams Payroll Accounting Clerk Relationship Specialty Start Date End Date Elizabeth Gaona ANP [address] [place] [address] PCP - General Family Medicine 05/06/21 Arin Reid MD [address] [place] [address] Urology 02/22/24 Kalyani Kilgore [address] [place] [address] Cardiology 02/22/24 Flor June [address] [place] [address] Gastroenterology 02/22/24 documented as of this encounter
--- OUTSIDE RECORDS SUMMARY | 2024-05-11 12:24 | XMS_ITS ---
Author Name Sol BANKS, Mr. Darryl Eason Address [address] [place] [address] Phone [phone] [facility] Care Team Providers Care Orthopaedic Surgeon Name Role Phone Chris Horton Unavailable [phone] Arin Sousa Unavailable [phone] LEORA MERCADO Unavailable [phone] Reason for Referral Not Available Allergies, adverse reactions, alerts No known allergies History of medication use Medication Class Instructions Start Date End Date Clobetasol Propionate 0.05 % Oint APPLY A THIN LAYER TO AFFECTED AREA(S) TWICE DAILY 2021-10-25 No Data Available Lisinopril 10 mg Tab TAKE 1 TABLET BY MO UTH EVERY MORNING 2021-10-31 No Data Available Omeprazole 20 mg Cap delayed rel TAKE 1 CAPSULE BY MOUTH EVERY DAY 30-60 MINUTES BEFORE A MEAL 2021-10-31 No Data Available amLODIPine Besylate 10 mg Tab TAKE 1 TAB LET BY MOUTH ONCE DAILY 2021-12-12 No Data Available Atorvastatin Calcium 40 mg Tab TAKE 1 TABLET BY MOUTH ONCE DAILY 2021-12-12 No Data Available Cetirizine 10 mg Tab TAKE 1 TABLET BY MO UTH ONCE DAILY FOR ALLERGIES 2021-12-12 No Data Available Tamsulosin 0.4 mg Cap TAKE 1 CAPSULE BY MOUTH DAILY AT BEDTIME 2022-03-21 No Data Available Nitroglycerin 0.[address] 1 TABLET UNDER THE TONGUE NEEDED FOR CHEST PAIN - MAY REPEAT IN 5 MINUTES TWICE. IF NO RELIEF CALL 911 OR GO TO EMERGENCY ROOM. 2022-04-15 No Data Available Ciprofloxacin 500 mg Tab TAKE 1 TABLET B Y MOUTH TWICE DAILY 2022-07-28 No Data Available Celecoxib 100 mg Cap 1 capsule orally 2 times per day prn with food 2023-06-04 No Data Available Aspirin 81 mg Tab delayed rel take 1 tab let orally once daily 2023-06-04 No Data Available Medbox Status USE DIRECTED 2022-12-17 No Data K[place] ilable Finasteride 5 mg Tab TAKE 1 TABLET BY MO UTH EVERY MORNING 2022-08-21 No Data Available Aspirin Low Dose 81 mg Tab delayed rel TAKE 1 TABLET BY MOUTH EVERY MORNING 2023-04-16 No Data Available Celecoxib 100 mg Cap TAKE 1 CAPSULE BY M OUTH TWICE DAILY NEEDED FOR PAIN. TAKE WITH FOOD 2023-05-22 No Data Available Problem List Problem Status Onset Date Resolved Date Essential hypertension Active 2022-08-11 N/A Mixed hyperlipidemia Active 2022-08-11 N/A GERD (gastroesophageal reflux disease) Active 29-08-04 N/A Angina pectoris Active 2022-08-15 N/A Major depression in remission Active 2022-08-18 N/A Malignant neoplasm of prostate Active 2023-06-04 N/A Back pain withDifficulty walking Active N/A Other problems related to ok dical facilities and other health care Active 2023-06-21 N/A Encounters Encounters Type Facility Date of Service Diagnosis/Co mplaint New patient,40-59min; chronic exacerbation, 2 stable chronic or 1 acute illness add add modifier 95 for video (do not use for phone, instead use [id number]) [facility] [place] [place]22 Essential (primary) hypertensionMixed hyperlipidemiaGastro-esophageal reflux disease without esophagitisAngina pectoris, unspecifiedMajor depressive disorder, single episode, in full remission New patient,40-59min; chronic exacerbation, 2 stable chronic or 1 acute illness add add modifier 95 for video (do not use for phone, instead use 76587-25) [facility] [place]2022 New patient,40-59min; chronic exacerbation, 2 stable chronic or 1 acute illness add add modifier 95 for video (do not use for phone, instead use 14726-96) [facility] 08[place]/2022 New patient,40-59min; chronic exacerbation, 2 stable chronic or 1 acute illness add add modifier 95 for video (do not use for phone, instead use 69738-39) [facility] 08/11/2022 New patient,40-59min; chronic exacerbation, 2 stable chronic or 1 acute illness add add modifier 95 for video (do not use for phone, instead use 59664-02) [facility] 08/11/2022 New patient,40-59min; chronic exacerbation, 2 stable chronic or 1 acute illness add add modifier 95 for video (do not use for phone, instead use 78021-79) [facility] 08/11/2022 New patient,40-59min; chronic exacerbation, 2 stable chronic or 1 acute illness add add modifier 95 for video (do not use for phone, instead use 08770-22) [facility] 08/11/2022 New patient,40-59min; chronic exacerbation, 2 stable chronic or 1 acute illness add add modifier 95 for video (do not use for phone, instead use 31072-80) [facility] 08/11/2022 New patient,40-59min; chronic exacerbation, 2 stable chronic or 1 acute illness add add modifier 95 for video (do not use for phone, instead use 50048-09) [facility] 08/11/2022 New patient,40-59min; chronic exacerbation, 2 stable chronic or 1 acute illness add add modifier 95 for video (do not use for phone, instead use 09252-81) [facility] 08/11/2022 Estab. patient 30-39min; chronic exacerbation, 2 stable chronic or 1 acute illness add add modifier 95 for video, (do not use for phone, instead use 64522-08) [facility] 06/04/2023 Essential (primary) hypertensionMixed hyperlipidemiaGastro-esophageal reflux disease without esophagitisOther problems related to medical facilities and other health careAngina pectoris, unspecifiedMajor depressive disorder, single episode, in full remissionMalignant neoplasm of prostateBody mass index (bmi) 29.0-29.9, adultDorsalgia, unspecifiedDifficulty in walking, not elsewhere classified Estab. patient 30-39min; chronic exacerbation, 2 stable chronic or 1 acute illness add add modifier 95 for video, (do not use for phone, instead use 41398-91) [facility] 06/04/2023 Estab. patient 30-39min; chronic exacerbation, 2 stable chronic or 1 acute illness add add modifier 95 for video, (do not use for phone, instead use 87735-48) [facility] 06/04/2023 Estab. patient 30-39min; chronic exacerbation, 2 stable chronic or 1 acute illness add add modifier 95 for video, (do not use for phone, instead use 27918-74) [facility] 06/04/2023 Estab. patient 30-39min; chronic exacerbation, 2 stable chronic or 1 acute illness add add modifier 95 for video, (do not use for phone, instead use 41376-56) [facility] 06/04/2023 Estab. patient 30-39min; chronic exacerbation, 2 stable chronic or 1 acute illness add add modifier 95 for video, (do not use for phone, instead use 65011-51) [facility] 06/04/2023 Vital Signs Date of Collection Vitals 2022-08-11 11:06:26 Height - 167.64 cmWe ight - 81.65 kgBody Mass Index (BMI) - 29.05 kg/m2BP Diastolic - 60.0 mm[Hg]BP Systolic - 120.0 mm[Hg] 2023-06-04 10:09:40 Height - 170.18 cmWe ight - 86.18 kgBody Mass Index (BMI) - 29.76 kg/m2 Social History Social History Social History Observation Description Effec tive Time Current Smoking Status Never smoker 5 Sex Male History of Procedures Procedures Service Procedure code Service date Servicing provider Phone# New patient,40-59min; chronic exacerbation, 2 stable chronic or 1 acute illness add add modifier 95 for video (do not use for phone, instead use [id number]) 29058 2022-08-11 No Data Available No Data Availa ble Medication List Documented (1159F) 1159F 2022-08-11 No Data Available No Data [place] il[facility] Medication Review by prescribing provider or pharmacist documented (1160F) 1160F 2022-08-11 No Data Available No Data [place] [facility] Functional Status Assessed (1170F) 1170F 2022-08-11 No Data Available No Data Avail able Pain Assessment - NO pain present (1126F) 1126F 2022-08-11 No Data Available No Data A vailable Advance Care Directive Advance care planning discussion documented in the medical record (1158F) 1158F 2022-08-11 No Data Available No Data Availa ble BMI obtained (3008F) 3008F 2022-08-11 No Data Availab le No Data Available SBP < 130 (3074F) 3074F 2022-08-11 No Data Available No Data Available DBP <80 (3078F) 3078F 2022-08-11 No Data Available No Data Available Advance care planning discussed and documented ? advance care plan or surrogate decision-maker was documented in the medical record. (1123F) 1123F 2022-08-11 No Data Available No Data Availa ble Estab. patient 30-39min; chronic exacerbation, 2 stable chronic or 1 acute illness add add modifier 95 for video, (do not use for phone, instead use 03344-43) 40604 2023-06-04 No Data Available No Data Availa ble Medication List Documented (1159F) 1159F 2023-06-04 No Data Available No Data K[place] ilable Medication Review by prescribing provider or pharmacist documented (1160F) 1160F 2023-06-04 No Data Available No Data [place] [facility] Pain Assessment - NO pain present (1126F) 1126F 2023-06-04 No Data Available No Data A vailable BMI obtained (3008F) 3008F 2023-06-04 No Data Availab le No Data Available Functional Status Assessed (1170F) 1170F 2023-06-04 No Data Available No Data Avail able Functional Status Functional Category Effective Dates Walker 2022-08-11 Shower Chair 2022-08-11 SLip proof mat in shower 2022-08-15 ADLsAmbulating - Independent Dressing - Needs assistanceBathing - Needs assistanceToileting - IndependentTransfers - IndependentEating - IndependentiADLsShopping - Needs assistanceMedications - Needs assistanceHousekeeping - Needs assistanceCooking - Needs assistanceFalls in last 6 months - No 2023-06-04 Mental Status No Information Assessments Date of Service Assessments 2022-08-11 11:06:26 Essential hypertensi onMixed hyperlipidemiaGERD (gastroesophageal reflux disease)Angina pectorisMajor depression in remission 2023-06-04 10:09:40 Other problems relat ed to medical facilities and other health careEssential hypertensionMixed hyperlipidemiaGERD (gastroesophageal reflux disease)Angina pectorisMajor depression in remissionMalignant neoplasm of prostateBack pain withDifficulty walkingOther problems related to medical facilities and other health care Plan of Care Date of Service Plans 2022-08-11 11:06:26 Pain Assessment - NO pain documented (1126F)Medication Review by prescribing provider or pharmacist documented (1160F)Medication List Documented (1159F)Functional Status Assessed (1170F)Advance Care Directive Advance care planning discussion documented in the medical record (1158F)BMI obtained (3008F)sbdbTelevideo new patient,40-59min; chronic exacerbation, 2 stable chronic or 1 acute illness add modifier 95Advance care planning discussed and documented ? advance care plan or surrogate decision-maker was documented in the medical record. (1123F)Advance care planning discussed and documented in the medical record ? beneficiary/patient did not wish to or was unable to provide an advance care plan or name a surrogate decision-maker. (1124F)Continue to see PCP. Follow-up with [facility] as needed for any acute or disease education needs that may arise.Amlodipine, Lisinopril Educate patient on symptoms of hypertension including blurred vision, headache, dizziness. Encouraged daily blood pressure checks and tracking. Instructed patient to notify CB or PCP if blood pressure >160/90 or <90/60.Atorvastatin dailyAdvised patient to avoid high fat and deep fried foods. Follow low sodium/heart healthy diet.Omeprazole dailyLimit high fat foods, deep fried foods, spicy foods. Also avoid eating and then lying down flat. Try to stay up 2-3 hours after eating minimum to avoid the risk of indigestion.For breakthrough reflux may use pepcid or tums PRN.Nitroglycerin PRN Reports chest pain typically when acid reflux is worse. Encouraged rest and to relax and take nitro when chest pain is present, not to exceed 3 doses. Call 911 if no relief after 3 doses.PMH of depressionno medicationsmonitor PHQ9 score routinely 2023-06-04 10:09:40 Medication Review by prescribing provider or pharmacist documented (1160F)Medication List Documented (1159F)Functional Status Assessed (1170F)Advance Care Directive Advance care planning discussion documented in the medical record (1158F)BMI obtained (3008F)Televideo 30-39min; chronic exacerbation, 2 stable chronic or 1 acute illness add modifier 95Advance care planning discussed and documented ? advance care plan or surrogate decision-maker was documented in the medical record. (1123F)Continue to see PCP. Follow-up with [facility] as needed for any acute or disease education needs that may arise.<Add contingency plans here>Amlodipine, Lisinopril Educate patient on symptoms of hypertension including blurred vision, headache, dizziness. Encouraged daily blood pressure checks and tracking. Instructed patient to notify CB or PCP if blood pressure >160/90 or <90/60.Atorvastatin dailyAdvised patient to avoid high fat and deep fried foods. Follow low sodium/heart healthy diet.Omeprazole dailyLimit high fat foods, deep fried foods, spicy foods. Also avoid eating and then lying down flat. Try to stay up 2-3 hours after eating minimum to avoid the risk of indigestion.For breakthrough reflux may use pepcid or tums PRN.Nitroglycerin PRN Reports chest pain typically when acid reflux is worse. Encouraged rest and to relax and take nitro when chest pain is present, not to exceed 3 doses. Call 911 if no relief after 3 doses.PMH of depressionno medicationsmonitor PHQ9 score routinelyDiagnosed 2022. Still in treatment, cannot recall name of medication he takes.Uses a cane, which is broken and he needs a new one.Celecoxib. PCP is managing.Please call CB ifBP >160/100 or <100/60,worsening of prostate sxs. Health Concerns Date Concern 2023-06-04 Visit completed in g audio/video. Patient/Guardian agreed to visit via telehealth. Today, patient has chief complaint of: follow up care and comprehensive review.Reviewed Allergies, Medications, Active Medical conditions, past medical/surgical history, Social history. 2023-06-04 Most recent hospital stay(s) or ER visit(s) and precipitating factors: 2023-06-04 Open HEDIS Measure r amilcarw: 2023-06-04 Full Code - Sister i s DPOA - Lisy Lin, another proxy is friend and DATA CONVERSION DEVELOPER Ibrahima Ward
== END 2024-05-11 11:41 | disposition home or self-care (01) ==
PROVIDERS: PCP Internal Medicine; Visit Provider Nurse Practitioner Family
DX: R06.83 Snoring (principal); G47.33 Obstructive sleep apnea (adult) (pediatric)
CPT/HCPCS: 99214

== ENCOUNTER → 2024-05-11 10:30 | Outpatient (BNVA) | payer OTHER, SELFPAY | PROVIDERS: PCP Internal Medicine; Visit Provider Nurse Practitioner Family | DX: G47.33 Obstructive sleep apnea (adult) (pediatric) (principal); R06.83 Snoring; I10 Essential (primary) hypertension; M25.50 Pain in unspecified joint; M81.0 Age-related osteoporosis without current pathological fracture; R21 Rash and other nonspecific skin eruption; R79.89 Other specified abnormal findings of blood chemistry; Z99.89 Dependence on other enabling machines and devices | CPT/HCPCS: 99212 ==

== ENCOUNTER 2024-05-24 09:04 | Outpatient (REF) | payer OTHER, SELFPAY ==
[2024-05-24 18:46] LABS: MANUAL DIFF FLAG NO
[2024-05-24 19:08] LABS: Basophils Absolute Auto 0.1 X10*3/uL (0.0-0.2); Basophils Percent Auto 1.1 % (0-2); Eosinophils Absolute Auto 0.7 X10*3/uL (0.0-0.4); Eosinophils Percent Auto 9.6 % (0-4); Hematocrit 41.2 % (42.0-52.0); Hemoglobin 14.4 g/dl (14.0-18.0); Imm Gran Abs Auto 0.03 X10*3/uL (0.00-0.03); Imm Gran Pct Auto 0.4 % (0.0-0.4); Lymphocytes Absolute Auto 2.1 X10*3/uL (1.2-4.9); Lymphocytes Percent Auto 27.5 % (20-40); Mean Corpuscular Hemoglobin 29.9 pg (27.0-33.0); Mean Corpuscular Volume 85.5 fL (80.0-98.0); Mean Platelet Volume 9.9 fL (9.4-12.4); Monocytes Absolute Auto 0.6 X10*3/uL (0.1-1.2); Monocytes Percent Auto 7.5 % (2-11); Neutrophils Absolute Auto 4.1 x10*3/uL (2.0-8.3); Neutrophils Percent Auto 53.9 % (45-73); Platelet Count 224 X10*3/uL (160-400); Red Blood Count 4.82 X10*6/uL (4.60-5.80); White Blood Count 7.6 X10*3/uL (4.8-10.8)
[2024-05-24 19:29] LABS: Rheumatoid Factor < 13.0 IU/mL (<15.0)
[2024-05-24 19:32] LABS: Alanine Aminotransferase 99 U/L (0-40); Albumin Level 4.3 g/dL (3.5-5.0); Alkaline Phosphatase 67 U/L (39-117); Anion Gap 14 (12-20); Aspartate Amino Transferase 49 U/L (5-37); Bilirubin Total 0.6 mg/dL (0.0-1.0); Blood Urea Nitrogen 18 mg/dL (9-16); Calcium 9.4 mg/dL (8.4-10.2); Carbon Dioxide 24 mmol/L (22-29); Chloride 104 mmol/L (96-108); Estimated Glomerular Filt Rate > 60; Glucose Random 134 mg/dL (60-115); Potassium 3.9 mmol/L (3.3-5.1); Sodium 138 mmol/L (135-145); Total Protein 7.5 g/dL (6.5-8.0)
[2024-05-24 19:38] LABS: Ferritin 315 ng/mL (20-250); TSH reflex Free T4 0.82 uIU/mL (0.32-4.0)
[2024-05-24 19:50] LABS: Folate 11.3 ng/mL (> or = 4.0); Vitamin B12 389 pg/mL (200-900)
[2024-05-24 19:59] LABS: Erythrocyte Sedimentation Rate 5 MM/HR (0-15)
[2024-05-25 23:44] LABS: CRP High Sensitivity 1.1 mg/L
[2024-05-27 14:33] LABS: Anti Nuclear Antibody Screen NEGATIVE (NEGATIVE)
[2024-05-28 06:58] LABS: Methylmalonic Acid 129 nmol/L (69-390)
[2024-05-28 11:38] LABS: Vitamin D 25-OH, D2 <4 ng/mL; Vitamin D 25-OH, D3 14 ng/mL; Vitamin D 25-OH, Total 14 ng/mL (30-100)
== END 2024-05-24 09:05 | disposition home or self-care (01) ==
LOC: HO.HKASLDS 09:04
PROVIDERS: Visit Provider Nurse Practitioner Family
DX: M25.50 Pain in unspecified joint (principal); R79.89 Other specified abnormal findings of blood chemistry; R21 Rash and other nonspecific skin eruption; I10 Essential (primary) hypertension; M81.0 Age-related osteoporosis without current pathological fracture
CPT/HCPCS: 36415; 80053; 82306; 82607; 82728; 82746; 83921; 84443; 85025; 85652; 86038; 86141; 86431

== ENCOUNTER 2024-06-03 09:36 | Outpatient (REF) | payer OTHER, SELFPAY ==
--- NOTE | ~2024-06-03 | CT_ITS ---
EXAMINATION: CT LOW-DOSE SCREENING CHEST WITHOUT CONTRAST CLINICAL INFORMATION: 73-year-old male, 49 pack year smoker, quit 6 years ago. Lung cancer screening. COMPARISON: CT chest 05/15/2016. TECHNIQUE: Multidetector volumetric CT imaging of the chest is performed on a Siemens SOMATOM Definition scanner without contrast using low dose technique. Additional 2D coronal and sagittal reformatted images and axial 3D maximum intensity projection (MIP) images are generated on the CT workstation. This CT examination was performed using dose optimization techniques as appropriate, variously including the following: *Automated exposure control *Adjustment of mA and/or kV according to patient size (this includes techniques or standardized protocols for targeted exams where dose is matched to indication/reason for exam; i.e. extremities or head) *Use of iterative reconstruction technique FINDINGS: PULMONARY NODULES: -There are a few scattered micronodules measuring 2 mm in the bilateral upper lobes, unchanged. -3 mm calcified granuloma in the right posterior costophrenic sulcus (series 5, image 99), unchanged. -There is no new or enlarging pulmonary nodule. LUNGS: -There is mild paraseptal emphysema. -There is minimal gravity dependent atelectasis. -Lungs otherwise clear without consolidation or abnormal opacity. -The small airways demonstrate minimal thickening, suggesting mild chronic bronchitis. -The central airways are patent. -No pleural effusion or pneumothorax. MEDIASTINUM: -Normal thyroid. -No abnormal lymphadenopathy or mass. -Top normal heart size without pericardial effusion. -The ascending aorta is borderline aneurysmal at 4.1 cm diameter. This is unchanged. No significant atheromatous calcification. -The main pulmonary artery is normal in size. -There is no esophageal abnormality. CORONARY ARTERY CALCIFICATION: Mild three-vessel calcification. CHEST WALL/AXILLA: -No abnormal lymph nodes or masses. UPPER ABDOMEN: -There is mild diffuse fatty infiltration of the liver. There is no suspicious liver lesion. -There are a few colonic diverticula noted. -Remainder of the imaged upper abdominal contents appear normal. OSSEOUS STRUCTURES: -There is no lytic or blastic bone lesion. -There are skeletal findings in the spine suggestive of ankylosing spondylitis with fused flowing syndesmophytes, and diffuse calcification of the interspinous ligament. CT/CT lung screening IMPRESSION: 1. There are a few stable tiny micronodules in the upper lobes. There is no new or enlarging pulmonary nodule. 2. There is mild paraseptal emphysema. There is no active pulmonary disease. 3. There is mild thickening of the small airways, likely on the basis of mild chronic bronchitis. 4. There is stable borderline aneurysmal dilatation of the ascending aorta at 4.1 cm. 5. There is fatty infiltration of the liver. 6. There are spinal findings suggesting ankylosing spondylitis. Differential would include DISH. ASSESSMENT: 1. Lung-RADS Category 2: Benign appearance or behavior of nodules. 2. Lung-RADS Category S: None. RECOMMENDATION: Continued routine annual low-dose CT lung screening in 1 year is recommended. An order for CT CHEST LOW DOSE CANCER SCREENING ([id number]) can be placed. Electronically signed by: Erich Hendricks MD 06/03/2024 12:10 PM EDT
== END 2024-06-03 09:37 | disposition home or self-care (01) ==
LOC: HO.CT 09:36
PROVIDERS: PCP Internal Medicine; Visit Provider Physician Assistant Medical
DX: Z12.2 Encounter for screening for malignant neoplasm of respiratory organs (principal); Z87.891 Personal history of nicotine dependence
CPT/HCPCS: 71271; G0296

== ENCOUNTER → 2024-06-03 10:17 | Outpatient (BNV) | payer OTHER, SELFPAY | PROVIDERS: PCP Internal Medicine; Visit Provider Radiology Diagnostic Radiology | DX: Z12.2 Encounter for screening for malignant neoplasm of respiratory organs (principal); Z87.891 Personal history of nicotine dependence | CPT/HCPCS: 71271 ==

== ENCOUNTER 2024-06-14 10:42 | Outpatient (REF) | payer OTHER, SELFPAY ==
[2024-06-14 12:32] LABS: PSA,Total (Free>4and<10) 3.66 ng/mL (0.00-4.00)
--- OUTSIDE RECORDS SUMMARY | 2024-06-14 13:13 | XMS_ITS | Encounter Summary ---
Author Organization [employer] Address [address] [facility] [address] [place] [address] Care Team Providers Care Marketing And Communications Officer Name Role Phone Elizabeth Gaona Primary Care Provider [phone] Arin Reid MD Unavailable Kalyani Kilgore Unavailable Flor June Unavailable Encounter Details Date Type Department Care Team (Late st Contact Info) Description 06/10/2022 Orders Only [facility] [address] [place] [address] Elizabeth Gaona ANP [address] [place] [address] Social History Tobacco Use Types Packs/Day Years [...] Description 07/21/2024 1:15 PM EDT Office Visit [facility] [address] [place] [phone] Elizabeth Gaona ANP [address] [place] [address] [place] [address] documented as of this encounter Visit Diagnoses Not on filedocumented in this encounter Care Teams Marketing And Communications Officer Relationship Specialty Start Date End Date Elizabeth Gaona ANP [address] [place] [address] PCP - General Family Medicine 05/06/21 Arin Reid MD [address] [place] [address] Urology 02/22/24 Kalyani Kilgore [address] [place] [address] Cardiology 02/22/24 Flor Alessandra [address] [place] [address] Gastroenterology 02/22/24 documented as of this encounter
--- OUTSIDE RECORDS SUMMARY | 2024-06-14 13:13 | XMS_ITS | Clinical Summary ---
Author Organization [employer] Address [address] [facility] 7t [place] [address] Care Team Providers Care Computer Video Game Designer Name Role Phone Jimenez Elizabeth EUCEDA Primary Care Provider [phone] Arin Reid MD Unavailable Kalyani Kilgore Unavailable June Unavailable Allergies Active Allergy Reactions Criticality Noted Date Comments Cortisone Itching 02/25/2024 Medications tamsulosin (Flomax) 0.4 MG 24 hr capsule TAKE 1 CAPSULE BY MOUTH DAILY AT BEDTIME 03/21/19 23 Active cetirizine (ZyrTEC) 10 MG tabletIndication s:Non-seasonal allergic rhinitis due to other allergic trigger TAKE 1 TABLET BY MOUTH ONCE DAILY FOR ALLERGIES 30 tablet 2 05/06/19 23 Active clobetasol (Temovate) 0.05 % ointment APPLY A THIN LAYER TO AFFECTED AREA(S) TWICE DAILY 60 g 5 09/16/19 23 Active finasteride (Proscar) 5 MG tablet Take 1 tablet by mouth in the morning. 11/12/19 23 Active nitroglycerin (Nitrostat) 0.3 MG SL tabletIndication s:Chest pain, unspecified type PLACE 1 TABLET UNDER THE TONGUE NEEDED FOR CHEST PAIN - MAY REPEAT IN 5 MINUTES TWICE. IF NO RELIEF CALL 911 OR GO TO EMERGENCY ROOM. 100 tablet 04/01/19 24 Active hydrocortisone (Anusol-HC) 2.5 % rectal creamIndications :Hemorrhoids, unspecified hemorrhoid type Insert into the rectum 2 times daily. For 7d 28 g 07/09/19 24 Active FREESTYLE LITE test stripIndications :Elevated glucose Use to test blood sugar 1-3 times daily 100 each 12 10/01/19 24 025 Active Lancets miscIndications: Elevated glucose Use to test blood sugar up to 3 times daily 100 each 10/01/19 24 Active Alcohol Swabs 70 % padsIndications: Elevated glucose Use to clean skin 100 each 10/01/19 24 Active Blood Glucose Monitoring Suppl (FreeStyle [place] Lite) w/Device kitIndications:E levated glucose Use to test blood sugar 1-3 times daily 1 kit 10/01/19 24 Active metFORMIN XR (Glucophage-XR) 500 MG 24 hr tabletIndication s:New onset type 2 diabetes mellitus (CMS/HCC) Take 1 tab once daily with meals. Do not crush, chew, or split. 90 tablet 1 02/22/20 24 Active chlorthalidone (Hygroton) 25 MG tabletIndication s:Essential hypertension TAKE 1 TABLET BY MOUTH EVERY MORNING 90 tablet 2 03/07/20 24 Active Aspirin Low Dose 81 MG EC tabletIndication s:Cardiovascular event risk TAKE 1 TABLET BY MOUTH EVERY MORNING 90 tablet 2 03/07/20 24 Active atorvastatin (Lipitor) 40 MG tabletIndication s:Dyslipidemia TAKE 1 TABLET BY MOUTH AT BEDTIME 90 tablet 04/27/19 25 Active FT Gas Relief Ultra Strength 180 MG capsule TAKE 1 CAPSULE BY MOUTH FOUR TIMES DAILY AFTER MEALS 03/03/20 24 Active lisinopril 10 MG tablet Take 10 mg by mouth in the morning. 03/25/19 25 Active omeprazole (PriLOSEC) [address] capsule 04/27/19 25 Active celecoxib (CeleBREX) 100 MG capsuleIndicatio ns:Lumbar back pain TAKE 1 CAPSULE BY MOUTH TWICE DAILY WITH FOOD NEEDED FOR PAIN 60 capsule 1 05/21/19 25 Active celecoxib (CeleBREX) 100 MG capsuleIndicatio ns:Lumbar back pain TAKE 1 CAPSULE BY MOUTH TWICE DAILY NEEDED FOR PAIN WITH FOOD 60 capsule 1 03/07/20 24 025 Discontinued Active Problems Problem Noted Date [...] Encounters Date Type Department Care Team Description 06/14/2024 Orders Only GENERIC EXTERNAL DATA DEPARTMENT Provider, Generic External Data 06/03/2024 Orders Only [facility] External Provider, [facility] 06/02/2024 Telephone [facility]INE [address] [place] [address] Elizabeth Gaona ANP DME from [facility] 05/20/2024 Refill [facility] [address] [place] [address] Elizabeth Gaona ANP Lumbar back pain 05/10/2024 Telephone [facility] [address] [place] [address] Elizabeth Gaona ANP DEXA ORDER 04/28/2024 1:00 PM EST Office Visit [facility] OPTOMETRY [address] [place] [address] Maury, Jess, OD Diabetes type 2, 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 involvement (CMS/HCC) (Primary Dx); Epiretinal membrane (ERM) of both eyes; Combined forms of age-related cataract of both eyes; Presbyopia 04/28/2024 Travel 04/27/2024 Refill [facility] [address] [place] [address] Angélica Echeverria MD Dyslipidemia 04/18/2024 1:15 PM EST Office Visit [facility] [address] [place] [address] Elizabeth Gaona ANP New onset type 2 diabetes mellitus (CMS/HCC) (Primary Dx); Essential hypertension; Cervical adenopathy; Unequal blood pressure in upper extremities; Urinary frequency; Stopped smoking with greater than 40 pack year history; Screening for osteoporosis; Diverticulosis 04/18/2024 Travel from Last 3 Months Immunizations Name Administration Dates Next Due Influenza High-dose Quadriva lent Preservative Free 12/18/2022 Influenza injectable quadriv alent IIV4 with preservative 01/04/2016 Influenza injectable quadriv alent preservative free 01/28/2021 Influenza, High Dose Seasona l, Preservative Free 02/11/2024 Moderna Covid-19 Vaccine + 05/08/2020,04/09/19 21 Pfizer Covid-19 Vaccine 03/30/2023 Pneumococcal Conjugate PCV 20 12/18/2022 ,11/17/2022(Deferred: [...] Description 07/21/2024 1:15 PM EDT Office Visit [facility] [address] [place] [address] Elizabeth Gaona ANP [address] [place] [address] Health Maintenance Due Date Last Done Comments CT Colonography 1952 FIT DNA/Cologuard 1950 FIT 1950 FOBT 1950 Sigmoidoscopy 1952 Diabetes: Foot Exam 1962 Alcohol/Substance Use Screening 1964 Hepatitis C Screening 1970 Lipid Panel 05/24/2022 05/24/2021 SDOH Screening 04/06/2024 04/06/2023 Diabetes: Hemoglobin A1C 05/22/2024 02/22/2024, 09/07 Colonoscopy 08/25/2024 Colorectal Cancer Screening 08/25/2024 Depression Screening 09/07/2024 09/08/2023, 09/08/19 COVID-19 Vaccine ( season) 2025 03/30/2023, 06/27/2021, [...] Procedure Name Priority Date/Time Associated Diagnosis Comments PSA, TOTAL WITH REFLEX TO PSA, FREE Routine 06/14/2024 11:02 AM EDT LDCT LUNG SCREENING Routine 06/03/2024 10:20 AM EDT ALBUMIN, RANDOM URINE W/CREATININE Routine 04/18/2024 1:30 PM EST Essential hypertension URINALYSIS, COMPLETE, WITH REFLEX TO CULTURE Routine 04/18/2024 1:30 PM EST Urinary frequency POCT GLYCATED HEMOGLOBIN, TOTAL Routine 02/22/2024 2:08 PM EST Elevated glucose LIPID PANEL, STANDARD Routine 05/24/2021 11:33 AM EDT from Last 3 Months or Most Recently Relevant to Health Maintenance Results * PSA, Total With Reflex to PSA, Free (06/14/2024 11:02 AM EDT) PSA,Total (Free>4and<10) 3.66 0.00 - 4.00 ng/mL [facility] Comment:A Free PSA was not p erformed: The percentage of Free PSA can be used to enhance the differentiation of prostate cancer from benign prostatic disease in subjects whose PSA levels are between 4.0 and 10.0 ng/mL. For subjects whose PSA levels are below 4.0 or above 10.0 ng/mL, the risk of prostate cancer is determined on the basis of the PSA alone. Therefore the % Free PSA is recommended only for those subjects whose PSA levels are between 4.0 and 10.0 ng/mL.PSA methodology: Garcia Alinity i ChemiluminescentMicroparticle Immunoassay (CMIA) 06/14/2024 11:0 2 AM EDT 06/14/2024 11:02 AM EDT us Generic External Data Provider LAB BLOOD ORDERAB LES Final Result [facility] [address] [place] [address] [phone] * CT Lung Screening Low dose (06/03/2024 10:20 AM EDT) Anatomical Region Laterality Modality Lung Computed Tomogra phy 06/03/2024 10:2 0 AM EDT Narrative 06/03/2024 12:13 PM EDT ? [facility] ?[address] ?[place] [address] ? CT Scan Report ? Signed ? Patient: Lin Hernandez,Barrett ?MR#: ?? [id number] ? : 1950 ?Acct:[id number] ? Age/Sex: 73 / M ?ADM Date: 06/03/24 ? Loc: HO.CT ? Attending Dr: Janey Garcia PA-C ? Ordering Physician: Janey Garcia PA-C ?? Date of Service: 06/03/24 ?? Procedure(s): CT lung screening ?? Accession Number(s): [id number] ? cc: Dashawn Tavarez MD; Janey Garcia PA-C ? Report Number: ?? [id number]: Total DLP = ?? 55.00 mGy-cm ?? EXAMINATION: ?? CT LOW-DOSE SCREENING CHEST WITHOUT CONTRAST ? CLINICAL INFORMATION: ?? 73-year-old male, 49 pack year smoker, quit 6 years ago. Lung cancer ?? screening. ? COMPARISON: ?? CT chest 05/15/2016. ? TECHNIQUE: ?? Multidetector volumetric CT imaging of the chest is performed on a ?? Siemens SOMATOM Definition scanner without contrast using low dose ?? technique. Additional 2D coronal and sagittal reformatted images and ?? axial 3D maximum intensity projection (MIP) images are generated on the ?? CT workstation. ? This CT examination was performed using dose optimization techniques as ?? appropriate, variously including the following: ?? *Automated exposure control ?? *Adjustment of mA and/or kV according to patient size (this includes ?? techniques or standardized protocols for targeted exams where dose is ?? matched to indication/reason for exam; i.e. extremities or head) ?? *Use of iterative reconstruction technique ? FINDINGS: ? PULMONARY NODULES: ?? -There are a few scattered micronodules measuring 2 mm in the bilateral ?? upper lobes, unchanged. ?? -3 mm calcified granuloma in the right posterior costophrenic sulcus ?? (series 5, image 99), unchanged. ?? -There is no new or enlarging pulmonary nodule. ? LUNGS: ?? -There is mild paraseptal emphysema. ?? -There is minimal gravity dependent atelectasis. ?? -Lungs otherwise clear without consolidation or abnormal opacity. ?? -The small airways demonstrate minimal thickening, suggesting mild ?? chronic bronchitis. ?? -The central airways are patent. ?? -No pleural effusion or pneumothorax. ? MEDIASTINUM: ?? -Normal thyroid. ?? -No abnormal lymphadenopathy or mass. ?? -Top normal heart size without pericardial effusion. ?? -The ascending aorta is borderline aneurysmal at 4.1 cm diameter. This ?? is unchanged. No significant atheromatous calcification. ?? -The main pulmonary artery is normal in size. ?? -There is no esophageal abnormality. ? CORONARY ARTERY CALCIFICATION: Mild three-vessel calcification. ? CHEST WALL/AXILLA: ?? -No abnormal lymph nodes or masses. ? UPPER ABDOMEN: ?? -There is mild diffuse fatty infiltration of the liver. There is no ?? suspicious liver lesion. ?? -There are a few colonic diverticula noted. ?? -Remainder of the imaged upper abdominal contents appear normal. ? OSSEOUS STRUCTURES: ?? -There is no lytic or blastic bone lesion. ?? -There are skeletal findings in the spine suggestive of ankylosing ?? spondylitis with fused flowing syndesmophytes, and diffuse ?? calcification of the interspinous ligament. ? CT/CT lung screening ?? IMPRESSION: ?? 1. There are a few stable tiny micronodules in the upper lobes. There ?? is no new or enlarging pulmonary nodule. ?? 2. There is mild paraseptal emphysema. There is no active pulmonary ?? disease. ?? 3. There is mild thickening of the small airways, likely on the basis ?? of mild chronic bronchitis. ?? 4. There is stable borderline aneurysmal dilatation of the ascending ?? aorta at 4.1 cm. ?? 5. There is fatty infiltration of the liver. ?? 6. There are spinal findings suggesting ankylosing spondylitis. ?? Differential would include DISH. ? ASSESSMENT: ?? 1. Lung-RADS Category 2: Benign appearance or behavior of nodules. ? 2. Lung-RADS Category S: None. ? RECOMMENDATION: ?? Continued routine annual low-dose CT lung screening in 1 year is ?? recommended. An order for CT CHEST LOW DOSE CANCER SCREENING ([id number]) ?? can be placed. ? Electronically signed by: ??Erich Hendricks MD ??06/03/2024 12:10 PM EDT RP ? Dictated By: ?Erich Hendricks MD ? Signed By: ?<Electronically signed by Erich Hendricks MD in OV> ?06/03/24 1210 ? DD/ 1020 ? TD/TT: 06/03/24 1030 ? Fraud Investigator: ? Procedure Note Donotuseinterpreter, Image - 06/03/[address] [place] [address] [address] Scan Report Signed Patient: Barrett GutierrezMR#: [id number] : 1950cct:[id number] Age/Sex: 73 / MADM Date: 06/03/24 Loc: HO.CT Attending Dr: Janey Garcia PA-C Ordering Physician: Janey Garcia PA-C Date of Service: 06/03/24 Procedure(s): CT lung screening Accession Number(s): [id number] cc: Dashawn Tavarez MD; Janey Garcia PA-C Report Number: [id number]: Total DLP = 55.00 mGy-cm EXAMINATION: CT LOW-DOSE SCREENING CHEST WITHOUT CONTRAST CLINICAL INFORMATION: 73-year-old male, 49 pack year smoker, quit 6 years ago. Lung cancer screening. COMPARISON: CT chest 05/15/2016. TECHNIQUE: Multidetector volumetric CT imaging of the chest is performed on a Siemens SOMATOM Definition scanner without contrast using low dose technique. Additional 2D coronal and sagittal reformatted images and axial 3D maximum intensity projection (MIP) images are generated on the CT workstation. This CT examination was performed using dose optimization techniques as appropriate, variously including the following: *Automated exposure control *Adjustment of mA and/or kV according to patient size (this includes techniques or standardized protocols for targeted exams where dose is matched to indication/reason for exam; i.e. extremities or head) *Use of iterative reconstruction technique FINDINGS: PULMONARY NODULES: -There are a few scattered micronodules measuring 2 mm in the bilateral upper lobes, unchanged. -3 mm calcified granuloma in the right posterior costophrenic sulcus (series 5, image 99), unchanged. -There is no new or enlarging pulmonary nodule. LUNGS: -There is mild paraseptal emphysema. -There is minimal gravity dependent atelectasis. -Lungs otherwise clear without consolidation or abnormal opacity. -The small airways demonstrate minimal thickening, suggesting mild chronic bronchitis. -The central airways are patent. -No pleural effusion or pneumothorax. MEDIASTINUM: -Normal thyroid. -No abnormal lymphadenopathy or mass. -Top normal heart size without pericardial effusion. -The ascending aorta is borderline aneurysmal at 4.1 cm diameter. This is unchanged. No significant atheromatous calcification. -The main pulmonary artery is normal in size. -There is no esophageal abnormality. CORONARY ARTERY CALCIFICATION: Mild three-vessel calcification. CHEST WALL/AXILLA: -No abnormal lymph nodes or masses. UPPER ABDOMEN: -There is mild diffuse fatty infiltration of the liver. There is no suspicious liver lesion. -There are a few colonic diverticula noted. -Remainder of the imaged upper abdominal contents appear normal. OSSEOUS STRUCTURES: -There is no lytic or blastic bone lesion. -There are skeletal findings in the spine suggestive of ankylosing spondylitis with fused flowing syndesmophytes, and diffuse calcification of the interspinous ligament. CT/CT lung screening IMPRESSION: 1. There are a few stable tiny micronodules in the upper lobes. There is no new or enlarging pulmonary nodule. 2. There is mild paraseptal emphysema. There is no active pulmonary disease. 3. There is mild thickening of the small airways, likely on the basis of mild chronic bronchitis. 4. There is stable borderline aneurysmal dilatation of the ascending aorta at 4.1 cm. 5. There is fatty infiltration of the liver. 6. There are spinal findings suggesting ankylosing spondylitis. Differential would include DISH. ASSESSMENT: 1. Lung-RADS Category 2: Benign appearance or behavior of nodules. 2. Lung-RADS Category S: None. RECOMMENDATION: Continued routine annual low-dose CT lung screening in 1 year is recommended. An order for CT CHEST LOW DOSE CANCER SCREENING ([id number]) can be placed. Electronically signed by: Erich Hendricks MD 06/03/2024 12:10 PM EDT Dictated By: Erich Hendricks MD Signed By: <Electronically signed by Erich Hendricks MD in OV> 06/03/24 1210 DD/ 1020 TD/TT: 06/03/24 1030 Fraud Investigator: [facility] External Provider IMG CT PROCEDURES Final Result * (ABNORMAL) Urinalysis, Complete, with Reflex to Culture (04/18/2024 1:30 PM EST) Color Urine Yellow [facility] Appearance Urine Clear [facility] PH 6.5 5.0 - 9.0 [facility] Glucose Urine UA Negative Negative mg/dL [facility] Urine Blood Trace(A) Negative [facility] Specific [place] - Urine 1.020 1.005 - 1.025 [facility] Urine Protein Negative Neg-Trace mg/dL [facility] Urine Ketones Negative Negative mg/dL [facility] Nitrite Urine Negative Negative [facility] Leukocyte Esterase Urine Negative Negative [facility] RBC Urine 0-2 0 - 2 /HPF [facility] Urine WBC 0-5 0 - 5 /HPF [facility] Urine Squamous Epithelial Cell 0-2 0 - 2 /HPF [facility] Urine Bacteria None Seen None Seen [facility] Hyaline Casts, Urine 0-2 0 - 2 /LPF [facility] Urine 04/18/2024 1:30 PM EST 04/18/2024 4:59 PM EST Narrative [facility] - 04/18/2024 5:11 PM EST Urine, Clean Catch Elizabeth Gaona [facility] URINE ORDERABLES Final Resul t [facility] [address] [place] [phone] * (ABNORMAL) Albumin, Random Urine W/Creatinine (04/18/2024 1:30 PM EST) Creatinine, Urine 111.69 mg/dL [facility] Microalbumin Urine 40.0 mg/L [facility] Microalbum Creatinine Ratio Ur 35.8(H) <30 ug/mg cr [facility] Comment:Albumin/Creatinine R atio Reference Ranges: Normal: < 30 ug/mg creatinine Microalbuminuria: 30 - 300 ug/mg creatinineClinical Albuminuria: > 300 ug/mg creatinine Urine 04/18/2024 1:30 PM EST 04/18/2024 4:59 PM EST us Elizabeth EUCEDA LAB URINE ORDERABLES Final Resul t Performing Organization Address City/[facility] Co de Phone Number [facility] [address] [place] [phone] * (ABNORMAL) POCT HGB A1C (02/22/2024 2:08 PM EST) Pathologist [facility] Hemoglobin A1C 7.0(A) 4.0 - 6.0 % QC Media Lot # [id number] Lot# Expiration Date [id number] Blood 02/22/2024 2:08 PM EST us Elizabeth Gaona ANP POINT OF CARE TEST ENTER/EDIT OR DERABLES Final Result * (ABNORMAL) LIPID PANEL, STANDARD (05/24/2021 11:33 AM EDT) Chol/HDLC Ratio 3.6 <5.0 (calc) [facility] Cholesterol, Total 194 <200 mg/dL [facility] HDL Cholesterol 54 > [place] = 40 mg/dL [facility] LDL Cholesterol 118(H) mg/dL (calc) [...] ?? Dave EUCEDA et al. JB. 2013;310(19): 2710-6750 ?? (http://[employer]/faq/JZY017) Non-HDL Cholesterol 140(H) <130 mg/dL (calc) [facility] Comment: For patients with diabetes plus 1 major ASCVD risk ?? factor, treating to a non-HDL-C goal of <100 mg/dL ?? (LDL-C of <70 mg/dL) is considered a therapeutic ?? option. Triglycerides 111 <150 mg/dL [facility] 05/24/2021 11:3 3 AM EDT [facility] LAB BLOOD ORDERABLES Final Resul t [facility] [address] from Last 3 Months or Most Recently Relevant to Health Maintenance [place] [address] [place] [address] - [employer] Care Teams Computer Video Game Designer Relationship Specialty Start Date End Date Elizabeth Gaona ANP [address] [place] [phone] PCP - General Family Medicine 05/06/21 Arin Reid MD [address] [place] [address] Urology 02/22/24 Kalyani Kilgore [address] [place] [address] Cardiology 02/22/24 Alessandra Ray [address] [place] [address] Gastroenterology 02/22/24
--- OUTSIDE RECORDS SUMMARY | 2024-06-14 13:14 | XMS_ITS | Encounter Summary ---
Author Organization [employer] Address [address] [facility] 7t [place] [address] Care Team Providers Care Belt Molder Name Role Phone Jimenez Elizabeth EUCEDA Primary Care Provider [phone] Arin Reid MD Unavailable Kalyani Kilgore Unavailable Ray, June Unavailable Encounter Details Date Type Department Care Team (Late st Contact Info) Description 06/14/2024 Orders Only GENERIC EXTERNAL DATA DEPARTMENT Provider, Generic External Data Social History Tobacco Use Types Packs/Day Years [...] Description 07/21/2024 1:15 PM EDT Office Visit [facility] [address] [place], [place] [phone] Elizabeth Gaona ANP [address] [place], [place] [phone] documented as of this encounter Procedures Procedure Name Priority Date/Time Associated Diagnosis Comments PSA, TOTAL WITH REFLEX TO PSA, FREE Routine 06/14/2024 11:02 AM EDT documented in this encounter Results * PSA, Total With Reflex to PSA, Free (06/14/2024 11:02 AM EDT) PSA,Total (Free>4and<10) 3.66 0.00 - 4.00 ng/mL [facility] Comment:A Free PSA was not p [...] are between 4.0 and 10.0 ng/mL.PSA methodology: [place] Alinity i ChemiluminescentMicroparticle Immunoassay (CMIA) 06/14/2024 11:0 2 AM EDT 06/14/2024 11:02 AM EDT us Generic External Data Provider LAB BLOOD ORDERAB LES Final Result [facility] [address] [place] [phone] [phone] documented in this encounter Visit Diagnoses Not on filedocumented in this encounter Additional Health Concerns Assessment Noted Time PHQ-9 Depression Total Score: 3 09/08/19 11:21 AM EDT documented as of this encounter Care Teams Belt Molder Relationship Specialty Start Date End Date Elizabeth Gaona ANP [address] [place] [phone] PCP - General Family Medicine 05/06/21 Arin Reid MD [address] [place] [address] Urology 02/22/24 Kalyani Kilgore [address] [place] [address] Cardiology 02/22/24 Alessandra Ray [address]rd [place] [address] Gastroenterology 02/22/24 documented as of this encounter
--- OUTSIDE RECORDS SUMMARY | 2024-06-14 13:14 | XMS_ITS | Encounter Summary ---
Author Organization [employer] Address [address] [facility] 7t [place] [address] Care Team Providers Care Auto Damage Trainee Name Role Phone Elizabeth Gaona Primary Care Provider [phone] Arin Reid MD Unavailable Kalyani Kilgore Unavailable Ray June Unavailable Reason for Visit * Reason Onset Date Comments Nurse Triage 07/10/2023 Encounter Details Date Type Department Care Team (Late st Contact Info) Description 07/10/2023 Telephone [facility] [address] [place], [place] [phone] Elizabeth Gaona ANP [address] [place], [place] [phone] Nurse Triage Social History Tobacco Use Types [...] pt to triage, spoke to pt through [employer] tracer powder blender. pt states seen ER today (07/09) for [...] > 50 years * No doctor (or LOSS CONTROL ENGINEER/PA) exam for rectal bleeding in past year [...] for follow up Please contact pt at [phone] documented in this encounter Plan of Treatment Upcoming Encounters Date Type Department Care Team (Late st Contact Info) Description 07/21/2024 1:15 PM EDT Office Visit [facility] [address] [place] [address] Elizabeth Gaona ANP [address] [place] [address] documented as of this encounter Visit Diagnoses Not on filedocumented in this encounter Care Teams Auto Damage Trainee Relationship Specialty Start Date End Date Elizabeth Gaona ANP [address] [place] [address] PCP - General Family Medicine 05/06/21 Arin Reid MD [address] [place] [address] Urology 02/22/24 Kalyani Kilgore [address] [place] [address] Cardiology 02/22/24 Alessandra Ray [address] [place] [address] Gastroenterology 02/22/24 documented as of this encounter
--- OUTSIDE RECORDS SUMMARY | 2024-06-14 13:14 | XMS_ITS ---
Author Name Sol BANKS, Mr. Darryl Eason Address [address] [place] [address] Phone [phone] [facility] Care Team Providers Care Administrative Operations Coordinator Name Role Phone Chris Horton Unavailable [phone] Arin Sousa Unavailable LEORA MERCADO Unavailable [phone] Reason for Referral Not Available Allergies, adverse [...] walking Active N/A Other problems related to wv dical facilities and other health care Active 2023-06-21 N/A Encounters Encounters Type Facility Date of Service Diagnosis/Co mplaint New patient,40-59min; chronic exacerbation, 2 stable chronic or 1 acute illness add add modifier 95 for video (do not use for phone, instead use 70586-08) [facility] [place] Essential (primary) hypertensionMixed hyperlipidemiaGastro-esophageal reflux disease without esophagitisAngina pectoris, unspecifiedMajor depressive disorder, single episode, in full remission New patient,40-59min; chronic exacerbation, 2 stable chronic or 1 acute illness add add modifier 95 for video (do not use for phone, instead use 65903-69) [facility] [place] New patient,40-59min; chronic exacerbation, 2 stable chronic or 1 acute illness add add modifier 95 for video (do not use for phone, instead use 01912-67) [facility] [place] New patient,40-59min; chronic exacerbation, 2 stable chronic or 1 acute illness add add modifier 95 for video (do not use for phone, instead use 45807-56) [facility] [place] New patient,40-59min; chronic exacerbation, 2 stable chronic or 1 acute illness add add modifier 95 for video (do not use for phone, instead use 19333-72) [facility] [place] New patient,40-59min; chronic exacerbation, 2 stable chronic or 1 acute illness add add modifier 95 for video (do not use for phone, instead use 42662-64) [facility] [place] New patient,40-59min; chronic exacerbation, 2 stable chronic or 1 acute illness add add modifier 95 for video (do not use for phone, instead use 05700-05) [facility] [place] New patient,40-59min; chronic exacerbation, 2 stable chronic or 1 acute illness add add modifier 95 for video (do not use for phone, instead use 90343-33) [facility] [place] New patient,40-59min; chronic exacerbation, 2 stable chronic or 1 acute illness add add modifier 95 for video (do not use for phone, instead use 35778-09) [facility] [place] New patient,40-59min; chronic exacerbation, 2 stable chronic or 1 acute illness add add modifier 95 for video (do not use for phone, instead use 77239-41) [facility] [place] Estab. patient 30-39min; chronic exacerbation, 2 stable chronic or 1 acute illness add add modifier 95 for video, (do not use for phone, instead use 95990-41) [facility] [place]23 Essential (primary) hypertensionMixed hyperlipidemiaGastro-esophageal reflux disease [...] (do not use for phone, instead use 48243-64) [facility] [place] Estab. patient 30-39min; chronic exacerbation, 2 stable chronic or 1 acute illness add add modifier 95 for video, (do not use for phone, instead use 19265-30) [facility] [place] Estab. patient 30-39min; chronic exacerbation, 2 stable chronic or 1 acute illness add add modifier 95 for video, (do not use for phone, instead use 86324-87) [facility] [place] Estab. patient 30-39min; chronic exacerbation, 2 stable chronic or 1 acute illness add add modifier 95 for video, (do not use for phone, instead use 82288-12) [facility] [place] Estab. patient 30-39min; chronic exacerbation, 2 stable chronic or 1 acute illness add add modifier 95 for video, (do not use for phone, instead use 27684-66) [facility] [place]23 Vital Signs Date of Collection Vitals 2022-08-11 11:06:26 Height - 167.64 cmWe ight - 81.65 kgBody Mass Index (BMI) - 29.05 kg/m2BP Diastolic - 60.0 mm[Hg]BP Systolic - 120.0 mm[Hg] 2023-06-04 10:09:40 Height - 170.18 cmWe ight - 86.18 kgBody Mass Index (BMI) - 29.76 kg/m2 Social History Social History Social History Observation Description Effec tive Time Current Smoking Status Never smoker 10 Sex Male History of Procedures Procedures Service Procedure code Service date Servicing provider Phone# New patient,40-59min; chronic exacerbation, 2 stable chronic or 1 acute illness add add modifier 95 for video (do not use for phone, instead use 56740-09) [id number] 2022-08-11 No Data Available No Data Availa [...] (do not use for phone, instead use 50755-30) [id number] 2023-06-04 No Data Available No Data Availa [...] Lisy Lin, another proxy is friend 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
== END 2024-06-14 10:43 | disposition home or self-care (01) ==
LOC: HO.LAB 10:42
PROVIDERS: PCP Internal Medicine; Visit Provider Urology
DX: C61 Malignant neoplasm of prostate (principal); R31.29 Other microscopic hematuria; Z12.5 Encounter for screening for malignant neoplasm of prostate
CPT/HCPCS: 36415; 84153

== ENCOUNTER 2024-07-19 15:00 | Outpatient (REF) | payer OTHER, SELFPAY ==
--- NOTE | ~2024-07-19 | US_ITS ---
EXAMINATION: US KIDNEY BILATERAL HISTORY: C61 - Malignant neoplasm of prostate TECHNIQUE: Real-time grayscale ultrasound imaging of the kidneys was performed and images were reviewed. COMPARISON: Correlation is made with a CT of the abdomen without and with contrast dated 02/26/2022. FINDINGS: Right kidney: The right kidney measures 10.4 x 5.6 x 5.3 cm. Renal parenchymal echotexture and thickness are normal. There are no masses. There is no hydronephrosis or renal calculi. Left Kidney: The left kidney measures 11.6 x 5.7 x 3.9 cm. Renal parenchymal echotexture and thickness are normal. There is an upper pole cyst measuring 3.2 x 3.2 x 2.7 cm. There is no hydronephrosis or renal calculi. US/US renal BI IMPRESSION: 3.2 x 3.2 x 2.7 cm left upper pole renal cyst. Otherwise unremarkable renal ultrasound. Electronically signed by: Zachary Carreon MD 07/19/2024 03:47 PM EDT
--- OUTSIDE RECORDS SUMMARY | 2024-07-19 16:00 | XMS_ITS | Encounter Summary ---
Author Organization [email or web address] Address [address] [facility] [address] [facility] 7[address] [place] [address] Care Team Providers Care Catalog Library Assistant Name Role Phone Jimenez Leora EUCEDA Primary Care Provider [phone] Arin Reid MD Unavailable Kalyani Kilgore Unavailable Flor June Unavailable Encounter Details Date Type Department Care Team (Late st Contact Info) Description 07/19/2024 Orders Only [facility] External Provider, [facility] Social History Tobacco Use Types Packs/Day Years [...] Description 07/21/2024 1:15 PM EDT Office Visit [facility] [address] [place] [address] Leora Mercado ANP [address] [place] [address] documented as of this encounter Procedures Procedure Name Priority Date/Time Associated Diagnosis Comments US RENAL BI Routine 07/19/2024 3:08 PM EDT documented in this encounter Results * US RENAL BI (07/19/2024 3:08 PM EDT) Anatomical Region Laterality Modality Abdomen Ultrasound 07/19/2024 3:08 PM EDT Narrative 07/19/2024 3:50 PM EDT ? [facility] ?[address] ?[place] [address] ? Ultrasound Report ? Signed ? Patient: Lin Hernandez,Barrett ?MR#: ?? [id number] ? : 1950 ?Acct:[id number] ? Age/Sex: 73 / M ?ADM Date: 05/13/25 ? Loc: HO.US ? Attending Dr: Arin Campo MD ? Ordering Physician: Arin Campo MD ?? Date of Service: 07/19/24 ?? Procedure(s): US renal BI ?? Accession Number(s): [id number] ? cc: Arin Campo MD; LEORA MERCADO NP ? EXAMINATION: ??US KIDNEY BILATERAL ? HISTORY: C61 - Malignant neoplasm of prostate ? TECHNIQUE: Real-time grayscale ultrasound imaging of the kidneys was ?? performed and images were reviewed. ? COMPARISON: Correlation is made with a CT of the abdomen without and ?? with contrast dated 02/26/2022. ? FINDINGS: ? Right kidney: ??The right kidney measures 10.4 x 5.6 x 5.3 cm. ??Renal ?? parenchymal echotexture and thickness are normal. ??There are no masses. ?? There is no hydronephrosis or renal calculi. ? Left Kidney: ??The left kidney measures 11.6 x 5.7 x 3.9 cm. ??Renal ?? parenchymal echotexture and thickness are normal. ??There is an upper ?? pole cyst measuring 3.2 x 3.2 x 2.7 cm. ??There is no hydronephrosis or ?? renal calculi. ? US/US renal BI ?? IMPRESSION: ? 3.2 x 3.2 x 2.7 cm left upper pole renal cyst. Otherwise unremarkable ?? renal ultrasound. ? Electronically signed by: ??Zachary Carreon MD ??07/19/2024 03:47 PM EDT ? Dictated By: ?Zachary Carreon MD ? Signed By: ?<Electronically signed by Zachary Carreon MD in OV> ?07/19/24 1547 ? DD/ 1508 ? TD/TT: 07/19/24 1512 ? Dressing Machine Operator: ? Procedure Note Aylin, Image - 07/19/[address] [address] Ultrasound Report Signed Patient: Barrett Gutierrez#: [id number] : 3Acct:[id number] Age/Sex: 73 / MADM Date: 07/19/24 Loc: HO.US Attending Dr: Arin Campo MD Ordering Physician: Arin Campo MD Date of Service: 07/19/24 Procedure(s): US renal BI Accession Number(s): [id number] cc: Arin Campo MD; LEORA MERCADO NP EXAMINATION: US KIDNEY BILATERAL HISTORY: C61 - Malignant neoplasm of prostate TECHNIQUE: Real-time grayscale ultrasound imaging of the kidneys was performed and images were reviewed. COMPARISON: Correlation is made with a CT of the abdomen without and with contrast dated 02/26/2022. FINDINGS: Right kidney: The right kidney measures 10.4 x 5.6 x 5.3 cm. Renal parenchymal echotexture and thickness are normal. There are no masses. There is no hydronephrosis or renal calculi. Left Kidney: The left kidney measures 11.6 x 5.7 x 3.9 cm. Renal parenchymal echotexture and thickness are normal. There is an upper pole cyst measuring 3.2 x 3.2 x 2.7 cm. There is no hydronephrosis or renal calculi. US/US renal BI IMPRESSION: 3.2 x 3.2 x 2.7 cm left upper pole renal cyst. Otherwise unremarkable renal ultrasound. Electronically signed by: Zachary Carreon MD 07/19/2024 03:47 PM EDT RP Dictated By: Zachary Carreon MD Signed By: <Electronically signed by Zachary Carreon MD in OV> 07/19/24 1547 DD/ 1508 TD/TT: 07/19/24 1512 Dressing Machine Operator: [facility] External Provider IMG US PROCEDURES Final Result documented in this encounter Visit Diagnoses Not on filedocumented in this encounter Additional Health Concerns Assessment Noted Time PHQ-9 Depression Total Score: 3 09/08/19 24 11:21 AM EDT documented as of this encounter Care Teams Catalog Library Assistant Relationship Specialty Start Date End Date Leora Mercado ANP [address] [place] [id number] PCP - General Family Medicine 05/06/21 Arin Reid MD [address] [place] [address] [address] [place] [address] Urology 02/22/24 Kalyani Kilgore [address] [place] [address] Cardiology 02/22/24 Alessandra Ray [address] [facility] [place] [address] Gastroenterology 02/22/24 documented as of this encounter
--- OUTSIDE RECORDS SUMMARY | 2024-07-19 16:00 | XMS_ITS | Encounter Summary ---
Author Organization [employer] Address [address] [facility] 7t [place] [address] Care Team Providers Care Auto Painter Helper Name Role Phone Elizabeth Gaona Primary Care Provider [phone] Arin Reid MD Unavailable Kalyani Kilgore Unavailable Flor June Unavailable Reason for Visit * Reason Onset Date Comments Nurse Triage 07/10/2023 Encounter Details Date Type Department Care Team (Late st Contact Info) Description 07/10/2023 Telephone [facility] [address] [place], [place] [phone] Elizabeth Gaona ANP [address] [place], [place] [phone] Nurse Triage Social History Tobacco Use Types [...] pt to triage, spoke to pt through [email or web address] channel opener. pt states seen ER today (07/09) for [...] > 50 years * No doctor (or SAXOPHONE PLAYER/PA) exam for rectal bleeding in past year [...] for follow up Please contact pt at [phone] documented in this encounter Plan of Treatment Upcoming Encounters Date Type Department Care Team (Late st Contact Info) Description 07/21/2024 1:15 PM EDT Office Visit [facility] [address] [place] [address] Elizabeth Gaona ANP [address] [place] [address] documented as of this encounter Visit Diagnoses Not on filedocumented in this encounter Care Teams Auto Painter Helper Relationship Specialty Start Date End Date Elizabeth Gaona ANP [address] [place] [address] PCP - General Family Medicine 05/06/21 Arin Reid MD [address] [place] [address] Urology 02/22/24 Kalyani Kilgore [address]rd [place] [address] Cardiology 02/22/24 Alessandra Ray [address] [place] [address] Gastroenterology 02/22/24 documented as of this encounter
--- OUTSIDE RECORDS SUMMARY | 2024-07-19 16:00 | XMS_ITS ---
Author Name Sol BANKS, Mr. Darryl Eason Address [address] [place] [address] Phone [phone] [facility] Care Team Providers Care Warp Hauler Name Role Phone Chris Horton Unavailable [phone] Arin Sousa Unavailable LEORA MERCADO Unavailable [phone] Reason for Referral Not Available Allergies, adverse [...] walking Active N/A Other problems related to ar dical facilities and other health care Active 2023-06-21 N/A Encounters Encounters Type Facility Date of Service Diagnosis/Co mplaint New patient,40-59min; chronic exacerbation, 2 stable chronic or 1 acute illness add add modifier 95 for video (do not use for phone, instead use 83651-44) [facility] Essential (primary) hypertensionMixed hyperlipidemiaGastro-esophageal reflux disease without esophagitisAngina pectoris, unspecifiedMajor depressive disorder, single episode, in full remission New patient,40-59min; chronic exacerbation, 2 stable chronic or 1 acute illness add add modifier 95 for video (do not use for phone, instead use 73872-46) [facility] [place] New patient,40-59min; chronic exacerbation, 2 stable chronic or 1 acute illness add add modifier 95 for video (do not use for phone, instead use 17656-08) [facility] [place] New patient,40-59min; chronic exacerbation, 2 stable chronic or 1 acute illness add add modifier 95 for video (do not use for phone, instead use 15771-60) [facility] [place] New patient,40-59min; chronic exacerbation, 2 stable chronic or 1 acute illness add add modifier 95 for video (do not use for phone, instead use 64140-45) [facility] [place] New patient,40-59min; chronic exacerbation, 2 stable chronic or 1 acute illness add add modifier 95 for video (do not use for phone, instead use 60748-74) [facility] [place] New patient,40-59min; chronic exacerbation, 2 stable chronic or 1 acute illness add add modifier 95 for video (do not use for phone, instead use 94258-57) [facility] [place] New patient,40-59min; chronic exacerbation, 2 stable chronic or 1 acute illness add add modifier 95 for video (do not use for phone, instead use 71383-06) [facility] [place]22 New patient,40-59min; chronic exacerbation, 2 stable chronic or 1 acute illness add add modifier 95 for video (do not use for phone, instead use 18704-98) [facility] [place] New patient,40-59min; chronic exacerbation, 2 stable chronic or 1 acute illness add add modifier 95 for video (do not use for phone, instead use 88296-61) [facility] [place]2022 Estab. patient 30-39min; chronic exacerbation, 2 stable chronic or 1 acute illness add add modifier 95 for video, (do not use for phone, instead use 32894-23) [facility] [place]2023 Essential (primary) hypertensionMixed hyperlipidemiaGastro-esophageal reflux disease [...] (do not use for phone, instead use 64185-98) [facility] [place]20[place] Estab. patient 30-39min; chronic exacerbation, 2 stable chronic or 1 acute illness add add modifier 95 for video, (do not use for phone, instead use 33100-52) [facility] [place]2023 Estab. patient 30-39min; chronic exacerbation, 2 stable chronic or 1 acute illness add add modifier 95 for video, (do not use for phone, instead use 19352-84) [facility] [place]2023 Estab. patient 30-39min; chronic exacerbation, 2 stable chronic or 1 acute illness add add modifier 95 for video, (do not use for phone, instead use 57966-26) [facility] [place]/2023 Estab. patient 30-39min; chronic exacerbation, 2 stable chronic or 1 acute illness add add modifier 95 for video, (do not use for phone, instead use 94788-38) [facility] [place]2023 Vital Signs Date of Collection Vitals 2022-08-11 11:06:26 Height - 167.64 cmWe ight - 81.65 kgBody Mass Index (BMI) - 29.05 kg/m2BP Diastolic - 60.0 mm[Hg]BP Systolic - 120.0 mm[Hg] 2023-06-04 10:09:40 Height - 170.18 cmWe ight - 86.18 kgBody Mass Index (BMI) - 29.76 kg/m2 Social History Social History Social History Observation Description Effec tive Time Current Smoking Status Never smoker 2024-07-07 3 Sex Male History of Procedures Procedures Service Procedure code Service date Servicing provider Phone# New patient,40-59min; chronic exacerbation, 2 stable chronic or 1 acute illness add add modifier 95 for video (do not use for phone, instead use 17791-88) [id number] 2022-08-11 No Data Available No Data Availa [...] (do not use for phone, instead use 73849-90) 51282 2023-06-04 No Data Available No Data Availa ble Medication List Documented (1159F) 1159F 2023-06-04 No Data Available No Data Keaar ilable Medication Review by prescribing provider or [...] Lisy Lin, another proxy is friend and RADIOTELEPHONE TECHNICAL OPERATOR Ibrahima Ward
--- OUTSIDE RECORDS SUMMARY | 2024-07-19 16:00 | XMS_ITS | Encounter Summary ---
Author Organization [employer] Address [address] [facility] [address]t [place] [address] Care Team Providers Care Caustic Pump Operator Name Role Phone Elizabeth Gaona Primary Care Provider [phone] Arin Reid MD Unavailable Kalyani Kilgore Unavailable Flor June Unavailable Encounter Details Date Type Department Care Team (Late st Contact Info) Description 06/10/2022 Orders Only [facility] MEDICINE [address] [place] [phone] Elizabeth Gaona ANP [address] [place], [place] [phone] Social History Tobacco Use Types Packs/Day Years [...] 1:15 PM EDT Office Visit [facility] MED[facility]INE [address] [place] [phone] Elizabeth Gaona ANP [address] [place] [address] documented as of this encounter Visit Diagnoses Not on filedocumented in this encounter Care Teams Caustic Pump Operator Relationship Specialty Start Date End Date Elizabeth Gaona ANP [address] [place] [address] PCP - General Family Medicine 05/06/21 Arin Reid MD [address] [place] [address] Urology 02/22/24 Kalyani Kilgore [address]rd [place] [address] Cardiology 02/22/24 Alessandra Ray [address]rd [place] [address] Gastroenterology 02/22/24 documented as of this encounter
--- OUTSIDE RECORDS SUMMARY | 2024-07-19 16:00 | XMS_ITS | Clinical Summary ---
Author Organization [employer] Address [address] [facility] [address] [place] [address] Care Team Providers Care Scarfer Operator Name Role Phone Leora Mercado KINSEY Primary Care Provider [phone] Arin Reid MD Unavailable Kalyani Kilgore Unavailable [...] up to 3 times daily 100 each 4 Active Alcohol Swabs 70 % padsIndications:E levated glucose Use to clean skin 100 each 11 4 Active Blood Glucose Monitoring Suppl (FreeStyle Cecil Lite) w/Device kitIndications:El evated glucose Use to [...] Encounters Date Type Department Care Team Description 07/19/2024 Orders Only [facility] External Provider, [facility] 06/14/2024 Orders Only GENERIC EXTERNAL DATA DEPARTMENT Provider, Generic External Data 06/03/2024 Orders Only [facility] External Provider, [facility] 06/02/2024 Telephone [facility] [address] [place] [address] Leora Mercado ANP DME from [facility] 05/20/2024 Refill [facility] [address] [place] [address] Leora Mercado ANP Lumbar back pain 05/10/2024 Telephone [place] [facility] [address] [place] [address] Leora Mercado ANP DEXA ORDER 04/28/2024 1:00 PM EST Office Visit [facility] [address] [place] [address] Maury, Jess, OD Diabetes type 2, no ocular involvement (CMS/HCC) (Primary Dx); Epiretinal membrane (ERM) of both eyes; Combined forms of age-related cataract of both eyes; Presbyopia 04/28/2024 Travel 04/27/2024 Refill [facility] [address] [place] [address] Angélica Echeverria MD Dyslipidemia from Last 3 Months Immunizations Name Administration [...] Description 07/21/2024 1:15 PM EDT Office Visit [facility] [address] [place] [address] Leora Mercado, ANP [address] [place] [address] Health Maintenance Due Date Last Done Comments CT Colonography 1952 FIT DNA/Cologuard 1950 FIT 1950 FOBT 1950 Sigmoidoscopy 1950 Diabetes: Foot Exam 1962 Alcohol/Substance Use Screening 1964 Hepatitis C Screening 1970 Lipid Panel 05/24/2022 05/24/2021 SDOH Screening 04/06/2024 04/06/2023 Diabetes: Hemoglobin A1C 05/22/2024 02/22/2024, 07/2 07/2023 Colonoscopy 08/25/2024 Colorectal Cancer Screening 08/25/2024 Depression [...] RENAL BI Routine 07/19/2024 3:08 PM EDT PSA, TOTAL WITH REFLEX TO PSA, FREE Routine 06/14/2024 11:02 AM EDT LDCT LUNG SCREENING Routine 06/03/2024 10:20 AM EDT ALBUMIN, RANDOM URINE W/CREATININE Routine 04/18/2024 1:30 PM EST Essential hypertension POCT GLYCATED HEMOGLOBIN, TOTAL Routine 02/22/2024 2:08 PM EST Elevated glucose LIPID PANEL, STANDARD Routine 05/24/2021 11:33 AM EDT from Last 3 Months or Most Recently Relevant to Health Maintenance Results * US RENAL BI (07/19/2024 3:08 PM EDT) Anatomical Region Laterality Modality Abdomen Ultrasound 07/19/2024 3:08 PM EDT Narrative 07/19/2024 3:50 PM EDT ? [facility] ?[address] ?[place] [address] ? Ultrasound Report ? Signed ? Patient: Riley HernandezBarrett ?MR#: ?? [id number] ? : 1950 ?Acct:[id number] ? Age/Sex: 73 / M ?ADM Date: 07/19/24 ? Loc: HO.US ? Attending Dr: Arin Campo MD ? Ordering Physician: Arin Campo MD ?? Date of Service: 07/19/24 ?? Procedure(s): US renal BI ?? Accession Number(s): [id number] ? cc: Arin Campo MD; LEORA MERCADO [...] ??Zachary Carreon MD ??07/19/2024 03:47 PM EDT ?? RP ? Dictated By: ?Zachary Carreon MD ? Signed By: ?<Electronically signed by Zachary Carreon MD in OV> ?07/19/241546 ? DD/ 1508 ? TD/TT: 07/19/24 1512 ? Dish Machine Operator: ? Procedure Note Donhannah, Robyn - 07/19/2024 [place] [address] Ultrasound Report Signed Patient: Barrett GutierrezMR#: [id number] : 1950cct:[id number] Age/Sex: 73 / MADM Date: 07/19/24 Loc: HO.US Attending Dr: Arin Campo MD Ordering Physician: Arin Campo MD Date of Service: 07/19/24 Procedure(s): US renal BI Accession Number(s): [id number] cc: Arin Campo MD; LEORA MERCADO NP [...] 07/19/24 1547 DD/ 1508 TD/TT: 07/19/24 1512 Dish Machine Operator: us [facility] External Provider IMG US PROCEDURES Final Result * PSA, Total With Reflex to PSA, Free (06/14/2024 11:02 AM EDT) PSA,Total (Free>4and<10) 3.66 0.00 - 4.00 ng/mL [facility] Comment:A Free PSA was not p [...] 2 AM EDT 06/14/2024 11:02 AM EDT Generic External Data Provider LAB BLOOD ORDERAB LES Final Result [facility] [address] [place] [phone] * CT Lung Screening Low dose (06/03/2024 10:20 AM EDT) Anatomical Region Laterality Modality Lung Computed Tomogra phy 06/03/2024 10:2 0 AM EDT Narrative 06/03/2024 12:13 PM EDT ? [facility] ?[address] ?[place] [address] ? CT Scan Report ? Signed ? Patient: Lin Hernandez,Barrett ?MR#: ?? [id number] ? : 1950 ?Acct:[id number] ? Age/Sex: 73 / M ?ADM Date: 06/03/24 ? Loc: HO.CT ? Attending Dr: Janey Garcia PA-C ? Ordering Physician: Janey Garcia PA-C ?? Date of Service: 06/03/24 ?? Procedure(s): CT lung screening ?? Accession Number(s): [id number] ? cc: Dashawn Tavarez MD; Janey Garcia PA-C ? Report Number: ?? [id number]: Total DLP = ?? 55.00 mGy-cm ?? [...] for CT CHEST LOW DOSE CANCER SCREENING ([id number]) ?? can be placed. ? Electronically signed by: ??Erich Hendricks MD ??06/03/2024 12:10 PM EDT RP ? Dictated By: ?Erich Hendricks MD ? Signed By: ?<Electronically signed by Erich Hendricks MD in OV> ?06/03/24 1210 ? DD/ 1020 ? TD/TT: 06/03/24 1030 ? Dish Machine Operator: ? Procedure Note Donfeliter, Image - 06/03/[address] [address] [address] Scan Report Signed Patient: Barrett GutierrezMR#: [id number] : 3Acct:[id number] Age/Sex: 73 / MADM Date: 06/03/24 Loc: HO.CT Attending Dr: Janey Garcia PA-C Ordering Physician: Janey Garcia PA-C Date of Service: 06/03/24 Procedure(s): CT lung screening Accession Number(s): [id number] cc: Dashawn Tavarez MD; Janey Garcia PA-C Report Number: [id number]: Total DLP = 55.00 mGy-cm EXAMINATION: CT [...] for CT CHEST LOW DOSE CANCER SCREENING ([id number]) can be placed. Electronically signed by: Erich Hendricks MD 06/03/2024 12:10 PM EDT Dictated By: Erich Hendricks MD Signed By: <Electronically signed by Erich Hendricks MD in OV> 06/03/24 1210 DD/ 1020 TD/TT: 06/03/24 1030 Dish Machine Operator: [facility] External Provider IMG CT PROCEDURES Final Result * (ABNORMAL) Albumin, Random Urine W/Creatinine (04/18/2024 1:30 PM EST) Pathologist [facility] Creatinine, Urine 111.69 mg/dL [facility] Microalbumin Urine 40.0 mg/L H [facility] Microalbum Creatinine Ratio Ur 35.8(H) <30 ug/mg cr [facility] Comment:Albumin/Creatinine R atio Reference Ranges: Normal: < 30 ug/mg creatinine Microalbuminuria: 30 - 300 ug/mg creatinineClinical Albuminuria: > 300 ug/mg creatinine Urine 04/18/2024 1:30 PM EST 04/18/2024 4:59 PM EST Leora Mercado ANP LAB URINE ORDERABLES Final Resul t Performing Organization Address City/State/[facility] Co de Phone Number [facility] [address] [place] [phone] * (ABNORMAL) POCT HGB A1C (02/22/2024 2:08 PM EST) Pathologist [facility] Hemoglobin A1C 7.0(A) 4.0 - 6.0 % QC Media Lot # [id number] Lot# Expiration Date [id number] Blood 02/22/2024 2:08 PM EST Leora Mercado ANP POINT OF CARE TEST ENTER/EDIT OR [...] ?? Dave EUCEDA et al. JB. 2013;310(19): 3096-3210 ?? (http://[employer]/faq/PTC942) Non-HDL Cholesterol 140(H) <130 mg/dL (calc) [facility] Comment: For patients with diabetes plus 1 major ASCVD risk ?? factor, treating to a non-HDL-C goal of <100 mg/dL ?? (LDL-C of <70 mg/dL) is considered a therapeutic ?? option. Triglycerides 111 <150 mg/dL [facility] 05/24/2021 11:3 3 AM EDT Leora Mercado [facility] LAB BLOOD ORDERABLES Final Resul t [facility] [address] from Last 3 Months or Most Recently Relevant to Health Maintenance Insurance [facility] OPTIONS (HMO D-SNP) [place] SAVAGE [id number] Care Teams Scarfer Operator Relationship Specialty Start Date End Date Leora Mercado ANP [address] [place] [phone] PCP - General Family Medicine 05/06/21 Arin Reid MD [address] [place] [address] Urology 02/22/24 Kalyani Kilgore [address] [place] [address] Cardiology 02/22/24 Flor Alessandra [address] [place] [address] Gastroenterology 02/22/24
== END 2024-07-19 15:01 | disposition home or self-care (01) ==
LOC: HO.US 15:00
PROVIDERS: PCP Nurse Practitioner Primary Care; Visit Provider Urology
DX: R31.29 Other microscopic hematuria (principal); C61 Malignant neoplasm of prostate; N40.1 Benign prostatic hyperplasia with lower urinary tract symptoms; R35.1 Nocturia
CPT/HCPCS: 76775

== ENCOUNTER → 2024-07-19 15:02 | Outpatient (BNV) | payer OTHER, SELFPAY | PROVIDERS: PCP Nurse Practitioner Primary Care; Visit Provider Radiology Diagnostic Radiology | DX: N28.1 Cyst of kidney, acquired (principal) | CPT/HCPCS: 76775 ==

== ENCOUNTER 2024-07-20 07:26 | Day surgery (SDC) | payer OTHER, SELFPAY ==
--- OUTSIDE RECORDS SUMMARY | 2024-07-07 15:56 | XMS_ITS | Clinical Summary ---
Author Organization [employer] Address [address] [facility] [address] [place] [address] Care Team Providers Care Face Worker Name Role Phone Jimenez Elizabeth EUCEDA Primary Care Provider [phone] Arin Reid MD Unavailable Kalyani Kilgore Unavailable June Unavailable Allergies Active Allergy Reactions Criticality Noted Date Comments Cortisone Itching 02/25/2024 Medications tamsulosin (Flomax) 0.4 MG 24 hr capsule TAKE 1 CAPSULE BY MOUTH DAILY AT BEDTIME 3 Active cetirizine (ZyrTEC) 10 MG tabletIndications :Non-seasonal allergic rhinitis due to other allergic trigger TAKE 1 TABLET BY MOUTH ONCE DAILY FOR ALLERGIES 30 tablet 2 3 Active clobetasol (Temovate) 0.05 % ointment APPLY A THIN LAYER TO AFFECTED AREA(S) TWICE DAILY 60 g 5 3 Active finasteride (Proscar) 5 MG tablet Take 1 tablet by mouth in the morning. 3 Active nitroglycerin (Nitrostat) 0.3 MG SL tabletIndications :Chest pain, unspecified type PLACE 1 TABLET UNDER THE TONGUE NEEDED FOR CHEST PAIN - MAY REPEAT IN 5 MINUTES TWICE. IF NO RELIEF CALL 911 OR GO TO EMERGENCY ROOM. 100 tablet 4 Active hydrocortisone (Anusol-HC) 2.5 % rectal creamIndications: Hemorrhoids, unspecified hemorrhoid type Insert into the rectum 2 times daily. For 7d 28 g 4 Active FREESTYLE LITE test stripIndications: Elevated glucose Use to test blood sugar 1-3 times daily 100 each 12 4 10/01/19 25 Active Lancets miscIndications:E levated glucose Use to test blood sugar up to 3 times daily 100 each 11 4 Active Alcohol Swabs 70 % padsIndications:E levated glucose Use to clean skin 100 each 11 4 Active Blood Glucose Monitoring Suppl (FreeStyle Ellerbe Lite) w/Device kitIndications:El evated glucose Use to test blood sugar 1-3 times daily 1 kit 4 Active metFORMIN XR (Glucophage-XR) 500 MG 24 hr tabletIndications :New onset type 2 diabetes mellitus (CMS/HCC) Take 1 tab once daily with meals. Do not crush, chew, or split. 90 tablet 1 4 Active chlorthalidone (Hygroton) 25 MG tabletIndications :Essential hypertension TAKE 1 TABLET BY MOUTH EVERY MORNING 90 tablet 2 4 Active Aspirin Low Dose 81 MG EC tabletIndications :Cardiovascular event risk TAKE 1 TABLET BY MOUTH EVERY MORNING 90 tablet 2 4 Active atorvastatin (Lipitor) 40 MG tabletIndications :Dyslipidemia TAKE 1 TABLET BY MOUTH AT BEDTIME 90 tablet 5 Active FT Gas Relief Ultra Strength 180 MG capsule TAKE 1 CAPSULE BY MOUTH FOUR TIMES DAILY AFTER MEALS 4 Active lisinopril 10 MG tablet Take 10 mg by mouth in the morning. 5 Active omeprazole (PriLOSEC) [address] capsule 5 Active celecoxib (CeleBREX) 100 MG capsuleIndication s:Lumbar back pain TAKE 1 CAPSULE BY MOUTH TWICE DAILY WITH FOOD NEEDED FOR PAIN 60 capsule 1 5 Active Active Problems Problem Noted Date Diagnosed Date [...] Provider, Generic External Data 06/03/2024 Orders Only [facility] External Provider, [facility] 06/02/2024 Telephone [facility] MEDICINE [address] [place] [phone] Elizabeth Gaona ANP DME from [facility] 05/20/2024 Refill [facility] [address] [place] [address] Elizabeth Gaona ANP Lumbar back pain 05/10/2024 Telephone [facility] [address] [place] [address] Elizabeth Gaona ANP DEXA ORDER 04/28/2024 1:00 PM EST Office Visit [facility] OPTOMETRY [address] [place] [address] Maury, Jess, OD Diabetes type 2, no ocular involvement (CMS/HCC) (Primary Dx); Epiretinal membrane (ERM) of both eyes; Combined forms of age-related cataract of both eyes; Presbyopia 04/28/2024 Travel 04/27/2024 Refill [facility] MEDICINE [address] [place] [address] Angélica Echeverria MD Dyslipidemia 04/18/2024 1:15 PM EST Office Visit [facility] MEDICINE [address] [place] [address] Elizabeth Gaona ANP New onset type 2 [...] Description 07/21/2024 1:15 PM EDT Office Visit [facility] MEDICINE [address] [place] [address] Elizabeth Gaona, ANP [address] [place] [address] Health Maintenance Due Date Last Done Comments [...] PSA,Total (Free>4and<10) 3.66 0.00 - 4.00 ng/mL [facility] Comment:A Free PSA was not [...] Provider LAB BLOOD ORDERAB LES Final Result [facility] [address] [place] [phone] * CT Lung Screening Low dose (06/03/2024 10:20 AM EDT) Anatomical Region Laterality Modality Lung Computed Tomogra phy 06/03/2024 10:2 0 AM EDT Narrative 06/03/2024 12:13 PM EDT ? [facility] ?[address] ?[place] [address] ? CT Scan Report ? Signed ? Patient: Lin Hernandez,Barrett ?MR#: ?? [id number] ? : 1950 ?Acct:[id number] ? Age/Sex: 73 / M ?ADM Date: 06/03/24 ? Loc: HO.CT ? Attending Dr: Janey Garcia PA-C ? Ordering Physician: Janey Garcia PA-C ?? Date of Service: 06/03/24 ?? Procedure(s): CT lung screening ?? Accession Number(s): [id number] ? cc: Dashawn Tavarez MD; Janey Garcia PA-C ? Report Number: ?? [id number]: Total DLP = ?? 55.00 mGy-cm ?? [...] for CT CHEST LOW DOSE CANCER SCREENING ([id number]) ?? can be placed. ? Electronically signed by: ??Erich Hendricks MD ??06/03/2024 12:10 PM EDT RP ? Dictated By: ?Erich Hendricks MD ? Signed By: ?<Electronically signed by Erich Hendricks MD in OV> ?06/03/24 1210 ? DD/ 1020 ? TD/TT: 06/03/24 1030 ? Payroll Accounting Clerk: ? Procedure Note Aylin, Image - 06/03/[address] [place] [address] [address] Scan Report Signed Patient: Harley Gutierrez#: [id number] : 3Acct:[id number] Age/Sex: 73 / MADM Date: 06/03/24 Loc: HO.CT Attending Dr: Janey Garcia PA-C Ordering Physician: Janey Garcia PA-C Date of Service: 06/03/24 Procedure(s): CT lung screening Accession Number(s): [id number] cc: Dashawn Tavarez MD; Janey Garcia PA-C Report Number: [id number]: Total DLP = 55.00 mGy-cm EXAMINATION: CT [...] for CT CHEST LOW DOSE CANCER SCREENING ([id number]) can be placed. Electronically signed by: Erich Hendricks MD 06/03/2024 12:10 PM EDT Dictated By: Erich Hendricks MD Signed By: <Electronically signed by Erich Hendricks MD in OV> 06/03/24 1210 DD/ 1020 TD/TT: 06/03/24 1030 Payroll Accounting Clerk: [facility] External Provider IMG CT PROCEDURES Final Result * (ABNORMAL) Urinalysis, Complete, with Reflex to Culture (04/18/2024 1:30 PM EST) Color Urine Yellow [facility] Appearance Urine Clear [facility] PH 6.5 5.0 - 9.0 [facility] Glucose Urine UA Negative Negative mg/dL [facility] Urine Blood Trace(A) Negative [facility] Specific [place] - Urine 1.020 1.005 - 1.025 [facility] Urine Protein Negative Neg-Trace mg/dL [facility] Urine Ketones Negative Negative mg/dL [facility] Nitrite Urine Negative Negative [facility] Leukocyte Esterase Urine Negative Negative [facility] RBC Urine 0-2 0 - 2 /HPF [facility] Urine WBC 0-5 0 - 5 /HPF [facility] Urine Squamous Epithelial Cell 0-2 0 - 2 /HPF [facility] Urine Bacteria None Seen None Seen [facility] Hyaline Casts, Urine 0-2 0 - 2 /LPF [facility] Urine 04/18/2024 1:30 PM EST 04/18/2024 4:59 PM EST Narrative [facility] - 04/18/2024 5:11 PM EST Urine, Clean Catch [facility] LAB URINE ORDERABLES Final Resul t [facility] [address] [place] [address] [phone] * (ABNORMAL) Albumin, Random Urine W/Creatinine (04/18/2024 1:30 PM EST) Creatinine, Urine 111.69 mg/dL [facility] Microalbumin Urine 40.0 mg/L H [facility] Microalbum Creatinine Ratio Ur 35.8(H) <30 ug/mg cr [facility] Comment:Albumin/Creatinine R atio Reference Ranges: Normal: < 30 ug/mg creatinine Microalbuminuria: 30 - 300 ug/mg creatinineClinical Albuminuria: > 300 ug/mg creatinine Urine 04/18/2024 1:30 PM EST 04/18/2024 4:59 PM EST us Elziabeth Gaona ANP LAB URINE ORDERABLES Final Resul t Performing Organization Address City/State/[facility] Co de Phone Number [facility] [address] [place] [phone] * (ABNORMAL) POCT HGB A1C (02/22/2024 2:08 PM EST) Hemoglobin A1C 7.0(A) 4.0 - 6.0 % QC Media Lot # [id number] Lot# Expiration Date [id number] Blood 02/22/2024 2:08 PM EST us Elizabeth [...] ?? LDL-C is now calculated using the [place] ?? calculation, which is a validated novel method providing ?? better accuracy than the Friedewald equation in the ?? estimation of LDL-C. ?? Dave SS et al. JB. 2013;310(19): 7939-0014 ?? (http://LFS [employer]aux/faq/AUY349) Non-HDL Cholesterol 140(H) <130 mg/dL (calc) [facility] Comment: For patients with diabetes plus 1 major ASCVD risk ?? factor, treating to a non-HDL-C goal of <100 mg/dL ?? (LDL-C of <70 mg/dL) is considered a therapeutic ?? option. Triglycerides 111 <150 mg/dL [facility] 05/24/2021 11:3 3 AM EDT [facility] LAB BLOOD ORDERABLES Final Resul t [facility] [address] from Last 3 Months or Most Recently Relevant to Health Maintenance Insurance [facility] [employer] OPTIONS (O D-SNP) Care Teams Face Worker Relationship Specialty Start Date End Date Elizabeth Gaona ANP [address] [place] [address] PCP - General Family Medicine 05/06/21 Arin Reid MD [address] [place] [address] Urology 02/22/24 Kalyani Kilgore [address]rd [place] [address] Cardiology 02/22/[address] [place] [address] Gastroenterology 02/22/24
--- OUTSIDE RECORDS SUMMARY | 2024-07-07 15:56 | XMS_ITS | Encounter Summary ---
Author Organization [employer] Address [address] [facility] 7t [place] [address] Care Team Providers Care Audiology Technician Name Role Phone Elizabeth Gaona Primary Care Provider Arin Reid MD Unavailable Kalyani Kilgore Unavailable Flor June Unavailable Encounter Details Date Type Department Care Team (Late st Contact Info) Description 06/10/2022 Orders Only [facility] [address] [place] [address] Elizabeth Gaona ANP [address] [place] [address] Social History Tobacco Use Types Packs/Day Years [...] Description 07/21/2024 1:15 PM EDT Office Visit [facility] [address] [place] [address] Elizabeth Gaona ANP [address] [place] [address] [place] [address] documented as of this encounter Visit Diagnoses Not on filedocumented in this encounter Care Teams Audiology Technician Relationship Specialty Start Date End Date Elizabeth Gaona ANP [address] [place] [address] PCP - General Family Medicine 05/06/21 Arin Reid MD [address] [place] [address] Urology 02/22/24 Kalyani Kilgore [address] [place] [address] Cardiology 02/22/24 Flor Alessandra [address] [place] [address] Gastroenterology 02/22/24 documented as of this encounter
--- OUTSIDE RECORDS SUMMARY | 2024-07-07 15:56 | XMS_ITS ---
Author Name Sol BANKS, Mr. Darryl Eason Address [address] [place] [address] Phone [phone] [facility] Care Team Providers Care Data Consultant Name Role Phone Chris Horton Unavailable [phone] Arin Sousa Unavailable [phone] LEORA MERCADO Unavailable [phone] Reason for Referral Not Available Allergies, adverse [...] walking Active N/A Other problems related to ca dical facilities and other health care Active 2023-06-21 N/A Encounters Encounters Type Facility Date of Service Diagnosis/Co mplaint New patient,40-59min; chronic exacerbation, 2 stable chronic or 1 acute illness add add modifier 95 for video (do not use for phone, instead use 58370-00) [facility] [place]/2022 Essential (primary) hypertensionMixed hyperlipidemiaGastro-esophageal reflux disease without esophagitisAngina pectoris, unspecifiedMajor depressive disorder, single episode, in full remission New patient,40-59min; chronic exacerbation, 2 stable chronic or 1 acute illness add add modifier 95 for video (do not use for phone, instead use 26831-30) [facility] [place]2022 New patient,40-59min; chronic exacerbation, 2 stable chronic or 1 acute illness add add modifier 95 for video (do not use for phone, instead use 52407-99) [facility] [place]2022 New patient,40-59min; chronic exacerbation, 2 stable chronic or 1 acute illness add add modifier 95 for video (do not use for phone, instead use 63877-41) [facility] [place]2022 New patient,40-59min; chronic exacerbation, 2 stable chronic or 1 acute illness add add modifier 95 for video (do not use for phone, instead use 72822-07) [facility] [place]20[place] New patient,40-59min; chronic exacerbation, 2 stable chronic or 1 acute illness add add modifier 95 for video (do not use for phone, instead use 97208-24) [facility] [place]2022 New patient,40-59min; chronic exacerbation, 2 stable chronic or 1 acute illness add add modifier 95 for video (do not use for phone, instead use 32310-60) [facility] [place]2022 New patient,40-59min; chronic exacerbation, 2 stable chronic or 1 acute illness add add modifier 95 for video (do not use for phone, instead use 93308-44) [facility] [place]2022 New patient,40-59min; chronic exacerbation, 2 stable chronic or 1 acute illness add add modifier 95 for video (do not use for phone, instead use 67119-27) [facility] [place]2022 New patient,40-59min; chronic exacerbation, 2 stable chronic or 1 acute illness add add modifier 95 for video (do not use for phone, instead use 08677-51) [facility] [place]2022 Estab. patient 30-39min; chronic exacerbation, 2 stable chronic or 1 acute illness add add modifier 95 for video, (do not use for phone, instead use 22964-55) [facility] [place] 06/04/2023 Essential (primary) hypertensionMixed hyperlipidemiaGastro-esophageal reflux disease [...] (do not use for phone, instead use 66072-00) [facility] [place]04[place]2023 Estab. patient 30-39min; chronic exacerbation, 2 stable chronic or 1 acute illness add add modifier 95 for video, (do not use for phone, instead use 63834-81) [facility] [place] 06[place]04[place]2023 Estab. patient 30-39min; chronic exacerbation, 2 stable chronic or 1 acute illness add add modifier 95 for video, (do not use for phone, instead use 05370-06) [facility] [place] 06[place]2023 Estab. patient 30-39min; chronic exacerbation, 2 stable chronic or 1 acute illness add add modifier 95 for video, (do not use for phone, instead use 88402-78) [facility] [place] 06/04/2023 Estab. patient 30-39min; chronic exacerbation, 2 stable chronic or 1 acute illness add add modifier 95 for video, (do not use for phone, instead use 35484-33) [facility] [place] 06/04/2023 Vital Signs Date of Collection Vitals 2022-08-11 11:06:26 Height - 167.64 cmWe ight - 81.65 kgBody Mass Index (BMI) - 29.05 kg/m2BP Diastolic - 60.0 mm[Hg]BP Systolic - 120.0 mm[Hg] 2023-06-04 10:09:40 Height - 170.18 cmWe ight - 86.18 kgBody Mass Index (BMI) - 29.76 kg/m2 Social History Social History Social History Observation Description Effec tive Time Current Smoking Status Never smoker 1 Sex Male History of Procedures Procedures Service Procedure code Service date Servicing provider Phone# New patient,40-59min; chronic exacerbation, 2 stable chronic or 1 acute illness add add modifier 95 for video (do not use for phone, instead use 10345-79) 43006 2022-08-11 No Data Available No Data Availa [...] (do not use for phone, instead use 68030-14) 84163 2023-06-04 No Data Available No Data Availa [...] Lisy Lin, another proxy is friend 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
--- OUTSIDE RECORDS SUMMARY | 2024-07-07 15:56 | XMS_ITS | Encounter Summary ---
Author Organization [employer] Address [address] [facility] 7t [place] [address] Care Team Providers Care Workers Compensation Legal Secretary Name Role Phone Elizabeth Gaona Primary Care Provider [phone] Arin Reid MD Unavailable Kalyani Kilgore Unavailable Flor June Unavailable Reason for Visit * Reason Onset Date Comments Nurse Triage 07/10/2023 Encounter Details Date Type Department Care Team (Late st Contact Info) Description 07/10/2023 Telephone [facility] [address] [place], [place] [phone] Elizabeth Gaona ANP [address] [place], [place] [phone] Nurse Triage Social History Tobacco Use Types [...] pt to triage, spoke to pt through [employer] hand. pt states seen ER today (07/09) for [...] > 50 years * No doctor (or CRIME SCENE TECHNICIAN/PA) exam for rectal bleeding in past year [...] for follow up Please contact pt at [phone] documented in this encounter Plan of Treatment Upcoming Encounters Date Type Department Care Team (Late st Contact Info) Description 07/21/2024 1:15 PM EDT Office Visit [facility] [address] [place] [address] Elizabeth Gaona ANP [address] [place] [address] documented as of this encounter Visit Diagnoses Not on filedocumented in this encounter Care Teams Workers Compensation Legal Secretary Relationship Specialty Start Date End Date Elizabeth Gaona ANP [address] [place] [address] PCP - General Family Medicine 05/06/21 Arin Reid MD [address] [place] [address] Urology 02/22/24 Kalyani Kilgore [address] [place] [address] Cardiology 02/22/24 Alessandra Ray [address] [place] [address] Gastroenterology 02/22/24 documented as of this encounter
[2024-07-18 10:43] VITALS: BMI 30.5
--- NOTE | 2024-07-19 09:56 | P.CONAN_ITS ---
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) Atypical chest pain (Acute) HTN (hypertension) (Acute) High cholesterol (Acute) Severe obstructive sleep apnea (Acute) Sleep apnea (Acute) Personal history of nicotine dependence (Acute) Low vitamin B12 level (Acute) Joint pain (Acute) Abnormal echocardiogram findings without diagnosis (Acute) Tubular adenoma of colon (Acute) Elevated PSA (Acute) BPH associated with nocturia (Acute) Microscopic hematuria (Acute) Rash (Acute) Depression (Acute) GERD (gastroesophageal reflux disease) (Acute) Generalized arthritis (Acute) Calcific tendonitis of left shoulder (Acute) Past Medical History Medical History (Updated 06/08/24 @ 22:19 by JOCELYN Llanos) Prostate cancer HTN (hypertension) High cholesterol Severe obstructive sleep apnea Personal history of nicotine dependence GERD (gastroesophageal reflux disease) Tubular adenoma of colon BPH associated with nocturia Depression Arthritis Shoulder pain, left Family History Family History Mother Asthma Alzheimer disease Cancer Father Asthma Brother Cancer Father Heart disease Family history of problems with anesthesia: No Surgical History Surgical History History of colonoscopy History of prostate biopsy History of esophagogastroduodenoscopy (EGD) History of inguinal hernia repair History of Problems with Anesthesia: No Social History Social History (Updated 07/18/24 @ 10:47 by Lindsey Nuno RN) Household Members: None Household Members Other:: has BUSINESS RISK CONSULTANT Housing: Apartment Are you a primary home care coordinator to a significant other at home: No Do you presently have visiting nurse or other home services: Yes (BUSINESS RISK CONSULTANT) Alcohol intake: former Patient Tobacco Use Status: Former Tobacco user Tobacco use type: Cigarette Years Smoked: (onset 18yo, 1/4-1/2ppd x 51yrs, 20pyh - quit 2020) Use of substances other than those prescribed or required for medical reasons: No Have you been hit, kicked, punched, or otherwise hurt by someone within the past year? If so, by whom?: No Are you DNR?: No Advance Directives: No Advance Directives Information Provided: Yes Advance Directives on File: No Poor oral hygiene: No Current occupational status: disabled Current occupation: rt handed Meds Allergies Allergy/AdvReac Type Severity Reaction Status Date / Time cortisone Allergy Itching Verified 05/11/24 10:58 Home Medications ?Medication ?Instructions ?Recorded ?Confirmed ?Last Taken ?Type aspirin 81 mg tablet,delayed 81 mg PO DAILY 12/25/21 02/23/24 02/22/24 History release (Adult Aspirin Regimen) atorvastatin 40 mg tablet 40 mg PO DAILY 12/25/21 02/23/24 Unknown History celecoxib 100 mg capsule 100 mg PO BID PRN pain 09/18/23 02/23/24 Unknown H istory chlorthalidone 25 mg tablet 25 mg PO DAILY 09/18/23 02/23/24 Unknown History nitroglycerin 0.3 mg sublingual 0.3 mg sublingual Q5M PRN 05/11/24 Unknown History tablet Exam Height,Weight and Vital Signs: Height 5 ft 6 in Weight 85.729 kg Pertinent Lab Results Pertinent Lab Results: Laboratory Tests 05/24/24 09:10 WBC 7.6 Hgb 14.4 Hct 41.2 L Plt Count 224 Sodium 138 Potassium 3.9 Chloride 104 Carbon Dioxide 24 BUN 18 H Creatinine 1.05 Assessment and Plan Assessment Anesthesia Assessment: Chart Reviewed Final Anesthetic Review Family History of Problems with Anesthesia: No History of Problems with Anesthesia: No Documented by User: Abena Jackson MD 07/20/24 08:20 [facility] Past Medical History Medical History (Updated 06/08/24 @ 22:19 by JOCELYN Llanos) Prostate cancer HTN (hypertension) High cholesterol Severe obstructive sleep apnea Personal history of nicotine dependence GERD (gastroesophageal reflux disease) Tubular adenoma of colon BPH associated with nocturia Depression Arthritis Shoulder pain, left Family History Family History Mother Asthma Alzheimer disease Cancer Father Asthma Brother Cancer Father Heart disease Surgical History Surgical History History of colonoscopy History of prostate biopsy History of esophagogastroduodenoscopy (EGD) History of inguinal hernia repair Social History Social History (Updated 07/18/24 @ 10:47 by Lindsey Nuno RN) Household Members: None Household Members Other:: has BUSINESS RISK CONSULTANT Housing: Apartment Are you a primary home care coordinator to a significant other at home: No Do you presently have visiting nurse or other home services: Yes (BUSINESS RISK CONSULTANT) Alcohol intake: former Patient Tobacco Use Status: Former Tobacco user Tobacco use type: Cigarette Years Smoked: (onset 18yo, 1-1/2ppd x 51yrs, 20pyh - quit 2020) Use of substances other than those prescribed or required for medical reasons: No Have you been hit, kicked, punched, or otherwise hurt by someone within the past year? If so, by whom?: No Are you DNR?: No Advance Directives: No Advance Directives Information Provided: Yes Advance Directives on File: No Poor oral hygiene: No Current occupational status: disabled Current occupation: rt handed Meds Allergies Allergy/AdvReac Type Severity Reaction Status Date / Time cortisone Allergy Itching Verified 05/11/24 10:58 Home Medications ?Medication ?Instructions ?Recorded ?Confirmed ?Last Taken ?Type aspirin 81 mg tablet,delayed 81 mg PO DAILY 12/25/21 02/23/24 02/22/24 History release (Adult Aspirin Regimen) atorvastatin 40 mg tablet 40 mg PO DAILY 12/25/21 02/23/24 Unknown History celecoxib 100 mg capsule 100 mg PO BID PRN pain 09/18/23 02/23/24 Unknown History chlorthalidone 25 mg tablet 25 mg PO DAILY 09/18/23 02/23/24 Unknown History nitroglycerin 0.3 mg sublingual 0.3 mg sublingual Q5M PRN 05/11/24 Unknown History tablet Exam Airway Mallampati Class: II TM Dist: >3cm Neck ROM: Full Denture: Upper Heart: rrr Lungs: cta Assessment and Plan Assessment Anesthesia Assessment: Anesthesia Plan Discussed Final Anesthetic Review NPO: Yes ASA Class: III Final Preanesthetic Review: No Changes in Pt Med Stat, Meds/Allgs Chart Reviewed and Consent Obtained/Reviewed Patient Risk: Low Procedure Risk: Low Anesthetic Plan Anesthetic Plan: MAC: Disposition: Standard PACU
--- NOTE | 2024-07-20 06:41 | P.HPSUR_ITS ---
Pre-Procedural Eval Section A - 24 Hr Update-Section A only Date of Service: 07/20/24 Section B - Complete if H&P > 30 days Chief Complaint: Polyp of colon Relevant Family History (Specify if Yes): No Relevant Social History: None Present Medications: see Short Stay Collaborative assessment Medical History: Significant History (Prostate cancer HTN (hypertension) High cholesterol Severe obstructive sleep apnea Personal history of nicotine dependence GERD (gastroesophageal reflux disease) Tubular adenoma of colon BPH associated with nocturia Depression Arthritis Shoulder pain, left) History of Previous Operations: Relevant previous surgery/procedure and date(s) ( History of colonoscopy History of prostate biopsy History of esophagogastroduodenoscopy (EGD) History of inguinal hernia repair) Allergies: Allergies Allergy/AdvReac Type Severity Reaction Status Date / Time cortisone Allergy Itching Verified 05/11/24 10:58 Surgical History Review of Systems Sugical H&P ROS: Negative: Constitution, Cardiovascular, Respiratory, Neurological, Psychiatric, Hem-Onc, Allergic/Immunologic, Gastrointestinal, Genitourinary, Musculoskeletal, Integumentary, Endocrine and Eyes/Ears /Nose/Throat Exam Surgical H&P Exam: Normal: HEENT, Normal: Heart, Normal: Lungs, Normal: Extremities, Normal: Abdomen, Normal: Skin and Normal: Neurological Plan Diagnosis/Plan: Unchanged I have reviewed the history and physical and performed a pertinent physical examination on my patient. No changes have occurred unless specified. Time Spent With Patient Time: Total time managing care of this patient today ____ minutes.
[2024-07-20 07:42] VITALS: BMI 31.3
[2024-07-20 07:55] VITALS: BP 143/84; PULSE 63; RESP 16; TEMP 36.3; O2SAT 96
[2024-07-20] MEDS: Lactated Ringers 1,000 ML 100 ML IVCONT (08:04)
--- NOTE | 2024-07-20 09:03 | HO.OPN-COLON ---
Colonoscopy Operative Note Operative Note Date of Service: 07/20/24 Narrative: Operative Information Procedure Description: Colonoscopy Indication: hx of colon polyps Anesthesia: MAC COLONOSCOPY Instrument: Olympus variable stiffness pediatric scope 190L Colonoscopy Monitoring: Vital signs and clinical assessment, continuous EKG monitoring, Pulse oximetry, Carbon Dioxide monitoring and blood pressure monitoring were done throughout the procedure. Colon withdrawal time was 10 minutes. Procedure: The patient was placed in the left lateral decubitis position and pre-procedure medications were administered. After a digital rectal examination of the ano-rectum, the video colonoscope was inserted into the rectum and advanced through the colon to the cecum/TI. The colonoscope was slowly withdrawn in a retrograde panoramic fashion and the colon mucosa was carefully examined including a retroflexed view of the rectum. Findings and interventions are described below. Procedure Difficulty: easy Findings: Terminal Ileum-not intubated Cecum:normal Ascending Colon: x1 sessile polyp 8-9 mm removed with cold snare, x 2 sessile polyps 6-8 mm removed with cold forceps Transverse Colon -normal Descending Colon:normal Sigmoid Colon: moderate diverticulosis Rectum: Retroflexion with small internal hemorrhoids seen, grade I Anorectum - normal Intervention: cold snare, cold forceps Colon preparation: [place] Bowel Preparation Scale Right colon; 1 Transverse colon: 1-2 Left colon; 1-2 (0 = Unprepared colon segment with mucosa not seen due to solid stool that cannot be cleared. 1 = Portion of mucosa of the colon segment seen, but other areas of the colon segment not well seen due to staining, residual stool and/or opaque liquid. 2 = Minor amount of residual staining, small fragments of stool and/or opaque liquid, but mucosa of colon segment seen well. 3 = Entire mucosa of colon segment seen well with no residual staining, small fragments of stool or opaque liquid) Impression and Post Procedure Diagnosis: diverticulosis colon polyps x 3 internal hemorrhoids Plan: High fiber diet leaflet Avoid straining at stool, epsom salts and sitz bath, anusol supps or cream Repeat Colonoscopy in 6-12 months or earlier if clinically indicated --next time follow instructions Above findings were reviewed with the patient and relevant handouts were provided if indicated.
[2024-07-20 09:05] VITALS: BP 106/68; PULSE 65; RESP 16; TEMP 36.1; O2SAT 93
[2024-07-20 09:29] VITALS: BP 106/73; PULSE 72; RESP 18; TEMP 36.1; O2SAT 94
--- NOTE | 2024-07-20 09:49 | PC.NURSE ---
IN HOUSE MANAGER ORACLE USED FOR DC INSTRUCTIONS.
== END 2024-07-20 10:07 | disposition home or self-care (01) ==
PROVIDERS: PCP Internal Medicine; Visit Provider Internal Medicine Gastroenterology
PROC: 0DJD8ZZ Inspection of Lower Intestinal Tract, Via Natural or Artificial Opening Endoscopic (ICD-10-PCS; CPT 45378; principal; 2024-07-20 08:30)
DX: Z12.11 Encounter for screening for malignant neoplasm of colon (principal); Z86.0101 Personal history of adenomatous and serrated colon polyps; D12.0 Benign neoplasm of cecum; K57.30 Diverticulosis of large intestine without perforation or abscess without bleeding; K64.0 First degree hemorrhoids; K21.9 Gastro-esophageal reflux disease without esophagitis; C61 Malignant neoplasm of prostate; N40.1 Benign prostatic hyperplasia with lower urinary tract symptoms; R35.1 Nocturia; I10 Essential (primary) hypertension; E78.00 Pure hypercholesterolemia, unspecified; F32.A Depression, unspecified; G47.33 Obstructive sleep apnea (adult) (pediatric); Z88.8 Allergy status to other drugs, medicaments and biological substances; Z87.891 Personal history of nicotine dependence; Z98.890 Other specified postprocedural states
CPT/HCPCS: 45385; 45380; 88305; J2003; J2704

== ENCOUNTER → 2024-07-20 07:26 | Outpatient (BNV) | payer OTHER, SELFPAY | PROVIDERS: PCP Internal Medicine; Visit Provider Internal Medicine Gastroenterology | DX: Z12.11 Encounter for screening for malignant neoplasm of colon (principal); D12.2 Benign neoplasm of ascending colon; K57.30 Diverticulosis of large intestine without perforation or abscess without bleeding; K64.0 First degree hemorrhoids | CPT/HCPCS: 45385 ==

== ENCOUNTER 2024-07-29 07:45 | Outpatient (REF) | payer OTHER, SELFPAY ==
--- NOTE | ~2024-07-29 | MM_ITS ---
EXAMINATION: DXA BONE DENSITY AXIAL HISTORY: lifelong heavy smoker, > 100 PYH, very high risk for osteoporosis /M89.9 TECHNIQUE: MOBi-LEARN Dual energy absorptiometry (DEXA) of the lumbar spine, total left hip, and femoral neck was performed. COMPARISON: There are no prior studies for comparison. FINDINGS: The bone mineral density of the lumbar spine is 1.434, corresponding to a T-score of 1.9, and a Z-score of 2.2. This is indicative of normal bone mineral density. The bone mineral density of the left total hip is 1.170, corresponding to a T-score of 0.5, and a Z-score of 1.1. This is indicative of normal bone mineral density. The bone mineral density of the left femoral neck is 0.952, corresponding to a T-score of -0.9, and a Z-score of 0.2. This is indicative of normal bone mineral density. MM/XR DEXA axial skeleton IMPRESSION: Based on bone mineral density, and according to World Health Organization (WHO) criteria, the diagnosis is consistent with normal bone mineral density. All bone density values are in grams per centimeter squared (g/cm2). Statistically, 68% of repeat scans fall within 1 SD (+/- 0.010 g/cm2 for AP spine L1-L4) and 1 SD (+/- 0.012 g/cm2 for femur total) FRAX is a trademark of the [employer]'s [employer], a World Health Organization (WHO) Collaborating Center. Electronically signed by: Zachary Carreon MD 07/29/2024 08:30 AM EDT
--- OUTSIDE RECORDS SUMMARY | 2024-07-29 07:47 | XMS_ITS | Clinical Summary ---
Author Organization [employer] Address [address] [facility] 7t [place] [address] Care Team Providers Care Roll Or Tape Edge Machine Operator Name Role Phone Leora Mercado KINSEY Primary Care Provider Arin Reid MD Unavailable [...] 4 Active Blood Glucose Monitoring Suppl (FreeStyle [place] Lite) w/Device kitIndications:El evated glucose Use to [...] Encounters Date Type Department Care Team Description 07/22/2024 Results Follow-Up [address] [address] Dashawn Farmer MD Hematoxylin and Eosin Stain 07/21/2024 1:15 PM EDT Office Visit [address] [address] Leora Mercado ANP New onset type 2 diabetes mellitus (CMS/HCC) 07/21/2024 Travel 2024 Orders Only GENERIC EXTERNAL DATA DEPARTMENT Provider, Generic External Data [address] [address] Carol Borden MA Chart Prep 07/19/2024 Orders Only [facility] External Provider, [facility] 06/14/2024 Orders Only GENERIC EXTERNAL DATA DEPARTMENT Provider, Generic External Data 06/03/2024 Orders Only [facility] External Provider, [facility] 06/02/2024 Telephone [facility] MEDICINE [address] [place] [address] Leora Mercado ANP DME from [facility] 05/20/2024 Refill [facility] MEDICINE [address] [place] [address] Leora Mercado ANP Lumbar back pain 05/10/2024 Telephone [place] [facility] [address], [place] [phone] Leora Mercado ANP DEXA ORDER from Last 3 Months Immunizations Immunization Administration Dates Next Due Influenza High-dose Quadriva [...] Sign Reading Time Taken Comments Blood Pressure 136/76 07/21/2024 1:17 PM EDT Pulse 60 07/21/2024 1:17 PM EDT Temperature 36.2 ??C (97.1 ??F) 07/21/2024 1:17 PM ED T Respiratory Rate 20 07/21/2024 1:17 PM EDT Oxygen Saturation 99% 07/21/2024 1:17 PM EDT Inhaled Oxygen Concentration - - Weight 88 kg (194 lb) 07/21/2024 1:17 PM EDT Height 170.2 cm (5' 7 ) 07/21/2024 1:17 PM EDT Body Mass Index 30.38 07/21/2024 1:17 PM EDT Plan of Treatment Health Maintenance Due Date Last Done Comments CT Colonography 1950 FIT DNA/Cologuard 1950 FIT 1950 FOBT 1950 Sigmoidoscopy 1950 Alcohol/Substance Use Screening 1964 Hepatitis C Screening 1970 Lipid Panel 05/24/2022 05/24/2021 SDOH Screening 04/06/2024 04/06/2023 Colonoscopy 08/25/2024 Colorectal Cancer Screening 08/25/2024 Depression Screening 09/07/2024 09/08/2023, 09/08/19 24 Diabetes: Hemoglobin A1C 01/21/2025 025, 02/22/2024, 10/01/2023 COVID-19 Vaccine ( season) 2025 03/30/2023, 06/27/2021, 02/14/2021, Additional history exists Postponed from 11/08/2023 (Patient Refused) Diabetes: Urine Protein Screening 04/18/2025 04/18/2024, 11/28/2022 Diabetes: Foot Exam 07/21/2025 07/21/2024, 07/21/2024, 07/21/2024, Additional history exists Tobacco Screening 07/21/2025 07/21/2024 Eye Exam 04/28/2026 04/28/2024, 02/2 , 04/28/2024, Additional history exists RSV Patients and [...] patient's age to complete this topic Meningococcal B Vaccine Aged Out No l onger eligible based on patient's age to complete [...] Procedure Name Priority Date/Time Associated Diagnosis Comments POCT GLYCATED HEMOGLOBIN, TOTAL Routine 07/21/2024 1:20 PM EDT New onset type 2 diabetes mellitus (CMS/HCC) POCT GLUCOSE Routine 07/21/2024 1:19 PM EDT New onset type 2 diabetes mellitus (CMS/HCC) HEMATOXYLIN AND EOSIN STAIN Routine 2024 9:06 AM EDT US RENAL BI Routine 07/19/2024 3:08 PM EDT PSA, TOTAL WITH REFLEX TO PSA, FREE Routine 06/14/2024 11:02 AM EDT LDCT LUNG SCREENING Routine 06/03/2024 1 0:20 AM EDT ALBUMIN, RANDOM URINE W/CREATININE Routine 04/18/2024 1:30 PM EST Essential hypertension LIPID PANEL, STANDARD Routine 05/24/2021 11:33 AM EDT from Last 3 Months or Most Recently Relevant to Health Maintenance Results * (ABNORMAL) POCT HGB A1C (07/21/2024 1:20 PM EDT) Pathologist [facility] Hemoglobin A1C 6.9(A) 4.0 - 6.0 % QC Media Lot # [id number] Lot# Expiration Date , Blood 07/21/2024 1:20 PM EDT us Leora EUCEDA POINT OF CARE TEST ENTER/EDIT OR DERABLES Final Result * POCT Glucose (07/21/2024 1:19 PM EDT) Pathologist [facility] Glucose Blood, POC 143 60 - 200 mg/dL QC Media Lot # [id number] Lot# Expiration Date ,025 Blood Capillary blood specimen / Unknown 07/21/2024 1:19 PM EDT us Leora EUCEDA POINT OF CARE TEST ENTER/EDIT OR DERABLES Final Result * Hematoxylin and Eosin Stain (2024 9:06 AM EDT) 2024 9:06 AM EDT 2024 10:14 AM EDT Narrative [facility] - 07/21/2024 11:19 AM EDT ----- ------- Name: Riley HernandezBarrett ?Age/Sex: 74/M ? : 1950 Unit#: [id number] ?? Attend Dr: Bam Beckford MD ?Re07/20/24 ?Status: DEP SDC ? Location: HO.SSS ?Disch: ? ----- ------- SPEC : [id number] ? RECD: 07/20/24-1013 ? STATUS: ??SOUT ? REQ NUM: [id number] ? MIGUEL ANGEL: 07/20/24-905 ? SUBM DR: Bam Beckford MD ? ENTERED: ??07/20/24-1022 ?SP TYPE: Surgical ? OTHR DR: Dashawn Tavarez MD ?? ORDERED: ??HE Stain/3, Gross Micro L4 ? Diagnosis ?? Colon, ascending, polyps: ??Tubular adenomas, two; negative for high-grade dysplasia and ?? carcinoma. ?Clinical History Pre-Op Dx: ??Colon polyps Post-Op Dx: Colon polyps, diverticulosis, hemorrhoids ?Microscopic Description Microscopic sections reviewed. ? Material Received ?? Ascending colon polyps ? Gross Description Received in formalin labeled ?ascending colon polyps? are multiple de la torre-pink irregular, rectangular and papular tissue fragments ranging from 0.15-0.35 cm and aggregating 1.4 x 1.2 x 0.3 cm, submitted in toto in a cassette labeled A. CEDS Copies To: ?? Dashawn Tavarez MD ?? [facility] ?? [address] [facility] ?? [place] [address] ?? [phone] ?? Bam Beckford MD ?? [facility] ?? [address] ?? [place] [address] ?? [phone] ----- ------- Signed (signature on file) Lindsey Petersen 07/21/24 1119 ? ----- ------- ? END OF REPORT ? us Generic External Data Provider LAB BLOOD ORDERAB LES Final Result [facility] [address] [place] [address] [phone] * US RENAL BI (07/19/2024 3:08 PM EDT) Anatomical Region Laterality Modality Abdomen Ultrasound 07/19/2024 3:08 PM EDT Narrative 07/19/2024 3:50 PM EDT ? [facility] ?[address] ?[place] [address] ? Ultrasound Report ? Signed ? Patient: Barrett Gutierrez ?MR#: ?? [id number] ? : 1950 ?Acct:[id number] ? Age/Sex: 73 / M ?ADM Date: 07/19/24 ? Loc: HO.US ? Attending Dr: Arin Campo MD ? Ordering Physician: Arin Campo MD ?? Date of Service: 07/19/24 ?? Procedure(s): US renal BI ?? Accession Number(s): [id number] ? cc: Arin Campo MD; LEORA MERCADO [...] DD/ 1508 ? TD/TT: 07/19/24 1512 ? Ointment Mill Tender: ? Procedure Note Robyn Viera - 07/19/[address] [address] Ultrasound Report Signed Patient: Barrett GutierrezMR#: [id number] : 1950cct:[id number] Age/Sex: 73 / MADM Date: 07/19/24 Loc: HO.US Attending Dr: Arin Campo MD Ordering Physician: Arin Campo MD Date of Service: 07/19/24 Procedure(s): US renal BI Accession Number(s): [id number] cc: Arin Campo MD; LEORA MERCADO NP [...] 07/19/24 1547 DD/ 1508 TD/TT: 07/19/24 1512 Ointment Mill Tender: us [facility] External Provider IMG US PROCEDURES Final Result * PSA, Total With Reflex to PSA, Free (06/14/2024 11:02 AM EDT) PSA,Total (Free>4and<10) 3.66 0.00 - 4.00 ng/mL [facility] Comment:A Free PSA was not [...] Provider LAB BLOOD ORDERAB LES Final Result [facility] [address] [place] [phone] * CT Lung Screening Low dose (06/03/2024 10:20 AM EDT) Anatomical Region Laterality Modality Lung Computed Tomogra phy 06/03/2024 10:2 0 AM EDT Narrative 06/03/2024 12:13 PM EDT ? [facility] ?[address] ?[place] [address] ? CT Scan Report ? Signed ? Patient: Riley Hernandez,Barrett ?MR#: ?? [id number] ? : 1950 ?Acct:[id number] ? Age/Sex: 73 / M ?ADM Date: 06/03/24 ? Loc: HO.CT ? Attending Dr: Janey Garcia PA-C ? Ordering Physician: Janey Garcia PA-C ?? Date of Service: 06/03/24 ?? Procedure(s): CT lung screening ?? Accession Number(s): [id number] ? cc: Dashawn Tavarez MD; Janey Gacria PA-C ? Report Number: ?? [id number]: Total DLP = ?? 55.00 mGy-cm ?? EXAMINATION: ?? CT LOW-DOSE SCREENING CHEST WITHOUT CONTRAST ? CLINICAL INFORMATION: ?? 73-year-old male, 49 pack year smoker, quit 6 years ago. Lung cancer ?? screening. ? COMPARISON: ?? CT chest 05/15/2016. ? TECHNIQUE: ?? Multidetector volumetric CT imaging of the chest is performed on a ?? Siemens [employer] Corner Definition scanner without contrast using low dose [...] for CT CHEST LOW DOSE CANCER SCREENING ([id number]) ?? can be placed. ? Electronically signed by: ??Erich Hendricks MD ??06/03/2024 12:10 PM EDT RP ? Dictated By: ?Erich Hendricks MD ? Signed By: ?<Electronically signed by Erich Hendricks MD in OV> ?06/03/24 1210 ? DD/ 1020 ? TD/TT: 06/03/24 1030 ? Ointment Mill Tender: ? Procedure Note Donblessingrezater, Image - 06/03/[address] [place] [address] [address] Scan Report Signed Patient: Barrett GutierrezMR#: [id number] : 1950cct:[id number] Age/Sex: 73 / MADM Date: 06/03/24 Loc: HO.CT Attending Dr: Janey Garcia PA-C Ordering Physician: Janey Garcia PA-C Date of Service: 06/03/24 Procedure(s): CT lung screening Accession Number(s): [id number] cc: Dashawn Tavarez MD; Janey Garcia PA-C Report Number: [id number]: Total DLP = 55.00 mGy-cm EXAMINATION: CT [...] for CT CHEST LOW DOSE CANCER SCREENING ([id number]) can be placed. Electronically signed by: Erich Hendricks MD 06/03/2024 12:10 PM EDT RP Dictated By: Erich Hendricks MD Signed By: <Electronically signed by Erich Hendricks MD in OV> 06/03/24 1210 DD/ 1020 TD/TT: 06/03/24 1030 Ointment Mill Tender: [facility] External Provider IMG CT PROCEDURES Final Result * (ABNORMAL) Albumin, Random Urine W/Creatinine (04/18/2024 1:30 PM EST) Creatinine, Urine 111.69 mg/dL [facility] Microalbumin Urine 40.0 mg/L [facility] Microalbum Creatinine Ratio Ur 35.8(H) <30 ug/mg cr [facility] Comment:Albumin/Creatinine R atio Reference Ranges: Normal: < 30 ug/mg creatinine Microalbuminuria: 30 - 300 ug/mg creatinineClinical Albuminuria: > 300 ug/mg creatinine Urine 04/18/2024 1:30 PM EST 04/18/2024 4:59 PM EST [facility] LAB URINE ORDERABLES Final Resul t [facility] [address] [place] [phone] * (ABNORMAL) LIPID PANEL, STANDARD (05/24/2021 11:33 [...] ?? Dave EUCEDA et al. JB. 2013;310(19): 9967-0483 ?? (http://[email or web address]/faq/QVF538) Non-HDL Cholesterol 140(H) <130 mg/dL (calc) [facility] Comment: For patients with diabetes plus 1 major ASCVD risk ?? factor, treating to a non-HDL-C goal of <100 mg/dL ?? (LDL-C of <70 mg/dL) is considered a therapeutic ?? option. Triglycerides 111 <150 mg/dL [facility] 05/24/2021 11:3 3 AM EDT Leora Mercado [facility] LAB BLOOD ORDERABLES Final Resul t [facility] [address] from Last 3 Months or Most Recently Relevant to Health Maintenance Insurance [id number] USP OPTIONS (O D-SNP) [facility] USP OPTIONS (O D-SNP) PRIYA SAVAGE [id number] Care Teams Roll Or Tape Edge Machine Operator Relationship Specialty Start Date End Date Leora Mercado ANP [address] [place] [phone] PCP - General Family Medicine 05/06/21 Arin Reid MD [address] [place] [address] Urology 02/22/24 Kalyani Kilgore [address] [place] [address] Cardiology 02/22/24 Flor Alessandra [address] [place] [address] Gastroenterology 02/22/24
== END 2024-07-29 07:46 | disposition home or self-care (01) ==
LOC: HO.MAMMO 07:45
PROVIDERS: PCP Nurse Practitioner Primary Care; Visit Provider Nurse Practitioner Primary Care
DX: M89.9 Disorder of bone, unspecified (principal); Z91.89 Other specified personal risk factors, not elsewhere classified; Z87.891 Personal history of nicotine dependence; Z13.820 Encounter for screening for osteoporosis
CPT/HCPCS: 77080

== ENCOUNTER → 2024-07-29 08:15 | Outpatient (BNV) | payer OTHER, SELFPAY | PROVIDERS: PCP Nurse Practitioner Primary Care; Visit Provider Radiology Diagnostic Radiology | DX: M89.9 Disorder of bone, unspecified (principal); Z87.891 Personal history of nicotine dependence | CPT/HCPCS: 77080 ==

== ENCOUNTER 2024-10-07 08:19 | Outpatient (AMB) | payer OTHER, SELFPAY ==
--- OUTSIDE RECORDS SUMMARY | 2024-10-07 08:28 | XMS_ITS ---
Author Name Sol BNAKS, Mr. Darryl Eason Address [address] [place] [address] Phone [phone] [facility] Care Team Providers Care Repairer Auto Clocks Name Role Phone Chris Horton Unavailable [phone] Arin Sousa Unavailable [phone] LEORA MERCADO Unavailable [phone] Reason for Referral Not Available Allergies, adverse [...] List Problem Status Onset Date Resolved Date Synopsis Essential hypertension Active 2022-08-11 N/A Am lodipine, Lisinopril Educate patient on symptoms of hypertension including blurred vision, headache, dizziness. Encouraged daily blood pressure checks and tracking. Instructed patient to notify CB or PCP if blood pressure >160/90 or <90/60. Mixed hyperlipidemia Active 2022-08-11 N/A Ator vastatin dailyAdvised patient to avoid high fat and deep fried foods. Follow low sodium/heart healthy diet. GERD (gastroesophageal reflux disease) Active 2022-08-11 N/A Omeprazole daily Limit high fat foods, deep fried foods, spicy foods. Also avoid eating and then lying down flat. Try to stay up 2-3 hours after eating minimum to avoid the risk of indigestion.For breakthrough reflux may use pepcid or tums PRN. Angina pectoris Active 2022-08-15 N/A Nitroglyc maria teresa PRN Reports chest pain typically when acid reflux is worse. Encouraged rest and to relax and take nitro when chest pain is present, not to exceed 3 doses. Call 911 if no relief after 3 doses. Major depression in remission Active 2022-08-18 N/A PMH of depressio nno medicationsmonitor PHQ9 score routinely Malignant neoplasm of prostate Active 2023-06-04 N/A Diagnosed 2022. Still in treatment, cannot recall name of medication he takes. Back pain withDifficulty walking Active 2023-06-04 N/A Uses a cane, whi ch is broken and he needs a new one.Celecoxib. PCP is managing. Other problems related to medical facilities and other health care Active 2023-06-21 N/A Please call CB ifBP >160/100 or <100/60,worsening of prostate sxs. Encounters Encounters Type Facility Date of Service Diagnosis/Co mplaint New patient,40-59min; chronic exacerbation, 2 stable chronic or 1 acute illness add add modifier 95 for video (do not use for phone, instead use 33580-03) [facility] Essential (primary) hypertensionMixed hyperlipidemiaGastro-esophageal reflux disease without esophagitisAngina pectoris, unspecifiedMajor depressive disorder, single episode, in full remission New patient,40-59min; chronic exacerbation, 2 stable chronic or 1 acute illness add add modifier 95 for video (do not use for phone, instead use 65550-94) [facility] New patient,40-59min; chronic exacerbation, 2 stable chronic or 1 acute illness add add modifier 95 for video (do not use for phone, instead use 52659-99) [facility] New patient,40-59min; chronic exacerbation, 2 stable chronic or 1 acute illness add add modifier 95 for video (do not use for phone, instead use 74142-25) [facility] New patient,40-59min; chronic exacerbation, 2 stable chronic or 1 acute illness add add modifier 95 for video (do not use for phone, instead use 37559-38) [facility] New patient,40-59min; chronic exacerbation, 2 stable chronic or 1 acute illness add add modifier 95 for video (do not use for phone, instead use 04718-57) [facility] New patient,40-59min; chronic exacerbation, 2 stable chronic or 1 acute illness add add modifier 95 for video (do not use for phone, instead use 55844-83) [facility] New patient,40-59min; chronic exacerbation, 2 stable chronic or 1 acute illness add add modifier 95 for video (do not use for phone, instead use 10131-76) [facility] New patient,40-59min; chronic exacerbation, 2 stable chronic or 1 acute illness add add modifier 95 for video (do not use for phone, instead use 71344-36) [facility] New patient,40-59min; chronic exacerbation, 2 stable chronic or 1 acute illness add add modifier 95 for video (do not use for phone, instead use 26800-00) [facility] [place] Estab. patient 30-39min; chronic exacerbation, 2 stable chronic or 1 acute illness add add modifier 95 for video, (do not use for phone, instead use 49135-42) [facility] [place] Essential (primary) hypertensionMixed hyperlipidemiaGastro-esophageal reflux disease [...] (do not use for phone, instead use 85163-24) [facility] Estab. patient 30-39min; chronic exacerbation, 2 stable chronic or 1 acute illness add add modifier 95 for video, (do not use for phone, instead use 43949-32) [facility] [place] Estab. patient 30-39min; chronic exacerbation, 2 stable chronic or 1 acute illness add add modifier 95 for video, (do not use for phone, instead use 43649-71) [facility] Estab. patient 30-39min; chronic exacerbation, 2 stable chronic or 1 acute illness add add modifier 95 for video, (do not use for phone, instead use 94907-61) [facility] [place] Estab. patient 30-39min; chronic exacerbation, 2 stable chronic or 1 acute illness add add modifier 95 for video, (do not use for phone, instead use 80468-21) [facility] [place]20[place] Vital Signs Date of Collection Vitals [...] (do not use for phone, instead use 90455-07) [address] 2022-08-11 No Data Available No Data Availa [...] Available Advance care planning discussed and documented advance care plan or surrogate decision-maker was documented in the medical record. (1123F) 1123F 2022-08-11 No Data Available No Data Availa ble Estab. patient 30-39min; chronic exacerbation, 2 stable chronic or 1 acute illness add add modifier 95 for video, (do not use for phone, instead use 34436-48) [address]1006 2023-06-04 No Data Available No Data Availa [...] modifier 95Advance care planning discussed and documented advance care plan or surrogate decision-maker was documented in the medical record. (1123F)Advance care planning discussed and documented in the medical record beneficiary/patient did not wish to or was unable to provide an advance care plan or name a surrogate decision-maker. (1124F)Continue to see PCP. Follow-up with [facility] as needed for any acute or disease [...] modifier 95Advance care planning discussed and documented advance care plan or surrogate decision-maker was documented in the medical record. (1123F)Continue to see PCP. Follow-up with [facility] as needed for any acute or disease [...] Health Concerns Date Concern 2023-06-04 Visit completed usin g audio/video. Patient/Guardian agreed to visit via telehealth. Today, patient has chief complaint of: follow up care and comprehensive review.Reviewed Allergies, Medications, Active Medical conditions, past medical/surgical history, Social history. 2023-06-04 Most recent hospital stay(s) or ER visit(s) and precipitating factors: 2023-06-04 Open HEDIS Measure del smith: 2023-06-04 Full Code - Sister i s DPOA - Lisy Lin, another proxy is friend and [employer] Ibrahima Ward
--- OUTSIDE RECORDS SUMMARY | 2024-10-07 08:29 | XMS_ITS | Clinical Summary ---
Author Organization [facility] [employer] Address [address] [facility] 7t [place] [address] Care Team Providers Care Paste Up Copy Camera Operator Name Role Phone Leora Mercado [place] Primary Care Provider [phone] Arin Reid MD Unavailable Kalyani Kilgore Unavailable Rayjune Unavailable Allergies Active Allergy Reactions Criticality Noted [...] For 7d 28 g 07/09/19 24 Active Blood Glucose Monitoring Suppl ([employer] Lite) w/Device kitIndications:E levated glucose Use to test blood sugar 1-3 times daily 1 kit 10/01/19 24 Active chlorthalidone (Hygroton) 25 MG tabletIndication s:Essential hypertension TAKE 1 TABLET BY MOUTH EVERY MORNING 90 tablet 2 03/07/20 24 Active Aspirin Low Dose 81 MG EC tabletIndication s:Cardiovascular event risk TAKE 1 TABLET BY MOUTH EVERY MORNING 90 tablet 2 03/07/20 24 Active FT Gas Relief Ultra Strength 180 [...] PAIN 60 capsule 1 05/21/19 25 Active atorvastatin (Lipitor) 40 MG tabletIndication s:Dyslipidemia TAKE 1 TABLET BY MOUTH AT BEDTIME 90 tablet 1 08/04/19 25 Active metFORMIN XR (Glucophage-XR) 500 MG 24 hr tabletIndication s:New onset type 2 diabetes mellitus (CMS/HCC) TAKE 1 TABLET BY MOUTH EVERY MORNING WITH MEALS DO NOT BREAK, CRUSH, DISSOLVE OR CHEW 90 tablet 08/18/19 25 Active Alcohol Swabs (Alcohol Prep) 70 % padsIndications: Elevated glucose USE DIRECTED THREE TIMES DAILY. 100 each 10/07/19 25 Active glucose blood (FREESTYLE LITE) test stripIndications :Elevated glucose USE DIRECTED TO TEST BLOOD SUGAR 1-3 TIMES EVERY DAY 100 strip 10/07/19 25 Active TRUEplus Lancets 33G miscIndications: Elevated glucose USE DIRECTED TO TEST BLOOD SUGAR THREE TIMES DAILY 100 each 10/07/19 25 Active FREESTYLE LITE test stripIndications :Elevated glucose Use to test blood sugar 1-3 times daily 100 each 12 10/01/19 24 025 Discontinued Lancets miscIndications: Elevated glucose Use to test blood sugar up to 3 times daily 100 each 10/01/19 24 025 Discontinued Alcohol Swabs 70 % padsIndications: Elevated glucose Use to clean skin 100 each 10/01/19 24 025 Discontinued Active Problems Problem Noted [...] Encounters Date Type Department Care Team Description 10/05/2024 Refill [facility] [address] [place] [address] Leora Mercado ANP Elevated glucose 09/14/2024 Telephone [facility] [address] [place] [address] Leora Mercado ANP Debbie 08/16/2024 Refill [facility] [address] [place] [address] Leora Mercado ANP New onset type 2 diabetes mellitus (CMS/HCC) 08/02/2024 Refill [facility] [address] [place] [address] IndianapolisSofía FNP Dyslipidemia 07/29/2024 Abstract [facility] [address] [place] [address] Leora Mercado ANP 07/22/2024 Results Follow-Up [facility] [address] [place] [address] Dashawn Farmer MD Hematoxylin and Eosin Stain 07/21/2024 1:15 PM EDT Office Visit [facility] [address] [place] [address] Leora Mercado ANP Essential hypertension (Primary Dx); New onset type 2 diabetes mellitus (CMS/HCC); Obstructive sleep apnea 07/21/2024 Travel 2024 Orders Only GENERIC EXTERNAL DATA DEPARTMENT Provider, Generic External Data 2024 Telephone [facility] [address] [place] [address] Carol Borden MA Chart Prep 07/19/2024 Orders Only [facility] External Provider, [facility] from Last 3 Months Immunizations Immunization Administration [...] 60 07/21/2024 1:17 PM EDT Temperature 36.2 C (97.1 F) 07/21/2024 1:17 PM EDT Respiratory Rate 20 07/21/2024 1:17 PM EDT Oxygen Saturation 99% 07/21/2024 1:17 PM EDT Inhaled Oxygen Concentration - - Weight 88 kg (194 lb) 07/21/2024 1:17 PM EDT Height 170.2 cm (5' 7 ) 07/21/2024 1:17 PM EDT Body Mass Index 30.38 07/21/2024 1:17 PM EDT Plan of Treatment Upcoming Encounters Date Type Department Care Team (Late st Contact Info) Description 12/02/2024 9:30 AM EDT Office Visit [facility] [address] [place] [address] Leora Mercado ANP [address] [place] [address] Health Maintenance Due Date Last Done Comments CT Colonography 1950 FIT DNA/Cologuard 1950 FIT 1950 FOBT 1950 Sigmoidoscopy 1950 Alcohol/Substance Use Screening 1964 Hepatitis C Screening 1970 Lipid Panel 05/24/2022 05/24/2021 SDOH Screening 04/06/2024 04/06/2023 Depression Screening 09/07/2024 09/08/2023, 09/08/19 Influenza Vaccine (#1) 2024 , 12/18/2022, 01/28/2021, Additional history exists Diabetes: Hemoglobin A1C 01/21/2025 025, 02/22/2024, 10/01/2023 COVID-19 Vaccine ( season) 2025 03/30/2023, 06/27/2021, 02/14/2021, Additional history exists Postponed from 11/08/2023 (Patient Refused) Diabetes: Urine Protein Screening 04/18/2025 04/18/2024, 11/28/2022 Diabetes: Foot Exam 07/21/2025 07/21/2024, 07/21/2024, 07/21/2024, Additional history exists Tobacco Screening 07/21/2025 07/21/2024 Eye Exam 04/28/2026 04/28/2024, 04/10, 04/28/2024, Additional history exists Colonoscopy 07/21/2027 2024 Colorectal Cancer Screening 07/21/2027 RSV Patients and Patients Aged 60 years or older (1 - 1-dose 75+ series) 07/21/2027 DTaP/Tdap/Td Vaccines (2 - Td or Tdap) 01/28/2031 01/28/2021 Zoster Vaccines Completed 08/26/2022, 06/24/2022 Pneumococcal Vaccine: 50+ Years Completed 12/18/2022, 09/11/2022 HIB Vaccines Aged Out No longer eligi [...] Procedure Name Priority Date/Time Associated Diagnosis Comments BD DEXA AXIAL Routine 07/29/2024 7:55 AM EDT History of smoking greater than 50 pack years At high risk for osteoporosis Bone disorder POCT GLYCATED HEMOGLOBIN, TOTAL Routine 07/21/2024 1:20 PM EDT New onset type 2 diabetes mellitus (CMS/HCC) POCT GLUCOSE Routine 07/21/2024 1:19 PM EDT New onset type 2 diabetes mellitus (CMS/HCC) HEMATOXYLIN AND EOSIN STAIN Routine 2024 9:06 AM EDT HM COLONOSCOPY Routine 2024 US RENAL BI Routine 07/19/2024 3:08 PM EDT ALBUMIN, RANDOM URINE W/CREATININE Routine 04/18/2024 1:30 PM EST Essential hypertension LIPID PANEL, STANDARD Routine 05/24/2021 11:33 AM EDT from Last 3 Months or Most Recently Relevant to Health Maintenance Results * BD DEXA Axial (07/29/2024 7:55 AM EDT) Anatomical Region Laterality Modality Body Radiographic Rose Mary ging 07/29/2024 7:55 AM EDT Narrative 07/29/2024 8:33 AM EDT [place] [address] [place], [place] [address] Mammography Report Signed Patient: Barrett Gutierrez MR#: [id number] : 1950 Acct:[id number] Age/Sex: 74 / M ADM Date: 07/29/24 Loc: MAMMO Attending Dr: Leora Mercado NP Ordering Physician: LEORA MERCADO NP Results: Date of Service: 07/29/24 Follow Up: Procedure(s): XR DEXA axial skeleton Accession Number(s): [id number] cc: LEORA MERCADO NP EXAMINATION: DXA BONE DENSITY AXIAL HISTORY: lifelong heavy smoker, > 100 PYH, very high risk for osteoporosis /M89.9 TECHNIQUE: iDevices Dual energy absorptiometry (DEXA) of the lumbar spine, total left hip, and femoral neck was performed. COMPARISON: There are no prior studies for comparison. FINDINGS: The bone mineral density of the lumbar spine is 1.434, corresponding to a T-score of 1.9, and a Z-score of 2.2. This is indicative of normal bone mineral density. The bone mineral density of the left total hip is 1.170, corresponding to a T-score of 0.5, and a Z-score of 1.1. This is indicative of normal bone mineral density. The bone mineral density of the left femoral neck is 0.952, corresponding to a T-score of -0.9, and a Z-score of 0.2. This is indicative of normal bone mineral density. MM/XR DEXA axial skeleton IMPRESSION: Based on bone mineral density, and according to World Health Organization (WHO) criteria, the diagnosis is consistent with normal bone mineral density. All bone density values are in grams per centimeter squared (g/cm2). Statistically, 68% of repeat scans fall within 1 SD (+/- 0.010 g/cm2 for AP spine L1-L4) and 1 SD (+/- 0.012 g/cm2 for femur total) FRAX is a trademark of the [employer]'s [employer] for Metabolic Bone Disease, a World Health Organization (WHO) Collaborating Center. Electronically signed by: Zachary Carreon MD 07/29/2024 08:30 AM EDT RP Dictated By: Zachary Carreon MD Signed By: <Electronically signed by Zachary Carreon MD in OV> 07/29/24 0830 DD/ 0755 TD/TT: 07/29/24 0810 Home Health Nurse: Procedure Note Donotuseinterpreter, Image - 07/29/2024 [facility] [address] [place] [address] Mammography Report Signed Patient: Barrett GutierrezMR#: [id number] : 1950cct:[id number] Age/Sex: 74 / MADM Date: 07/29/24 Loc: MAMMO Attending Dr: Leora Mercado NP Ordering Physician: LEORA MERCADO NPResults: Date of Service: 07/29/24Follow Up: Procedure(s): XR DEXA axial skeleton Accession Number(s): [id number] cc: LEORA MERCADO NP EXAMINATION: DXA BONE DENSITY AXIAL HISTORY: lifelong heavy smoker, > 100 PYH, very high risk for osteoporosis /M89.9 TECHNIQUE: [employer] Dual energy absorptiometry (DEXA) of the lumbar spine, total left hip, and femoral neck was performed. COMPARISON: There are no prior studies for comparison. FINDINGS: The bone mineral density of the lumbar spine is 1.434, corresponding to a T-score of 1.9, and a Z-score of 2.2. This is indicative of normal bone mineral density. The bone mineral density of the left total hip is 1.170, corresponding to a T-score of 0.5, and a Z-score of 1.1. This is indicative of normal bone mineral density. The bone mineral density of the left femoral neck is 0.952, corresponding to a T-score of -0.9, and a Z-score of 0.2. This is indicative of normal bone mineral density. MM/XR DEXA axial skeleton IMPRESSION: Based on bone mineral density, and according to World Health Organization (WHO) criteria, the diagnosis is consistent with normal bone mineral density. All bone density values are in grams per centimeter squared (g/cm2). Statistically, 68% of repeat scans fall within 1 SD (+/- 0.010 g/cm2 for AP spine L1-L4) and 1 SD (+/- 0.012 g/cm2 for femur total) FRAX is a trademark of the [employer]'s [employer] for Metabolic Bone Disease, a World Health Organization (WHO) Collaborating Center. Electronically signed by: Zachary Carreon MD 07/29/2024 08:30 AM EDT RP Dictated By: Zachary Carreon MD Signed By: <Electronically signed by Zachary Carreon MD in OV> 07/29/24 0830 DD/ 0755 TD/TT: 07/29/24 0810 Home Health Nurse: us Leora EUCEDA IMG DXA PROCEDURES Final Result * (ABNORMAL) POCT HGB A1C (07/21/2024 1:20 PM EDT) Hemoglobin A1C 6.9(A) 4.0 - 6.0 % QC Media Lot # [id number] Lot# Expiration Date Blood 07/21/2024 1:20 PM EDT us Leora EUCEDA POINT OF CARE TEST ENTER/EDIT OR DERABLES Final Result * POCT Glucose (07/21/2024 1:19 PM EDT) Glucose Blood, POC 143 60 - 200 mg/dL QC Media Lot # [id number] Lot# Expiration Date Blood Capillary blood specimen / Unknown 07/21/2024 1:19 PM EDT us Leora EUCEDA POINT OF CARE TEST ENTER/EDIT OR DERABLES Final Result * Hematoxylin and Eosin Stain (2024 9:06 AM EDT) 2024 9:06 AM EDT 2024 10:14 AM EDT [facility] - 07/21/2024 11:19 AM EDT ----- ------- Name: Riley HernandezBarrett Age/Sex: 74/M : 1950 Unit#: [id number] Attend Dr: Bam Beckford MD Re07/20/24 Status: [facility] Location: [facility] Disch: ----- ------- SPEC : [id number] RECD: 07/20/24-1014 STATUS: KALEB VANEGAS NUM: [id number] MIGUEL ANGEL: 07/20/24-[address] [facility] [address]: Bam Beckford MD ENTERED: 07/20/24-1023 SP TYPE: Surgical OTHR DR: Dashawn Tavarez MD ORDERED: HE Stain/3, Gross Micro L4 Diagnosis Colon, ascending, polyps: Tubular adenomas, two; negative for high-grade dysplasia and carcinoma. Clinical History Pre-Op Dx: Colon polyps Post-Op Dx: Colon polyps, diverticulosis, hemorrhoids Microscopic Description Microscopic sections reviewed. Material Received Ascending colon polyps Gross Description Received in formalin labeled ascending colon polyps are multiple de la torre-pink irregular, rectangular and papular tissue fragments ranging from 0.15-0.35 cm and aggregating 1.4 x 1.2 x 0.3 cm, submitted in toto in a cassette labeled A. CEDS Copies To: Dashawn Tavarez MD [address] [address] Bam Beckford MD [facility] [address] [place] [id number] ----- ------- Signed (signature on file) Lindsey Osage 07/21/24 1119 ----- ------- END OF REPORT us Generic External Data Provider LAB BLOOD ORDERAB LES Final Result [facility] [address] [place] [address] [phone] * (ABNORMAL) Colonoscopy (2024) Colonoscopy Abnormal( A) Normal Comment:tubular denomas 2024 us Historical Provider HEALTH MAINTENANCE Final Result * US RENAL BI (07/19/2024 3:08 PM EDT) Anatomical Region Laterality Modality Abdomen Ultrasound 07/19/2024 3:08 PM EDT Narrative 07/19/2024 3:50 PM EDT [address] [address] Ultrasound Report Signed Patient: Barrett Gutierrez MR#: [id number] : 1950 Acct:[id number] Age/Sex: 73 / M ADM Date: 07/19/24 Loc: HO.US Attending Dr: Arin Campo MD Ordering Physician: Arin Campo MD Date of Service: 07/19/24 Procedure(s): US renal BI Accession Number(s): [id number] cc: Arin Campo MD; LEORA MERCADO NP [...] 07/19/24 1547 DD/ 1508 TD/TT: 07/19/24 1512 Home Health Nurse: Procedure Note Donotuseinterpreter, Image - 07/19/[address] [address] Ultrasound Report Signed Patient: aBrrett GutierrezMR#: [id number] : 1950cct:[id number] Age/Sex: 73 / MADM Date: 07/19/24 Loc: .US Attending Dr: Arin Campo MD Ordering Physician: Arin Campo MD Date of Service: 07/19/24 Procedure(s): US renal BI Accession Number(s): [id number] cc: Arin Campo MD; LEORA MERCADO NP [...] Zachary Carreon MD 07/19/2024 03:47 PM EDT Dictated By: Zachary Carreon MD Signed By: <Electronically signed by Zachary Carreon MD in OV> 07/19/24 1547 DD/ 1508 TD/TT: 07/19/24 1512 Home Health Nurse: [facility] External Provider IMG US PROCEDURES Final Result * (ABNORMAL) Albumin, Random Urine W/Creatinine (04/18/2024 1:30 PM EST) Creatinine, Urine 111.69 mg/dL [facility] Microalbumin Urine 40.0 mg/L [facility] Microalbum Creatinine Ratio Ur 35.8(H) <30 ug/mg cr [facility] Comment:Albumin/Creatinine R atio Reference Ranges: Normal: < 30 ug/mg creatinine Microalbuminuria: 30 - 300 ug/mg creatinineClinical Albuminuria: > 300 ug/mg creatinine Urine 04/18/2024 1:30 PM EST 04/18/2024 4:59 PM EST us Leora Mercado ANP LAB URINE ORDERABLES Final Resul t [facility] [address] [place] [phone] * (ABNORMAL) LIPID PANEL, STANDARD (05/24/2021 11:33 AM EDT) Chol/HDLC Ratio 3.6 <5.0 (calc) [facility] Cholesterol, Total 194 <200 mg/dL [facility] HDL Cholesterol 54 > OR = 40 mg/dL [facility] LDL Cholesterol 118(H) mg/dL (calc) [facility] Comment: Reference range: <100 Desirable range <100 mg/dL for primary prevention; <70 mg/dL for patients with CHD or diabetic patients with > or = 2 CHD risk factors. LDL-C is now calculated using the Dave-Devan calculation, which is a validated novel method providing better accuracy than the Friedewald equation in the estimation of LDL-C. Dave EUCEDA et al. JB. 2013;310(19): 8715-4609 (http://education.Voice Assist.COINTERRA/faq/TZX416) Non-HDL Cholesterol 140(H) <130 mg/dL (calc) [facility] Comment: For patients with diabetes plus 1 major ASCVD risk factor, treating to a non-HDL-C goal of <100 mg/dL (LDL-C of <70 mg/dL) is considered a therapeutic option. Triglycerides 111 <150 mg/dL [facility] 05/24/2021 11:3 3 AM EDT us Leora Mercado ANP LAB BLOOD ORDERABLES Final Resul t [facility] [address] from Last 3 Months or Most Recently Relevant to Health Maintenance Insurance [id number] [employer] ([facility]) FORMERLY [facility] S[facility] OPTIONS ([facility]) Care Teams Paste Up Copy Camera Operator Relationship Specialty Start Date End Date Leora Mercado ANP [address] [place] [phone] PCP - General Family Medicine 05/06/21 Arin Reid MD [address] [place] [address] Urology 02/22/24 Kalyani Kilgore [address] [place] [address] Cardiology 02/22/24 Alessandra Ray [address] [place] [address] Gastroenterology 02/22/24
--- NOTE | 2024-10-07 09:00 | A.OFFVIS_ITS ---
Intake Visit Reasons: follow up/labs Intake Note: Patient is present for follow up/labs * Renal US 07/19 * 06/24 Total PSA:3.66 Urology Medication:TAMSULOSIN, FINASTERIDE Antibiotic Allergy:NONE Blood Thinner:ASPIRIN PVR:51ml Customer Service Supervisor Required: Yes Allergies cortisone Allergy (Verified 10/07/24 09:02) Itching Medication List - Last Reconciled 10/07/24 by Arin Campo MD aspirin (Adult Aspirin Regimen) 81 mg PO DAILY atorvastatin 40 mg PO DAILY celecoxib 100 mg PO BID PRN chlorthalidone 25 mg PO DAILY cholecalciferol (vitamin D3) 1,250 mcg PO QWEEK 12 weeks finasteride (Proscar) 5 mg PO DAILY 90 days lisinopril 10 mg PO DAILY 90 days nitroglycerin 0.3 mg sublingual Q5M PRN omeprazole 40 mg PO QAM simethicone (Gas Relief (simethicone)) 180 mg PO QID tamsulosin 0.4 mg PO BEDTIME HPI Comments Details: 10/07/24-- History of Present Illness - The patient is a 74-year-old male presenting for follow-up of elevated PSA and prostate biopsy results. - The patient has been followed for elevated PSA levels, with a prostate biopsy performed on July 28, 2022, revealing atypical cells. - He is currently on finasteride and tamsulosin for management. - Blood work repeated in June showed normal results, with a PSA level of 3.66, - Labs: Blood work in June 14, 2024 showed normal results, PSA level was 3.66. - Diagnostics: Prostate biopsy on July 28, 2022, Atypical small acinar proliferation worrisome for 3+3=6 adenocarcinoma, Plan Path results Atypical small acinar proliferation worrisome for 3+3=6 adenocarcinoma, will treat as Active surveillance for prostate cancer. Continue Proscar 05 mg and tamsulosin - Repeat PSA and MRI in 8 months 12/17/23-Barrett is a 73-year-old male who presents to the office for follow up PSA results. LV-06/18/23. 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 PSA -06/13/23-1.59. He is on tamsulosin and proscar, fu PSA- 10/01/23--2.08 ng/mL discussed. Plan to continue to monitor PSA's. 03/21/22--Barrett is a patient of Elizabeth Gaona NP, here for FU for microscopic hematuria evaluation. Office visit-12/25/21- He states he had an elevated PSA in the past. He forgot to have the PSA done. He is up 2 times at night to urinate. He feels that he empties his bladder adequately. He denies dysuria or gross hematuria. I have reviewed the CT urogram -02/26/22 results with the patient-- urinary tract within normal limits. ---Evaluation today: Urinalysis persistent microscopic hematuria, office cystoscopy pain mild prostatic enlargement, no suspicious bladder lesions. Plan Flomax daily, reorder PSA lab draw our . 06/12/2022--The patient is a [place] speaking male. 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 The patient has history of elevated PSA. The patient had prostate biopsy few years ago. The patient takes aspirin 81 mg QD. Discussed prostate biopsy vs repeat PSA testing in three months. Contributing factors leading to elevated PSA were discussed with the patient. Evaluation today: Blood:25 Demarco/uL, leukocytes: negative. PSA results reviewed?06/04/2022?4.91. Plan:Elevated PSA. The patient agreed for prostate biopsy. Advised to stop aspirin two weeks before the procedure for reducing the chances of bleeding. Valium to be taken in the morning of the procedure was ordered. BPH. Cont. Flomax 08/21/22-- The patient is a [place]arag[place] speaking male. 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 Atypical small acinar proliferation worrisome for 3+3=6 adenocarcinoma at the left mid medical and atypical small acinar proliferation in the left lateral apex. PSA results reviewed--06/04/22--4.91. Evaluation today-- Blood 10 Demarco/uL, leukocytes: negative. Bladder scan PVR: 0 mL. In discussion with the patient today I explained that there are two area where are atypical cells and in one area the atypical cells are suspicious for low grade cancer. At this time it recommend to watch him closely with active surveillance as recommended by the [place] [employer]. I discussed that treatment for prostate cancer including to radical prostatectomy and radiations but that also carries risks and of side effects which include but not limited to urinary incontinence and erectile dysfunction and based on his biopsy results active surveillance would be recommended. [facility] Medical History Prostate cancer HTN (hypertension) High cholesterol Severe obstructive sleep apnea Personal history of nicotine dependence GERD (gastroesophageal reflux disease) Tubular adenoma of colon BPH associated with nocturia Depression Arthritis Shoulder pain, left Surgical History History of colonoscopy History of prostate biopsy History of esophagogastroduodenoscopy (EGD) History of inguinal hernia repair Family History Mother Asthma Alzheimer disease Cancer Father Asthma Brother Cancer Father Heart disease Social History Household Members: None Household Members Other:: 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 Housing: Apartment Are you a primary workforce investment act career manager to a significant other at home: No Do you presently have visiting nurse or other home services: Yes (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) Alcohol intake: former Patient Tobacco Use Status: Former Tobacco user Tobacco use type: Cigarette Years Smoked: (onset 18yo, 1/4-1/2ppd x 51yrs, 20pyh - quit 2020) Current occupational status: disabled Current occupation: rt handed Review of Systems Const All systems reviewed & are unremarkable except as noted in HPI and below Reports no additional complaints Eyes Reports no additional complaints ENT Reports no additional complaints Card Reports no additional complaints Resp Reports no additional complaints GI Reports no additional complaints Reports as per HPI Musc Reports no additional complaints Skin/Breast Reports system reviewed and no additional complaints, except as documented Neuro Reports no additional complaints Psych Reports no additional complaints Endo Reports no additional complaints Pipo/Lymph Reports no additional complaints Aller/Immun Reports no additional complaints Assessment & Plan Assessment & Plan (1) Elevated PSA: Code(s): R97.20 - Elevated prostate specific antigen [PSA] Category: Medical (2) Atypical small acinar proliferation of prostate: Comment: Path results 07/28/22-Atypical small acinar proliferation worrisome for 3+3=6 adenocarcinoma Code(s): N42.32 - Atypical small acinar proliferation of prostate Category: Medical (3) BPH associated with nocturia: Code(s): N40.1 - Benign prostatic hyperplasia with lower urinary tract symptoms; R35.1 - Nocturia Category: Medical Plan Path results Atypical small acinar proliferation worrisome for 3+3=6 adenocarcinoma, will treat as Active surveillance for prostate cancer. Continue Proscar 05 mg and tamsulosin - Repeat PSA and MRI in 8 months Orders: Orders PSA,Total (Free>4and<10) 8 Months N42.32 - Atypical small acinar proliferation of prostate, R97.20 - Elevated prostate specific antigen [PSA] MR Prostate wo/w con 8 Months N42.32 - Atypical small acinar proliferation of prostate Medications: Refilled finasteride (Proscar) 5 mg PO DAILY 90 tabs 3RF 90 days C61 - Malignant neoplasm of prostate Coding Level of Care Code Est Pt Level 4 (36396) Complex EM visit Add On G2211 Diagnoses Elevated PSA R97.20 Atypical small acinar proliferation of prostate N42.32 BPH associated with nocturia N40.1; R35.1
== END 2024-10-07 09:10 | disposition home or self-care (01) ==
LOC: HO.HUSH 08:20
PROVIDERS: PCP Nurse Practitioner Primary Care; Visit Provider Urology
DX: R97.20 Elevated prostate specific antigen [PSA] (principal); N42.32 Atypical small acinar proliferation of prostate; N40.1 Benign prostatic hyperplasia with lower urinary tract symptoms; R35.1 Nocturia; Z13.9 Encounter for screening, unspecified
CPT/HCPCS: 99214; G2211

== ENCOUNTER → 2024-10-07 08:19 | Outpatient (BNVA) | payer OTHER, SELFPAY | PROVIDERS: PCP Nurse Practitioner Primary Care; Visit Provider Urology | DX: Z71.2 Person consulting for explanation of examination or test findings (principal); R97.20 Elevated prostate specific antigen [PSA]; N42.32 Atypical small acinar proliferation of prostate; N40.1 Benign prostatic hyperplasia with lower urinary tract symptoms; R35.1 Nocturia | CPT/HCPCS: 81003; 99212 ==

== ENCOUNTER 2024-11-14 10:38 | Outpatient (AMB) | payer OTHER, SELFPAY ==
--- NOTE | 2024-11-14 10:46 | MHC.OFFVIS ---
Vital Signs 11/14/24 10:47 Height 5 ft 6 in Weight 193 lb BMI 31.1 BP 120/80 Blood Pressure Location Lt brachial Position Sitting Pulse 66 Pulse Source Pulse Oximeter Pulse Oximetry (%) 96 Oxygen Delivery Method Room Air Intake Visit Reasons: 6 mo follow up Intake Note: Patient presents follow up ELISSA. Patient non compliant since 06/2023 Education Research Analyst Required: No Accompanied by: Self / Same As Patient Allergies cortisone Allergy (Verified 11/14/24 10:47) Itching HPI Comments Details: 74-year-old male presents for follow-up of sleep apnea with an inability to use PAP therapy. The patient reports that he believes he received an appointment from the ENT office to which he was referred during his last appointment here; however, he is unsure of the date or location. He states his sleep and daytime energy levels continue to be variable. He continues to endorse bothersome snoring. He states he is prone to mild headaches and joint pain at night. He is not interested in taking prescription medications for gaze, as he is already on so many medications. After reviewing the interval lab results, shown below, which indicated vitamin D deficiency, the patient was started on vitamin D supplementation. He has not yet had follow-up vitamin D level labs done. Interval 05/24/2024 lab work showed: Ferritin 315 is mildly elevated BUN/creat 18/1.05 AST/ALT 49/99 increased from baseline in November 2022 Vitamin D 14 is low Vitamin B12 389 Folate 11.3 TSH 0.82 Prior sleep studies 09/12/2021 in-lab PSG revealed AHI 28 per hour, REM AHI 55 per hour, O2 karen 88%, periodic limb movement of sleep 66 per hour and PLMS arousal index 3.3 per hour. 06/18/2022 in-lab PAP titration study showed optimization of sleep apnea and oxygenation level at CPAP 9 cm H2O, with periodic limb movement of sleep index 38 per hour and PLMS arousal index 6 per hour. [facility] Medical History Prostate cancer HTN (hypertension) High cholesterol Severe obstructive sleep apnea Personal history of nicotine dependence GERD (gastroesophageal reflux disease) Tubular adenoma of colon BPH associated with nocturia Depression Arthritis Shoulder pain, left Surgical History (Reviewed 11/14/24 @ 10:47 by Kierra Lin [facility]) History of colonoscopy History of prostate biopsy History of esophagogastroduodenoscopy (EGD) History of inguinal hernia repair Family History Mother Asthma Alzheimer disease Cancer Father Asthma Brother Cancer Father Heart disease Social History Household Members: None Household Members Other:: 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 Housing: Apartment Are you a primary direct care worker to a significant other at home: No Do you presently have visiting nurse or other home services: Yes (WAIST CUTTER) Alcohol intake: former Patient Tobacco Use Status: Former Tobacco user Tobacco use type: Cigarette Years Smoked: (onset 18yo, 1/-1/2ppd x 51yrs, 20pyh - quit 2020) Current occupational status: disabled Current occupation: rt handed Physical Exam Vital Signs: Last Vital Signs Pulse 66 11/14/24 10:47 BP 120/80 11/14/24 10:47 Pulse Ox 96 11/14/24 10:47 Oxygen Delivery Method Room Air 11/14/24 10:47 BMI result Body Mass Index 31.1 Const General: no acute distress Orientation/consciousness: patient oriented x3 HEENT Other: Mallampati stage 4 Resp Effort & Inspection: normal respiratory effort and able to speak in complete sentences Neuro General: patient oriented x3 Psych Mental Status: mental status grossly normal Speech and movement: Clear speech present Attitude: cooperative Assessment & Plan Assessment & Plan (1) Loud snoring: Code(s): R06.83 - Snoring Category: Medical (2) Severe obstructive sleep apnea: Code(s): G47.33 - Obstructive sleep apnea (adult) (pediatric) Category: Medical (3) Nocturnal headaches: Code(s): R51.9 - Headache, unspecified Category: Medical Plan Hold CPAP 9 cm H2O, as the patient has not tolerated this and feels that he can not use CPAP. We will follow up on the previous ENT referral. Continue vitamin D supplementation. Recheck vitamin D next scheduled lab work. Continue to monitor RLS/Periodic limb movement of sleep (PLMS) symptoms. Try magnesium 400 mg daily at bedtime; this may help alleviate nocturnal headaches and body pains. Will follow-up upon review of above and patient to follow-up in clinic in 6 months or sooner prn. Medications: New magnesium oxide may hold for loose stools 400 mg PO BEDTIME 90 tabs 3RF 90 days Coding Level of Care Code Est Pt Level 3 (41993) Diagnoses Loud snoring R06.83 Severe obstructive sleep apnea G47.33 Nocturnal headaches R51.9
[2024-11-14 10:47] VITALS: BP 120/80; PULSE 66; O2SAT 96; BMI 31.1
--- OUTSIDE RECORDS SUMMARY | 2024-11-14 12:50 | XMS_ITS | Encounter Summary ---
Author Organization [employer] Address [address] [facility] 7t [place] [address] Care Team Providers Care Studio Model Name Role Phone Elizabeth Gaona Primary Care Provider [phone] Arin Reid MD Unavailable Kalyani Kilgore Unavailable Flor June Unavailable Encounter Details Date Type Department Care Team (Late st Contact Info) Description 06/10/2022 Orders Only [facility] [address] [place] [address] [phone] Elizabeth Gaona ANP [address] [place], [place] [phone] Social History Tobacco Use Types Packs/Day Years [...] Description 12/02/2024 9:30 AM EDT Office Visit [facility] [address] [place] [address] [phone] Elizabeth Gaona ANP [address] [place] [address] documented as of this encounter Visit Diagnoses Not on filedocumented in this encounter Care Teams Studio Model Relationship Specialty Start Date End Date Elizabeth Gaona ANP [address] [place] [address] PCP - General Family Medicine 05/06/21 Arin Reid MD [address] [place] [address] Urology 02/22/24 Kalyani Kilgore [address] [place] [address] Cardiology 02/22/24 Alessandra Ray [address] [place] [address] Gastroenterology 02/22/24 documented as of this encounter
--- OUTSIDE RECORDS SUMMARY | 2024-11-14 12:50 | XMS_ITS | Clinical Summary ---
Author Organization [employer] Address [address] [facility] 7t [place] [address] Care Team Providers Care Director Of Retail Marketing Name Role Phone Elizabeth Gaona KINSEY Primary Care Provider [phone] Arin Reid MD Unavailable Kalyani Kilgore Unavailable [...] daily. For 7d 28 g 4 Active Blood Glucose Monitoring Suppl (Superb Lite) w/Device kitIndications:El evated glucose Use to test blood sugar 1-3 times daily 1 kit 4 Active chlorthalidone (Hygroton) 25 MG tabletIndications :Essential hypertension TAKE 1 TABLET BY MOUTH EVERY MORNING 90 tablet 2 4 Active Aspirin Low Dose 81 MG EC tabletIndications :Cardiovascular event risk TAKE 1 TABLET BY MOUTH EVERY MORNING 90 tablet 2 4 Active FT Gas Relief Ultra Strength 180 [...] FOR PAIN 60 capsule 1 5 Active atorvastatin (Lipitor) 40 MG tabletIndications :Dyslipidemia TAKE 1 TABLET BY MOUTH AT BEDTIME 90 tablet 1 5 Active metFORMIN XR (Glucophage-XR) 500 MG 24 hr tabletIndications :New onset type 2 diabetes mellitus (CMS/HCC) TAKE 1 TABLET BY MOUTH EVERY MORNING WITH MEALS DO NOT BREAK, CRUSH, DISSOLVE OR CHEW 90 tablet 5 Active Alcohol Swabs (Alcohol Prep) 70 % padsIndications:E levated glucose USE DIRECTED THREE TIMES DAILY. 100 each 11 5 Active glucose blood (FREESTYLE LITE) test stripIndications: Elevated glucose USE DIRECTED TO TEST BLOOD SUGAR 1-3 TIMES EVERY DAY 100 strip 11 5 Active TRUEplus Lancets 33G miscIndications:E levated glucose USE DIRECTED TO TEST BLOOD SUGAR THREE TIMES DAILY 100 each 11 5 Active Active Problems Problem Noted Date [...] Type Department Care Team Description 10/05/2024 Refill [facility] [address] [place] [address] Elizabeth Gaona ANP Elevated glucose 09/14/2024 Telephone [facility] [address] [place] [address] Elizabeth Gaona ANP Debbie recall 08/16/2024 Refill [facility] [address] [place] [address] Elizabeth Gaona ANP New onset type 2 diabetes mellitus (CMS/HCC) from Last 3 Months Immunizations Immunization Administration [...] Description 12/02/2024 9:30 AM EDT Office Visit [facility] [address] [place] [address] Elizabeth Gaona, ANP [address] [place], [place] [phone] Health Maintenance Due Date Last Done Comments CT Colonography 1952 FIT DNA/Cologuard 1952 FIT 1952 FOBT 1952 Sigmoidoscopy 1952 Alcohol/Substance Use Screening 1964 Hepatitis C Screening 1970 RSV Patients and Patients Aged 60 years or older (1 - Risk 60-74 years 1-dose series) 2012 Lipid Panel 05/24/2022 05/24/2021 SDOH Screening 04/06/2024 04/06/2023 Depression Screening 09/07/2024 09/08/2023, 09/08/19 24 COVID-19 Vaccine ( season) 2024 03/30/2023, 06/27/2021, 02/14/2021, Additional history exists Influenza Vaccine (#1) 2024 , 12/18/2022, 01/28/2021, Additional history exists Diabetes: Hemoglobin A1C 01/21/2025 025, 02/22/2024, 10/01/2023 Diabetes: Urine Protein Screening 04/18/2025 04/18/2024, 11/28/2022 Diabetes: Foot Exam 07/21/2025 07/21/2024, 07/21/2024, 07/21/2024, Additional history exists Tobacco Screening 07/21/2025 07/21/2024 Eye Exam 04/28/2026 04/28/2024, 04/10, 04/28/2024, Additional history exists Colonoscopy 07/21/2027 2024 Colorectal Cancer Screening 07/21/2027 DTaP/Tdap/Td Vaccines (2 - Td or [...] New onset type 2 diabetes mellitus (CMS/HCC) HM COLONOSCOPY Routine 2024 ALBUMIN, RANDOM URINE W/CREATININE Routine 04/18/2024 1:30 PM EST Essential hypertension LIPID PANEL, STANDARD Routine 05/24/2021 11:33 AM EDT from Last 3 Months or Most Recently Relevant to Health Maintenance Results * (ABNORMAL) POCT HGB A1C (07/21/2024 1:20 PM EDT) Hemoglobin A1C 6.9(A) 4.0 - 6.0 % QC Media Lot # [id number] Lot# Expiration Date ,225 Blood 07/21/2024 1:20 PM EDT Elizabeth Gaona ANP POINT OF CARE TEST ENTER/EDIT OR DERABLES Final Result * (ABNORMAL) Hm Colonoscopy (2024) Pathologist [facility] Colonoscopy Abnormal( A) Normal Comment:tubular denomas 2024 Historical Provider MD HEALTH MAINTENANCE Final Result * (ABNORMAL) Albumin, Random Urine W/Creatinine (04/18/2024 1:30 PM EST) Pathologist [facility] Creatinine, Urine 111.69 mg/dL [facility] Microalbumin Urine 40.0 mg/L [facility] Microalbum Creatinine Ratio Ur 35.8(H) <30 ug/mg cr [facility] Comment:Albumin/Creatinine R atio Reference Ranges: Normal: < 30 ug/mg creatinine Microalbuminuria: 30 - 300 ug/mg creatinineClinical Albuminuria: > 300 ug/mg creatinine Urine 04/18/2024 1:30 PM EST 04/18/2024 4:59 PM EST Elizabeth Gaona ANP LAB URINE ORDERABLES Final Resul t [facility] [address] [place] [phone] * (ABNORMAL) LIPID PANEL, STANDARD (05/24/2021 [...] factors. LDL-C is now calculated using the Almas calculation, which is a validated novel method providing better accuracy than the Friedewald equation in the estimation of LDL-C. Dave EUCEDA et al. JB. 2013;310(19): 1529-1891 (http://education.24 Quan.com/faq/DMT743) Non-HDL Cholesterol 140(H) <130 mg/dL (calc) [facility] Comment: For patients with diabetes plus 1 major ASCVD risk factor, treating to a non-HDL-C goal of <100 mg/dL (LDL-C of <70 mg/dL) is considered a therapeutic option. Triglycerides 111 <150 mg/dL [facility] 05/24/2021 11:3 3 AM EDT us [facility] LAB BLOOD ORDERABLES Final Resul t [facility] [address] from Last 3 Months or Most Recently Relevant to Health Maintenance Insurance [id number] ([facility] PRIYA SAVAGE [id number] [facility] ([facility]) PRIYA SAVAGE [id number] Care Teams Director Of Retail Marketing Relationship Specialty Start Date End Date Elizabeth Gaona ANP [address] [place] [phone] PCP - General Family Medicine 05/06/21 Arin Reid MD [address] [place] [address] Urology 02/22/24 Kalyani Kilgore [address] [place] [address] Cardiology 02/22/[address] [place] [address] Gastroenterology 02/22/24
--- OUTSIDE RECORDS SUMMARY | 2024-11-14 12:50 | XMS_ITS | Encounter Summary ---
Author Organization [employer] Address [address] [facility] [address]t [place] [address] Care Team Providers Care Product Communications Manager Name Role Phone Elizabeth Gaona Primary Care Provider Arin Reid MD Unavailable Kalyani Kilgore Unavailable Flor June Unavailable Reason for Visit * Reason Onset Date Comments Nurse Triage 07/10/2023 Encounter Details Date Type Department Care Team (Late st Contact Info) Description 07/10/2023 Telephone [facility] [address] [place], [place] [phone] Elizabeth Gaona ANP [address] [place], [place] [phone] Nurse Triage Social History Tobacco Use Types [...] pt to triage, spoke to pt through [employer] land title examiner. pt states seen ER today (07/09) for [...] > 50 years * No doctor (or PRINCIPAL RESEARCH ECONOMIST/PA) exam for rectal bleeding in past year [...] for follow up Please contact pt at [phone] documented in this encounter Plan of Treatment Upcoming Encounters Date Type Department Care Team (Late st Contact Info) Description 12/02/2024 9:30 AM EDT Office Visit [facility] [address] [place] [address] Elizabeth Gaona ANP [address] [place] [address] documented as of this encounter Visit Diagnoses Not on filedocumented in this encounter Care Teams Product Communications Manager Relationship Specialty Start Date End Date Elizabeth Gaona ANP [address] [place] [address] PCP - General Family Medicine 05/06/21 Arin Reid MD [address] [place] [address] Urology 02/22/24 Kalyani Kilgore [address] [place] [address] Cardiology 02/22/24 Alessandra Ray [address] [place] [address] Gastroenterology 02/22/24 documented as of this encounter
--- OUTSIDE RECORDS SUMMARY | 2024-11-14 12:50 | XMS_ITS ---
Author Name Sol BANKS, Mr. Darryl Eason Address [address] [place] [address] Phone [phone] [facility] Care Team Providers Care Lunch Truck Operator Name Role Phone Chris Horton Unavailable [phone] Arin Sousa Unavailable LEORA MERCADO Unavailable [phone] Reason for Referral Not Available Allergies, adverse [...] (do not use for phone, instead use [id number]) [facility] Essential (primary) hypertensionMixed hyperlipidemiaGastro-esophageal reflux disease without esophagitisAngina pectoris, unspecifiedMajor depressive disorder, single episode, in full remission New patient,40-59min; chronic exacerbation, 2 stable chronic or 1 acute illness add add modifier 95 for video (do not use for phone, instead use 03913-85) [facility] New patient,40-59min; chronic exacerbation, 2 stable chronic or 1 acute illness add add modifier 95 for video (do not use for phone, instead use 31861-55) [facility] New patient,40-59min; chronic exacerbation, 2 stable chronic or 1 acute illness add add modifier 95 for video (do not use for phone, instead use 79950-48) [facility] New patient,40-59min; chronic exacerbation, 2 stable chronic or 1 acute illness add add modifier 95 for video (do not use for phone, instead use 69637-34) [facility] New patient,40-59min; chronic exacerbation, 2 stable chronic or 1 acute illness add add modifier 95 for video (do not use for phone, instead use 93614-53) [facility] New patient,40-59min; chronic exacerbation, 2 stable chronic or 1 acute illness add add modifier 95 for video (do not use for phone, instead use 40954-96) [facility] New patient,40-59min; chronic exacerbation, 2 stable chronic or 1 acute illness add add modifier 95 for video (do not use for phone, instead use 09558-69) [facility] New patient,40-59min; chronic exacerbation, 2 stable chronic or 1 acute illness add add modifier 95 for video (do not use for phone, instead use 39320-63) [facility] New patient,40-59min; chronic exacerbation, 2 stable chronic or 1 acute illness add add modifier 95 for video (do not use for phone, instead use 24286-53) [facility] [place] Estab. patient 30-39min; chronic exacerbation, 2 stable chronic or 1 acute illness add add modifier 95 for video, (do not use for phone, instead use 97407-27) [facility] [place] 06[place]04/2023 Essential (primary) hypertensionMixed hyperlipidemiaGastro-esophageal reflux disease [...] (do not use for phone, instead use 07662-35) [facility] Estab. patient 30-39min; chronic exacerbation, 2 stable chronic or 1 acute illness add add modifier 95 for video, (do not use for phone, instead use 23104-91) [facility] [place] 06[place]04[place]2023 Estab. patient 30-39min; chronic exacerbation, 2 stable chronic or 1 acute illness add add modifier 95 for video, (do not use for phone, instead use 26371-24) [facility] 06[place]/2023 Estab. patient 30-39min; chronic exacerbation, 2 stable chronic or 1 acute illness add add modifier 95 for video, (do not use for phone, instead use 10956-31) [facility] [place] 06[place]04/2023 Estab. patient 30-39min; chronic exacerbation, 2 stable chronic or 1 acute illness add add modifier 95 for video, (do not use for phone, instead use 18091-21) [facility] 06[place]04/2023 Vital Signs Date of Collection Vitals [...] (do not use for phone, instead use 29644-32) [id number] 2022-08-11 No Data Available No Data Availa [...] (do not use for phone, instead use 30731-87) [id number] 2023-06-04 No Data Available No Data Availa [...] Lisy Lin, another proxy is friend and COOK CHILL TECHNICIAN Ibrahima Ward
== END 2024-11-14 11:37 | disposition home or self-care (01) ==
LOC: HO.HSMS 10:39
PROVIDERS: PCP Internal Medicine; Visit Provider Nurse Practitioner Family
DX: R06.83 Snoring (principal); G47.33 Obstructive sleep apnea (adult) (pediatric); R51.9 Headache, unspecified
CPT/HCPCS: 99213

== ENCOUNTER → 2024-11-14 10:38 | Outpatient (BNVA) | payer OTHER, SELFPAY | PROVIDERS: PCP Internal Medicine; Visit Provider Nurse Practitioner Family | DX: G47.33 Obstructive sleep apnea (adult) (pediatric) (principal); R06.83 Snoring; R51.9 Headache, unspecified; E55.9 Vitamin D deficiency, unspecified; R25.2 Cramp and spasm | CPT/HCPCS: 99212 ==

== ENCOUNTER 2024-12-02 11:29 | Emergency (ER) | payer OTHER, SELFPAY ==
--- NOTE | ~2024-12-02 | XR_ITS ---
EXAMINATION: XR CHEST CLINICAL INFORMATION: CP COMPARISON: 06/25/2021 TECHNIQUE: 2 views of the chest were obtained. FINDINGS: The cardiac, hilar, and mediastinal contours are normal. The lungs are clear bilaterally. There is no pneumothorax or pleural effusion. There is no focal osseous or soft tissue abnormality. XR/XR chest 2V IMPRESSION: No active pulmonary disease. Electronically signed by: Erich Hendricks MD 12/02/2024 01:46 PM EDT
--- OUTSIDE RECORDS SUMMARY | 2024-12-02 09:30 | XMS_ITS | Encounter Summary ---
Author Organization [employer] Address [address] [facility] 7[address] [place] [address] Care Team Providers Care Line Maintenance Name Role Phone Elizabeth Gaona Primary Care Provider [phone] Arin Reid MD Unavailable Kalyani Kilgore Unavailable Flor June Unavailable Reason for Visit * Reason Comments Follow-up Hypertension Diabetes Encounter Details Date Type Department Care Team (Late st Contact Info) Description 12/02/2024 9:30 AM EDT Office Visit [facility] [address] [place], [place] [phone] Elizabeth Gaona ANP [address] [place], [place] [phone] Hypertension associated with diabetes (CMS/HCC) (Primary Dx); Chest pain, unspecified type; Obstructive sleep apnea; Encounter for immunization Social History Tobacco Use Types Packs/Day Years Used Date Smoking Tobacco: Former Cigarettes Smokeless Tobacco: Never Tobacco Cessation:Counseling Given: Not Answered Alcohol Use Standard Drinks/Week Comments Yes 0 (1 standard drink = 0.6 oz pur e alcohol) Depression Answer Date Recorded Patient Health Questionnaire-9 Score 8 12/02/2024 Patient Health Questionnaire-9 Score 8 12/02/2024 Last PHQ-9: Questionnaire Data Not on file 0 12/02/2024 Housing Stability Answer Date Recorded What is your housing situation today? I have nicole hawkins 11/25/[address] you li ve. Do you have problems with any of the following? None of the above 11/25/2024 Food Insecurity Answer Date Recorded Within the past 12 months, y ou worried that your food would run out before you got money to buy more: Sometimes True 2024 Within the past 12 months,th e food you bought just didn't last and you didn't have enough money to get more: Sometimes True 11/25/2024 Transportation Answer Date Recorded In the past 12 months, has l ack of transportation kept you from medical appts, meetings, work or from getting things needed for daily living? No 11/25/2024 Utilities Answer Date Recorded In the past 12 months, has t he electric, gas, oil or water company threatened to shut off services in your home? No 11/25/2024 Depression Answer Date Recorded Patient Health Questionnaire-2 Score 1 12/02/2024 Internet Access Answer Date Recorded Internet Access Q1 Yes 11/25/2024 Internet Access Q2 Not on file 11/25/2024 Sex and Gender Information Value Date Recorded Sex Assigned at Male 01/06/2022 10:16 AM EDT Legal Sex Male 10:16 AM EDT Gender Identity Male 01/06/2022 10:16 AM EDT Sexual Orientation Choose not to disclose 2021 10:16 AM EDT documented as of this encounter Last Filed Vital Signs Vital Sign Reading Time Taken Comments Blood Pressure 130/70 12/02/2024 9:49 AM EDT Pulse 75 12/02/2024 9:49 AM EDT Temperature 37.1 C (98.7 F) 12/02/2024 9:49 AM EDT Respiratory Rate 20 12/02/2024 9:49 AM EDT Oxygen Saturation 97% 12/02/2024 9:49 AM EDT Inhaled Oxygen Concentration - - Weight 86 kg (189 lb 8 oz) 12/02/2024 9:49 AM ED T Height 170.2 cm (5' 7 ) 12/02/2024 9:49 AM EDT Body Mass Index 29.68 12/02/2024 9:49 AM EDT documented in this encounter Functional Status * Over the past 2 weeks, how often have you been bothered by any of the following problems? Question Answer Date of Assessment Author Patient Health Questionnaire -2 Score 1 12/02/2024 9:53 AM EDT Kings Taylor [place] * Little interest or pleasure in doing things Answer Date of Assessment Author Several days 12/02/2024 9:53 AM Fady Lange [place] * Feeling down, depressed, or hopeless Answer Date of Assessment Author Not at all 12/02/2024 9:53 AM Fady Lange [place] * Trouble falling or staying asleep, or sleeping too much Answer Date of Assessment Author More than half the days 12/02/2024 9:53 AM ARULT Kings Fernandez MA * Feeling tired or having little energy Answer Date of Assessment Author Several days 12/02/2024 9:53 AM EDT Fady Taylor MA * Poor appetite or overeating Answer Date of Assessment Author Several days 12/02/2024 9:53 AM RAULT Fady Taylor MA * Feeling bad about yourself - or that you are a failure or have let yourself or your family down Answer Date of Assessment Author Several days 12/02/2024 9:53 AM Fady Lange [place] * Trouble concentrating on things, such as reading the newspaper or watching television Answer Date of Assessment Author Not at all 12/02/2024 9:53 AM EDFady Veliz MA * Moving or speaking so slowly that other people could have noticed? Or the opposite - being so fidgety or restless that you have been moving around a lot more than usual. Answer Date of Assessment Author More than half the days 12/02/2024 9:53 AM Kings Garcia MA * Thoughts that you would be better off or hurting yourself in some way Answer Date of Assessment Author Not at all 12/02/2024 9:53 AM Fady Lange MA * Patient Health Questionnaire-9 Score Answer Date of Assessment Author 8 12/02/2024 9:53 AM Fady Lange MA * How difficult have these problems made it for you to do your work, take care of things at home, or get along with other people? Answer Date of Assessment Author Somewhat difficult 12/02/2024 9:53 AM Kings Lange MA * Over the last 2 weeks, how often have you been bothered by any of the following problems? Question Answer Date of Assessment Author Feeling nervous, anxious, or on edge 1 12/02/2024 9:52 AM EDT Kings Taylor MA Not being able to stop or co ntrol worrying 0 12/02/2024 9:52 AM EDT Kings Taylor [place] Worrying too much about diff erent things 1 12/02/2024 9:52 AM EDT Kings Taylor [place] Trouble relaxing 2 12/02/2024 9:52 AM EDT R Kings vieyra MA Being so restless that it is hard to sit still 1 12/02/2024 9:52 AM EDT Kings Taylor MA Becoming easily annoyed or irritable 0 12/02/2024 9:52 AM EDT Kings Taylor [place] Feeling afraid as if somethi ng awful might happen 1 12/02/2024 9:52 AM EDT Kings Taylor MA CONCHA-7 Total Score 6 12/02/2024 9:52 AM EDT Kings Taylor MA documented as of this encounter Plan of Treatment Not on file documented as of this encounter Procedures Procedure Name Priority Date/Time Associated Diagnosis Comments ECG 12-LEAD Routine 12/02/2024 10:35 AM EDT Chest pain, unspecified type POCT GLYCATED HEMOGLOBIN, TOTAL Routine 12/02/2024 9:51 AM EDT Hypertension associated with diabetes ([facility]/HCC) POCT GLUCOSE Routine 12/02/2024 9:50 AM EDT Hypertension associated with diabetes ([facility]) documented in this encounter Results * ECG 12 lead (12/02/2024 10:35 AM EDT) Narrative Elizabeth Gaona ANP - 12/02/2024 10:35 AM EDT HR 59, QT/QTC 406/405, [place] 186; poor r-wave progression, aVF QRS downward inflecting vs previous, T wave changes us Elizabeth EUCEDA ECG ORDERABLES Final Result * (ABNORMAL) POCT Hgb A1c (12/02/2024 9:51 AM EDT) Hemoglobin A1C 7.2(A) 4.0 - 5.7 % QC Media Lot # [id number] Lot# Expiration Date 4,242, Blood 12/02/2024 9:51 AM EDT Elizabeth EUCEDA POINT OF CARE TEST ENTER/EDIT OR DERABLES Final Result * POCT Glucose (12/02/2024 9:50 AM EDT) Glucose Blood, POC 113 60 - 200 mg/dL QC Media Lot # [id number] Lot# Expiration Date 2824,026 Blood Capillary blood specimen / Unknown 12/02/2024 9:50 AM EDT Elizabeth EUCEDA POINT OF CARE TEST ENTER/EDIT OR DERABLES Final Result documented in this encounter Visit Diagnoses Diagnosis Hypertension associated with diabetes ([facility])- Primary Unspecified essential hypertension Chest pain, unspecified type Obstructive sleep apnea Obstructive sleep apnea (adult) (pediatric) Encounter for immunization documented in this encounter Additional Health Concerns Assessment Noted Time PHQ-9 Depression Total Score: 8 12/03/19 25 9:53 AM EDT documented as of this encounter Care Teams Line Maintenance Relationship Specialty Start Date End Date Elizabeth Gaona ANP [address] [place] [id number] PCP - General Family Medicine 05/06/21 Arin Reid MD [address] [place] [address] Urology 02/22/24 Kalyani Kilgore [address] 3rd [place] [address] Cardiology 02/22/24 Alessandra Ray [address] 3rd [place] [address] Gastroenterology 02/22/24 documented as of this encounter
--- NOTE | 2024-12-02 11:33 | ECG_ITS ---
Test Reason : CHEST PAIN Blood Pressure : */* mmHG Vent. Rate : 62 BPM Atrial Rate : 62 BPM P-R Int : 174 ms QRS Dur : 96 ms QT Int : 404 ms P-R-T Axes : 10 -16 13 degrees QTcB Int : 410 ms Normal sinus rhythm Low voltage QRS Cannot rule out Anterior infarct (cited on or before 25-Jun-2021) Abnormal ECG When compared with ECG of 25-Jun-2021 12:23, No significant change was found Referred By: Generic ED Physician Electronically Signed By: Marcial Cochran
[2024-12-02 11:37] VITALS: BP 149/72; BP 151/91; PULSE 59; PULSE 62; RESP 13; TEMP 36.8; O2SAT 100; O2SAT 97; BMI 30.3
[2024-12-02 11:48] VITALS: BP 149/72; PULSE 59; RESP 13; TEMP 36.8; O2SAT 100
--- NOTE | 2024-12-02 11:50 | PC.NURSE ---
Burmese speaking, limited.
[2024-12-02 13:51] VITALS: BP 131/74; PULSE 57; RESP 20; O2SAT 98
[2024-12-02 13:53] LABS: MANUAL DIFF FLAG NO
[2024-12-02 13:54] LABS: Hematocrit 46.2 % (42.0-52.0); Hemoglobin 16.0 g/dl (14.0-18.0); Imm Gran Abs Auto 0.02 X10*3/uL (0.00-0.03); Imm Gran Pct Auto 0.3 % (0.0-0.4); Lymphocytes Absolute Auto 1.8 X10*3/uL (1.2-4.9); Mean Corpuscular HGB Conc 34.6 g/dl (31.0-36.0); Mean Corpuscular Hemoglobin 30.1 pg (27.0-33.0); Mean Corpuscular Volume 87.0 fL (80.0-98.0); NRBC Abs Auto 0.000 X10*3/uL (0.0-0.012); NRBC Pct Auto 0.0 /100WBC (0.0-0.2); Platelet Count 207 X10*3/uL (160-400); Red Blood Count 5.31 X10*6/uL (4.60-5.80); White Blood Count 7.1 X10*3/uL (4.8-10.8)
[2024-12-02 13:59] LABS: INTERNATIONAL NORM RATIO 0.9 (0.9-1.1); Prothrombin Time 10.6 SEC (10.9-12.4)
[2024-12-02 14:02] LABS: Partial Thromboplastin Time 28.5 SEC (26.7-34.1)
--- OUTSIDE RECORDS SUMMARY | 2024-12-02 14:02 | XMS_ITS | Encounter Summary ---
Author Organization [employer] Address [address] 7[address] [place] [address] Care Team Providers Care Field Placement Director Name Role Phone Jimenez Elizabeth EUCEDA Primary Care Provider [phone] Arin Reid MD Unavailable Kalyani Kilgore Unavailable Flor June Unavailable Encounter Details Date Type Department Care Team (Late st Contact Info) Description 12/02/2024 Orders Only [facility] External Provider, [facility] Social History Tobacco Use Types Packs/Day [...] AM EDT documented as of this encounter Functional Status * Over the [...] 9:53 AM EDT Fady Taylor MA * Feeling down, depressed, or hopeless Answer Date of Assessment Author Not at all 12/02/2024 9:53 AM EDT Fady Taylor [place] * Trouble falling or staying asleep, or sleeping too much Answer Date of Assessment Author More than half the days 12/02/2024 9:53 AM EDT Kings Fernandez MA * Feeling tired or having little energy Answer Date of Assessment Author Several days 12/02/2024 9:53 AM EDT Fady Taylor MA * Poor appetite or overeating Answer Date of Assessment Author Several days 12/02/2024 9:53 AM EDT Fady Taylor MA * Feeling bad about yourself - or that you are a failure or have let yourself or your family down Answer Date of Assessment Author Several days 12/02/2024 9:53 AM RAULT Fady Taylor MA * Trouble concentrating on things, such as reading the newspaper or watching television Answer Date of Assessment Author Not at all 12/02/2024 9:53 AM EDT Fady Taylor MA * Moving or speaking so slowly [...] co ntrol worrying 0 12/02/2024 9:52 AM RAULT Kings Taylor MA Worrying too much about diff erent things 1 12/02/2024 9:52 AM RAULT Kings Taylor [place] Trouble relaxing 2 12/02/2024 9:52 AM RAULT Kings Fernandez MA Being so restless that it is hard to sit still 1 12/02/2024 9:52 AM Kings Lange MA Becoming easily annoyed or irritable 0 12/02/2024 9:52 AM Kings Lange MA Feeling afraid as if somethi ng awful might happen 1 12/02/2024 9:52 AM Kings Lange MA CONCHA-7 Total Score 6 12/02/2024 9:52 AM Kings Lange MA documented as of this encounter Plan of Treatment Not on file documented as of this encounter Procedures Procedure Name Priority Date/Time Associated Diagnosis Comments CBC WITH AUTO DIFFERENTIAL Routine 12/02/2024 1:47 PM EDT XR CHEST 2 VIEWS Routine 12/02/2024 1:35 PM EDT documented in this encounter Results * (ABNORMAL) CBC auto differential (12/02/2024 1:47 PM EDT) White Blood Count 7.1 4.8 - 10.8 X10*3/uL [facility] Red Blood Count 5.31 4.60 - 5.80 X10*6/uL [facility] Hemoglobin 16.0 14.0 - 18.0 g/dl [facility] Hematocrit 46.2 42.0 - 52.0 % [facility] Mean Corpuscular Volume 87.0 80.0 - 98.0 fL [facility] Mean Corpuscular Hemoglobin 30.1 27.0 - 33.0 pg [facility] Mean Corpuscular HGB Conc 34.6 31.0 - 36.0 g/dl [facility] Red Cell Distribution Width 13.1 11.0 - 16.0 % [facility] Platelet Count 207 160 - 400 X10*3/uL [facility] Mean Platelet Volume 9.1(L) 9.4 - 12.4 fL [facility] Neutrophils Percent Auto 59.0 45 - 73 % [facility] Imm Gran Pct Auto 0.3 0.0 - 0.4 % [facility] Lymphocytes Percent Auto 26.1 20 - 40 % [facility] Monocytes Percent Auto 6.7 2 - 11 % [facility] Eosinophils Percent Auto 7.5(H) 0 - 4 % [facility] Basophils Percent Auto 0.4 0 - 2 % [facility] NRBC Pct Auto 0.0 0.0 - 0.2 /100WBC [facility] Neutrophils Absolute Auto 4.2 2.0 - 8.3 x10*3/uL [facility] Imm Gran Abs Auto 0.02 0.00 - 0.03 X10*3/uL [facility] Lymphocytes Absolute Auto 1.8 1.2 - 4.9 X10*3/uL [facility] Monocytes Absolute Auto 0.5 0.1 - 1.2 X10*3/uL [facility] Eosinophils Absolute Auto 0.5(H) 0.0 - 0.4 X10*3/uL [facility] Basophils Absolute Auto 0.0 0.0 - 0.2 X10*3/uL [facility] NRBC Abs Auto 0.000 0.0 - 0.012 X10*3/uL [facility] 12/02/2024 1:47 PM EDT 12/02/2024 1:51 PM EDT us Generic External Data Provider LAB BLOOD ORDERAB LES Final Result Performing Organization Address City/State/[facility] Co de Phone Number [facility] [address] [place] [phone] * XR Chest 2 Views (12/02/2024 1:35 PM EDT) Anatomical Region Laterality Modality Chest Radiographic Rose Mary ging 12/02/2024 1:35 PM EDT Narrative 12/02/2024 1:49 PM EDT [address] [address] XRay Report Signed Patient: Barrett Gutierrez MR#: [id number] : 1950 Acct:[id number] Age/Sex: 74 / M ADM Date: 12/02/24 Loc: .ED Attending Dr: Ordering Physician: Generic ED Physician Date of Service: 12/02/24 Procedure(s): XR chest 2V Accession Number(s): [id number] cc: Dashawn Tavarez MD; Generic ED Physician Reason for Exam: CP EXAMINATION: XR CHEST CLINICAL INFORMATION: CP COMPARISON: 06/25/2021 TECHNIQUE: 2 views of the chest were obtained. FINDINGS: The cardiac, hilar, and mediastinal contours are normal. The lungs are clear bilaterally. There is no pneumothorax or pleural effusion. There is no focal osseous or soft tissue abnormality. XR/XR chest 2V IMPRESSION: No active pulmonary disease. Electronically signed by: Erich Hendricks MD 12/02/2024 01:46 PM EDT RP Dictated By: Erich Hendricks MD Signed By: <Electronically signed by Erich Hendricks MD in [place]> 12/02/24 1346 DD/ 1335 TD/TT: 12/02/24 1340 Bullet Lubricant Mixer: Procedure Note Donotuseinterpreter, Image - 12/02/[address] [address] XRay Report Signed Patient: Barrett GutierrezMR#: [id number] : 3Acct:[id number] Age/Sex: 74 / MADM Date: 12/02/24 Loc: .ED Attending Dr: Ordering Physician: Generic ED Physician Date of Service: 12/02/24 Procedure(s): XR chest 2V Accession Number(s): [id number] cc: Dashawn Tavarez MD; Generic ED Physician Reason for Exam: CP EXAMINATION: XR CHEST CLINICAL INFORMATION: CP COMPARISON: 06/25/2021 TECHNIQUE: 2 views of the chest were obtained. FINDINGS: The cardiac, hilar, and mediastinal contours are normal. The lungs are clear bilaterally. There is no pneumothorax or pleural effusion. There is no focal osseous or soft tissue abnormality. XR/XR chest 2V IMPRESSION: No active pulmonary disease. Electronically signed by: Erich Hendricks MD 12/02/2024 01:46 PM EDT RP Dictated By: Erich Hendricks MD Signed By: <Electronically signed by Erich Hendricks MD in [place]> 12/02/24 1346 DD/ 1335 TD/TT: 12/02/24 1340 Bullet Lubricant Mixer: [facility] External Provider IMG XR PROCEDURES Final Result documented in this encounter Visit Diagnoses Not on filedocumented in this encounter Additional Health Concerns Assessment Noted Time PHQ-9 Depression Total Score: 8 12/03/19 25 9:53 AM EDT documented as of this encounter Care Teams Field Placement Director Relationship Specialty Start Date End Date Elizabeth Gaona ANP [address] [place] [address] PCP - General Family Medicine 05/06/21 Arin Reid MD [address] [place] [address] Urology 02/22/24 Kalyani Kilgore [address] [facility] 3rd [place] [address] Cardiology 02/22/24 Alessandra Ray [address] [facility] [address] [place] [address] Gastroenterology 02/22/24 documented as of this encounter
--- OUTSIDE RECORDS SUMMARY | 2024-12-02 14:02 | XMS_ITS | Encounter Summary ---
Author Organization [employer] Address [address] [facility] 7t [place] [address] Care Team Providers Care Production Internship Name Role Phone Elizabeth Gaona Primary Care Provider Arin Reid MD Unavailable Kalyani Kilgore Unavailable Flor June Unavailable Encounter Details Date Type Department Care Team (Late st Contact Info) Description 06/10/2022 Orders Only [facility] MEDICINE [address] [place], [place] [phone] Elizabeth Gaona ANP [address] [place] [address] Social History Tobacco Use Types Packs/Day Years [...] on file documented as of this encounter Visit Diagnoses Not on filedocumented in this encounter Care Teams Production Internship Relationship Specialty Start Date End Date Elizabeth Gaona ANP [address] [place] [phone] PCP - General Family Medicine 05/06/21 Arin Reid MD [address] [place] [address] Urology 02/22/24 Kalyani Kilgore [address]rd [place] [address] Cardiology 02/22/24 Alessandra Ray [address]rd [place] [address] Gastroenterology 02/22/24 documented as of this encounter
--- OUTSIDE RECORDS SUMMARY | 2024-12-02 14:02 | XMS_ITS ---
Author Name Sol BANKS, Mr. Darryl Eason Address [address] [place] [address] Phone [phone] [facility] Care Team Providers Care Clothing Room Supervisor Name Role Phone Chris Horton Unavailable [phone] Arin Sousa Unavailable [phone] LEORA MERCADO Unavailable [phone] Reason for Referral Not Available Allergies, adverse [...] (do not use for phone, instead use [id number]) [facility]/2022 Essential (primary) hypertensionMixed hyperlipidemiaGastro-esophageal reflux disease without esophagitisAngina pectoris, unspecifiedMajor depressive disorder, single episode, in full remission New patient,40-59min; chronic exacerbation, 2 stable chronic or 1 acute illness add add modifier 95 for video (do not use for phone, instead use 18275-79) [facility] [place] 08[place]/2022 New patient,40-59min; chronic exacerbation, 2 stable chronic or 1 acute illness add add modifier 95 for video (do not use for phone, instead use 60435-07) [facility] [place] 08/[place]/2022 New patient,40-59min; chronic exacerbation, 2 stable chronic or 1 acute illness add add modifier 95 for video (do not use for phone, instead use 06283-36) [facility] [place] 08/[place]/2022 New patient,40-59min; chronic exacerbation, 2 stable chronic or 1 acute illness add add modifier 95 for video (do not use for phone, instead use 23339-11) [facility] [place] 08/[place]/2022 New patient,40-59min; chronic exacerbation, 2 stable chronic or 1 acute illness add add modifier 95 for video (do not use for phone, instead use 35503-61) [facility] [place] 08/[place]/2022 New patient,40-59min; chronic exacerbation, 2 stable chronic or 1 acute illness add add modifier 95 for video (do not use for phone, instead use 78879-47) [facility] [place] 08/[place]/2022 New patient,40-59min; chronic exacerbation, 2 stable chronic or 1 acute illness add add modifier 95 for video (do not use for phone, instead use 77430-42) [facility] [place] 08/11/2022 New patient,40-59min; chronic exacerbation, 2 stable chronic or 1 acute illness add add modifier 95 for video (do not use for phone, instead use 59232-65) [facility] [place] 08/11/2022 New patient,40-59min; chronic exacerbation, 2 stable chronic or 1 acute illness add add modifier 95 for video (do not use for phone, instead use 24737-25) [facility] ([place]) 08/11/2022 Estab. patient 30-39min; chronic exacerbation, 2 stable chronic or 1 acute illness add add modifier 95 for video, (do not use for phone, instead use 95584-52) [facility] ([place]) 06/04/2023 Essential (primary) hypertensionMixed hyperlipidemiaGastro-esophageal reflux disease [...] (do not use for phone, instead use 21567-87) [facility] [place] 06/04/2023 Estab. patient 30-39min; chronic exacerbation, 2 stable chronic or 1 acute illness add add modifier 95 for video, (do not use for phone, instead use 82763-52) [facility] ([place]) 06/04/2023 Estab. patient 30-39min; chronic exacerbation, 2 stable chronic or 1 acute illness add add modifier 95 for video, (do not use for phone, instead use 33449-77) [facility] [place] 06/04/2023 Estab. patient 30-39min; chronic exacerbation, 2 stable chronic or 1 acute illness add add modifier 95 for video, (do not use for phone, instead use 09639-05) [facility] ([place]) 06/04/2023 Estab. patient 30-39min; chronic exacerbation, 2 stable chronic or 1 acute illness add add modifier 95 for video, (do not use for phone, instead use 31920-62) [facility] [place] 06/04/2023 Vital Signs Date of Collection Vitals 2022-08-11 11:06:26 Height - 167.64 cmWe ight - 81.65 kgBody Mass Index (BMI) - 29.05 kg/m2BP Diastolic - 60.0 mm[Hg]BP Systolic - 120.0 mm[Hg] 2023-06-04 10:09:40 Height - 170.18 cmWe ight - 86.18 kgBody Mass Index (BMI) - 29.76 kg/m2 Social History Social History Social History Observation Description Effec tive Time Current Smoking Status Never smoker 2024-11-08 8 Sex Male History of Procedures Procedures Service Procedure code Service date Servicing provider Phone# New patient,40-59min; chronic exacerbation, 2 stable chronic or 1 acute illness add add modifier 95 for video (do not use for phone, instead use 95735-23) [id number] 2022-08-11 No Data Available No Data Availa [...] (do not use for phone, instead use 08482-60) [id number] 2023-06-04 No Data Available No Data Availa [...] Lisy Lin, another proxy is friend and NUTRITION SERVICES ASSOCIATE Ibrahima Ward
--- OUTSIDE RECORDS SUMMARY | 2024-12-02 14:02 | XMS_ITS | Clinical Summary ---
Author Organization [employer] Address [address] [facility] 7t [place] [address] Care Team Providers Care Class C Driver Name Role Phone Elizabeth Gaona KINSEY Primary Care Provider [phone] Arin Reid MD Unavailable Kalyani Kilgore Unavailable [...] 07/09/19 24 Active Blood Glucose Monitoring Suppl (FreeStyle [place] Lite) w/Device kitIndications: Elevated glucose Use to test blood sugar 1-3 times daily 1 kit 10/01/19 24 Active chlorthalidone (Hygroton) 25 MG tabletIndicatio [...] 04/27/19 25 Active celecoxib (CeleBREX) 100 MG capsuleIndicati ons:Lumbar back pain TAKE 1 CAPSULE BY MOUTH TWICE DAILY WITH FOOD NEEDED FOR PAIN 60 capsule 1 05/21/19 25 Active atorvastatin (Lipitor) 40 MG tabletIndicatio ns:Dyslipidemia TAKE 1 TABLET BY MOUTH AT BEDTIME 90 tablet 1 08/04/19 25 Active Alcohol Swabs (Alcohol Prep) 70 % padsIndications :Elevated glucose USE DIRECTED THREE TIMES DAILY. 100 each 11 10/07/19 25 Active glucose blood (FREESTYLE LITE) test stripIndication s:Elevated glucose USE DIRECTED TO TEST BLOOD SUGAR 1-3 TIMES EVERY DAY 100 strip 11 10/07/19 25 Active TRUEplus Lancets 33G miscIndications :Elevated glucose USE DIRECTED TO TEST BLOOD SUGAR THREE TIMES DAILY 100 each 11 10/07/19 25 Active metFORMIN XR (Glucophage-XR) 500 MG 24 hr tabletIndicatio ns:Hypertension associated with diabetes (CMS/HCC) TAKE 1 TABLET BY MOUTH TWICE DAILY WITH MEALS DO NOT BREAK, CRUSH, DISSOLVE OR CHEW 180 tablet 3 12/03/19 25 Active metFORMIN XR (Glucophage-XR) 500 MG 24 hr tabletIndicatio ns:New onset type 2 diabetes mellitus (CMS/HCC) TAKE 1 TABLET BY MOUTH EVERY MORNING WITH MEALS DO NOT BREAK, CRUSH, DISSOLVE OR CHEW 90 tablet 08/18/19 25 025 Discontinued(Re order (will not trigger notification to Pharmacy)) Active Problems Problem Noted Date Diagnosed Date Tubular adenoma of colon 12/02/2024 Overview (12/02/2024): scope in OR per pt Diverticulosis 04/18/2024 Overview (04/18/2024): moderate to severe on C-scope 02/2024 Ambulates with cane 02/22/2024 Atypical small acinar proliferation of prostate 02/22/2024 Overview (02/22/2024): f/u w/ Urology: Active surveillance for prostate cancer. Continue Proscar 05 mg and tamsulosin renal/bladder US, PSA fu 6 months Edema of both lower legs 04/16/2023 Healthcare maintenance 11/27/2022 Mixed hyperlipidemia 08/11/2022 Depression with suicidal ideation 11/25/2021 Obstructive sleep apnea 11/25/2021 Papular eruption 07/16/2021 Arthritis 02/04/2016 Hypertension associated with diabetes 02/04/2016 Overview (12/02/2024 10:19 AM EDT): >>OVERVIEW FOR NEW ONSET TYPE 2 DIABETES MELLITUS (CMS/HCC) WRITTEN ON 02/22/2024 2:22 PM BY KINSEY MORRIS A1c 7.0 02/22/24. start metformin 500mg XR once daily, lifestyle interventions discussed Blood in urine 02/04/2016 Gastroesophageal reflux disease without esophagi tis 02/04/2016 Gastrointestinal hemorrhage 02/04/2016 Reactive depression (situational) 02/04/2016 Encounters Date Type Department Care Team Description 12/02/2024 9:30 AM EDT Office Visit [facility] [address] [place] [id number] Elizabeth Gaona ANP Hypertension associated with diabetes (CMS/HCC) (Primary Dx); Chest pain, unspecified type; Obstructive sleep apnea; Encounter for immunization 12/02/2024 Orders Only [facility] External Provider, [facility] 12/02/2024 Travel 12/02/2024 Refill [facility] [address] [place] [address] Elizabeth Gaona ANP New onset type 2 diabetes mellitus (CMS/HCC) 11/30/2024 Telephone [facility] [address] [place] [address] Elizabeth Gaona ANP chart prep 11/25/2024 Patient Outreach [facility] [address] [facility] [place] [address] Elizabeth Gaona ANP Pre-visit Planning (SDOH screening negative and Tobacco screening negative) 10/05/2024 Refill [facility] [address] [facility] [facility] [place] [phone] Elizabeth Gaona ANP Elevated glucose 09/14/2024 Telephone [facility] [address] [place] [address] Elizabeth Gaona ANP November recall from Last 3 Months Immunizations Immunization Administration Dates Next Due Influenza High-dose Quadriva lent Preservative Free 12/18/2022 Influenza injectable quadriv alent IIV4 with preservative 01/04/2016 Influenza injectable quadriv alent preservative free 01/28/2021 Influenza, High Dose Seasona l, Preservative Free 12/02/2024,02/11/2024 Moderna Covid-19 Vaccine 12+ 05/08/2020,04/09/19 21 Pfizer [...] Mass Index 29.68 12/02/2024 9:49 AM EDT Plan of Treatment Health Maintenance Due Date Last Done Comments CT Colonography 1950 FIT DNA/Cologuard 1950 FIT 1950 FOBT 1950 Sigmoidoscopy 1950 Hepatitis C Screening 1970 RSV Patients and Patients Aged 60 years or older (1 - Risk 60-74 years 1-dose series) 2012 Lipid Panel 05/24/2022 05/24/2021 COVID-19 Vaccine ( season) 2024 03/30/2023, 06/27/2021, 02/14/2021, Additional history exists Diabetes: Hemoglobin A1C 03/03/2025 025, 07/21/2024, 02/22/2024, Additional history exists Diabetes: Urine Protein Screening 04/18/2025 04/18/2024, 11/28/2022 Diabetes: Foot Exam 07/21/2025 07/21/2024, 07/21/2024, 07/21/2024, Additional history exists SDOH Screening 11/25/2025 11/25/2024 Alcohol/Substance Use Screening 12/02/2025 12/02/2024 Depression Screening 12/02/2025 12/02/2024, 12/03/19 Tobacco Screening 12/02/2025 12/02/2024 Eye Exam 04/28/2026 04/28/2024, 04/10, 04/28/2024, Additional history exists Colonoscopy 07/21/2027 2024 Colorectal Cancer Screening 07/21/2027 DTaP/Tdap/Td Vaccines (2 - Td or Tdap) 01/28/2031 01/28/2021 Zoster Vaccines Completed 08/26/2022, 06/24/2022 Pneumococcal Vaccine: 50+ Years Completed 12/18/2022, 09/11/2022 Influenza Vaccine Completed 12/02/2024, , 12/18/2022, Additional history exists HIB Vaccines Aged Out [...] 2 VIEWS Routine 12/02/2024 1:35 PM EDT ECG 12-LEAD Routine 12/02/2024 10:35 AM EDT Chest pain, unspecified type POCT GLYCATED HEMOGLOBIN, TOTAL Routine 12/02/2024 9:51 AM EDT Hypertension associated with diabetes (CMS/HCC) POCT GLUCOSE Routine 12/02/2024 9:50 AM EDT Hypertension associated with diabetes (CMS/HCC) HM COLONOSCOPY Routine 2024 ALBUMIN, RANDOM URINE W/CREATININE Routine 04/18/2024 1:30 PM EST Essential hypertension LIPID PANEL, STANDARD Routine 05/24/2021 11:33 AM EDT from Last 3 Months or Most Recently Relevant to Health Maintenance Results * (ABNORMAL) CBC auto differential (12/02/2024 1:47 PM EDT) White Blood Count 7.1 4.8 - 10.8 X10*3/uL [facility] Red Blood Count 5.31 4.60 - 5.80 X10*6/uL [facility] Hemoglobin 16.0 14.0 - 18.0 g/dl [facility] Hematocrit 46.2 42.0 - 52.0 % [facility] Mean Corpuscular Volume 87.0 80.0 - 98.0 fL [facility] Mean Corpuscular Hemoglobin 30.1 27.0 - 33.0 pg [facility] Mean Corpuscular HGB Conc 34.6 31.0 - 36.0 g/dl [facility] Red Cell Distribution Width 13.1 11.0 - 16.0 % [facility] Platelet Count 207 160 - 400 X10*3/uL [facility] Mean Platelet Volume 9.1(L) 9.4 - 12.4 fL [facility] Neutrophils Percent Auto 59.0 45 - 73 % [facility] Imm Gran Pct Auto 0.3 0.0 - 0.4 % [facility] Lymphocytes Percent Auto 26.1 20 - 40 % [facility] Monocytes Percent Auto 6.7 2 - 11 % [facility] Eosinophils Percent Auto 7.5(H) 0 - 4 % [facility] Basophils Percent Auto 0.4 0 - 2 % [facility] NRBC Pct Auto 0.0 0.0 - 0.2 /100WBC [facility] Neutrophils Absolute Auto 4.2 2.0 - 8.3 x10*3/uL [facility] Imm Gran Abs Auto 0.02 0.00 - 0.03 X10*3/uL [facility] Lymphocytes Absolute Auto 1.8 1.2 - 4.9 X10*3/uL [facility] Monocytes Absolute Auto 0.5 0.1 - 1.2 X10*3/uL [facility] Eosinophils Absolute Auto 0.5(H) 0.0 - 0.4 X10*3/uL [facility] Basophils Absolute Auto 0.0 0.0 - 0.2 X10*3/uL [facility] NRBC Abs Auto 0.000 0.0 - 0.012 X10*3/uL [facility] 12/02/2024 1:47 PM EDT 12/02/2024 1:51 PM EDT us Generic External Data Provider LAB BLOOD ORDERAB LES Final Result [facility] [address] [place] [phone] * XR Chest 2 Views (12/02/2024 1:35 PM EDT) Anatomical Region Laterality Modality Chest Radiographic Rose Mary ging 12/02/2024 1:35 PM EDT Narrative 12/02/2024 1:49 PM EDT [address] [address] XRay Report Signed Patient: Barrett Gutierrez MR#: [id number] : 1950 Acct:[id number] Age/Sex: 74 / M ADM Date: 12/02/24 Loc: HO.ED Attending Dr: Ordering Physician: Generic ED Physician Date of Service: 12/02/24 Procedure(s): XR chest 2V Accession Number(s): [id number] cc: Dashawn Tavarez MD; Generic ED Physician [...] Erich Hendricks MD 12/02/2024 01:46 PM EDT Dictated By: Erich Hendricks MD Signed By: <Electronically signed by Erich Hendricks MD in OV> 12/02/24 1346 DD/ 1335 TD/TT: 12/02/24 1340 [facility]: Procedure Note Donotuseinterpreter, Image - 12/02/[address] [address] XRay Report Signed Patient: Barrett GutierrezMR#: [id number] : 1950cct:[id number] Age/Sex: 74 / MADM Date: 12/02/24 Loc: HO.ED Attending Dr: Ordering Physician: Generic ED Physician Date of Service: 12/02/24 Procedure(s): XR chest 2V Accession Number(s): [id number] cc: Dashawn Tavarez MD; Generic ED Physician [...] Erich Hendricks MD 12/02/2024 01:46 PM EDT Dictated By: Erich Hendricks MD Signed By: <Electronically signed by Erich Hendricks MD in OV> 12/02/24 1346 DD/ 1335 TD/TT: 12/02/24 1340 [facility]: [facility] External Provider IMG XR PROCEDURES Final Result * ECG 12 lead (12/02/2024 10:35 AM EDT) Narrative Elizabeth Gaona ANP - 12/02/2024 10:35 AM EDT HR 59, QT/QTC 406/405, OR 186; poor r-wave progression, aVF QRS downward inflecting vs previous, T wave changes Elizabeth EUCEDA ECG ORDERABLES Final Result * (ABNORMAL) POCT Hgb A1c (12/02/2024 9:51 AM EDT) Hemoglobin A1C 7.2(A) 4.0 - 5.7 % QC Media Lot # [id number] Lot# Expiration Date 533, Blood 12/02/2024 9:51 AM EDT Elizabeth EUCEDA POINT OF CARE TEST ENTER/EDIT OR DERABLES Final Result * POCT Glucose (12/02/2024 9:50 AM EDT) Glucose Blood, POC 113 60 - 200 mg/dL QC Media Lot # [id number] Lot# Expiration Date 2666,026 Blood Capillary blood specimen / Unknown 12/02/2024 9:50 AM EDT Elizabeth Gaona ANP POINT OF CARE TEST ENTER/EDIT OR DERABLES Final Result * (ABNORMAL) Hm Colonoscopy (2024) Pathologist [facility] Colonoscopy Abnormal( A) Normal Comment:tubular denomas 2024 Historical Provider MD HEALTH MAINTENANCE Final Result * (ABNORMAL) Albumin, Random Urine W/Creatinine (04/18/2024 1:30 PM EST) [facility] Creatinine, Urine 111.69 mg/dL [facility] Microalbumin Urine 40.0 mg/L [facility] Microalbum Creatinine Ratio Ur 35.8(H) <30 ug/mg cr [facility] Comment:Albumin/Creatinine R at Reference Ranges: Normal: < 30 ug/mg creatinine Microalbuminuria: 30 - 300 ug/mg creatinineClinical Albuminuria: > 300 ug/mg creatinine Urine 04/18/2024 1:30 PM EST 04/18/2024 4:59 PM EST Elizabeth Gaona ANP LAB URINE ORDERABLES Final Resul t [facility] [address] [place] [phone] * (ABNORMAL) LIPID PANEL, STANDARD (05/24/2021 11:33 AM EDT) Pathologist [facility] Chol/HDLC Ratio 3.6 <5.0 (calc) [facility] [...] factors. LDL-C is now calculated using the Dave-Hartman calculation, which is a validated novel method providing better accuracy than the Friedewald equation in the estimation of LDL-C. Dave SS et al. JB. 2013;310(19): 8744-7524 (http://education.Akadem[employer].Business e via [place]/faq/GXL855) Non-HDL Cholesterol 140(H) <130 mg/dL (calc) [facility] Comment: For patients with diabetes plus 1 major ASCVD risk factor, treating to a non-HDL-C goal of <100 mg/dL (LDL-C of <70 mg/dL) is considered a therapeutic option. Triglycerides 111 <150 mg/dL [facility] 05/24/2021 11:3 3 AM EDT [facility] LAB BLOOD ORDERABLES Final Resul t [facility] [address] from Last 3 Months or Most Recently Relevant to Health Maintenance Insurance [id number] ALF OPTIONS (HMO D-SNP) PRIYA SAVAGE [id number] Care Teams Class C Driver Relationship Specialty Start Date End Date Elizabeth Gaona ANP [address] [facility] [place] [address] PCP - General Family Medicine 05/06/21 Arin Reid MD [address] [place] [address] Urology 02/22/24 Kalyani Kilgore [address] [place] [address] Cardiology 02/22/[address]rd [place] [address] Gastroenterology 02/22/24
--- OUTSIDE RECORDS SUMMARY | 2024-12-02 14:02 | XMS_ITS | Encounter Summary ---
Author Organization [employer] Address [address] [facility] 7t [place] [address] Care Team Providers Care Rehabilitation Case Coordinator Name Role Phone Elizabeth Gaona Primary Care Provider [phone] Arin Reid MD Unavailable Kalyani Kilgore Unavailable Flor June Unavailable Encounter Details Date Type Department Care Team (Late st Contact Info) Description 12/02/2024 Refill [facility] [address] [place], [place] [phone] Elizabeth Gaona ANP [address] [place], [place] [phone] New onset type 2 diabetes mellitus (CMS/HCC) Social History Tobacco Use Types Packs/Day Years [...] 12/02/2024 9:53 AM Fady Lange MA * Moving or speaking so slowly [...] or on edge 1 12/02/2024 9:52 AM Kings Lange MA Not being able to stop or co ntrol worrying 0 12/02/2024 9:52 AM Kings Lange MA Worrying too much about diff erent things 1 12/02/2024 9:52 AM Kings Lange [place] Trouble relaxing 2 12/02/2024 9:52 AM [...] as of this encounter Visit Diagnoses Diagnosis New onset type 2 diabetes mellitus (CMS/HCC) documented in this encounter Additional Health Concerns Assessment Noted Time PHQ-9 Depression Total Score: 8 12/03/19 9:53 AM EDT documented as of this encounter Care Teams Rehabilitation Case Coordinator Relationship Specialty Start Date End Date Elizabeth Gaona ANP [address] [place] [address] PCP - General Family Medicine 05/06/21 Arin Reid MD [address] [place] [address] Urology 02/22/24 Kalyani Kilgore [address] [place] [address] Cardiology 02/22/[address] 3rd [place] [address] Gastroenterology 02/22/24 documented as of this encounter
--- OUTSIDE RECORDS SUMMARY | 2024-12-02 14:02 | XMS_ITS | Encounter Summary ---
Author Organization [employer] Address [address] [facility] 7t [place] [address] Care Team Providers Care Roofing Supervisor Name Role Phone Elizabeth Gaona Primary Care Provider [phone] Arin Reid MD Unavailable Kalyani Kilgore Unavailable Flor June Unavailable Reason for Visit * Reason Onset Date Comments chart prep 11/30/2024 Encounter Details Date Type Department Care Team (Late st Contact Info) Description 11/30/2024 Telephone [facility] [address] [place], [place] [phone] Elizabeth Gaona ANP [address] [place], [place] [phone] chart prep Social History Tobacco Use Types Packs/Day Years [...] housing situation today? I have nicole ross 11/25/[address] you li [...] encounter Miscellaneous Notes * Telephone Encounter - Kings Taylor [place] - 11/30/2024 11:56 AM EDT Chart Prep Labs: done Images: done Referrals: complete Vaccines due: Covid, Flu, and RSV Screenings: not applicable Overdue care gaps: SBIRT, PHQ-9, CONCHA-7, and Disability screen documented in this encounter Plan of Treatment Not on file documented as of this encounter Visit Diagnoses Not on filedocumented in this encounter Additional Health Concerns Assessment Noted Time PHQ-9 Depression Total Score: 3 09/08/19 24 11:21 AM EDT documented as of this encounter Care Teams Roofing Supervisor Relationship Specialty Start Date End Date Elizabeth Gaona ANP [address] [place] [address] PCP - General Family Medicine 05/06/21 Arin Reid MD [address] [place] [address] Urology 02/22/24 Kalyani Kilgore [address] [place] [address] Cardiology 02/22/[address] [place] [address] Gastroenterology 02/22/24 documented as of this encounter
--- OUTSIDE RECORDS SUMMARY | 2024-12-02 14:02 | XMS_ITS | Encounter Summary ---
Author Organization [employer] Address [address] [address] 7[address] [place] [address] Care Team Providers Care Bread Baker Name Role Phone Jimenez Elizabeth EUCEDA Primary Care Provider [phone] Arin Reid MD Unavailable Kalyani Kilgore Unavailable Flor June Unavailable Encounter Details Date Type Department Care Team (Latest Contact Info) Description 12/02/2024 Travel Social History Tobacco Use Types Packs/Day [...] your housing situation today? I have nicole hawknis 11/25/[address] you li [...] 9:53 AM RAULT Fady Taylor [place] * Poor appetite or [...] Author Not at all 12/02/2024 9:53 AM RAULT Fady Taylor [place] * Moving or speaking [...] documented as of this encounter Care Teams Bread Baker Relationship Specialty Start Date End Date Elizabeth Gaona ANP [address] [place] [address] PCP - General Family Medicine 05/06/21 Arin Reid MD [address] [place] [address] Urology 02/22/24 Kalyani Kilgore [address] [place] [address] Cardiology 02/22/24 Flor Alessandra [address] 3rd [place] [address] Gastroenterology 02/22/24 documented as of this encounter
--- OUTSIDE RECORDS SUMMARY | 2024-12-02 14:03 | XMS_ITS | Encounter Summary ---
Author Organization [employer] Address [address] [facility] [address] [place] [address] Care Team Providers Care Hi Low Truck Driver Name Role Phone Elizabeth Goana Primary Care Provider [phone] Arin Reid MD Unavailable Kalyani Kilgore Unavailable Flor June Unavailable Reason for Visit * Reason Onset Date Comments Nurse Triage 07/10/2023 Encounter Details Date Type Department Care Team (Late st Contact Info) Description 07/10/2023 Telephone [facility] [address] [place], [place] [id number] Elizabeth Gaona ANP [address] [place], [place] [phone] Nurse Triage Social History Tobacco Use Types [...] pt to triage, spoke to pt through [employer] insurance appraiser. pt states seen ER today (07/09) for [...] > 50 years * No doctor (or PERSONAL LINES APPRAISER/PA) exam for rectal bleeding in past year [...] for follow up Please contact pt at [phone] documented in this encounter Plan of Treatment Not on file documented as of this encounter Visit Diagnoses Not on filedocumented in this encounter Care Teams Hi Low Truck Driver Relationship Specialty Start Date End Date Elizabeth Gaona ANP [address] [place] [address] PCP - General Family Medicine 05/06/21 Arin Reid MD [address] [place] [address] Urology 02/22/24 Kalyani Kilgore [address] [place] [address] Cardiology 02/22/24 Flor June [address] [place] [address] Gastroenterology 02/22/24 documented as of this encounter
[2024-12-02 14:09] LABS: Anion Gap 10 (12-20); Blood Urea Nitrogen 11 mg/dL (9-16); Calcium 9.5 mg/dL (8.4-10.2); Carbon Dioxide 29 mmol/L (22-29); Chloride 105 mmol/L (96-108); Creatinine Clr Calc Pharmacy 67.2; Estimated Glomerular Filt Rate > 60; Magnesium 2.1 mg/dL (1.6-2.6); Potassium 4.6 mmol/L (3.3-5.1); Sodium 139 mmol/L (135-145)
[2024-12-02 14:10] LABS: COVID-19 Test Negative (Negative); IDNOW Serial# 6674DD1D
[2024-12-02 14:11] LABS: IDNOW Serial# 08D9AD1C; Influenza B2 Negative (Negative)
--- NOTE | 2024-12-02 14:12 | ED.CHESTPAIN ---
HPI - Chest Pain General Chief Complaint: Chest Pain Stated Complaint: CP PER EMS Time Seen by Provider: 12/02/24 14:12 Source: patient, EMS and sweet dough mixer Mode of arrival: EMS Limitations: no limitations and language barrier History of Present Illness ED Provider: HPI narrative: 74-year-old male, has a history of diabetes, hypotension, angina, states has anginal symptoms about 3 times a year, had anginal symptoms 2 days ago, not yesterday as documented in triage, and it radiating to left arm which is fairly typical for him, he took a dose of nitro and and the pain went away, this is different from triage no documentation, patient has not had pain, he went to urgent care today, and states he was sent to the ER because noted something abnormal on his EKG He has no nausea no vomiting no diaphoresis no ongoing chest pain. Information was obtained with the help of the gravel machine operator Related Data Home Medications ?Medication ?Instructions ?Recorded ?Confirmed aspirin 81 mg tablet,delayed 81 mg PO DAILY 12/25/21 10/07/24 release (Adult Aspirin Regimen) atorvastatin 40 mg tablet 40 mg PO DAILY 12/25/21 10/07/24 celecoxib 100 mg capsule 100 mg PO BID PRN pain 09/18/23 10/07/24 chlorthalidone 25 mg tablet 25 mg PO DAILY 09/18/23 10/07/24 nitroglycerin 0.3 mg sublingual 0.3 mg sublingual Q5M PRN 05/11/24 10/07/24 tablet Previous Rx's ?Medication ?Instructions ?Recorded lisinopril 10 mg tablet 10 mg PO DAILY 90 days #90 tabs 03/07/24 simethicone 180 mg capsule (Gas 180 mg PO QID #120 ea 03/28/24 Relief (simethicone)) omeprazole 40 mg capsule,delayed 40 mg PO QAM #30 caps 09/07/24 release tamsulosin 0.4 mg capsule 0.4 mg PO BEDTIME #90 caps 09/20/24 finasteride 5 mg tablet (Proscar) 5 mg PO DAILY 90 days #90 tabs 10/07/24 magnesium oxide 400 mg (241.3 mg 400 mg PO BEDTIME 90 days #90 tabs 11/14/24 magnesium) tablet cholecalciferol (vitamin D3) 1,250 1,250 mcg PO QWEEK 12 weeks #12 11/22/24 mcg (50,000 unit) capsule caps Allergies Allergy/AdvReac Type Severity Reaction Status Date / Time cortisone Allergy Itching Unverified 12/02/24 11:44 Review of Systems Constitutional: Constitutional: Reports as per HPI [facility] Past Medical History Medical History Prostate cancer HTN (hypertension) High cholesterol Severe obstructive sleep apnea Personal history of nicotine dependence GERD (gastroesophageal reflux disease) Tubular adenoma of colon BPH associated with nocturia Depression Arthritis Shoulder pain, left Surgical History History of colonoscopy History of prostate biopsy History of esophagogastroduodenoscopy (EGD) History of inguinal hernia repair Family History Family History Mother Asthma Alzheimer disease Cancer Father Asthma Brother Cancer Father Heart disease Social History Social History Household Members: None Household Members Other:: has BEVERAGE HOST Housing: Apartment Are you a primary primary health care nurse to a significant other at home: No Do you presently have visiting nurse or other home services: Yes ([employer]) Alcohol intake: former Patient Tobacco Use Status: Former Tobacco user Tobacco use type: Cigarette Years Smoked: (onset 18yo, 1/-1/2ppd x 51yrs, 20pyh - quit 2020) Advance Directives: No Advance Directives Information Provided: Yes Current occupational status: disabled Current occupation: rt handed Physical Exam Vital Signs: Vital Signs: Last Vital Signs Temp 98.2 F 12/02/24 11:48 Pulse 57 12/02/24 13:51 Resp 20 12/02/24 13:51 BP 131/74 12/02/24 13:51 Pulse Ox 98 12/02/24 13:51 O2 Del Method Room Air 12/02/24 13:51 BMI result Body Mass Index 30.3 Const: Other: Gen: ?Overall well-appearing patient HEENT: PERRLA, EOMI, MMM, Neck: Supple, no LAD, no JVD CV: RRR radial pulses +2 bilaterally Resp: ?No wheezing rales rhonchi no stridor moving air well Abd: ?Bowel sounds are present, no tenderness no rebound no rigidity MSK: FROM, strength 5/5 all extremities, no lower extremity edema Skin: Warm, dry, intact, Neuro: ?Alert and oriented x3, moving upper and lower extremities symmetrically, no obvious facial asymmetry noted Medical Decision Making Medical Decision Making [facility] Narrative: 3:06 PM 12/02/2024 (Dr. Yakov Sanon): Patient reports that 3 times a year he has anginal symptoms and this time had an anginal symptoms took nitroglycerin in the symptoms resolved, he went to urgent care today and he was not sure it sounds like ECG was obtained or something they felt was abnormal they send him to the ER, the time my evaluation patient is chest pain-free, his vital signs are reassuring he is not hypoxic or tachycardic to suspect PE, chest x-ray without pneumonia pneumothorax, he did not have severe chest pain radiating to the back to suspect aortic dissection necessitating further imaging such as CTA, I reviewed his prior outpatient workup and cardiology workup as he had ER visits chest pain and had nuclear perfusion study done, at this time his strokes EKG reassuring and he is chest pain-free and I will discharge him 2023 Pharmacological stress test with Lexiscan injection while sitting and marching in place, without anginal symptoms, with normotesnive response to injection, without arrhythmias, with nondiagnoisitic Differential Diagnosis Differential Diagnoses: The differential diagnosis associated with the presentation includes (ACS, pneumothorax, aortic dissection, PE, Boerhaave syndrome) Admission/Observation Consideration of admission/observation: Escalation of care including admission/observation considered Lab Data [facility] Lab Attestation statement: I reviewed the patient's lab results. 12/02/24 13:47 12/02/24 13:47 Labs: Lab Results 12/02/24 12/02/24 Range/Units 13:44 13:47 WBC 7.1 (4.8-10.8) X10*3/uL RBC 5.31 (4.60-5.80) X10*6/uL Hgb 16.0 (14.0-18.0) g/dl Hct 46.2 (42.0-52.0) % MCV 87.0 (80.0-98.0) fL MCH 30.1 (27.0-33.0) pg MCHC 34.6 (31.0-36.0) g/dl RDW 13.1 (11.0-16.0) % Plt Count 207 (160-400) X10*3/uL MPV 9.1 L (9.4-12.4) fL Immature Gran % (Auto) 0.3 (0.0-0.4) % Neut % (Auto) 59.0 (45-73) % Lymph % (Auto) 26.1 (20-40) % [place] % (Auto) 6.7 (2-11) % Eos % (Auto) 7.5 H (0-4) % Baso % (Auto) 0.4 (0-2) % Lymph # (Auto) 1.8 (1.2-4.9) X10*3/uL [place] # (Auto) 0.5 (0.1-1.2) X10*3/uL Eos # (Auto) 0.5 H (0.0-0.4) X10*3/uL Baso # (Auto) 0.0 (0.0-0.2) X10*3/uL Abs Immat Gran (auto) 0.02 (0.00-0.03) X10*3/uL Absolute Neuts (auto) 4.2 (2.0-8.3) x10*3/uL Absolute Nucleated RBC 0.000 (0.0-0.012) X10*3/uL Nucleated RBC % (auto) 0.0 (0.0-0.2) /100WBC PT 10.6 L (10.9-12.4) SEC INR 0.9 (0.9-1.1) APTT 28.5 (26.7-34.1) SEC Sodium 139 (135-145) mmol/L Potassium 4.6 (3.3-5.1) mmol/L Chloride 105 (96-108) mmol/L Carbon Dioxide 29 (22-29) mmol/L Anion Gap 10 L (12-20) BUN 11 (9-16) mg/dL Creatinine 1.05 (0.5-1.4) mg/dL Estim Creat Clear Calc 67.2 Estimated GFR > 60 Random Glucose 121 H (60-115) mg/dL Calcium 9.5 (8.4-10.2) mg/dL Magnesium 2.1 (1.6-2.6) mg/dL Troponin I High Sens < 2.7 (<3.5-35.0) ng/L NT-Pro-B Natriuret Pep 38.7 (<300) pg/mL COVID-19 (AB) Negative (Negative) COVID-19 Clin Com See Note Influenza Type A (JULI) Negative (Negative) Influenza Type B (JULI) Negative (Negative) Influenza A & B Note See Note Independent Interpretation I performed an independent interpretation of an: EKG (62 beats per minute otherwise normal ECG without dysrhythmia, AV stephenie blocks or ST-T changes to suspect underlying ACS, my independent interpretation) and Plain X-Ray (My independent chest xray interpretation: Lungs: Lungs are clear bilaterally without evidence of focal consolidation, pleural effusion, or pneumothorax. Cardiac silhouette is unremarkable, no obvious mediastinal widening, no obvious bony abnormalities such as fractures. Impression: Normal chest X-r) Radiology Impression Discussion of test interpretation with radiology: I have reviewed the radiologist's reading. Independent Historian Clinical information obtained from an independent historian. History obtained from or confirmed by: EMS External Record Review External record reviewed: Outpatient record Tests considered The following testing was considered but not selected: CT angio Prescription Management I considered prescription management with: Pain Medication Discharge Plan Discharge Clinical Impression: Chest pain, precordial Patient Disposition: Home, Self-Care Instructions: Chest Pain (ED) Additional Instructions: Your workup today included EKG, cardiac enzymes as well as chest x-ray all of which has been reassuring, your vital signs are stable, I reviewed your prior cardiology workup and cardiology notes, you should continue to follow up with the PCP, and if you have any anginal symptoms to take nitroglycerin, typically recommendation if you take more than 3 nitroglycerins 5 minutes apart and continued to have chest pain please come back to the ER Prescriptions: No Action lisinopril 10 mg tablet 10 mg PO DAILY 90 Days Qty: 90 3RF simethicone [Gas Relief (simethicone)] 180 mg capsule 180 mg PO QID Qty: 120 3RF omeprazole 40 mg capsule,delayed release(DR/EC) 40 mg PO QAM Qty: 30 3RF tamsulosin 0.4 mg capsule 0.4 mg PO BEDTIME Qty: 90 3RF cholecalciferol (vitamin D3) 1,250 mcg (50,000 unit) capsule 1,250 mcg PO QWEEK 84 Days Qty: 12 1RF atorvastatin 40 mg tablet 40 mg PO DAILY aspirin [Adult Aspirin Regimen] 81 mg tablet,delayed release (DR/EC) 81 mg PO DAILY nitroglycerin 0.3 mg tablet, sublingual 0.3 mg sublingual Q5M PRN Rx Instructions: do not exceed 3 doses per episode chlorthalidone 25 mg tablet 25 mg PO DAILY celecoxib 100 mg capsule 100 mg PO BID PRN (Reason: pain) magnesium oxide 400 mg (241.3 mg magnesium) tablet 400 mg PO BEDTIME 90 Days Qty: 90 3RF Rx Instructions: may hold for loose stools finasteride [Proscar] 5 mg tablet 5 mg PO DAILY 90 Days Qty: 90 3RF Print Language: Urdu
[2024-12-02 14:16] LABS: NT Pro B Type Natriuretic Pept 38.7 pg/mL (<300)
[2024-12-02 14:19] LABS: Troponin-I High Sensitivity < 2.7 ng/L (<3.5-35.0)
[2024-12-02 15:34] VITALS: BP 118/79; PULSE 57; RESP 18; TEMP 36.6; O2SAT 99
== END 2024-12-02 15:35 | disposition home or self-care (01) ==
PROVIDERS: Emergency Provider Emergency Medicine; PCP Internal Medicine
DX: R07.2 Precordial pain (principal); R07.89 Other chest pain; I10 Essential (primary) hypertension; R06.02 Shortness of breath; Z79.899 Other long term (current) drug therapy; Z87.891 Personal history of nicotine dependence; Z11.52 Encounter for screening for COVID-19
CPT/HCPCS: 71046; 80048; 83735; 83880; 84484; 85025; 85610; 85730; 87502; 87635; 93005; 99283; 99284

== ENCOUNTER → 2024-12-02 11:33 | Outpatient (BNV) | payer OTHER, SELFPAY | PROVIDERS: Emergency Provider Emergency Medicine; PCP Internal Medicine; Visit Provider Internal Medicine Cardiovascular Disease | DX: R94.31 Abnormal electrocardiogram [ECG] [EKG] (principal); R07.9 Chest pain, unspecified | CPT/HCPCS: 93010 ==

== ENCOUNTER → 2024-12-02 13:23 | Outpatient (BNV) | payer OTHER, SELFPAY | PROVIDERS: PCP Internal Medicine; Visit Provider Radiology Diagnostic Radiology | DX: R07.9 Chest pain, unspecified (principal) | CPT/HCPCS: 71046 ==

== ENCOUNTER → 2024-12-16 10:17 | Outpatient (REF) | payer OTHER, SELFPAY ==
--- NOTE | 2024-12-16 10:21 | CA_ITS ---
Transthoracic Echocardiogram Patient (Last, First, Middle): Barrett Gutierrez, Gender: M Date of : 1950 Age: 74 Procedure Date: 12/16/2024 Procedure Type: Transthoracic Echocardiogram Location: OP Height: 170. cm Weight: 81.65 kg BSA: 1.93 m2 Heart Rate: bpm BP: 130 / 70 mmHg Fitter Placer: PATRICIA Powell MD: Kalyani Kilgore SUSTAINABILITY MANAGER-C Lap Runner: Osiel Vogel MD Symptoms: R93.1 - Abnormal findings on diagnostic imaging of heart and coronary ci... Study Quality: Technically Difficult ECG Rhythm: Sinus Conclusions: - 1. Low normal LV ejection fraction 50-55% with impaired relaxation filling pattern 2. Cardiac valvular Dopplers within normal limits 3. Mildly dilated ascending aorta at 4.3 cm 4. Normal RV systolic pressure 5. No gross pericardial effusion Findings Left Ventricle Normal left ventricular cavity size. There is normal left ventricular wall thickness. The left ventricular systolic function is low normal. The visually estimated ejection fraction is between 50-55%. Regional wall motion abnormalities can not be excluded due to suboptimal endocardial definition. Spectral Doppler is indicative of an impaired relaxation filling pattern. Right Ventricle The right ventricle was not well visualized. Atria The left atrium is normal in size. Interatrial shunt cannot be excluded. The right atrium is normal in size. Aortic Valve Normal aortic valve structure and function. There is no aortic valve stenosis. There is no aortic valve regurgitation. Mitral Valve There is mild anterior and posterior mitral leaflet thickening. There is trace mitral valve regurgitation. There is no mitral valve stenosis. Pulmonic Valve The pulmonic valve is likely normal. Tricuspid Valve Likely normal tricuspid valve structure and function. There is trace tricuspid valve regurgitation. The right ventricular systolic pressure is normal. The right ventricular systolic pressure is 18 mmHg. Normal right atrial pressure. There is no evidence of pulmonary hypertension. Great Vessels The pulmonary artery was not well visualized. There is mild dilatation of the ascending aorta measuring 4.30 cm. Venous The inferior vena cava is normal in size and collapses greater than 50% with inspiration. Pericardium/Pleural There is no evidence of pericardial effusion. Measurements 2D Linear Measurements IVSd: 0.82 0.6-0.9/0.6-1.0 cm LVIDd: 4.71 3.9-5.3/4.2-5.9 cm LVIDd Index: 2.44 2.4-3.2/2.2-3.1 cm/m2 LVIDs: 3.15 2.0-3.6 cm LVPWd: 0.88 0.7-1.1 cm Ao Root: 3.50 2.1-3.5 cm LA Diam: 3.60 2.7-3.8/3.0-4.0 cm LAIDs Index: 1.87 1.5-2.3 cm/m2 LV Mass: 165.24 67-162/88-224 g LV Mass Index: 85.62 43-95/49-115 g/m2 LVOT Diam: 2.00 3.0+(-)1.3 cm 2D Systolic Function EF 4C: 50.00 >55% EF 2C: 55.90 >55% EF BiP: 52.60 >55% Mitral Valve MV Pk E: 0.71 MV PK A: 1.17 MV Decel Time: 230.00 E/A: 0.60 E'Lateral: 6.64 E'Medial: 5.00 E/E' Med: 14.10 E/E' Lat: 10.60 PHT: 67.00 MVA PHT: 3.28 Decel Mccone: 3.07 Aortic Valve AoV Pk Austen: 1.19 AoV Mn Austen: 0.80 AoV VTI: 0.23 AoV Pk Grad: 6.00 Aov Mn Grad: 3.00 KATYA Cont.VTI: 2.81 LVOT LVOT Pk Austen: 1.00 LVOT Mn Austen: 0.69 LVOT VTI: 0.21 LVOT Pk Grad: 4.00 LVOT Mn Grad: 2.00 LVOT Diam: 2.00 LVOT Area: 3.14 Diastolic Function MV Pk E: 0.71 MV Pk A: 1.17 E/A: 0.60 E'Medial: 5.00 E/E' Med: 14.10 E' Laterial: 6.64 E/E' Lat: 10.60 Right Ventricle TAPSE (mm): 25.00 TVS' Austen: 14.00 Tricuspid Valve TR Pk Austen: 1.96 TR Pk Grad: 15.00 RA Press: 3.00 RVSP: 18.00 Great Vessels Aorta Ao Root-2D: 3.50 2.0-3.7 cm Ao Asc: 4.30 2.1-3.4 cm Ao Arch: 3.20 Pulmonary Valve PV Pk Austen: 1.02 Peak PV Grad: 4.00 Updated in Other Vendor System with Status of Final Osiel Vogel MD electronically signed on 12/16/2024 5:38:50 PM with status of Final
== END ==
LOC: HO.CARD 10:17
PROVIDERS: PCP Internal Medicine; Visit Provider Nurse Practitioner Family
DX: R93.1 Abnormal findings on diagnostic imaging of heart and coronary circulation (principal); E78.00 Pure hypercholesterolemia, unspecified
CPT/HCPCS: 93306

== ENCOUNTER → 2024-12-16 10:21 | Outpatient (BNV) | payer OTHER, SELFPAY | PROVIDERS: PCP Internal Medicine; Visit Provider Internal Medicine Cardiovascular Disease | DX: I51.89 Other ill-defined heart diseases (principal); I77.810 Thoracic aortic ectasia | CPT/HCPCS: 93306 ==

== ENCOUNTER 2025-01-13 07:34 | Outpatient (AMB) | payer OTHER, SELFPAY ==
--- OUTSIDE RECORDS SUMMARY | 2025-01-13 07:36 | XMS_ITS ---
Author Name Sol BANKS, Mr. Darryl Eason Address [address] [place] [address] Phone [phone] [facility] Care Team Providers Care Wood Milling Machine Hand Name Role Phone Chris Horton Unavailable [phone] Arin Sousa Unavailable LEORA MERCADO Unavailable [phone] Reason for Referral Not Available Allergies, adverse [...] (do not use for phone, instead use [id number]) [facility]11/2022 Essential (primary) hypertensionMixed hyperlipidemiaGastro-esophageal reflux disease without esophagitisAngina pectoris, unspecifiedMajor depressive disorder, single episode, in full remission New patient,40-59min; chronic exacerbation, 2 stable chronic or 1 acute illness add add modifier 95 for video (do not use for phone, instead use 05508-06) [facility] New patient,40-59min; chronic exacerbation, 2 stable chronic or 1 acute illness add add modifier 95 for video (do not use for phone, instead use 79531-43) [facility] New patient,40-59min; chronic exacerbation, 2 stable chronic or 1 acute illness add add modifier 95 for video (do not use for phone, instead use 55277-36) [facility] New patient,40-59min; chronic exacerbation, 2 stable chronic or 1 acute illness add add modifier 95 for video (do not use for phone, instead use 38987-80) [facility] New patient,40-59min; chronic exacerbation, 2 stable chronic or 1 acute illness add add modifier 95 for video (do not use for phone, instead use 03088-26) [facility] New patient,40-59min; chronic exacerbation, 2 stable chronic or 1 acute illness add add modifier 95 for video (do not use for phone, instead use 16540-18) [facility]2022 New patient,40-59min; chronic exacerbation, 2 stable chronic or 1 acute illness add add modifier 95 for video (do not use for phone, instead use 46390-97) [facility]2022 New patient,40-59min; chronic exacerbation, 2 stable chronic or 1 acute illness add add modifier 95 for video (do not use for phone, instead use 25713-50) [facility]2022 New patient,40-59min; chronic exacerbation, 2 stable chronic or 1 acute illness add add modifier 95 for video (do not use for phone, instead use 24711-02) [facility] ([place]2022 Estab. patient 30-39min; chronic exacerbation, 2 stable chronic or 1 acute illness add add modifier 95 for video, (do not use for phone, instead use 20598-67) [facility] ([place] 06[place]04/2023 Essential (primary) hypertensionMixed hyperlipidemiaGastro-esophageal reflux disease [...] (do not use for phone, instead use 35164-59) [facility] Estab. patient 30-39min; chronic exacerbation, 2 stable chronic or 1 acute illness add add modifier 95 for video, (do not use for phone, instead use 91954-85) [facility] ([place] 06[place]04/2023 Estab. patient 30-39min; chronic exacerbation, 2 stable chronic or 1 acute illness add add modifier 95 for video, (do not use for phone, instead use 18328-21) [facility] 06[place]04/2023 Estab. patient 30-39min; chronic exacerbation, 2 stable chronic or 1 acute illness add add modifier 95 for video, (do not use for phone, instead use 04030-10) [facility] ([place] 06[place]04/2023 Estab. patient 30-39min; chronic exacerbation, 2 stable chronic or 1 acute illness add add modifier 95 for video, (do not use for phone, instead use 67005-12) [facility] 06/04/2023 Vital Signs Date of Collection Vitals 2022-08-11 11:06:26 Height - 167.64 cmWe ight - 81.65 kgBody Mass Index (BMI) - 29.05 kg/m2BP Diastolic - 60.0 mm[Hg]BP Systolic - 120.0 mm[Hg] 2023-06-04 10:09:40 Height - 170.18 cmWe ight - 86.18 kgBody Mass Index (BMI) - 29.76 kg/m2 Social History Social History Social History Observation Description Effec tive Time Current Smoking Status Never smoker 7 Sex Male History of Procedures Procedures Service Procedure code Service date Servicing provider Phone# New patient,40-59min; chronic exacerbation, 2 stable chronic or 1 acute illness add add modifier 95 for video (do not use for phone, instead use [id number]) [id number] 2022-08-11 No Data Available No Data Availa [...] (do not use for phone, instead use 05668-02) [id number] 2023-06-04 No Data Available No Data Availa [...] Lisy Lin, another proxy is friend and 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
--- OUTSIDE RECORDS SUMMARY | 2025-01-13 07:37 | XMS_ITS | Clinical Summary ---
Author Organization [employer] Address [address] [facility] 7t [place] [address] Care Team Providers Care Aed Trainer Name Role Phone Elizabeth Gaona KINSEY Primary Care Provider [phone] Arin Reid MD Unavailable Kalyani Kilgore Unavailable [...] 07/09/19 24 Active Blood Glucose Monitoring Suppl (InfraSearch Lite) w/Device kitIndications:E levated glucose Use to test blood sugar 1-3 times daily 1 kit 10/01/19 24 Active FT Gas Relief Ultra Strength [...] 11 10/07/19 25 Active TRUEplus Lancets 33G miscIndications: Elevated glucose USE DIRECTED TO TEST BLOOD SUGAR THREE TIMES DAILY 100 each 11 10/07/19 25 Active metFORMIN XR (Glucophage-XR) 500 MG 24 hr tabletIndication s:Hypertension associated with diabetes (HCC) TAKE 1 TABLET BY MOUTH TWICE DAILY WITH MEALS DO NOT BREAK, CRUSH, DISSOLVE OR CHEW 180 tablet 3 12/03/19 25 Active Aspirin Low Dose 81 MG EC tabletIndication s:Cardiovascular event risk TAKE 1 TABLET BY MOUTH EVERY MORNING 90 tablet 2 12/29/19 25 Active chlorthalidone (Hygroton) 25 MG tabletIndication s:Essential hypertension TAKE 1 TABLET BY MOUTH EVERY MORNING 90 tablet 2 12/29/19 25 Active chlorthalidone (Hygroton) 25 MG tabletIndication s:Essential hypertension TAKE 1 TABLET BY MOUTH EVERY MORNING 90 tablet 2 03/07/20 24 025 Discontinued Aspirin Low Dose 81 MG EC tabletIndication s:Cardiovascular event risk TAKE 1 TABLET BY MOUTH EVERY MORNING 90 tablet 2 03/07/20 24 025 Discontinued Active Problems Problem Noted Date Diagnosed Date Tubular adenoma of colon 12/02/2024 Overview (12/02/2024): scope in NE per pt Diverticulosis 04/18/2024 Overview (04/18/2024): moderate [...] Encounters Date Type Department Care Team Description 12/30/2024 Telephone [facility] [address] [place] [phone] Elizabeth Gaona ANP March12/27/2024 Refill [facility] [address] [place] [address] Elizabeth Gaona ANP Cardiovascular event risk; Essential hypertension 12/05/2024 Telephone [facility] [address] [place] [address] [phone] Lisa Crain RN ER Follow-up 12/02/2024 9:30 AM EDT Office Visit [facility] [address] [place] [phone] Elizabeth Gaona ANP Hypertension associated with diabetes (CMS/HCC) (Primary Dx); Chest pain, unspecified type; Obstructive sleep apnea; Encounter for immunization 12/02/2024 Orders Only [facility] External Provider, [facility] 12/02/2024 Travel 12/02/2024 Refill [facility] [address] [place] [address] [phone] Elizabeth Gaona ANP New onset type 2 diabetes mellitus (CMS/HCC) 11/30/[address] [phone] Elizabeth Gaona ANP chart prep 11/25/2024 Patient Outreach [facility] [address] [place] [address] [phone] Elizabeth Gaona ANP Pre-visit Planning (SDOH screening negative and Tobacco screening negative) from Last 3 Months Immunizations Immunization Administration [...] 12/02/2024 9:49 AM EDT Plan of Treatment Upcoming Encounters Date Type Department Care Team (Late st Contact Info) Description 03/14/2025 11:00 AM EST Office Visit [facility] [address] [place] [address] Elizabeth Gaona ANP [address] [place] [address] Health Maintenance Due Date Last Done Comments [...] Procedure Name Priority Date/Time Associated Diagnosis Comments HIGH SENSITIVITY TROPONIN I Routine 12/02/2024 1:47 PM EDT NT-PROBNP Routine 12/02/2024 1:47 PM EDT MAGNESIUM Routine 12/02/2024 1:47 PM EDT BASIC METABOLIC PANEL Routine 12/02/2024 1:47 PM EDT APTT Routine 12/02/2024 1:47 PM EDT PROTHROMBIN TIME-INR Routine 12/02/2024 1:47 PM EDT CBC WITH AUTO DIFFERENTIAL Routine 12/02/2024 1:47 PM EDT COVID-19 ID NOW (CHAUDHRY) Routine 12/02/2024 1:44 PM EDT INFLUENZA A B2 ID NOW (CHAUDHRY) Routine 12/02/2024 1:44 PM EDT XR CHEST 2 VIEWS Routine [...] Recently Relevant to Health Maintenance Results * High Sensitivity Troponin I (12/02/2024 1:47 PM EDT) [facility] TROPONIN I HIGH SENSITIVITY <2.7 <3.5 - 35.0 ng/L [facility] Comment:The Chaudhry high sens itivity Troponin-I results should beused in conjunction with other diagnostic information suchas ECG, clinical observations and information, and patientsymptoms to aid in the diagnosis of IL. 12/02/2024 1:47 PM EDT 12/02/2024 1:51 PM EDT us Generic External Data Provider LAB BLOOD ORDERAB LES Final Result [facility] [address] [place] [phone] * NT-proBNP (12/02/2024 1:47 PM EDT) [facility] NT-proBNP 38.7 <300 pg/mL [facility] Comment:Reference Range:Age Group (years) NT-proBNP (pg/ml) InterpretationAll <300 Negative: HF unlikelyFor patients presenting to the ED with clinical suspicion ofnew onset or worsening HF, see below:18 to <50 >299.9 to <450.0 Grayzone: [id number] to 75 >299.9 to <900.0 other causes of>75 >299.9 to <1800.0 NT-proBNP [id number] to <50 >449.9 Positive: HF [id number] >899.9>75 >1799.9Note: Elevated NT-proBNP levels should be interpreted inthe context of other clinical information. 12/02/2024 1:47 PM EDT 12/02/2024 1:51 PM EDT us Generic External Data Provider LAB BLOOD ORDERAB LES Final Result [facility] [address] [place] [address] [phone] * (ABNORMAL) CBC auto differential (12/02/2024 1:47 PM EDT) White Blood Count 7.1 4.8 - 10.8 X10*3/uL [facility] Red Blood Count 5.31 4.60 - 5.80 X10*6/uL [facility] Hemoglobin 16.0 14.0 - 18.0 g/dl [facility] Hematocrit 46.2 42.0 - 52.0 % [facility] Mean Corpuscular Volume 87.0 80.0 - 98.0 fL [facility] Mean Corpuscular Hemoglobin 30.1 27.0 - 33.0 pg [facility] Mean Corpuscular HGB Conc 34.6 31.0 - 36.0 g/dl [facility] Red Cell Distribution Width 13.1 11.0 - 16.0 % [facility] Platelet Count 207 160 - 400 X10*3/uL [facility] Mean Platelet Volume 9.1(L) 9.4 - 12.4 fL [facility] Neutrophils Percent Auto 59.0 45 - 73 % [facility] Imm Gran Pct Auto 0.3 0.0 - 0.4 % [facility] Lymphocytes Percent Auto 26.1 20 - 40 % [facility] Monocytes Percent Auto 6.7 2 - 11 % [facility] Eosinophils Percent Auto 7.5(H) 0 - 4 % [facility] Basophils Percent Auto 0.4 0 - 2 % [facility] NRBC Pct Auto 0.0 0.0 - 0.2 /100WBC [facility] Neutrophils Absolute Auto 4.2 2.0 - 8.3 x10*3/uL [facility] Imm Gran Abs Auto 0.02 0.00 - 0.03 X10*3/uL [facility] Lymphocytes Absolute Auto 1.8 1.2 - 4.9 X10*3/uL [facility] Monocytes Absolute Auto 0.5 0.1 - 1.2 X10*3/uL [facility] Eosinophils Absolute Auto 0.5(H) 0.0 - 0.4 X10*3/uL [facility] Basophils Absolute Auto 0.0 0.0 - 0.2 X10*3/uL [facility] NRBC Abs Auto 0.000 0.0 - 0.012 X10*3/uL [facility] 12/02/2024 1:47 PM EDT 12/02/2024 1:51 PM EDT Generic External Data Provider LAB BLOOD ORDERAB LES Final Result Performing Organization Address City/[facility]/ZIP Co de Phone Number [facility] [address] [place] [phone] * Partial Thromboplastin Time, Activated (APTT) (12/02/2024 1:47 PM EDT) Partial Thromboplastin Time 28.5 26.7 - 34.1 SEC [facility] 12/02/2024 1:47 PM EDT 12/02/2024 1:51 PM EDT Generic External Data Provider LAB BLOOD ORDERAB LES Final Result Performing Organization Address [facility] Co de Phone Number [facility] [address] [place] [phone] * (ABNORMAL) Prothrombin Time-INR (12/02/2024 1:47 PM EDT) Prothrombin Time 10.6(L) 10.9 - 12.4 SEC [facility] INTERNATIONAL NORM RATIO 0.9 0.9 - 1.1 [facility] Comment:INTERNATIONAL NORMAL IZED RATIO (INR) REFERENCE RANGES Reference RangeFor patients not on anticoagulant therapy: 0.9 - 1.1INR ranges for oral anticoagulanttherapy:For prevention and treatment of venous thrombosis and pulmonary embolism: 2.0 - 3.0For acute myocardial infarction with aspirin therapy: 2.0 - 3.0For acute myocardial infarction without aspirin therapy: 3.0 - 4.0For patients with mechanical prosthetic heart valves: 2.5 - 3.5 12/02/2024 1:47 PM EDT 12/02/2024 1:51 PM EDT Generic External Data Provider LAB BLOOD ORDERAB LES Final Result Performing Organization Address [facility] Co de Phone Number [facility] [address] [place] [phone] * Magnesium (12/02/2024 1:47 PM EDT) Pathologist [facility] Magnesium 2.1 1.6 - 2.6 mg/dL [facility] 12/02/2024 1:47 PM EDT 12/02/2024 1:51 PM EDT [employer] External Data Provider LAB BLOOD ORDERAB LES Final Result Performing Organization Address [facility] de Phone Number [facility] [address] [place] [address] [phone] * (ABNORMAL) Basic Metabolic Panel (12/02/2024 1:47 PM EDT) Pathologist [facility] Sodium 139 135 - 145 mmol/L [facility] Potassium 4.6 3.3 - 5.1 mmol/L [facility] Chloride 105 96 - 108 mmol/L [facility] Carbon Dioxide 29 22 - 29 mmol/L [facility] Anion Gap 10(L) 12 - 20 [facility] Urea Nitrogen (BUN) 11 9 - 16 mg/dL [facility] Creatinine, Serum 1.05 0.5 - 1.4 mg/dL [facility] Creatinine Clr Calc Pharmacy 67.2 [facility] Comment:eGFR (calculated fro m the MDRD study equation) and eCrCl(calculated from the Cockcroft-Gault equation) are based ondifferent parameters and may not yield comparable results.If eCrCl result is absurd, please check patient'sheight/weight. Estimated Glomerular Filt Rate >60 [facility] Comment:Chronic Kidney Disea se: Estimated GFR < 60 mL/min/1.44w4Qagcsf Kidney Disease: Estimated GFR < 15 mL/min/1.73m2 Glucose 121(H) 60 - 115 mg/dL [facility] Calcium 9.5 8.4 - 10.2 mg/dL [facility] 12/02/2024 1:47 PM EDT 12/02/2024 1:51 PM EDT us Generic External Data Provider LAB BLOOD ORDERAB LES Final Result [facility] [address] [place] [address] [phone] * Influenza A B2 ID NOW ([place]) (12/02/2024 1:44 PM EDT) IDNOW SERIAL# [id number] [facility] Influenza A Negative Negative [facility] Influenza B2 Negative Negative [facility] Influenza A B2 Note See Note [facility] Comment:The Chaudhry ID NOW In fluenza A B2 test is used for thequalitative detection of influenza A and B from patientswith signs and symptoms of respiratory infection.Negative results do not preclude influenza virus infectionand should not be used as the sole basis for diagnosis,treatment or other patient management decisions.There is a risk of false negative results due to thepresence of variants in the viral targets of the assay, lowlevels of virus in the specimen and co- infection withRespiratory Syncytial Virus. 12/02/2024 1:44 PM EDT 12/02/2024 1:51 PM EDT us Generic External Data Provider LAB MICROBIOLOGY - GENERAL ORDERABLES Final Result Performing Organization Address [facility]/ZIP Co de Phone Number [facility] [address] [place] [phone] * COVID-19 ID NOW (CHAUDHRY) (12/02/2024 1:44 PM EDT) IDTONOW SERIAL# [id number] [facility] COVID-19 TEST Negative Negative [facility] COVID-19 NOTE See Note [facility] Comment: Results are for the identification of SARS-CoV2 RNA. TheSARS-CoV2 RNA is generally detectable in respiratory samplesduring the acute phase of infection. Positive results areindicative of the presence of SARS-CoV-2 RNA; clinicalcorrelation with patient history and other diagnosticinformation is necessary to determine patient infectionstatus. Positive results do not rule out bacterial infectionor co- infection with other viruses.Testing facilities within the [facility] and itsterritories are required to report all positive results tothe appropriate public health authorities.Negative results should be treated as presumptive and, ifinconsistent with clinical signs and symptoms or necessaryfor patient management, should be tested with differentauthorized or cleared molecular tests. Negative results donot preclude SARS-CoV2 RNA infection and should not be usedas the sole basis for patient management decisions. Negativeresults should be considered in the context of a patient'srecent exposures, history and the presence of clinical signsand symptoms consistent with COVID-19.This test has been authorized by the FDA under an EmergencyUse Authorization (EUA) for use by authorized laboratories.Testing performed on the Chaudhry ID NOW utilizing NAAT. 12/02/2024 1:44 PM EDT 12/02/2024 1:51 PM EDT us Generic External Data Provider LAB MOLECULAR FIONA GNOSTICS ORDERABLES Final Result Performing Organization Address [facility]/ZIP Co de Phone Number [facility] [address] [place] [phone] * XR Chest 2 Views (12/02/2024 1:35 PM EDT) Anatomical Region Laterality Modality Chest Radiographic Rose Mary ging 12/02/2024 1:35 PM EDT Narrative 12/02/2024 1:49 PM EDT [address] [address] XRay Report Signed Patient: Barrett Gutierrez MR#: [id number] : 1950 Acct:[id number] Age/Sex: 74 / M ADM Date: 12/02/24 Loc: HO.ED Attending Dr: Ordering Physician: Generic ED Physician Date of Service: 12/02/24 Procedure(s): XR chest 2V Accession Number(s): [id number] cc: Dashawn Tavarez MD; Generic ED Physician [...] 12/02/24 1346 DD/ 1335 TD/TT: 12/02/24 1340 Bread Room Hand: Procedure Note Donotuseinterpreter, Image - 12/02/[address] [address] XRay Report Signed Patient: Barrett GutierrezMR#: [id number] : 1950cct:[id number] Age/Sex: 74 / MADM Date: 12/02/24 Loc: HO.ED Attending Dr: Ordering Physician: Generic ED Physician Date of Service: 12/02/24 Procedure(s): XR chest 2V Accession Number(s): [id number] cc: Dashawn Tavarez MD; Generic ED Physician [...] Hendricks MD 12/02/2024 01:46 PM EDT RP Workstation: [id number] Dictated By: Erich Hendricks MD Signed By: <Electronically signed by Erich Hendricks MD in OV> 12/02/24 1346 DD/ 1335 TD/TT: 12/02/24 1340 Bread Room Hand: [facility] External Provider IMG XR PROCEDURES Final Result * ECG 12 lead (12/02/2024 10:35 AM EDT) Narrative Elizabeth Gaona ANP - 12/02/2024 10:35 AM EDT HR 59, QT/QTC 406/405, NE 186; poor r-wave progression, aVF QRS downward inflecting vs previous, T wave changes Elizabeth EUCEDA ECG ORDERABLES Final Result * (ABNORMAL) POCT Hgb A1c (12/02/2024 9:51 AM EDT) Pathologist [facility] Hemoglobin A1C 7.2(A) 4.0 - 5.7 % QC Media Lot # [id number] Lot# Expiration Date [id number] Blood 12/02/2024 9:51 AM EDT Elizabeth Gaona ANP POINT OF CARE TEST ENTER/EDIT OR DERABLES Final Result * POCT Glucose (12/02/2024 9:50 AM EDT) [facility] Glucose Blood, POC 113 60 - 200 mg/dL QC Media Lot # [id number] Lot# Expiration Date [id number] Blood Capillary blood specimen / Unknown 12/02/2024 9:50 AM EDT Elizabeth Gaona ANP POINT OF CARE TEST ENTER/EDIT OR DERABLES Final Result * (ABNORMAL) Hm Colonoscopy (2024) Colonoscopy Abnormal( A) Normal Comment:tubular denomas 2024 Historical Provider MD HEALTH MAINTENANCE Final Result * (ABNORMAL) Albumin, Random Urine W/Creatinine (04/18/2024 1:30 PM EST) Creatinine, Urine 111.69 mg/dL [facility] Microalbumin Urine 40.0 mg/L [facility] Microalbum Creatinine Ratio Ur 35.8(H) <30 ug/mg cr [facility] Comment:Albumin/Creatinine R atio Reference Ranges: Normal: < 30 ug/mg creatinine Microalbuminuria: 30 - 300 ug/mg creatinineClinical Albuminuria: > 300 ug/mg creatinine Urine 04/18/2024 1:30 PM EST 04/18/2024 4:59 PM EST Elizabeth Gaona ANP LAB URINE ORDERABLES Final Resul t Performing Organization Address City/State/[facility] Co de Phone Number [facility] [address] [place] [phone] * (ABNORMAL) LIPID PANEL, STANDARD (05/24/2021 [...] LDL-C. Dave EUCEDA et al. JB. 2013;310(19): 0373-4523 (http://education.MMIT/faq/QWE146) Non-HDL Cholesterol 140(H) <130 mg/dL (calc) [facility] Comment: For patients with diabetes plus 1 major ASCVD risk factor, treating to a non-HDL-C goal of <100 mg/dL (LDL-C of <70 mg/dL) is considered a therapeutic option. Triglycerides 111 <150 mg/dL [facility] 05/24/2021 11:3 3 AM EDT us Elizabeth Gaona [facility] LAB BLOOD ORDERABLES Final Resul t [facility] [address] from Last 3 Months or Most Recently Relevant to Health Maintenance Insurance [employer] (O D-SNP) Care Teams Aed Trainer Relationship Specialty Start Date End Date Elizabeth Gaona ANP [address] [place] [address] PCP - General Family Medicine 05/06/21 Arin Reid MD [address] [place] [address] Urology 02/22/24 Kalyani Kilgore [address] 3rd [place] [address] Cardiology 02/22/24 Flor Alessandra [address]rd [place] [address] Gastroenterology 02/22/24
--- OUTSIDE RECORDS SUMMARY | 2025-01-13 07:37 | XMS_ITS | Encounter Summary ---
Author Organization [employer] Address [address] [facility] 7t [place] [address] Care Team Providers Care Stock Saw Operator Name Role Phone Elizabeth Gaona Primary Care Provider [phone] Arin Reid MD Unavailable Kalyani Kilgore Unavailable Flor June Unavailable Reason for Visit * Reason Onset Date Comments Nurse Triage 07/10/2023 Encounter Details Date Type Department Care Team (Late st Contact Info) Description 07/10/2023 Telephone [facility] [address] [place], [place] [phone] Elizabeth Gaona ANP [address] [place], [place] [phone] Nurse Triage Social History Tobacco Use Types [...] pt to triage, spoke to pt through [employer] phlebotomist supervisor/instructor. pt states seen ER today (07/09) for [...] > 50 years * No doctor (or HAND STEMMER/PA) exam for rectal bleeding in past year [...] for follow up Please contact pt at [phone] documented in this encounter Plan of Treatment Upcoming Encounters Date Type Department Care Team (Late st Contact Info) Description 03/14/2025 11:00 AM EST Office Visit [facility] [address] [place] [address] Elizabeth Gaona ANP [address] [place] [address] documented as of this encounter Visit Diagnoses Not on filedocumented in this encounter Care Teams Stock Saw Operator Relationship Specialty Start Date End Date Elizabeth Gaona ANP [address] [place] [address] PCP - General Family Medicine 05/06/21 Arin Reid MD [address] [place] [address] Urology 02/22/24 Kalyani Kilgore [address] [place] [address] Cardiology 02/22/24 Alessandra Ray [address] 3rd [place] [address] Gastroenterology 02/22/24 documented as of this encounter
--- OUTSIDE RECORDS SUMMARY | 2025-01-13 07:37 | XMS_ITS | Encounter Summary ---
Author Organization [employer] Address [address] [facility] 7t [place] [address] Care Team Providers Care Stock Raiser Name Role Phone Elizabeth Gaona Primary Care Provider [phone] Arin Reid MD Unavailable Kalyani Kilgore Unavailable Flor Alessandra Unavailable Encounter Details Date Type Department Care Team (Late st Contact Info) Description 06/10/2022 Orders Only [facility] [address] [place] [address] [phone] Elizabeth Gaona ANP [address] [place], [place] [phone] Social History Tobacco Use Types Packs/Day Years [...] Description 03/14/2025 11:00 AM EST Office Visit [facility] [address] [place] [address] [phone] Elizabeth Gaona ANP [address] [place] [address] documented as of this encounter Visit Diagnoses Not on filedocumented in this encounter Care Teams Stock Raiser Relationship Specialty Start Date End Date Elizabeth Gaona ANP [address] [place] [address] PCP - General Family Medicine 05/06/21 Arin Reid MD [address] [place] [address] Urology 02/22/24 Kalyani Kilgore [address] [place] [address] Cardiology 02/22/24 Alessandra Ray [address] [place] [address] Gastroenterology 02/22/24 documented as of this encounter
--- OUTSIDE RECORDS SUMMARY | 2025-01-13 07:37 | XMS_ITS | Encounter Summary ---
Author Organization [employer] Address [address] [facility] 7t [place] [address] Care Team Providers Care Attendant [facility] Name Role Phone Elizabeth Gaona Primary Care Provider [phone] Arin Reid MD Unavailable Kalyani Kilgore Unavailable Flor June Unavailable Encounter Details Date Type Department Care Team (Late st Contact Info) Description 12/02/2024 Refill [facility] [address] [place], [place] [phone] Elizabeth Gaona ANP [address] [place], [place] [phone] New onset type 2 diabetes mellitus (CMS/HCC) [...] Description 03/14/2025 11:00 AM EST Office Visit [facility] [address] [place] [place] [address] Elizabeth Gaona ANP [address] [place] [address] documented as of this encounter Visit Diagnoses Diagnosis New onset type 2 diabetes mellitus (HCC) documented in this encounter Additional Health Concerns Assessment Noted Time PHQ-9 Depression Total Score: 8 12/03/19 25 9:53 AM EDT documented as of this encounter Care Teams Attendant [facility] Relationship Specialty Start Date End Date Elizabeth Gaona ANP [address] [facility] [place] [address] PCP - General Family Medicine 05/06/21 Arin Reid MD [address] [place] [address] Urology 02/22/24 Kalyani Kilgore [address] [facility] 3rd [place] [address] Cardiology 02/22/24 Alessandra Ray [address] [facility] [address]rd [place] [address] Gastroenterology 02/22/24 documented as of this encounter
--- NOTE | 2025-01-13 08:12 | MHC.OFFVIS ---
Vital Signs 01/13/25 08:14 Height 5 ft 7 in Weight 194 lb 0.108 oz BMI 30.4 BP 100/70 Blood Pressure Location Lt brachial Position Sitting Pulse 67 Pulse Source Pulse Oximeter Intake Visit Reasons: Follow up after testing Provisioning Analyst Required: Yes Provisioning Analyst Language: [employer] Farmer Name: [id number] Accompanied by: Self / Same As Patient Allergies cortisone Allergy (Unverified 12/02/24 11:44) Itching Medication List - Last Reconciled 01/13/25 by Kalyani Kilgore NP-C aspirin (Adult Aspirin Regimen) 81 mg PO DAILY atorvastatin 40 mg PO DAILY celecoxib 100 mg PO BID PRN chlorthalidone 25 mg PO DAILY cholecalciferol (vitamin D3) 1,250 mcg PO QWEEK 12 weeks finasteride (Proscar) 5 mg PO DAILY 90 days lisinopril 10 mg PO DAILY 90 days magnesium oxide 400 mg PO BEDTIME 90 days nitroglycerin 0.3 mg sublingual Q5M PRN omeprazole 40 mg PO QAM simethicone (Gas Relief (simethicone)) 180 mg PO QID tamsulosin 0.4 mg PO BEDTIME HPI HPI Follow up after testing: Details: Barrett is a 74-year-old male with past medical history hypertension, hyperlipidemia, mildly dilated ascending aorta, low normal EF, atypical chest discomfort who was recently seen in the emergency room following an episode of chest discomfort. He ruled out for ACS and now presents for follow-up. Today he reports that he had an episode of chest tightness and took nitroglycerin. He says he gets this sometimes but not often. He is very vague in describing this and offering details. He denies shortness of breath, PND, orthopnea or edema. No lightheadedness, presyncope, syncope, falls. At times he still rides his bike around his neighborhood which he says he tolerates well. Has knee pain which makes stair climbing difficult. He uses the elevator to get to his apartment. He takes all his meds as directed. 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 [facility] Medical History Prostate cancer HTN (hypertension) High cholesterol Severe obstructive sleep apnea Personal history of nicotine dependence GERD (gastroesophageal reflux disease) Tubular adenoma of colon BPH associated with nocturia Depression Arthritis Shoulder pain, left Surgical History History of colonoscopy History of prostate biopsy History of esophagogastroduodenoscopy (EGD) History of inguinal hernia repair Family History Mother Asthma Alzheimer disease Cancer Father Asthma Brother Cancer Father Heart disease Social History Household Members: None 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 Housing: Apartment Are you a primary manager of care to a significant other at home: No Do you presently have visiting nurse or other home services: Yes (SALON MANAGER) Alcohol intake: former Patient Tobacco Use Status: Former Tobacco user Tobacco use type: Cigarette Years Smoked: (onset 18yo, 03/12-1/2ppd x 51yrs, 20pyh - quit 2020) Current occupational status: disabled Current occupation: rt handed Review of Systems Const All systems reviewed & are unremarkable except as noted in HPI and below Denies chills, Denies fatigue, Denies fever(s), Denies frequent falls, Denies weakness, Denies weight gain and Denies weight loss ENT Denies dizziness Card Reports chest pain (tightness), Denies leg edema, Denies lightheadedness, Denies palpitations, Denies dyspnea and Denies dyspnea on exertion Resp Denies cough, Denies dyspnea and Denies dyspnea on exertion GI Denies hematochezia Musc Denies abnormal gait, Denies muscle weakness, Denies numbness, Denies radiating pain into limb and Denies tingling Neuro Denies abnormal gait, Denies dizziness, Denies frequent falls, Denies numbness, Denies tingling and Denies weakness Endo Denies fatigue and Denies palpitations Physical Exam Vital Signs: Last Vital Signs Pulse 67 01/13/25 08:14 BP 100/70 01/13/25 08:14 BMI result Body Mass Index 30.4 Const General: cooperative, healthy appearing, comfortable and no acute distress Orientation/consciousness: patient oriented x3 Neck Neck: Yes normal visual inspection and Yes no JVD Resp Effort & Inspection: normal respiratory effort Auscultation: clear to auscultation bilaterally, no crackles, no rales, no rhonchi and no wheezes Cardio Jugular venous distension: no JVD Rate: regular rate Rhythm: regular rhythm Heart sounds: S1 normal heart sound present, S2 normal heart sound present, no gallops, no murmurs and no rubs Neuro General: patient oriented x3 Extrem General: Yes normal to inspection, No no pedal edema and No calf tenderness Psych Appearance: grossly normal Mental Status: mental status grossly normal Speech and movement: Normal speech and movement present Assessment & Plan Assessment & Plan (1) Atypical chest pain: Code(s): R07.89 - Other chest pain Category: Medical Plan: Prior Report of atypical chest discomfort, with cardiac evaluation showing low normal EF, normal nuclear stress test 10/26/2024. Recent ER evaluation for chest discomfort that he had at home and was relieved with 1 nitroglycerin. He ruled out for ACS. He has cardiac risk factors of hypertension and hyperlipidemia. A CT scan of the chest done 06/03/2024 shows mild three-vessel coronary calcification. His EKG shows sinus rhythm, can not exclude prior anterior infarct. An echocardiogram was done on 12/16/2024 showing EF 50-55%, regional wall motion abnormality could not be excluded due to suboptimal endocardial definition. At this time will check a CTA of the coronary arteries for further evaluation. Will order BNP, lipids. Continue aspirin, atorvastatin, lisinopril. Signs and symptoms of angina reviewed with him. ED care if needed for symptoms. Cardiology follow-up 3 months, sooner if needed. (2) HTN (hypertension): Code(s): I10 - Essential (primary) hypertension Category: Medical Plan: Blood pressure goal less than 130/80. Low normal at this time, asymptomatic. Labs 12/02/2024 showed potassium 4.6, creatinine 1.05. Continue chlorthalidone and lisinopril. (3) Ascending aorta dilatation: Code(s): I77.810 - Thoracic aortic ectasia Category: Medical Plan: echocardiogram last year showed ascending aorta 4.2 cm. Recent repeat echocardiogram showing ascending aorta 4.3 cm. Blood pressure controlled. On statin. Will follow with annual ECHO. (4) High cholesterol: Code(s): E78.00 - Pure hypercholesterolemia, unspecified Category: Medical Plan: LDL goal less than 70 in patient with coronary calcifications/ CAD. He is on atorvastatin 40 mg daily. No recent cholesterol profile for review. Labs entered. (5) Abnormal echocardiogram findings without diagnosis: Code(s): R93.1 - Abnormal findings on diagnostic imaging of heart and coronary circulation Category: Medical Plan: Low normal EF. No clinical signs of heart failure. Checking CTA to assess for obstructive coronary disease. (6) Hospital discharge follow-up: Code(s): Z09 - Encounter for follow-up examination after completed treatment for conditions other than malignant neoplasm Category: Medical Plan: [facility] ED records reviewed Plan I discussed with the patient the importance of monitoring his cardiovascular symptoms, especially given the recent episodes of chest discomfort. We reviewed the results of his recent tests, including the normal findings from the ER visit and the mild calcification noted on the CT scan. I recommended a follow-up CAT scan of the heart arteries to further evaluate any potential risks and advised him to seek emergency care if symptoms recur or worsen. Orders: Orders CT Cardiac Coronary Angio Today I25.10 - Atherosclerotic heart disease of [place] coronary artery without angina pectoris Lipid Panel Today I25.10 - Atherosclerotic heart disease of [place] coronary artery without angina pectoris Comprehensive Met. Panel Today I25.10 - Atherosclerotic heart disease of [place] coronary artery without angina pectoris Patient Instructions: - Continue taking medications as prescribed. - Monitor for any recurrence of chest discomfort or tachycardia. - Seek emergency care if symptoms worsen or do not resolve with nitroglycerin. - Attend the scheduled CAT scan of the heart arteries at [facility]. Patient was informed and verbally consented to the use of an ambient scribe for clinic note documentation during this visit. Visit time spent on chart review, interview, assessment, orders, documentation. Coding Level of Care Code Est Pt Level 4 (97371) Complex EM visit Add On G2211 Diagnoses Atypical chest pain R07.89 HTN (hypertension) I10 Ascending aorta dilatation I77.810 High cholesterol E78.00 Abnormal echocardiogram findings without diagnosis R93.1 Hospital discharge follow-up Z09 Time Spent (min) 28
[2025-01-13 08:14] VITALS: BP 100/70; PULSE 67; BMI 30.4
== END 2025-01-13 08:47 | disposition home or self-care (01) ==
LOC: HO.HCS 07:35
PROVIDERS: PCP Internal Medicine; Visit Provider Nurse Practitioner Family
DX: R07.89 Other chest pain (principal); I10 Essential (primary) hypertension; I77.810 Thoracic aortic ectasia; E78.00 Pure hypercholesterolemia, unspecified; R93.1 Abnormal findings on diagnostic imaging of heart and coronary circulation; Z09 Encounter for follow-up examination after completed treatment for conditions other than malignant neoplasm
CPT/HCPCS: 99214; G2211

== ENCOUNTER → 2025-01-13 07:34 | Outpatient (BNVA) | payer OTHER, SELFPAY | PROVIDERS: PCP Internal Medicine; Visit Provider Nurse Practitioner Family | DX: Z09 Encounter for follow-up examination after completed treatment for conditions other than malignant neoplasm (principal); R07.89 Other chest pain; I10 Essential (primary) hypertension; I77.810 Thoracic aortic ectasia; E78.00 Pure hypercholesterolemia, unspecified; R93.1 Abnormal findings on diagnostic imaging of heart and coronary circulation | CPT/HCPCS: 99212 ==